=== PATIENT | female | born 1995 | race American Indian/Alaskan Native ===

== ENCOUNTER 2022-08-10 13:10 | Outpatient (OUT) | payer BC, SELFPAY ==
--- NOTE | 2022-08-10 13:12 | US_ITS ---
The [address] [address] Patient Name: LOUISE BROTHERS MRN: [id number] date: 1995 Sex: F Assigned Patient Location: US Current Patient Location: US Accession/Order Number: [id number] Exam Date: 08/10/2022 13:30 Report Date: 08/10/2022 15:38 At the request of: TIM JOYNER Procedure: US OB transvaginal EXAMINATION: US OB transvaginal HISTORY: Positive preg test COMPARISON: No relevant comparison available. FINDINGS: GESTATIONAL SAC: Present and normal appearing. YOLK SAC: Present and normal appearing. POLE: Present and normal appearing. CARDIAC: Present. UTERUS: Normal size and appearance. OVARIES: Right: Normal. Left: Not seen. CERVIX: 5.6 cm in length and closed. CUL-DE-SAC: Normal. OTHER: 2.8 x 2.5 x 1.9 cm cystic structure within right adnexa which appears to be separate from the right ovary and uterus. AGE BY LMP: 9 weeks 6 days JOSE BY LMP: 03/09/2023 AGE BY US CRL: 9 weeks 2 days JOSE BY US CRL: 03/13/2023 IMPRESSION: 1. Single live intrauterine . 2. Nonspecific right adnexal cyst, but favoring benign etiology such as a paraovarian cyst. Electronically authenticated by: FABIAN MOSER Date: 08/10/2022 15:38
== END 2022-08-10 13:11 ==
PROVIDERS: PCP Obstetrics & Gynecology; Visit Provider Obstetrics & Gynecology
DX: Z34.91 Encounter for supervision of normal pregnancy, unspecified, first trimester (principal); Z3A.09 9 weeks gestation of pregnancy
CPT/HCPCS: 76817

== ENCOUNTER 2022-09-02 09:43 | Outpatient (OUT) | payer BC, SELFPAY ==
[2022-09-02 10:20] LABS: Basophils Percent Auto 0.4 % (0.2-2.0); Eosinophils Absolute Auto 0.1 10^3/uL (0.0-0.7); Eosinophils Percent Auto 0.8 % (0.9-7.0); Hematocrit 38.9 % (36.0-48.0); Hemoglobin 13.1 g/dL (12.0-16.0); Immature Granulocytes Abs Auto 0.04 10^3/uL (0.00-0.03); Immature Granulocytes Pct Auto 0.5 % (0.0-0.5); Lymphocytes Absolute Auto 1.7 10^3/uL (1.2-3.8); Lymphocytes Percent Auto 21.8 % (20.5-60.0); Mean Corpuscular HGB Conc 33.7 g/dL (29.9-35.2); Mean Corpuscular Volume 89.2 fL (81.0-99.0); Mean Platelet Volume 10.3 fL (9.5-13.5); Monocytes Absolute Auto 0.4 10^3/uL (0.3-0.8); Monocytes Percent Auto 4.7 % (1.7-12.0); Neutrophils Absolute Auto 5.6 10^3/uL (1.4-6.5); Neutrophils Percent Auto 71.8 % (43.0-75.0); Platelet Count 206 10^3/uL (150-450); Red Blood Count 4.36 10^6/uL (4.20-5.40); Red Cell Distribution Width 12.5 % (11.0-15.0); White Blood Count 7.8 10^3/uL (4.0-11.0)
[2022-09-02 10:45] LABS: Estimated Average Glucose 88 mg/dL; Glycohemoglobin A1C 4.7 % (4.5-6.2)
[2022-09-02 11:04] LABS: Thyroid Stimulating Hormone 2.345 uIU/mL (0.358-3.740)
[2022-09-03 08:16] LABS: HBsAg Screen Negative (Negative); Rubella Antibodies, IgG 2.21 index (Immune >0.99)
[2022-09-03 09:07] LABS: HIV Ab/p24 Ag Screen Non Reactive (Non Reactive); Rapid Plasma Reagin, Quant Non Reactive (NonRea<1:1)
[2022-09-03 10:08] LABS: HCV Ab Non Reactive (Non Reactive)
== END 2022-09-02 09:44 | disposition home or self-care (01) ==
PROVIDERS: PCP Family Medicine; Visit Provider Obstetrics & Gynecology
DX: N92.6 Irregular menstruation, unspecified (principal)
CPT/HCPCS: 36415; 83036; 84443; 85025; 86592; 86762; 86803; 86850; 86900; 86901; 87340; 87389

== ENCOUNTER 2022-10-05 10:11 | Outpatient (OUT) | payer BC, SELFPAY ==
[2022-10-10 16:09] LABS: AFP Value 42.5 ng/mL (.); Gest. Age on Collection Date 17.9 weeks (.); Gestat. Age Based On Ultrasound (.); Insulin Dep Diabetes No (.); Maternal Age At EDD 27.8 yr (.); OSBR Risk 1 IN 6499 (.); Results Report (.)
[2022-10-11 10:09] LABS: Age Gdln ACOG Testing Note (.); IGP, rfx Aptima HPV ASCU Note (.)
== END 2022-10-05 10:12 | disposition home or self-care (01) ==
LOC: LAB 10:12
PROVIDERS: PCP Family Medicine; Visit Provider Obstetrics & Gynecology
DX: Z34.92 Encounter for supervision of normal pregnancy, unspecified, second trimester (principal)
CPT/HCPCS: 36415; 82105; G0145

== ENCOUNTER 2022-10-23 08:00 | Outpatient (OUT) | payer BC, SELFPAY ==
--- NOTE | 2022-10-23 | US_ITS ---
[address] [address] Patient Name: LOUISE BROTHERS MRN: [id number] date: 1995 Sex: F Assigned Patient Location: US Current Patient Location: US Accession/Order Number: [id number] Exam Date: 10/23/2022 08:03 Report Date: 10/23/2022 15:40 At the request of: TIM JOYNER Procedure: US OB transvaginal EXAMINATION: US OB anatomy, US OB transvaginal HISTORY: ANATOMY COMPARISON: No relevant comparison available. TECHNIQUE: Transabdominal sonographic examination was performed for obstetrical and evaluation. FINDINGS: Number: 1 Heart Rate: 142.0 bpm H.B. /min Amniotic Fluid Volume: Subjectively normal Placental Location: ANTERIOR with lower margin 6.3 cm from os. Cervix Length: 5.1 cm; closed. ANATOMY: Normal Structures -cerebellum, choroid plexus, cisterna magna, lateral cerebral ventricles, orbits, midline falx, hard palate, four-chamber heart, RVOT, LVOT, stomach, kidneys, bladder, umbilical cord insertion into abdomen, three-vessel cord, cervical spine, thoracic spine, lumbar spine, sacral spine, right upper extremity, left upper extremity, right lower extremity, left lower extremity. SUBOPTIMALLY SEEN: None ABNORMALITIES: None BIOMETRY: BPD: 4.6 cm 19 weeks 5 days HC: 17.3 cm 19 weeks 6 days AC: 15.2 cm 20 weeks 3 days FL: 3.5 cm 21 weeks 1 days EFW:368.6 grams; 58% FL/AC: 23.2 FL/BPD: 77.6 HC/AC: 1.1 GESTATIONAL AGE: Age by EDC: 20 weeks 3 days JOSE by EDC: 03/09/2023 Age by current US: 20 weeks 2 days JOSE by current US: 03/10/2023 US/US OB transvaginal IMPRESSION: 1. Single live intrauterine with growth detailed above. Electronically authenticated by: FABIAN MOSER Date: 10/23/2022 15:40
--- NOTE | 2022-10-23 | US_ITS ---
[address] [address] Patient Name: LOUISE BROTHERS MRN: [id number] date: 1995 Sex: F Assigned Patient Location: US Current Patient Location: US Accession/Order Number: [id number] Exam Date: 10/23/2022 08:03 Report Date: 10/23/2022 15:40 At the request of: TIM JONYER Procedure: US OB anatomy EXAMINATION: US OB anatomy, US OB transvaginal HISTORY: ANATOMY COMPARISON: No relevant comparison available. TECHNIQUE: Transabdominal sonographic examination was performed for obstetrical and evaluation. FINDINGS: Number: 1 Heart Rate: 142.0 bpm H.B. /min Amniotic Fluid Volume: Subjectively normal Placental Location: ANTERIOR with lower margin 6.3 cm from os. Cervix Length: 5.1 cm; closed. ANATOMY: Normal Structures -cerebellum, choroid plexus, cisterna magna, lateral cerebral ventricles, orbits, midline falx, hard palate, four-chamber heart, RVOT, LVOT, stomach, kidneys, bladder, umbilical cord insertion into abdomen, three-vessel cord, cervical spine, thoracic spine, lumbar spine, sacral spine, right upper extremity, left upper extremity, right lower extremity, left lower extremity. SUBOPTIMALLY SEEN: None ABNORMALITIES: None BIOMETRY: BPD: 4.6 cm 19 weeks 5 days HC: 17.3 cm 19 weeks 6 days AC: 15.2 cm 20 weeks 3 days FL: 3.5 cm 21 weeks 1 days EFW:368.6 grams; 58% FL/AC: 23.2 FL/BPD: 77.6 HC/AC: 1.1 GESTATIONAL AGE: Age by EDC: 20 weeks 3 days JOSE by EDC: 03/09/2023 Age by current US: 20 weeks 2 days JOSE by current US: 03/10/2023 US/US OB anatomy IMPRESSION: 1. Single live intrauterine with growth detailed above. Electronically authenticated by: FABIAN MOSER Date: 10/23/2022 15:40
== END 2022-10-23 08:01 | disposition home or self-care (01) ==
LOC: US 08:01
PROVIDERS: PCP Family Medicine; Visit Provider Obstetrics & Gynecology
DX: Z34.92 Encounter for supervision of normal pregnancy, unspecified, second trimester (principal)
CPT/HCPCS: 76805; 76817

== ENCOUNTER 2022-12-11 10:22 | Outpatient (OUT) | payer BC, SELFPAY ==
[2022-12-11 12:04] LABS: Basophils Percent Auto 0.5 % (0.2-2.0); Eosinophils Absolute Auto 0.1 10^3/uL (0.0-0.7); Eosinophils Percent Auto 1.4 % (0.9-7.0); Hematocrit 33.9 % (36.0-48.0); Hemoglobin 11.1 g/dL (12.0-16.0); Immature Granulocytes Abs Auto 0.04 10^3/uL (0.00-0.03); Immature Granulocytes Pct Auto 0.5 % (0.0-0.5); Lymphocytes Absolute Auto 1.7 10^3/uL (1.2-3.8); Lymphocytes Percent Auto 21.8 % (20.5-60.0); Mean Corpuscular HGB Conc 32.7 g/dL (29.9-35.2); Mean Corpuscular Hemoglobin 30.3 pg (26.7-34.0); Mean Corpuscular Volume 92.6 fL (81.0-99.0); Mean Platelet Volume 10.6 fL (9.5-13.5); Monocytes Absolute Auto 0.4 10^3/uL (0.3-0.8); Monocytes Percent Auto 4.5 % (1.7-12.0); Neutrophils Absolute Auto 5.6 10^3/uL (1.4-6.5); Neutrophils Percent Auto 71.3 % (43.0-75.0); Platelet Count 197 10^3/uL (150-450); Red Blood Count 3.66 10^6/uL (4.20-5.40); Red Cell Distribution Width 13.2 % (11.0-15.0); White Blood Count 7.9 10^3/uL (4.0-11.0)
[2022-12-11 12:23] LABS: Glucose 1 Hour 151 mg/dL
== END 2022-12-11 10:23 | disposition home or self-care (01) ==
LOC: LAB 10:22
PROVIDERS: PCP Family Medicine; Visit Provider Obstetrics & Gynecology
DX: Z34.92 Encounter for supervision of normal pregnancy, unspecified, second trimester (principal)
CPT/HCPCS: 36415; 82950; 85025

== ENCOUNTER 2022-12-16 08:20 | Outpatient (OUT) | payer BC, SELFPAY ==
[2022-12-16 08:46] LABS: Glucose Fasting 86 mg/dL (74-106)
[2022-12-16 10:03] LABS: Glucose 1 Hour 175 mg/dL
[2022-12-16 11:02] LABS: Glucose 2 Hour 177 mg/dL
[2022-12-16 12:03] LABS: Glucose 3 Hour 95 mg/dL
== END 2022-12-16 08:21 | disposition home or self-care (01) ==
LOC: LAB 08:20
PROVIDERS: PCP Family Medicine; Visit Provider Obstetrics & Gynecology
DX: R73.09 Other abnormal glucose (principal)
CPT/HCPCS: 36415; 82951; 82952

== ENCOUNTER 2023-01-23 09:58 | Outpatient (OUT) | payer BC, SELFPAY ==
--- NOTE | 2023-01-23 10:00 | US_ITS ---
[address] [address] Patient Name: LOUISE BROTHERS MRN: [id number] date: 1995 Sex: F Assigned Patient Location: US Current Patient Location: US Accession/Order Number: [id number] Exam Date: 01/23/2023 10:01 Report Date: 01/23/2023 15:40 At the request of: TIM JOYNER Procedure: US OB growth EXAMINATION: US OB growth HISTORY: SIZE INCONSISTENT WITH DATES COMPARISON: Ultrasound OB anatomy 10/23/2022 FINDINGS: Heart Rate: 158.0 bpm Number: 1.0 Position: cephalic Amniotic Fluid Volume: 11.7 cm Maximum Vertical Pocket: 3.8 cm BIOMETRY: BPD: 8.0 cm cm; 32 weeks 2 days; 12% HC: 31.3 cmcm; 35 weeks 0 days ; 52% AC: 29.0 cm cm; 33 weeks 0 days; 35% FL: 6.7 cm cm; 34 weeks 3 days; 63% EFW: 2219.8 grams; 41% FL/AC: 23.1 FL/BPD: 83.3 HC/AC: 1.1 GESTATIONAL AGE: Age by EDC: 33 weeks 4 days JOSE by EDC: 03/09/2023 Age by US: 33 weeks 5 days JOSE by US: 03/08/2023 US/US OB growth IMPRESSION: 1. Single live intrauterine with growth detailed above. Electronically authenticated by: FABIAN MOSER Date: 01/23/2023 15:40
== END 2023-01-23 09:59 | disposition home or self-care (01) ==
LOC: US 09:58
PROVIDERS: PCP Family Medicine; Visit Provider Obstetrics & Gynecology
DX: O26.843 Uterine size-date discrepancy, third trimester (principal); Z3A.33 33 weeks gestation of pregnancy
CPT/HCPCS: 76816

== ENCOUNTER 2023-02-06 17:28 | Outpatient (OUT) | payer BC, SELFPAY ==
--- NOTE | 2023-02-06 17:38 | US_ITS ---
[address] [address] Patient Name: LOUISE BROTHERS MRN: [id number] date: 1995 Sex: F [place] [facility] [place] Location: Accession/Order Number: [id number] Exam Date: 02/06/2023 17:42 Report Date: 02/07/2023 15:33 At the request of: TIM JOYNER Procedure: US OB BPP w non-stress EXAMINATION: US OB BPP w non-stress HISTORY: DECREASED MOVEMENTS IN THIRD TRIMESTER O38.8130 COMPARISON: Ultrasound OB growth 01/23/2023 TECHNIQUE: Ultrasound biophysical profile was performed in the radiology department. BREATHING MOVEMENTS: 2.0 GROSS BODY MOVEMENTS: 2.0 TONE: 2.0 QUALITATIVE AMNIOTIC FLUID VOLUME: 2.0 PRESENTATION: CEPHALIC HEART RATE: 156.1 bpm bpm. AMNIOTIC FLUID VOLUME: 16.9 cm GESTATIONAL AGE: 35 weeks 4 days CONCLUSION: Total biophysical profile score 8.0. Electronically authenticated by: FABIAN MOSER Date: 02/07/2023 15:33
[2023-02-06 18:30] VITALS: BP 124/82; RESP 16
== END 2023-02-06 18:35 | disposition home or self-care (01) ==
LOC: FBCO 17:30
PROVIDERS: PCP Family Medicine; Visit Provider Obstetrics & Gynecology
DX: O36.8130 Decreased fetal movements, third trimester, not applicable or unspecified (principal); Z3A.35 35 weeks gestation of pregnancy
CPT/HCPCS: 76818

== ENCOUNTER 2023-02-08 19:24 | Outpatient (REF) | payer BC, SELFPAY | END 2023-02-08 19:25 | disposition home or self-care (01) | LOC: LAB 19:24 | PROVIDERS: PCP Family Medicine; Visit Provider Obstetrics & Gynecology | DX: Z34.93 Encounter for supervision of normal pregnancy, unspecified, third trimester (principal) | CPT/HCPCS: 87081 ==

== ENCOUNTER 2023-03-01 22:57 | Inpatient (IN) | payer BC, SELFPAY ==
--- OUTSIDE RECORDS SUMMARY | 2023-03-01 23:01 | XMS_ITS | CCD ---
Author Name Unknown Address [address] [place] [address] Organization [facility] Care Team Providers Care Job Placement Counselor Name Role Phone CLARISSE KAUR Unavailable Unavailabl e VALONE, KIEL L Unavailable Unavailable CLARISSE KAUR Unavailable Unavailabl e VALONE, KIEL L Unavailable Unavailable KAUR CLARISSE HUFF Unavailable Unavailabl e VALONE, KIEL L Unavailable Unavailable CLARISSE KAUR Unavailable Unavailabl e VALONE, KIEL L Unavailable Unavailable JUAN MIGUEL JOSHUA Unavailable Unavail able VALONE, KIEL L Unavailable Unavailable PHYSICIAN, DEFAULT Unavailable Unavailable PHYSICIAN, DEFAULT Unavailable Unavailable YUNG, SHAN Unavailable Unavailable YUNG, SHAN Unavailable Unavailable UNKNOWN, PHYSICIAN Unavailable Unavailable UNKNOWN, PHYSICIAN Unavailable Unavailable YUNG, SHAN Unavailable Unavailable UNKNOWN, PHYSICIAN Unavailable Unavailable YUNG, SHAN Unavailable Unavailable YUNG, SHAN Unavailable Unavailable SELF, REFERRED Unavailable Unavailable YUNG, SHAN Unavailable Unavailable YUNG, SHAN Unavailable Unavailable YUNG, SHAN Unavailable Unavailable AR Unavailable Unavailable VALONE, KIEL Unavailable Unavailable AR Unavailable Unavailable RODOLFO BARILLAS Unavailable Unavailable UNKNOWN, PHYSICIAN Unavailable Unavailable YUNG, SHAN Unavailable Unavailable YUNG, SHAN Unavailable Unavailable UNKNOWN, PHYSICIAN Unavailable Unavailable UNKNOWN, PHYSICIAN Unavailable Unavailable YUNG, SHAN Unavailable Unavailable YUNG, SHAN Unavailable Unavailable YUNG, SHAN Unavailable Unavailable ANYA ., DR DUMONT Attending Unavailable ANYA ., DR DUMONT Admitting Unavailable MISC, DR MILAN Primary Care Unavailable ANYA Arturo, DR DUMONT Consulting Unavailable GEORGIA, DR BOONE Garcia Consulting UnavailMITZI Laureano Admitting Unavailable MITZI RUSSELL Attending Unavailable SILAS ., DR MCCARTHY Primary Care Unavailable DELFINA JUAREZ Consulting Unavailable ANYA ., DR DUMONT Attending Unavailable VALONE, DR HOLLOWAY Primary Care Unavailable ANYA ., DR DUMONT Admitting Unavailable ANYA ., DR DUMONT Consulting Unavailable ZIEBER, DR FABIAN Bravo Consulting Unavailable ANYA ., DR DUMONT Admitting Unavailable REQUEST, DR MARY LISTED Primary Care Unavaila vasu JOYNER ., DR DUMONT Consulting Unavailable ANYA ., DR DUMONT Attending Unavailable TIM JOYNER Attending Unavailable FOREST GEE Attending Unavailable FOREST GEE Attending Unavailable TIM JOYNER Attending Unavailable Allergies Allergy Classification Reported Allergen(s) Allergy Type Date of Onset Reaction(s) Facility (1 source) NKA; Translations: [NKA] Propensity to adverse reactions (disorder) [facility] Repository (1 source) No Known Allergies; Translations: [No Known Allergies] Propensity to adverse reactions (disorder) [facility] Problems Active Problems Problem Classification Problem Date Documented Date Episodic/Chronic Menstrual disorders (5 sources) Irregular menstruation, unspecified; Translations: [Irregular menstruation, unspecified] Onset: 01-06-2017 Chronic Other aftercare (1 source) Encounter for follow-up examination after completed treatment for conditions other than malignant neoplasm; Translations: [ENCNTR FOR F/U EXAM AFT TRTMT FOR COND OTH THAN MALIG NEOPLM] Onset: 07-31-2017 Episodic Other female genital disorders (3 sources) Abnormal uterine and vaginal bleeding, unspecified; Translations: [ABNORMAL UTERINE VAGINAL BLEED UNS] Onset: 01-01-2022 Chronic Other nervous system disorders (1 source) Other abnormalities of gait and mobility; Translations: [OTHER ABNORMALITIES OF GAIT AND MOBILITY] Onset: 07-17-2017 Episodic Other non-traumatic joint disorders (5 sources) Pain in left knee; Translations: [Stiffness of left knee, not elsewhere classified] Onset: 06-18-2017 Episodic Sprains and strains (4 sources) Sprain of anterior cruciate ligament of left knee, initial encounter; Translations: [SPRAIN OF ANTERIOR CRUCIATE LIGAMENT OF LEFT KNEE, INIT] Onset: 07-27-2017 Episodic Unclassified (2 sources) Unknown / UNK(Unknown) Onset: 06-18-2017 Unclassified (1 source) Other specified postprocedural states; Translations: [OTHER SPECIFIED POSTPROCEDURAL STATES] Onset: 07-17-2017 Past or Other Problems Problem Classification Problem Date Documented Date Episodic/Chronic Immunizations and screening for infectious disease (1 source) Contact with and (suspected) exposure to infections with a predominantly sexual mode of transmission; Translations: [CONTCT W EXPOS INFECT SEXUAL TRNSMS] Onset: 12-05-2021 Episodic Other complications of (1 source) Maternal care for other abnormalities of pelvic organs, first trimester; Translations: [MAT CARE OTH ABN PELV ORGAN 1ST TRI] Onset: 12-05-2021 Episodic Ovarian cyst (1 source) Unspecified ovarian cyst, right side; Translations: [UNSPECIFIED OVARIAN CYST RIGHT SIDE] Onset: 12-05-2021 Episodic Residual codes; unclassified (1 source) 9 weeks gestation of ; Translations: [9 WEEKS GESTATION OF ] Onset: 12-05-2021 Episodic Spontaneous (5 sources) Complete or unspecified spontaneous without complication; Translations: [Incomplete spontaneous without complication] Onset: 01-03-2022 Episodic Results Test Name Value Interpretation Reference Range Facility PREG QUANT HCGon 07-06-2022 HCG QUANT 481 mIU/mL Normal [facility] Comment on above: Performed By: #### P REGQNT #### [facility] [address] [place] [address] Dr. Samson Schumacher HCG RANGE SEE BELOW Normal [facility] Comment on above: Result Comment: 5-50 0.2-1 WEEK 50-500 1-2 WEEKS 100-5,000 2-3 WEEKS 500-10,000 3-4 WEEKS 1,000-50,000 4-5 WEEKS 10,000-100,000 5-6 WEEKS 15,000-200,000 6-8 WEEKS 10,000-100,000 2-3 MONTHS Performed By: #### P REGQNT #### [facility] [address] [place] [address] Dr. Samson Schumacher PREG QUANT HCGon 07-04-2022 HCG QUANT 185 mIU/mL Normal [facility] Comment on above: Performed By: #### P REGQNT #### [facility] [address] [place] [address] Dr. Samson Schumacher HCG RANGE SEE BELOW Normal [facility] Comment on above: Result Comment: 5-50 0.2-1 WEEK 50-500 1-2 WEEKS 100-5,000 2-3 WEEKS 500-10,000 3-4 WEEKS 1,000-50,000 4-5 WEEKS 10,000-100,000 5-6 WEEKS 15,000-200,000 6-8 WEEKS 10,000-100,000 2-3 MONTHS Performed By: #### P REGQNT #### [facility] [address] [place] [address] Dr. Samson Schumacher PREG QUANT HCGon 01-16-2022 HCG QUANT 4 mIU/mL Normal [facility] Comment on above: Performed By: #### P REGQNT #### [facility] [address] [place] [address] Dr. Samson Schumacher HCG RANGE SEE BELOW Normal [facility] Comment on above: Result Comment: 5-50 0.2-1 WEEK 50-500 1-2 WEEKS 100-5,000 2-3 WEEKS 500-10,000 3-4 WEEKS 1,000-50,000 4-5 WEEKS 10,000-100,000 5-6 WEEKS 15,000-200,000 6-8 WEEKS 10,000-100,000 2-3 MONTHS Performed By: #### P REGQNT #### [facility] [address] [place] [address] Dr. Samson Schumacher PREG QUANT HCGon 01-10-2022 HCG QUANT 15 mIU/mL Normal [facility] Comment on above: Performed By: #### P REGQNT #### [facility] [address] [place] [address] Dr. Samson Schumacher HCG RANGE SEE BELOW Normal [facility] Comment on above: Result Comment: 5-50 0.2-1 WEEK 50-500 1-2 WEEKS 100-5,000 2-3 WEEKS 500-10,000 3-4 WEEKS 1,000-50,000 4-5 WEEKS 10,000-100,000 5-6 WEEKS 15,000-200,000 6-8 WEEKS 10,000-100,000 2-3 MONTHS Performed By: #### P REGQNT #### [facility] [address] [place] [address] Dr. Samson Schumacher CBC AUTO DIFFon 01-01-2022 BASO # 0.0 103/ul Normal 0.0-0.1 [facility] Comment on above: Performed By: #### R UBIGG #### [facility] [address] [place] [address] Dr. Samson Schumacher Basophils/100 WBC (Bld) 0.3 % Normal 0.2-2.0 [facility] Comment on above: Performed By: #### R UBIGG #### [facility] [address] [place] [address] Dr. Samson Schumacher EO # 0.1 103/ul Normal 0.0-0.7 [facility] Comment on above: Performed By: #### R UBIGG #### [facility] [address] [place] [address] Dr. Samson Schumacher Eosinophils/100 WBC (Bld) 0.6 % Critically low 0.9-7.0 [facility] Comment on above: Performed By: #### R UBIGG #### [facility] [address] [place] [address] Dr. Samson Schumacher Erythrocyte distribution width (RBC) [Ratio] 12.0 % Normal 11.0-15.0 [facility] Comment on above: Performed By: #### R UBIGG #### [facility] [address] [place] [address] Dr. Samson Schumacher Hematocrit (Bld) [Volume fraction] 37.2 % Normal 36.0-48.0 [facility] Comment on above: Performed By: #### R UBIGG #### [facility] [address] [place] [address] Dr. Samson Schumacher Hemoglobin (Bld) [Mass/Vol] 12.4 g/dL Normal 12.0-16.0 [facility] Comment on above: Performed By: #### R UBIGG #### [facility] [address] [place] [address] Dr. Samson Schumacher IG # 0.04 10e3/ul Critically high 0.00-0.03 [facility] Comment on above: Performed By: #### R UBIGG #### [facility] [address] [place] [address] Dr. Samson Schumacher IG % 0.3 % Normal 0.0-0.5 [facility] Comment on above: Performed By: #### R UBIGG #### [facility] [address] [address] [address] Samson Schumacher LYMPH # 1.9 103/ul Normal 1.2-3.8 [facility] Comment on above: Performed By: #### R UBIGG #### [facility] [address] [address] [address] Samson Schumacher Lymphocytes/100 WBC (Bld) 14.1 % Critically low 20.5-60.0 [facility] Comment on above: Performed By: #### R UBIGG #### [facility] [address] [address] [address] Samson Schumacher MANUAL DIFF REQ NO Normal [facility] Comment on above: Performed By: #### R UBIGG #### [facility] [address] [place] [address] Dr. Samson Schumacher MCH (RBC) [Entitic mass] 30.5 pg Normal 26.7-34.0 [facility] Comment on above: Performed By: #### R UBIGG #### [facility] [address] [place] [address] Dr. Samson Schumacher MCHC (RBC) [Mass/Vol] 33.3 g/dL Normal 29.9-35.2 [facility] Comment on above: Performed By: #### R UBIGG #### [facility] [address] [place] [address] Dr. Samson Schumacher MCV (RBC) [Entitic vol] 91.4 fL Normal 81.0-99.0 [facility] Comment on above: Performed By: #### R UBIGG #### [facility] [address] [address] [address] Samson Schumacher MONO # 0.5 103/ul Normal 0.3-0.8 [facility] Comment on above: Performed By: #### R UBIGG #### [facility] [address] [place] [address] Dr. Samson Schumacher Monocytes/100 WBC (Bld) 4.0 % Normal 1.7-12.0 [facility] Comment on above: Performed By: #### R UBIGG #### [facility] [address] [address] [address] Samson Schumacher NEUT # 10.7 103/ul Critically high 1.4-6.5 [facility] Comment on above: Performed By: #### R UBIGG #### [facility] [address] [address] [address] Samson Schumacher Neutrophils/100 WBC (Bld) 80.7 % Critically high 43.0-75.0 [facility] Comment on above: Performed By: #### R UBIGG #### [facility] [address] [address] [address] Samson Schumacher Platelet mean volume (Bld) [Entitic vol] 10.2 fL Normal 9.5-13.5 [facility] Comment on above: Performed By: #### R UBIGG #### [facility] [address] [address] [address] Samson Schumacher PLT 225 103/ul Normal 150-450 [facility] Comment on above: Performed By: #### R UBIGG #### [facility] [address] [address] [address] Samson Schumacher RBC 4.07 106/ul Critically low 4.20-5.40 [facility] Comment on above: Performed By: #### R UBIGG #### [facility] [address] [address] [address] Samson Schumacher WBC 13.3 103/ul Critically high 4.0-11.0 [facility] Comment on above: Performed By: #### R UBIGG #### [facility] [address] [address] [address] Samson Schumacher PROF CHEM 8 (BAS METB)on Anion gap [Moles/Vol] 13.1 mmol/L Normal [facility] Comment on above: Performed By: #### B MP #### [facility] [address] [address] [address] Samson Schumacher Calcium [Mass/Vol] 8.5 mg/dL Normal 8.5-10.1 [facility] Comment on above: Performed By: #### B MP #### [facility] [address] [address] [address] Samson Schumacher Chloride [Moles/Vol] 104 mmol/L Normal 98-107 [facility] Comment on above: Performed By: #### B MP #### [facility] [address] [address] [address] Samson Schumacher CO2 [Moles/Vol] 24.4 mmol/L Normal 21.0-32.0 [facility] Comment on above: Performed By: #### B MP #### [facility] [address] [address] [address] Samson Schumacher Creatinine [Mass/Vol] 0.83 mg/dL Normal 0.55-1.02 [facility] Comment on above: Performed By: #### B MP #### [facility] [address] [address] [address] Samson Schumacher EGFR-AF ESTONIAN >60 Normal >=60 [facility] Comment on above: Performed By: #### B MP #### [facility] [address] [address] [address] Samson Schumacher EGFR-NON AF ESTONIAN >60 Normal >=60 [facility] Comment on above: Performed By: #### B MP #### [facility] [address] [address] [address] Samson Schumacher Glucose [Mass/Vol] 113 mg/dL Critically high 74-106 [facility] Comment on above: Performed By: #### B MP #### [facility] [address] [address] [address] Samson Schumacher Potassium [Moles/Vol] 3.5 mmol/L Normal 3.5-5.1 [facility] Comment on above: Performed By: #### B MP #### [facility] [address] [address] [address] Samson Schumacher Sodium [Moles/Vol] 138 mmol/L Normal 136-145 [facility] Comment on above: Performed By: #### B MP #### [facility] [address] [address] [address] Samson Schumacher Urea nitrogen [Mass/Vol] 7.0 mg/dL Normal 7.0-18.0 [facility] Comment on above: Performed By: #### B MP #### [facility] [address] [address] [address] Samson Schumacher Urea nitrogen/Creatinine [Mass ratio] 8.4 mg/mg Normal [facility] Comment on above: Performed By: #### B MP #### [facility] [address] [address] [address] Samson Schumacher US PREG TVon 01-01-2022 US PREG TV EXAMINATION: US PREG TV HISTORY: Vaginal bleeding problem COMPARISON: 12/01/2021 FINDINGS: Previously identified intrauterine gestation is no longer visualized. The uterus is anteverted. The uterus is normal in size. The endometrium is heterogeneous and thickened measuring 2.4 cm without definite color flow The right ovary measures 3.1 x 2.7 x 1.6 cm. Area of anechoic echogenicity measuring 2.6 cm, simple cyst. The left ovary measures 2.6 x 2.5 x 1.7 cm Cervix: Closed, 3.9 cm IMPRESSION: Previously identified intrauterine gestation is no longer seen Thickened heterogeneous endometrium with no color flow to suggest retained products of conception Electronically authenticated by: DELFINA JUAREZ Date: 2022-01-01 08:49 Normal [facility] HEP B SURFACE ANTIGEN SCREEN on 12-02-2021 HBsAg Screen Negative Normal Negative [facility] Comment on above: Performed By: #### H BSANS #### [facility] [address] [place] [address] Dr. Samson Schumacher HEPATITIS C VIRUS AB W/ REFL EX QUANTon 12-02-2021 HCV AB <0.1 Normal 0.0-0.9 [facility] Comment on above: Performed By: #### H CVPCRR #### [facility] [address] [place] [address] Dr. Samson Schumacher Interpretation: Comment Normal [facility] Comment on above: Result Comment: Nega tive Not infected with HCV, unless recent infection is suspected or other evidence exists to indicate HCV infection. Performed By: #### H CVPCRR #### [facility] [address] [address] [address] Samson Schumacher HIV 1 AND 2 WITH REFLEXon HIV Screen 4th Generation wRfx Non-Reactive Normal Non Reactive [facility] Comment on above: Result Comment: HIV Negative HIV-1/HIV-2 antibodies and HIV-1 p24 antigen were NOT detected. There is no laboratory evidence of HIV infection. Performed By: #### H IV12 #### [facility] [address] [address] [address] Samson Schumacher RPR QUANTon 12-02-2021 Rapid Plasma Reagin, Quant Non-Reactive Normal NonRea<1:1 [facility] Comment on above: Result Comment: Plea se Note: This test does not meet current guidelines for screening and diagnosis of syphilis. This test is intended for following treatment response in patients being treated for syphilis infection. To screen for syphilis infection, a reflex cascade that includes both RPR and a treponema-specific assay should be utilized, such as Treponema pallidum (Syphilis) Screening [place] (763737) or Rapid Plasma Reagin (RPR) Test With Reflex to Quantitative RPR and Confirmatory Treponema pallidum Antibodies (187586). Performed By: #### R UBIGG #### [facility] [address] [place] [address] Dr. Samson Schumacher RUBELLA AB IGGon 12-02-2021 Rubella Antibodies, IgG 3.00 index Normal Immune >0.99 [facility] Comment on above: Result Comment: Non- immune <0.90 Equivocal 0.90 - 0.99 Immune >0.99 Performed By: #### R UBIGG #### [facility] [address] [address] [address] Samson Schumacher US PREG TVon 12-02-2021 US PREG TV EXAMINATION: US PREG TV HISTORY: Missed period COMPARISON: No relevant comparison available. FINDINGS: GESTATIONAL SAC: Present and normal appearing. POLE: Present and normal appearing. YOLK SAC: Present. CARDIAC: Present. UTERUS: Normal size and appearance. OVARIES: Right: Complex 2.3 cm cyst versus corpus lutein cyst and a 3.1 cm anechoic simple cyst. Left: Normal. CERVIX: 4.2 cm in length and closed. CUL-DE-SAC: Normal. OTHER: None. AGE BY LMP: 9 weeks 3 days JOSE BY LMP: 07/03/2022 AGE BY US CRL: 6 weeks 4 days JOSE BY US CRL: 07/23/2022 IMPRESSION: 1. Single live intrauterine . 2. Follow-up of right ovarian cysts is recommended. Electronically authenticated by: FABIAN MOSER Date: 2021-12-01 22:18 Normal [facility] CBC AUTO DIFFon 12-01-2021 BASO # 0.1 103/ul Normal 0.0-0.1 [facility] Comment on above: Performed By: #### R UBIGG #### [facility] [address] [place] [address] Dr. Samson Schumacher Basophils/100 WBC (Bld) 0.5 % Normal 0.2-2.0 [facility] Comment on above: Performed By: #### R UBIGG #### [facility] [address] [place] [address] Dr. Samson Schumacher EO # 0.1 103/ul Normal 0.0-0.7 [facility] Comment on above: Performed By: #### R UBIGG #### [facility] [address] [place] [address] Dr. Samson Schumacher Eosinophils/100 WBC (Bld) 0.6 % Critically low 0.9-7.0 [facility] Comment on above: Performed By: #### R UBIGG #### [facility] [address] [place] [address] Dr. Samson Schumacher Erythrocyte distribution width (RBC) [Ratio] 11.8 % Normal 11.0-15.0 [facility] Comment on above: Performed By: #### R UBIGG #### [facility] [address] [place] [address] Dr. Samson Schumacher Hematocrit (Bld) [Volume fraction] 41.6 % Normal 36.0-48.0 [facility] Comment on above: Performed By: #### R UBIGG #### [facility] [address] [address] [address] Samson Schumacher Hemoglobin (Bld) [Mass/Vol] 13.9 g/dL Normal 12.0-16.0 [facility] Comment on above: Performed By: #### R UBIGG #### [facility] [address] [address] [address] Samson Schumacher IG # 0.03 10e3/ul Normal 0.00-0.03 [facility] Comment on above: Performed By: #### R UBIGG #### [facility] [address] [place] [address] Dr. Samson Schumacher IG % 0.3 % Normal 0.0-0.5 [facility] Comment on above: Performed By: #### R UBIGG #### [facility] [address] [place] [address] Dr. Samson Schumacher LYMPH # 2.1 103/ul Normal 1.2-3.8 [facility] Comment on above: Performed By: #### R UBIGG #### [facility] [address] [place] [address] Dr. Samson Schumacher Lymphocytes/100 WBC (Bld) 21.8 % Normal 20.5-60.0 [facility] Comment on above: Performed By: #### R UBIGG #### [facility] [address] [place] [address] Dr. Samson Schumacher MANUAL DIFF REQ NO Normal [facility] Comment on above: Performed By: #### R UBIGG #### [facility] [address] [place] [address] Dr. Samson Schumacher MCH (RBC) [Entitic mass] 30.0 pg Normal 26.7-34.0 [facility] Comment on above: Performed By: #### R UBIGG #### [facility] [address] [place] [address] Dr. Samson Schumacher MCHC (RBC) [Mass/Vol] 33.4 g/dL Normal 29.9-35.2 [facility] Comment on above: Performed By: #### R UBIGG #### [facility] [address] [address] [address] Samson Schumacher MCV (RBC) [Entitic vol] 89.8 fL Normal 81.0-99.0 [facility] Comment on above: Performed By: #### R UBIGG #### [facility] [address] [place] [address] Dr. Samson Schumacher MONO # 0.6 103/ul Normal 0.3-0.8 [facility] Comment on above: Performed By: #### R UBIGG #### [facility] [address] [place] [address] Dr. Samson Schumacher Monocytes/100 WBC (Bld) 6.5 % Normal 1.7-12.0 [facility] Comment on above: Performed By: #### R UBIGG #### [facility] [address] [place] [address] Dr. Samson Schumacher NEUT # 6.6 103/ul Critically high 1.4-6.5 [facility] Comment on above: Performed By: #### R UBIGG #### [facility] [address] [place] [address] Dr. Samson Schumacher Neutrophils/100 WBC (Bld) 70.3 % Normal 43.0-75.0 [facility] Comment on above: Performed By: #### R UBIGG #### [facility] [address] [place] [address] Dr. Samson Schumacher Platelet mean volume (Bld) [Entitic vol] 9.8 fL Normal 9.5-13.5 [facility] Comment on above: Performed By: #### R UBIGG #### [facility] [address] [place] [address] Dr. Samson Schumacher PLT 229 103/ul Normal 150-450 [facility] Comment on above: Performed By: #### R UBIGG #### [facility] [address] [place] [address] Dr. Samson Schumacher RBC 4.63 106/ul Normal 4.20-5.40 [facility] Comment on above: Performed By: #### R UBIGG #### [facility] [address] [address] [address] Samson Schumacher WBC 9.4 103/ul Normal 4.0-11.0 [facility] Comment on above: Performed By: #### R UBIGG #### [facility] [address] [address] [address] Samson Schumacher CULTURE URINEon 12-01-2021 CULTURE URINE Culture Observations : MODERATE GROWTH OF MIXED GENITAL HUBER. NO POTENTIAL PATHOGENS SEEN. Normal [facility] Comment on above: Performed By: #### R UBIGG #### [facility] [address] [address] [address] Samson Schumacher GLYCOHEMOGLOBIN A1Con 2021 ADA RECOMMENDATION SEE BELOW Normal [facility] Comment on above: Result Comment: ADA RECOMMENDED LIMIT 4.0 - 6.0 ADA THERAPEUTIC TARGET < 7.0 ACTION SUGGESTED > 7.0 Performed By: #### A 1C #### [facility] [address] [place] [address] Dr. Samson Schumacher Glucose [Mass/Vol] 105 mg/dL Normal [facility] Comment on above: Performed By: #### A 1C #### [facility] [address] [address] [address] Samson Schumacher HbA1c (Bld) [Mass fraction] 5.3 % Normal 4.5-6.2 [facility] Comment on above: Performed By: #### A 1C #### [facility] [address] [place] [address] Dr. Samson Schumacher TYPE AND SCREENon 12-01-2021 TYPE AND SCREEN Negative Normal [facility] Comment on above: Performed By: #### R UBIGG #### [facility] [address] [place] [address] Dr. Samson Schumacher KNEE LEFT 1 OR 2 VWSon 07-31 KNEE LEFT 1 OR 2 VWS [facility] [address] [place] [address] P atient Name: NIDIA SMITH : 1995Sex: FAge: Race: WhiteMRN: [id number]. Location: 84Patient Status: Date: 07/31/2017 10:20:00 AMCompleted Date: 07/31/2017 10:34 AMRequesting Provider: SHAN YUNG Attending Provider: Report Copy To: Signs & Symptoms: M25.562 Pain in left knee X48Tdnyiwy: AthenaComments: , , , Ordering Provider - SHAN YUNG MD , Exam: KNEE LEFT 1 OR 2 VWSAccession #: [id number] ======KNEE LEFT 1 OR 2 VWS 07/31/2017 10:34 AM EDT SIGNS AND SYMPTOMS: M25.562 Pain in left knee I10 TECHNOLOGIST COMMENTS: surgery to left knee x 4 days ago ortho check lateral view out of brace per Dr. Yung QUESTION FOR THE RADIOLOGIST: , , , Ordering Provider - SHAN YUNG MD , PROTOCOL: AP(PA) and Lateral views were obtained. COMPARISON: June 18 FINDINGS: 3 views were obtained in a brace. There is mild lateral joint space widening. Anchoring staple is seen overlying the tibial tuberosity. Overall bony alignment is satisfactory. There is effusion and air present in the suprapatellar bursa consistent with recent surgery. IMPRESSION:No complication noted from ACL repair. Electronically signed by:Reta Salas. Transcribed by: [email or web address], User Resident: Electronically Signed by: RETA SALAS @ 07/31/2017 11:14 AM Normal [facility] Comment on above: Order Comment: , , = ========= , Ordering Provider - SHAN YUNG MD , Operative Reporton 8 Operative Report MR#: [id number] [facility] Pt. Name: Nidia Smith Room #: 0C Discharge 07/27/2017 Date: Birthdate: 1995 OPERATIVE REPORTDATE OF SURGERY: 07/27/2017SURGEON: Shan Yung M.D.MANAGEMENT PLANNER: Shan Rodarte M.D.PREOPERATIVE DIAGNOSIS: Left knee ACL tear.POSTOPERATIVE DIAGNOSIS: Left knee ACL tear.PROCEDURES: Left knee arthroscopy, ACL reconstruction with hamstringautograft.ANESTH ESIA: General with regional nerve block.FLUIDS: Per anesthesia record.ESTIMATED BLOOD LOSS: Minimal.IMPLANTS: Arthrex tightrope and 8 x 28 mm BioComposite interference screwin the tibia and an 8 x 20 mm bone staple.COMPLICATIONS: None.INDICATIONS: The patient is a 22-year-old female who complains of leftknee instability for 4 months after playing basketball when she twisted herknee. She felt a pop and pain at that time with swelling. She was onlyable to bear weight for the 1st 2 days. She eventually got back to work,but had multiple instability episodes since while playing sports and tryingto cut and trim. She presented to me without any significant treatment.Physical examination showed that she had full motion. She was stable tovarus and valgus stress. She had a positive Rodriguez and negative posteriordrawer. She was stable to posterior medial, posterolateral stressing. MRIwas obtained, which showed an evidence of complete rupture of the ACL.Given the patient's age and activity level, we offered surgicalintervention for left knee arthroscopy with ACL reconstruction, hamstringautograft, possible allograft augmentation and all other indicatedprocedures. The graft options were discussed with the patient and sheelected with hamstring autograft. The risks, benefits, and alternatives tosurgery including the risks of bleeding, infection, damage to nerve, bloodvessels, anesthesia, blood clots, failure of repair, reconstruction,re-tear, stiffness, arthritis, pain, dysfunction, and need for furthersurgery were discussed. Postoperative course was discussed. All questionswere answered. The patient elected to proceed. Informed consent wasobtained in clinic.PROCEDURE IN DETAIL: The patient was identified in the preoperative area.The operative site was marked by myself. She was taken by Anesthesia forregional nerve block, then to the operative theater, placed in supineposition. General anesthesia was induced without complication.Preoperative antibiotics were administered. EPC cuff was placed on thecontralateral leg along with DEONDRE hose. The left lower extremitypreoperative examination showed full range of motion, stable varus valgusstress, positive Rodriguez, negative posterior drawer, and positive pivotshift. She has stable at posterior medial and posterolateral stressing.The left lower extremity was prepped and draped in usual sterile fashion.Proper time-out was done.Began exsanguination of the left lower extremity with an Esmarch andtourniquet was inflated to 300 mmHg. We began with a longitudinal incisionoverlying the pes tendons. Bovie cautery was used for hemostasis. Wedissected down through the subcutaneous fat and then bluntly with fingeroverlying the sartorial fascia. Hemostat was utilized to elevate thesartorial fascia off the MCL. We then sharply incised the sartorial fascialeaving a cuff for later repair. The gracilis and semitendinosus tendonswere identified and utilizing a hemostat, they were bluntly elevated fromthe overlying sartorial fascia and individually grasped. A fiber loopsuture was utilized to whipstitch the ends of these tendons. We thenincised the adhesions to the gastroc and both tendons were harvested with atendon stripper, taken to back table and prepared on the back table. Theywere sized to 8.5 mm in diameter and the Arthrex tightrope was placed andthe graft was held in tension until implanted.We then made an anterior lateral portal incision and camera was introducedin the patellofemoral compartment. No significant chondromalacia of thepatellar or trochlear was seen. No loose bodies were seen either. Weentered the lateral medial gutters and no loose bodies were seen here. Themedial compartment was then entered under spinal needle guidance. Anteriormedial portal incision was made and a probe was introduced. The meniscuswas probed and deemed stable. No tears were seen. There was no evidenceof medial compartment chondral injury. The notch was then entered. TheACL was ruptured, scarred to the PCL. The PCL was intact. Lateralcompartment was entered and there was no evidence of any lateral meniscustear or damage to the cartilage in the lateral compartment. At this point,we turned our attention to the notch and a combination of shaver andradiofrequency ablator was utilized to debride the needed ACL leaving asmall amount of footprint on the femur and tibia for localization of ourtunnels. A small notchplasty was undertaken in order to accommodate thegraft, given the patient's small notch size. At this point, a tibial guidewas placed through the medial portal and cannula was advanced onto theanterior tibial cortex utilizing a previous incision and a guide pin wasdrilled in retrograde fashion into the footprint of the ACL on the tibiaand then a size 4 mm reamer followed by a 8.5 mm reamer was utilized tocreate a full-thickness tunnel and excess soft tissue was excised. We thenturned our attention to the femur and utilizing a femoral guide placed atthe footprint. An incision was made in the lateral distal thigh throughthe IT band and a cannula was advanced through this onto the cortex of thelateral distal femur and a guide pin was drilled followed by a size 8.5 mmflip cutter and a 25 mm socket was then reamed in retrograde fashion. Theexcess bone debris was then removed with a shaver. Passing suture wasadvanced through the femoral socket and out the tibial tunnel. We thenadvanced our graft in a retrograde fashion using the passing suture and thebone was visualized flipped on the lateral distal femur with arthroscope.We then tensioned the graft into the femoral socket and once this wascomplete, held tension on the tibial aspect of the graft and cycled theknee 20 times to remove any creep. Then with the knee in full extensionand a posterior drawer force, an Arthrex 8 x 28 mm BioCompositeinterference screw was placed with excellent fixation. We backed this upwith an 8 x 20 mm bone staple a centimeter distal to the aperture. Theexcess graft was cut. The knee was stable with Rodriguez exam followingthis. There was no evidence of any impingement in full extension. Weirrigated the knee with gentamicin and infused irrigation of arthroscopicfluid. The sartorial fascia was reapproximated with 0 Vicryl. The skinwas closed with 2-0 Vicryl followed by Biosyn subcuticular suture. Theportal incisions were closed with Biosyn suture. The lateral thighincision was closed with 2-0 Vicryl and the skin was closed with 2-0 Vicryland Biosyn suture. A sterile dressing was placed followed by Polar Careand a hinged knee brace locked in extension. The tourniquet was let downin less than 2 hours. The patient was extubated without complication andtaken to PACU in stable condition. All needle and sponge counts correctx2. I was present, scrubbed, and participated in all portions of procedureand available to assist afterwards.POSTOPERATIVE COURSE: The patient will be discharged home withweightbearing of left lower extremity. She will be given [place] for paincontrol, Colace, and aspirin for DVT prophylaxis. I will see her back inclinic in 4-5 days for initiation of physical therapy with accelerated ACLprotocol.Electronicall y Signed by:Shan Yung M.D. 07/30/2017 11:36 A Shan Yung M.D.Date Dict: 07/27/2017/09:27 A/Shan Yung M.D.Date Trans: 07/27/2017 07:56 P/mmoDN_JN:[id number] cc: Kiel Kelly D.O. [address] [place] [id number] Normal [facility] POC GLUCOSE LABon 07-27-2017 Glucose mass conc 81 mg/dL Normal 70-100 [facility] Comment on above: Performed By: #### 8 5499 ####[facility] [place] [address], [facility] POC URINE PREGNANCYon 2017 HCG.beta subunit ( test) Ql (U) Negative Normal NEGATIVE [facility] Comment on above: Result Comment: Perf ormed in PACU Performed By: #### 8 8780 ####[facility] HCG, Quanton 07-17-2017 HCG, Quant <1 Normal <5 [facility] Comment on above: Result Comment: Non- preg premeno <=5Postmeno <=8Male <=3If HCG results do not concur with clinical observations, additional testing to confirm result is recommended. This test is not labeled for use as a tumor marker.Performed at [address] [place], [place] [id number] ([phone] Performed By: #### G LUF ####[address] [place] [address] #### FSH, LH, PROL, TEST ####[facility] [address] [place] [address] #### INSU ####[address] [place] [phone] [place] [address] KNEE LEFT 4VWSon 06-18-2017 KNEE LEFT 4VWS [facility] [address] [place] [address] P atient Name: NIDIA SMITH : 1995Sex: FAge: Race: WhiteMRN: [id number]. Location: 84Patient Status: OVisit #: [id number] Date: 06/18/2017 1:05:00 PMCompleted Date: 06/18/2017 01:09 PMRequesting Provider: SHAN YUNG Attending Provider: SHAN YUNG Report Copy To: UNKNOWN, PHYSICIAN Signs & Symptoms: M25.562 Pain in left knee [id number]: AthenaComments: , , , Ordering Provider - SHAN YUNG MD , Exam: KNEE LEFT 4VWSAccession #: [id number] ======KNEE LEFT 4VWS 06/18/2017 1:09 PM EDT SIGNS AND SYMPTOMS: M25.562 Pain in left knee I10 TECHNOLOGIST COMMENTS: pt states started having lt knee pain while playing basketball, QUESTION FOR THE RADIOLOGIST: , , , Ordering Provider - SHAN YUNG MD , PROTOCOL: AP,Lateral,Tunnel and Tangential views were obtained. COMPARISON: None FINDINGS: Soft tissues:Fullness in the suprapatellar bursa suggesting moderate effusion. No significant soft tissue swelling. Bones:Normal bone density. No evidence of acute bony abnormality. Joints:Normal joint spaces. No evidence of erosive or productive changes. IMPRESSION: 1. No evidence of acute bony abnormality with moderate suprapatellar effusion seen. Electronically signed by:Mona Mckeon. Transcribed by: [email or web address], User Resident: Electronically Signed by: MONA MCKEON @ 06/18/2017 02:23 PM Normal [facility] Comment on above: Order Comment: , , = ========= , Ordering Provider - SHAN YUNG MD , Progesteroneon 05-16-2017 Progesterone 10.40 ng/mL Normal [facility] Comment on above: Result Comment: FEMA LE (healthy): Follicular phase 0.06-0.89 Ovulation phase 0.12-12.00 Luteal phase 1.83-23.90Postmenopausal <0.13Performed at [id number] [phone] Performed By: #### G LU ####[address] , [place] [id number] #### FSH, LH, PROL, TEST ####[address] [address] #### INSU ####[address] [place] [address] Progress Noteon 05-16-2017 HIM IP Note OR [employer] Normal [facility] Progress Noteon 04-13-2017 HIM IP Note OR [employer] Normal [facility] HCG Screen, Bloodon 04-12-19 18 HCG Qn Negative Normal NEG [facility] Comment on above: Result Comment: Perf ormed at [address] [place], [place] [id number] [phone] Performed By: #### H CG ####[address] , [place] [address]83 Progesteroneon 02-14-2017 Progesterone <0.05 Normal [facility] Comment on above: Result Comment: FEMA LE (healthy): Follicular phase 0.06-0.89 Ovulation phase 0.12-12.00 Luteal phase 1.83-23.90Postmenopausal <0.13Performed at [address] [address] Performed By: #### P JAMES ####[address] [address] Follicle Stim. Hormon 2016 Follicle Stim. Horm 5.8 U/L Normal 1.7-21.5 [facility] Comment on above: Result Comment: Refe rence Range:Male: 1.5-12.4Ovulating Female: Follicular Phase 3.5-12.5 Ovulation Phase 4.7-21.5 Luteal Phase 1.7-7.7Postmenopausal Female: 25.8-134.8Performed at [address] [address] Performed By: #### G LUF ####[address] [place] [address] #### FSH, LH, PROL, TEST ####[address] [address] #### INSU ####[address] [phone] [place] [address] Glucose, Fastingon 7 Glucose mass conc 91 mg/dL Normal 70-99 [facility] Comment on above: Result Comment: Perf ormed at [address] [place] [address] Performed By: #### G LUF ####[address] [place] [address] #### FSH, LH, PROL, TEST ####[address] [address] #### INSU ####[address] [phone] [place] [address] Insulinon 01-06-2017 Insulin 22.8 mU/L Normal [facility] Comment on above: Performed By: #### G LUF ####[address] [place] [address] #### FSH, LH, PROL, TEST ####[address] [address] #### INSU ####[address] [phone] [place] [address] Reference Range Normal [facility] Comment on above: Result Comment: Fast in.6-24.930 min: 20-23405 min: 29-8890 min: 26-28472 min: 22-79Performed at [address] [address] Performed By: #### G LUF ####[address] [place] [address] #### FSH, LH, PROL, TEST ####[address] [address] #### INSU ####[address] [phone] [place] [address] Collection Info. A.M. Normal [facility] Comment on above: Result Comment: Perf ormed at [address] [place] [address] Performed By: #### G LUF ####[address] [place] [address] #### FSH, LH, PROL, TEST ####[address] [address] #### INSU ####[address] [phone] [place] [address] Luteinizing Hormoneon 2016 Luteinizing Hormone 8.0 U/L Normal 1.0-95.6 [facility] Comment on above: Result Comment: Refe rence Range:Male: 1.7-8.6Ovulating Female: Follicular Phase 2.4-12.6 Ovulation Phase 14.0-95.6 Luteal Phase 1.0-11.4Postmenopausal Female: 7.7-58.5Performed at [address] [address] Performed By: #### G LUF ####[address] [place] [address] #### FSH, LH, PROL, TEST ####[address] [address] #### INSU ####[address] [phone] [place] [address] Prolactinon 01-06-2017 Prolactin 11.98 ug/L Normal 4.79-23.30 [facility] Comment on above: Result Comment: The presence of macroprolactin may cause interference in female patients with various endocrinological diseases or during .Performed at [address] [address] Performed By: #### G LUF ####[address] [place] [address] #### FSH, LH, PROL, TEST ####[address] [address] #### INSU ####[address] [phone] [place] [address] Testosterone, Totalon 2016 Testosterone 26 ng/dL Normal 20-70 [facility] Comment on above: Result Comment: Perf ormed at [address] [address] Performed By: #### G LUF ####[address] [place] [address] #### FSH, LH, PROL, TEST ####[address] [address] #### INSU ####[address] [phone] , [place] 48[address] Thyroid Stim. Horm.on 2016 Thyroid stimulating hormone (TSH) 1.68 m[IU]/L Normal 0.30-5.00 [facility] Comment on above: Result Comment: Perf ormed at [address] [place] [phone] Performed By: #### T SH ####[address] [place] [address] Encounters Encounter Date Encounter Type Care Provider Facility Start: 02-20-2023 End: 02-20-2023 ambulatory FOREST GEE Not Available Start: 02-13-2023 End: 02-13-2023 ambulatory FOREST GEE Not Available Start: 02-08-2023 End: 02-08-2023 ambulatory TIM JOYNER Not Available Start: 01-23-2023 End: 01-23-2023 ambulatory TIM JOYNER Not Available Start: 07-04-2022 End: 07-10-[address] TIM JOYNER . Facility: Start: 01-10-2022 End: 02-08-[address] TIM JOYNER . Facility: Start: 01-01-2022 End: 01-01-[address] BOONE HO Facility: Start: 12-01-2021 End: 12-02-[address] TIM JOYNER . Facility: Start: 08-10-2017 End: 09-09-2017 Ambulatory PHYSICIAN UNKNOWN Facility:[facility] Start: 07-31-2017 End: 08-01-2017 Ambulatory PHYSICIAN UNKNOWN Facility:[facility] Start: 07-27-2017 End: 07-28-2017 Ambulatory REFERRED SELF Facility:[facility] Start: 07-17-2017 End: 07-18-2017 [facility]ulatory [facility] Start: 07-17-2017 End: 08-10-2017 Ambulatory SHAN YUNG Facility:[facility] Start: 06-18-2017 End: 06-19-2017 Ambulatory SHAN YUNG Facility:[facility] Start: 06-12-2017 End: 06-13-2017 Ambulatory DEFAULT PHYSICIAN Facility:[facility] Start: 05-15-2017 End: 05-16-2017 Ambulatory [facility] Start: 04-12-2017 End: 04-13-2017 Ambulatory [facility] Start: 02-14-2017 End: 02-15-2017 Ambulatory [facility] Start: 01-06-2017 End: 01-07-2017 Ambulatory [facility] Procedures Date Procedure Procedure Detail Performing Clinician Start: 07-27-2017 ANESTH KNEE JOINT SURGERY RODOLFO BARILLAS Start: 07-27-2017 KNEE ARTHROSCOPY/SURGERY SHAN YUNG Start: 07-17-2017 Gonadotropin chorion ic quantitative CLARISSE KAUR Start: 05-15-2017 PROGESTERONE CLARISSE ELYSSA H Start: 04-12-2017 HCG, SERUM, QUALITATIVE CLARISSE KAUR Start: 02-14-2017 PROGESTERONE CLARISSE ELYSSA H Start: 01-06-2017 TSH WITHOUT REFLEX PEDRO KAUR Start: 01-06-2017 FOLLICLE STIMULATING HORMONE CLARISSE KAUR Start: 01-06-2017 GLUCOSE, FASTING CLARISSE KAUR Start: 01-06-2017 INSULIN, TOTAL CLARISSE IFTIKHAR [facility] Start: 01-06-2017 LUTEINIZING HORMONE TYSON KAUR Start: 01-06-2017 PROLACTIN CLARISSE ELYSSA H Start: 01-06-2017 TESTOSTERONE CLARISSE ELYSSA H Payers Date Payer Category Payer Unknown [id number] 1995 Unknown [id number] 2.16.84 [id number] 1995 Unknown [id number] 2.16.84 [id number] 1995 Unknown [id number] 2.16.84 [id number] 1995 Unknown [id number] 2.16.84 [id number] 1995 Unknown [id number] [id number] .[id number] 1995 Unknown [id number] 2.16.840 .[id number] 1995 Unknown [id number] 2.16.840 .[id number] 1995 Unknown [id number] 2.16.840. [id number] 1959 Unknown [id number] Unknown Summary Purpose Family History No Family History Records FoundNo Family History Records FoundNo Family History Records FoundNo Family History Records Found Advance Directives No Advanced Directives Records FoundNo Advanced Directives Records FoundNo Advanced Directives Records FoundNo Advanced Directives Records Found Additional Source Comments INFORMATION SOURCE (unrecogn ized section and content) DATE CREATED AUTHOR 08/30/2017 [facility] DATE CREATED AUTHOR AUTHOR'S ORGANIZ ATION 09/14/2017 [facility] DATE CREATED AUTHOR AUTHOR'S ORGANIZ ATION 07/12/2022 [facility] DATE CREATED AUTHOR AUTHOR'S ORGANIZ ATION 02/22/2023 [facility] FOR RECORDS PERTAINING TO PATIENTS WHO ARE OR HAVE BEEN ENROLLED IN A CHEMICAL DEPENDENCY/SUBSTANCEABUSE PROGRAM, SOME INFORMATION MAY BE OMITTED. This clinical summary was aggregated from multiple sources. Caution should be exercised in using it in the provision of clinical care. This summary normalizes information from multiple sources, and as a consequence, information in this document may materially change the coding, format and clinical context of patient data. In addition, data may be omitted in some cases. CLINICAL DECISIONS SHOULD BE BASED ON THE PRIMARY CLINICAL RECORDS. [facility] [employer] [facility]. provides no warranty or guarantee of the accuracy or completeness of information in this document.
[2023-03-01 23:12] VITALS: TEMP 36.3
[2023-03-01] MEDS: 0.9 % SODIUM CHLORIDE 1,000 ML 125 ML IV (23:45)
[2023-03-01 23:51] LABS: Hematocrit 34.7 % (36.0-48.0); Hemoglobin 10.9 g/dL (12.0-16.0); Mean Corpuscular HGB Conc 31.4 g/dL (29.9-35.2); Mean Corpuscular Hemoglobin 27.9 pg (26.7-34.0); Mean Corpuscular Volume 88.7 fL (81.0-99.0); Mean Platelet Volume 10.9 fL (9.5-13.5); Platelet Count 218 10^3/uL (150-450); Red Blood Count 3.91 10^6/uL (4.20-5.40); Red Cell Distribution Width 13.7 % (11.0-15.0); White Blood Count 9.7 10^3/uL (4.0-11.0)
[2023-03-01 23:56] VITALS: TEMP 36.3
[2023-03-01 23:57] VITALS: BP 113/82; PULSE 73
[2023-03-02] VITALS (63 sets, daily range): BP systolic 106–150; BP diastolic 51–96; PULSE 58–110; RESP 14–20; TEMP 35.9–36.9
--- NOTE | 2023-03-02 01:10 | US_ITS ---
[address] [address] Patient Name: LOUISE BROTHERS MRN: [id number] date: 1995 Sex: F Assigned Patient Location: [facility] Current Patient Location: [facility] Accession/Order Number: [id number] Exam Date: 03/02/2023 01:30 Report Date: 03/02/2023 01:54 At the request of: TIM JOYNER Procedure: US OB limited EXAM: US OB limited HISTORY: verify presentation COMPARISON: None. TECHNIQUE: Transabdominal ultrasound of the gravid uterus was performed using Doppler. FINDINGS: Ultrasound images demonstrate a fetus in cephalic position. There is a heart rate of 160 bpm. US/US OB limited IMPRESSION: 1. Cephalic position. Electronically authenticated by: Jojo MIGUEL Date: 03/02/2023 01:54
[2023-03-02 01:34] LABS: Amphetamine Screen Urine NEGATIVE (NEGATIVE); Barbiturates Screen Urine NEGATIVE (NEGATIVE); Benzodiazepines Screen Urine NEGATIVE (NEGATIVE); Buprenorphine Screen Urine NEGATIVE (NEGATIVE); Cannabinoid Screen Urine NEGATIVE (NEGATIVE); Cocaine Screen Urine NEGATIVE (NEGATIVE); Methadone Screen Urine NEGATIVE (NEGATIVE); Methamphetamines Screen Urine NEGATIVE (NEGATIVE); Opiate Screen Urine NEGATIVE (NEGATIVE); Oxycodone Screen Urine NEGATIVE (NEGATIVE); Phencyclidine Screen Urine NEGATIVE (NEGATIVE); Tricyclic Antidepressant Urine NEGATIVE (NEGATIVE)
[2023-03-02] MEDS: OXYTOCIN/0.9 % SODIUM CHLORIDE 10 UNITS/500 ML PLAST..BAG 6 UNIT IV (02:30)
--- NOTE | 2023-03-02 07:39 | W.PC.ACHO ---
Registration Status: ADM IN Primary Language: Preferred Language: Welsh Active Medications Generic Name Dose Route Start Last Admin Trade Name Freq PRN Reason Stop Dose Admin Calcium Carbonate 500 mg 03/02/23 00:46 Calcium Carbonate 500 Mg (200mg Elemental) Tab Chew PO TID PRN acid reflux Carboprost Tromethamine 250 mcg 03/01/23 23:12 Carboprost Tromethamine 250 Mcg/Ml 1 Ml Vial IM 03/03/23 23:13 Q15M PRN Bleeding Diphenhydramine HCl 25 mg 03/02/23 03:03 Diphenhydramine Hcl 50 Mg/Ml (1ml) Vial IV 03/03/23 03:04 Q6H PRN Itching Ephedrine Sulfate 5 mg 03/02/23 03:03 Ephedrine Sulfate 50 Mg/Ml Vial IV 03/03/23 03:04 Q5M PRN Blood Pressure - Low Fentanyl Citrate 100 mcg 03/02/23 03:03 Fentanyl Citrate/Pf 100 Mcg/2 Ml Vial EPIDURAL ONCE PRN epidural Sodium Chloride 1,000 mls @ 125 mls/hr 03/01/23 23:15 03/01/23 23:45 Sodium Chloride 0.9% 1,000 Ml IV 125 mls/hr .Q8H LACIE Administration Oxytocin/Sodium Chloride 10 units in 500 mls @ 6 mls/hr 03/01/23 23:15 03/02/23 06:00 Pitocin 10 Unit/500 Ml-Ns IV 14 milliunit/min CONT LACIE 42 mls/hr Infusion Protocol 2 MILLIUNIT/MIN Ropivacaine/Sodium Chloride 400 mg in 200 mls @ 6 mls/hr 03/02/23 03:15 Naropin 0.2% 400 Mg/200 Ml Bag EPIDURAL Q24H LACIE Lidocaine 5 ml 03/01/23 23:12 Lidocaine Viscous 2% 15 Ml Solution TOPICAL ONCE PRN Pain Lidocaine 1 ml 03/01/23 23:12 Lidocaine Hcl 1% 200 Mg/20 Ml Mdv INJ ONCE PRN Pain Lidocaine 5 ml 03/02/23 03:03 Lidocaine Hcl 2% Pf 100 Mg/5 Ml Vial INJ 03/03/23 03:04 Q1H PRN epidural Methylergonovine Maleate 0.2 mg 03/01/23 23:12 Methylergonovine Maleate 0.2 Mg/Ml Ampule IM 03/03/23 23:13 ONCE PRN Uterine Contractility/Contract Methylergonovine Maleate 0.2 mg 03/01/23 23:12 Methylergonovine Maleate 0.2 Mg Tablet PO 03/03/23 23:13 Q4H PRN Uterine Contractility/Contract Misoprostol 600 mcg 03/01/23 23:12 Misoprostol 100 Mcg Tablet PO 03/03/23 23:13 ONCE PRN Uterine Bleeding Misoprostol 800 mcg 03/01/23 23:12 Misoprostol 100 Mcg Tablet SL 03/03/23 23:13 ONCE PRN Uterine Bleeding Misoprostol 1,000 mcg 03/01/23 23:12 Misoprostol 100 Mcg Tablet NM 03/03/23 23:13 ONCE PRN Uterine Bleeding Naloxone HCl 0.4 mg 03/02/23 03:03 Naloxone Hcl 0.4 Mg/Ml Vial IV 03/03/23 03:04 ONCE PRN respiratory distress Ondansetron HCl 4 mg 03/01/23 23:12 Ondansetron Pf 4 Mg/2 Ml Vial IV Q6H PRN Nausea And Vomiting Ondansetron HCl 4 mg 03/01/23 23:12 Ondansetron 4 Mg Rapdis Tablet SL Q6H PRN Nausea And Vomiting Oxytocin 10 unit 03/01/23 23:12 Oxytocin 10 Unit/Ml Vial IM 03/03/23 23:13 ONCE PRN bleeding Diet Category Date Time Status Regular Consistency Diet Diet 03/01/23 23:14 Active IV Insertion/Site Date of IV Line Insertion [ 03/01/23 Short PIV (<1.75 in) 20g right Hand] IV Insertion Time [Short PIV ( 23:20 <1.75 in) 20g right Hand] Neurology Patient orientation (short person,place,time,situation list)
[2023-03-02] MEDS: 0.9 % SODIUM CHLORIDE 1,000 ML 125 ML IV ×2 (07:43→09:34)
[2023-03-02] MEDS: FENTANYL CITRATE/PF 100 MCG/2 ML VIAL EPIDURAL (11:19)
[2023-03-02] MEDS: LIDOCAINE HCL 2% PF 100 MG/5 ML VIAL INJ (11:19)
[2023-03-02] MEDS: ROPIVACAINE HCL/PF 400 MG/200 ML PREMIX 6 MG EPIDURAL (11:20)
--- NOTE | 2023-03-02 11:22 | PC.NURSE ---
03/02/2023 112 RN made aware of high blood pressures throughout morning. Dr. Che gives no new orders at this time.
--- NOTE | 2023-03-02 12:09 | PC.NURSE ---
tello catheter placed and patent draining clear yellow urine. catheter taped against patient's leg for securement and catheter bag below the level of the bladder. patient comfortable and tolerated well. peanut ball placed between patient's legs at this time.
[2023-03-02] MEDS: OXYTOCIN/0.9 % SODIUM CHLORIDE 10 UNITS/500 ML PLAST..BAG 42 UNIT IV (13:46)
--- NOTE | 2023-03-02 17:24 | PM.OBPRCVD ---
Procedure Intrapartal events: None Induction method: per pitocin protocol Delivery augmentation: rupture of membranes and pitocin Delivery monitor: external FHT and external uterine Route of delivery: Episiotomy Description: none Laceration description: none Estimated blood loss (mL): 200 Anesthesia type: Epidural Disposition: floor Delivery date: 03/02/23 Gender: female presentation: vertex Placental delivery description: Spontaneous cord description: 3 Vessels
[2023-03-02] MEDS: IBUPROFEN 600 MG TABLET PO (19:33)
[2023-03-03 06:33] LABS: Basophils Percent Auto 0.4 % (0.2-2.0); Eosinophils Absolute Auto 0.1 10^3/uL (0.0-0.7); Hematocrit 29.4 % (36.0-48.0); Hemoglobin 9.2 g/dL (12.0-16.0); Immature Granulocytes Abs Auto 0.03 10^3/uL (0.00-0.03); Immature Granulocytes Pct Auto 0.3 % (0.0-0.5); Lymphocytes Absolute Auto 1.9 10^3/uL (1.2-3.8); Lymphocytes Percent Auto 21.1 % (20.5-60.0); Mean Corpuscular HGB Conc 31.3 g/dL (29.9-35.2); Mean Corpuscular Hemoglobin 28.1 pg (26.7-34.0); Mean Corpuscular Volume 89.9 fL (81.0-99.0); Mean Platelet Volume 10.6 fL (9.5-13.5); Monocytes Absolute Auto 0.7 10^3/uL (0.3-0.8); Neutrophils Absolute Auto 6.1 10^3/uL (1.4-6.5); Neutrophils Percent Auto 69.2 % (43.0-75.0); Platelet Count 139 10^3/uL (150-450); Red Blood Count 3.27 10^6/uL (4.20-5.40); Red Cell Distribution Width 13.8 % (11.0-15.0); White Blood Count 8.9 10^3/uL (4.0-11.0)
--- NOTE | 2023-03-03 07:13 | PC.NURSE ---
Report given to Negrita Boyd RN
[2023-03-03 08:50] VITALS: BP 132/71; PULSE 83; RESP 16; TEMP 36.7
[2023-03-03 08:56] VITALS: BP 132/71; PULSE 83
[2023-03-03] MEDS: DOCUSATE SODIUM 100 MG CAPSULE PO (08:58)
[2023-03-03] MEDS: IBUPROFEN 600 MG TABLET PO (11:05)
--- NOTE | 2023-03-03 11:44 | P.OBPN_ITS ---
OB - PN: Subj Subjective Patient comments: no complaints and pain well controlled [place] status: doing well Exam Constitutional Vital Signs, click to edit/add: Last Vital Signs Temp 98.1 F 03/03/23 08:50 Pulse 83 03/03/23 08:56 Resp 16 03/03/23 08:50 BP 132/71 03/03/23 08:56 O2 Del Method Room Air 03/03/23 08:50 Documenting provider has reviewed patient's vital signs: yes Common normals: no apparent distress Respiratory Common normals: normal respiratory effort and clear to auscultation bilaterally Cardio Common normals: regular rate and regular rhythm GI Common normals: Normal to inspection, nondistended, normoactive bowel sounds present Extremity Common normals: no calf tenderness Results Labs Labs: Short CBC 03/03/23 Range/Units 06:09 WBC 8.9 (4.0-11.0) 10^3/uL Hgb 9.2 L (12.0-16.0) g/dL Hct 29.4 L (36.0-48.0) % Plt Count 139 L (150-450) 10^3/uL OB - PN: A/P Plan - Vaginal Delivery day: 1 Plan: routine care, discharge home and follow up 6 weeks Time Spent with Patient Time: Total time spent is greater than 50% in coordination of care (as documented) at patient's floor/unit and/or counseling patient: Total time spent with greater than 50% in coordination of care (as documented) at patient's floor/unit and/or counseling patient: less than 15 minutes
[2023-03-03 15:45] VITALS: BP 99/51; PULSE 71; RESP 16; TEMP 36.8
[2023-03-03 15:50] VITALS: BP 99/51; PULSE 71
== END 2023-03-03 19:10 | disposition home or self-care (01) | DRG 807 ==
PROVIDERS: Admitting Provider Obstetrics & Gynecology; PCP Family Medicine; Visit Provider Obstetrics & Gynecology
DX: O80 Encounter for full-term uncomplicated delivery (principal); Z37.0 Single live birth; Z3A.39 39 weeks gestation of pregnancy
CPT/HCPCS: 36415; 59050; 59410; 76815; 80307; 85025; 85027; 86850; 86900; 86901; 96365; 96366; 96376

== ENCOUNTER 2023-10-07 01:46 | Emergency (ER) | payer BC, SELFPAY ==
[2023-10-07] VITALS (7 sets, daily range): BP systolic 86–116; BP diastolic 46–70; PULSE 94; TEMP 36.9; O2SAT 96; BMI 36.0
--- OUTSIDE RECORDS SUMMARY | 2023-10-07 01:55 | XMS_ITS | CCD ---
Author Organization [facility] Care Team Providers Care Interactive Account Manager Name Role Phone CLARISSE KAUR Unavailable Unavailabl e VALONE, KIEL L Unavailable Unavailable CLARISSE KAUR Unavailable Unavailabl e VALONE, KIEL L Unavailable Unavailable CLARISSE KAUR Unavailable Unavailabl e VALONE, KIEL L Unavailable Unavailable CLARISSE KAUR Unavailable Unavailabl e VALONE, KIEL L Unavailable Unavailable DORIS ALAS, JUAN MIGUEL F Unavailable Unavail able VALONE, KIEL L Unavailable [...] SHAN Unavailable Unavailable YUNG, SHAN Unavailable Unavailable [place] Unavailable Unavailable VALONE, KIEL Unavailable Unavailable [place] Unavailable Unavailable RODOLFO BARILLAS Unavailable Unavailable UNKNOWN, PHYSICIAN Unavailable Unavailable YUNG, SHAN Unavailable Unavailable YUNG, SHAN Unavailable Unavailable UNKNOWN, PHYSICIAN Unavailable Unavailable UNKNOWN, PHYSICIAN Unavailable Unavailable YUNG, SHAN Unavailable Unavailable YUNG, SHAN Unavailable Unavailable YUNG, SHAN Unavailable Unavailable ANYA ., DR DUMONT Attending Unavailable ANYA ., DR DUMONT Admitting Unavailable MISC, DR MILAN Primary Care Unavailable ANYA ., DR DUMONT Consulting Unavailable GEORGIA, DR BOONE Garcia Consulting Unavailranjeet RUSSELL, MITZI Admitting Unavailable MITZI RUSSELL Attending Unavailable SILAS ., DR MCCARTHY Primary Care Unavailable DELFINA JUAREZ Consulting Unavailable ANYA ., DR DUMONT Attending Unavailable VALONE, DR HOLLOWAY Primary Care Unavailable ANYA ., DR DUMONT Admitting Unavailable ANYA ., DR DUMONT Consulting Unavailable ZIEBER, DR FABIAN Bravo Consulting Unavailable ANYA ., DR DUMONT Admitting Unavailable REQUEST, DR MARY LISTED Primary Care Unavaila ble ANYA ., DR DUMONT Consulting Unavailable ANYA .DR DUMONT Attending Unavailable MARLEN, FOREST Attending Unavailable MARLEN, FOREST Attending Unavailable ANYA, TIM Attending Unavailable MARLEN, FOREST Attending Unavailable MARLEN, FOREST Attending Unavailable ANYA, TIM Attending Unavailable ANYATIM FARRIS Attending Unavailable Allergies Allergy Classification Reported Allergen(s) Allergy Type Date of Onset Reaction(s) Facility (1 source) NKA; Translations: [NKA] Propensity to adverse reactions (disorder) [facility] Repository (1 source) No Known Allergies; Translations: [No Known Allergies] Propensity to adverse reactions (disorder) [facility] Repository Problems Active Problems Problem Classification Problem [...] HCGon 07-06-2022 HCG QUANT 481 mIU/mL Normal [facility] Comment on above: Performed By: #### P REGQNT #### [facility] [address] [place] [address] Dr. Samson Schumacher HCG RANGE SEE BELOW Normal [facility] Comment on above: Result Comment: 5-50 0.2-1 WEEK 50-500 1-2 WEEKS 100-5,000 2-3 WEEKS 500-10,000 3-4 WEEKS 1,000-50,000 4-5 WEEKS 10,000-100,000 5-6 WEEKS 15,000-200,000 6-8 WEEKS 10,000-100,000 2-3 MONTHS Performed By: #### P REGQNT #### [facility] [address] [place] [address] Dr. Samson Schumacher PREG QUANT HCGon 07-04-2022 HCG QUANT 185 mIU/mL Normal [facility] Comment on above: Performed By: #### P REGQNT #### [facility] [address] [place] [address] Dr. Samson Schumacher HCG RANGE SEE BELOW Normal [facility] Comment on above: Result Comment: 5-50 0.2-1 WEEK 50-500 1-2 WEEKS 100-5,000 2-3 WEEKS 500-10,000 3-4 WEEKS 1,000-50,000 4-5 WEEKS 10,000-100,000 5-6 WEEKS 15,000-200,000 6-8 WEEKS 10,000-100,000 2-3 MONTHS Performed By: #### P REGQNT #### [facility] [address] [place] [address] Dr. Samson Schumacher PREG QUANT HCGon 01-16-2022 HCG QUANT 4 mIU/mL Normal [facility] Comment on above: Performed By: #### P REGQNT #### [facility] [address] [place] [address] Dr. Samson Schumacher HCG RANGE SEE BELOW Normal [facility] Comment on above: Result Comment: 5-50 0.2-1 WEEK 50-500 1-2 WEEKS 100-5,000 2-3 WEEKS 500-10,000 3-4 WEEKS 1,000-50,000 4-5 WEEKS 10,000-100,000 5-6 WEEKS 15,000-200,000 6-8 WEEKS 10,000-100,000 2-3 MONTHS Performed By: #### P REGQNT #### [facility] [address] [place] [address] Dr. Samson Schumacher PREG QUANT HCGon 01-10-2022 HCG QUANT 15 mIU/mL Normal [facility] Comment on above: Performed By: #### P REGQNT #### [facility] [address] [place] [address] Dr. Samson Schumacher HCG RANGE SEE BELOW Normal [facility] Comment on above: Result Comment: 5-50 0.2-1 WEEK 50-500 1-2 WEEKS 100-5,000 2-3 WEEKS 500-10,000 3-4 WEEKS 1,000-50,000 4-5 WEEKS 10,000-100,000 5-6 WEEKS 15,000-200,000 6-8 WEEKS 10,000-100,000 2-3 MONTHS Performed By: #### P REGQNT #### [facility] [address] [place] [address] Dr. Samson Schumacher CBC AUTO DIFFon 01-01-2022 BASO # 0.0 103/ul Normal 0.0-0.1 [facility] Comment on above: Performed By: #### R UBIGG #### [facility] [address] [place] [address] Dr. Samson Schumacher Basophils/100 WBC (Bld) 0.3 % Normal 0.2-2.0 [facility] Comment on above: Performed By: #### R UBIGG #### [facility] [address] [place] [address] Dr. Samson Schumacher EO # 0.1 103/ul Normal 0.0-0.7 [facility] Comment on above: Performed By: #### R UBIGG #### [facility] [address] [place] [address] Dr. Samson Schumacher Eosinophils/100 WBC (Bld) 0.6 % Critically low 0.9-7.0 [facility] Comment on above: Performed By: #### R UBIGG #### [facility] [address] [place] [address] Dr. Samson Schumacher Erythrocyte distribution width (RBC) [Ratio] 12.0 % Normal 11.0-15.0 [facility] Comment on above: Performed By: #### R UBIGG #### [facility] [address] [place] [address] Dr. Samson Schumacher Hematocrit (Bld) [Volume fraction] 37.2 % Normal 36.0-48.0 [facility] Comment on above: Performed By: #### R UBIGG #### [facility] [address] [place] [address] Dr. Samson Schumacher Hemoglobin (Bld) [Mass/Vol] 12.4 g/dL Normal 12.0-16.0 [facility] Comment on above: Performed By: #### R UBIGG #### [facility] [address] [place] [address] Dr. Samson Schumacher IG # 0.04 10e3/ul Critically high 0.00-0.03 [facility] Comment on above: Performed By: #### R UBIGG #### [facility] [address] [place] [address] Dr. Samson Schumacher IG % 0.3 % Normal 0.0-0.5 [facility] Comment on above: Performed By: #### R UBIGG #### [facility] [address] [address] [address] Samson Schumacher LYMPH # 1.9 103/ul Normal 1.2-3.8 [facility] Comment on above: Performed By: #### R UBIGG #### [facility] [address] [address] [address] Samson Schumacher Lymphocytes/100 WBC (Bld) 14.1 % Critically low 20.5-60.0 [facility] Comment on above: Performed By: #### R UBIGG #### [facility] [address] [address] [address] Samson Schumacher MANUAL DIFF REQ NO Normal [facility] Comment on above: Performed By: #### R UBIGG #### [facility] [address] [address] [address] Samson Schumacher MCH (RBC) [Entitic mass] 30.5 pg Normal 26.7-34.0 [facility] Comment on above: Performed By: #### R UBIGG #### [facility] [address] [address] [address] Samson Schumacher MCHC (RBC) [Mass/Vol] 33.3 g/dL Normal 29.9-35.2 [facility] Comment on above: Performed By: #### R UBIGG #### [facility] [address] [address] [address] Samson Schumacher MCV (RBC) [Entitic vol] 91.4 fL Normal 81.0-99.0 [facility] Comment on above: Performed By: #### R UBIGG #### [facility] [address] [address] [address] Samson Schumacher MONO # 0.5 103/ul Normal 0.3-0.8 [facility] Comment on above: Performed By: #### R UBIGG #### [facility] [address] [address] [address] Samson Schumacher Monocytes/100 WBC (Bld) 4.0 % Normal 1.7-12.0 [facility] Comment on above: Performed By: #### R UBIGG #### [facility] [address] [address] [address] Samson Schumacher NEUT # 10.7 103/ul Critically high 1.4-6.5 [facility] Comment on above: Performed By: #### R UBIGG #### [facility] [address] [address] [address] Samson Schumacher Neutrophils/100 WBC (Bld) 80.7 % Critically high 43.0-75.0 [facility] Comment on above: Performed By: #### R UBIGG #### [facility] [address] [address] [address] Samson Schumacher Platelet mean volume (Bld) [Entitic vol] 10.2 fL Normal 9.5-13.5 [facility] Comment on above: Performed By: #### R UBIGG #### [facility] [address] [address] [address] Samson Schumacher PLT 225 103/ul Normal 150-450 [facility] Comment on above: Performed By: #### R UBIGG #### [facility] [address] [address] [address] Samson Schumacher RBC 4.07 106/ul Critically low 4.20-5.40 [facility] Comment on above: Performed By: #### R UBIGG #### [facility] [address] [address] [address] Samson Schumacher WBC 13.3 103/ul Critically high 4.0-11.0 [facility] Comment on above: Performed By: #### R UBIGG #### [facility] [address] [address] [address] Samson Schumacher PROF CHEM 8 (BAS METB)on Anion gap [Moles/Vol] 13.1 mmol/L Normal [facility] Comment on above: Performed By: #### B MP #### [facility] [address] [place] [address] Dr. Samson Schumacher Calcium [Mass/Vol] 8.5 mg/dL Normal 8.5-10.1 [facility] Comment on above: Performed By: #### B MP #### [facility] [address] [place] [address] Dr. Samson Schumacher Chloride [Moles/Vol] 104 mmol/L Normal 98-107 [facility] Comment on above: Performed By: #### B MP #### [facility] [address] [address] [address] Samson Schumacher CO2 [Moles/Vol] 24.4 mmol/L Normal 21.0-32.0 [facility] Comment on above: Performed By: #### B MP #### [facility] [address] [place] [address] Dr. Samson Schumacher Creatinine [Mass/Vol] 0.83 mg/dL Normal 0.55-1.02 [facility] Comment on above: Performed By: #### B MP #### [facility] [address] [place] [address] Dr. Samson Schumacher EGFR-AF MONGOLIAN >60 Normal >=60 [facility] Comment on above: Performed By: #### B MP #### [facility] [address] [place] [address] Dr. Samson Schumacher EGFR-NON AF MONGOLIAN >60 Normal >=60 [facility] Comment on above: Performed By: #### B MP #### [facility] [address] [place] [address] Dr. Samson Schumacher Glucose [Mass/Vol] 113 mg/dL Critically high 74-106 [facility] Comment on above: Performed By: #### B MP #### [facility] [address] [place] [address] Dr. Samson Schumacher Potassium [Moles/Vol] 3.5 mmol/L Normal 3.5-5.1 [facility] Comment on above: Performed By: #### B MP #### [facility] [address] [place] [address] Dr. Samson Schumacher Sodium [Moles/Vol] 138 mmol/L Normal 136-145 [facility] Comment on above: Performed By: #### B MP #### [facility] [address] [address] [address] Samson Schumacher Urea nitrogen [Mass/Vol] 7.0 mg/dL Normal 7.0-18.0 [facility] Comment on above: Performed By: #### B MP #### [facility] [address] [address] [address] Samson Schumacher Urea nitrogen/Creatinine [Mass ratio] 8.4 mg/mg Normal [facility] Comment on above: Performed By: #### B MP #### [facility] [id number] Samson Schumacher US PREG TVon 01-01-2022 [...] DELFINA JUAREZ Date: 2022-01-01 08:49 Normal [facility] HEP B SURFACE ANTIGEN SCREEN on 12-02-2021 HBsAg Screen Negative Normal Negative [facility] Comment on above: Performed By: #### H BSANS #### [facility] [address] [place] [address] Dr. Samson Schumacher HEPATITIS C VIRUS AB W/ REFL EX QUANTon 12-02-2021 HCV AB <0.1 Normal 0.0-0.9 [facility] Comment on above: Performed By: #### H CVPCRR #### [facility] [address] [place], [place] [id number] Dr. Samson Schumacher Interpretation: Comment Normal [facility] Comment on above: Result Comment: Nega tive Not infected with HCV, unless recent infection is suspected or other evidence exists to indicate HCV infection. Performed By: #### H CVPCRR #### [facility] [address] [place], [place] [address] Dr. Samson Schumacher HIV 1 AND 2 WITH REFLEXon HIV Screen 4th Generation wRfx Non-Reactive Normal Non Reactive [facility] Comment on above: Result Comment: HIV Negative HIV-1/HIV-2 antibodies and HIV-1 p24 antigen were NOT detected. There is no laboratory evidence of HIV infection. Performed By: #### H IV12 #### [facility] [address] [place], [place] [address] Dr. Samson Schumacher RPR QUANTon 12-02-2021 Rapid Plasma Reagin, Quant Non-Reactive Normal NonRea<1:1 [facility] Comment on above: Result Comment: Plea se Note: This test does not meet current guidelines for screening and diagnosis of syphilis. This test is intended for following treatment response in patients being treated for syphilis infection. To screen for syphilis infection, a reflex cascade that includes both RPR and a treponema-specific assay should be utilized, such as Treponema pallidum (Syphilis) Screening [place] (972806) or Rapid Plasma Reagin (RPR) Test With Reflex to Quantitative RPR and Confirmatory Treponema pallidum Antibodies (473343). Performed By: #### R UBIGG #### [facility] [address] [place], [place] [address] Dr. Samson Schumacher RUBELLA AB IGGon 12-02-2021 Rubella Antibodies, IgG 3.00 index Normal Immune >0.99 [facility] Comment on above: Result Comment: Non- immune <0.90 Equivocal 0.90 - 0.99 Immune >0.99 Performed By: #### R UBIGG #### [facility] [address] [place], [place] [address] Dr. Samson Schumacher US PREG TVon 12-02-2021 [...] FABIAN MOSER Date: 2021-12-01 22:18 Normal [facility] CBC AUTO DIFFon 12-01-2021 BASO # 0.1 103/ul Normal 0.0-0.1 [facility] Comment on above: Performed By: #### R UBIGG #### [facility] [address] [place] [address] Dr. Samson Schumacher Basophils/100 WBC (Bld) 0.5 % Normal 0.2-2.0 [facility] Comment on above: Performed By: #### R UBIGG #### [facility] [address] [address] [address] Samson Schumacher EO # 0.1 103/ul Normal 0.0-0.7 [facility] Comment on above: Performed By: #### R UBIGG #### [facility] [address] [address] [address] Samson Schumacher Eosinophils/100 WBC (Bld) 0.6 % Critically low 0.9-7.0 [facility] Comment on above: Performed By: #### R UBIGG #### [facility] [address] [place] [address] Dr. Samson Schumacher Erythrocyte distribution width (RBC) [Ratio] 11.8 % Normal 11.0-15.0 [facility] Comment on above: Performed By: #### R UBIGG #### [facility] [address] [place] [address] Dr. Samson Schumacher Hematocrit (Bld) [Volume fraction] 41.6 % Normal 36.0-48.0 [facility] Comment on above: Performed By: #### R UBIGG #### [facility] [address] [address] [address] Samson Schumacher Hemoglobin (Bld) [Mass/Vol] 13.9 g/dL Normal 12.0-16.0 [facility] Comment on above: Performed By: #### R UBIGG #### [facility] [address] [address] [address] Samson Schumacher IG # 0.03 10e3/ul Normal 0.00-0.03 [facility] Comment on above: Performed By: #### R UBIGG #### [facility] [address] [place] [address] Dr. Samson Schumacher IG % 0.3 % Normal 0.0-0.5 [facility] Comment on above: Performed By: #### R UBIGG #### [facility] [address] [place] [address] Dr. Samson Schumacher LYMPH # 2.1 103/ul Normal 1.2-3.8 [facility] Comment on above: Performed By: #### R UBIGG #### [facility] [address] [place] [address] Dr. Samson Schumacher Lymphocytes/100 WBC (Bld) 21.8 % Normal 20.5-60.0 [facility] Comment on above: Performed By: #### R UBIGG #### [facility] [address] [place] [address] Dr. Samson Schumacher MANUAL DIFF REQ NO Normal [facility] Comment on above: Performed By: #### R UBIGG #### [facility] [address] [place] [address] Dr. Samson Schumacher MCH (RBC) [Entitic mass] 30.0 pg Normal 26.7-34.0 [facility] Comment on above: Performed By: #### R UBIGG #### [facility] [address] [place] [address] Dr. Samson Schumacher MCHC (RBC) [Mass/Vol] 33.4 g/dL Normal 29.9-35.2 [facility] Comment on above: Performed By: #### R UBIGG #### [facility] [address] [address] [address] Samson Schumacher MCV (RBC) [Entitic vol] 89.8 fL Normal 81.0-99.0 [facility] Comment on above: Performed By: #### R UBIGG #### [facility] [address] [address] [address] Samson Schumacher MONO # 0.6 103/ul Normal 0.3-0.8 [facility] Comment on above: Performed By: #### R UBIGG #### [facility] [address] [place] [address] Dr. Samson Schumacher Monocytes/100 WBC (Bld) 6.5 % Normal 1.7-12.0 [facility] Comment on above: Performed By: #### R UBIGG #### [facility] [address] [place] [address] Dr. Samson Schumacher NEUT # 6.6 103/ul Critically high 1.4-6.5 [facility] Comment on above: Performed By: #### R UBIGG #### [facility] [address] [place] [address] Dr. Samson Schumacher Neutrophils/100 WBC (Bld) 70.3 % Normal 43.0-75.0 [facility] Comment on above: Performed By: #### R UBIGG #### [facility] [address] [place] [address] Dr. Samson Schumacher Platelet mean volume (Bld) [Entitic vol] 9.8 fL Normal 9.5-13.5 [facility] Comment on above: Performed By: #### R UBIGG #### [facility] [address] [place] [address] Dr. Samson Schumacher PLT 229 103/ul Normal 150-450 [facility] Comment on above: Performed By: #### R UBIGG #### [facility] [address] [place] [address] Dr. Samson Schumacher RBC 4.63 106/ul Normal 4.20-5.40 [facility] Comment on above: Performed By: #### R UBIGG #### [facility] [address] [address] [address] Samson Schumacher WBC 9.4 103/ul Normal 4.0-11.0 [facility] Comment on above: Performed By: #### R UBIGG #### [facility] [address] [address] [address] Samson Schumacher CULTURE URINEon 12-01-2021 CULTURE URINE Culture Observations : MODERATE GROWTH OF MIXED GENITAL HUBER. NO POTENTIAL PATHOGENS SEEN. Normal [facility] Comment on above: Performed By: #### R UBIGG #### [facility] [address] [place] [address] Dr. Samson Schumacher GLYCOHEMOGLOBIN A1Con 2021 ADA RECOMMENDATION SEE BELOW Normal [facility] Comment on above: Result Comment: ADA RECOMMENDED LIMIT 4.0 - 6.0 ADA THERAPEUTIC TARGET < 7.0 ACTION SUGGESTED > 7.0 Performed By: #### A 1C #### [facility] [address] [place] [address] Dr. Samson Schumacher Glucose [Mass/Vol] 105 mg/dL Normal [facility] Comment on above: Performed By: #### A 1C #### [facility] [address] [place] [address] Dr. Samson Schumacher HbA1c (Bld) [Mass fraction] 5.3 % Normal 4.5-6.2 [facility] Comment on above: Performed By: #### A 1C #### [facility] [address] [place] [address] Dr. Samson Schumacher TYPE AND SCREENon 12-01-2021 TYPE AND SCREEN Negative Normal [facility] Comment on above: Performed By: #### R UBIGG #### [facility] [address] [place] [address] Dr. Samson Schumacher KNEE LEFT 1 OR 2 VWSon 07-31 KNEE LEFT 1 OR 2 VWS [facility] [address] [place] [address] P atient Name: NIDIA SMITH : 1995Sex: FAge: Race: WhiteMRN: [id number]. Location: 84Patient Status: Date: 07/31/2017 10:20:00 AMCompleted Date: 07/31/2017 10:34 AMRequesting Provider: SHAN YUNG Attending Provider: Report Copy To: Signs & Symptoms: M25.562 Pain in left knee [id number]: AthenaComments: , , , Ordering Provider - SHAN YUNG MD , Exam: KNEE LEFT 1 OR 2 VWSAccession #: [id number] ======KNEE LEFT 1 OR 2 VWS 07/31/2017 [...] repair. Electronically signed by:Reta Salas. Transcribed by: [email or web address], User Resident: Electronically Signed by: RETA SALAS @ 07/31/2017 11:14 AM Normal [facility] Comment on above: Order Comment: , , = ========= , Ordering Provider - SHAN YUNG MD , Operative Reporton 8 Operative Report MR#: [id number] [facility] Pt. Name: Nidia Smith Room #: 0C Discharge 07/27/2017 Date: Birthdate: 1995 OPERATIVE REPORTDATE OF SURGERY: 07/27/2017SURGEON: Shan Yung M.D.PSYCHIATRY RESIDENT: Shan Rodarte M.D.PREOPERATIVE DIAGNOSIS: Left knee ACL [...] left lower extremity. She will be given [place] for paincontrol, Colace, and aspirin for DVT prophylaxis. I will see her back inclinic in 4-5 days for initiation of physical therapy with accelerated ACLprotocol.Electronicall y Signed by:Shan Yung M.D. 07/30/2017 11:36 A Shan Yung M.D.Date Dict: 07/27/2017/09:27 A/Shan Yung M.D.Date Trans: 07/27/2017 07:56 P/mmoDN_[id number] cc: Kiel Kelly D.O. [facility] [address] Normal [facility] POC GLUCOSE LABon 07-27-2017 Glucose mass conc 81 mg/dL Normal 70-100 [facility] Comment on above: Performed By: #### 8 [id number] ####[facility] [place] [address], [facility] POC URINE PREGNANCYon 2017 HCG.beta subunit ( test) Ql (U) Negative Normal NEGATIVE [facility] Comment on above: Result Comment: Perf ormed in PACU Performed By: #### 8 [id number] ####[facility] HCG, Quanton 07-17-2017 HCG, Quant <1 Normal <5 [facility] Comment on above: Result Comment: Non- preg premeno <=5Postmeno <=8Male <=3If HCG results do not concur with clinical observations, additional testing to confirm result is recommended. This test is not labeled for use as a tumor marker.Performed at [address] [place], [place] [address] [phone] Performed By: #### G LUF ####[address] [place] [address] #### FSH, LH, PROL, TEST ####[facility] [address] [place] [address] #### INSU ####[address] [phone] [place] [address] KNEE LEFT 4VWSon 06-18-2017 KNEE LEFT 4VWS [facility] [id number] [place] [address] P atient Name: NIDIA SMITH : 1995Sex: FAge: Race: WhiteMRN: [id number]. Location: 84Patient Status: OVisit #: [id number] Date: 06/18/2017 1:05:00 PMCompleted Date: 06/18/2017 01:09 PMRequesting Provider: SHAN YUNG Attending Provider: SHAN YUNG Report Copy To: UNKNOWN, PHYSICIAN Signs & Symptoms: M25.562 Pain in left knee D77Uxxitkg: AthenaComments: , , , Ordering Provider - SHAN YUNG MD , Exam: KNEE LEFT 4VWSAccession #: [id number] ======KNEE LEFT 4VWS 06/18/2017 1:09 PM EDT [...] seen. Electronically signed by:Mona Mckeon. Transcribed by: [email or web address], User Resident: Electronically Signed by: MONA MCKEON @ 06/18/2017 02:23 PM Normal [facility] Comment on above: Order Comment: , , = ========= , Ordering Provider - SHAN YUNG MD , Progesteroneon 05-16-2017 Progesterone 10.40 ng/mL Normal [facility] Comment on above: Result Comment: FEMA LE (healthy): Follicular phase 0.06-0.89 Ovulation phase 0.12-12.00 Luteal phase 1.83-23.90Postmenopausal <0.13Performed at [place] [id number] [phone] Performed By: #### G [facility] ####[address] , [place] [id number] #### FSH, LH, PROL, TEST ####[address] [address] #### INSU ####[address] [phone] [place] [address] Progress Noteon 05-16-2017 HIM IP Note OR Procurement Officer Normal [facility] Progress Noteon 04-13-2017 HIM IP Note OR Procurement Officer Normal [facility] HCG Screen, Bloodon 04-12-19 18 HCG Qn Negative Normal NEG [facility] Comment on above: Result Comment: Perf ormed at [address] [place] [id number] ([phone] Performed By: #### H CG ####[address] [id number] Progesteroneon 02-14-2017 Progesterone <0.05 Normal [facility] Comment on above: Result Comment: FEMA LE (healthy): Follicular phase 0.06-0.89 Ovulation phase 0.12-12.00 Luteal phase 1.83-23.90Postmenopausal <0.13Performed at [address] [address] Performed By: #### P JAMES ####[address] [address] Follicle Stim. Hormon 2016 Follicle Stim. Horm 5.8 U/L Normal 1.7-21.5 [facility] Comment on above: Result Comment: Refe rence Range:Male: 1.5-12.4Ovulating Female: Follicular Phase 3.5-12.5 Ovulation Phase 4.7-21.5 Luteal Phase 1.7-7.7Postmenopausal Female: 25.8-134.8Performed at [address] [address] Performed By: #### G LUF ####[address] [place] [address] #### FSH, LH, PROL, TEST ####[address] [address] #### INSU ####[address] [phone] [place] [address] Glucose, Fastingon 01-06- 7 Glucose mass conc 91 mg/dL Normal 70-99 [facility] Comment on above: Result Comment: Perf ormed at [address] [place] [address] Performed By: #### G LUF ####[address] [place] [address] #### FSH, LH, PROL, TEST ####[address] [address] #### INSU ####[address] [phone] [place] [address] Insulinon 01-06-2017 Insulin 22.8 mU/L Normal [facility] Comment on above: Performed By: #### G LUF ####[address] [place] [address] #### FSH, LH, PROL, TEST ####[address] [address] #### INSU ####[address] [phone] [place] [address] Reference Range Normal [facility] Comment on above: Result Comment: Fast in.6-24.930 min: 20-29902 min: 29-8890 min: 26-59118 min: 22-79Performed at [address] [address] Performed By: #### G LUF ####[address] [place] [address] #### FSH, LH, PROL, TEST ####[address] [address] #### INSU ####[address] [phone] [place] [address] Collection Info. A.M. Normal [facility] Comment on above: Result Comment: Perf ormed at [address] [place] [address] Performed By: #### G LUF ####[address] [place] [address] #### FSH, LH, PROL, TEST ####[address] [address] #### INSU ####[address] [phone] [place] [address] Luteinizing Hormoneon 2016 Luteinizing Hormone 8.0 U/L Normal 1.0-95.6 [facility] Comment on above: Result Comment: Refe rence Range:Male: 1.7-8.6Ovulating Female: Follicular Phase 2.4-12.6 Ovulation Phase 14.0-95.6 Luteal Phase 1.0-11.4Postmenopausal Female: 7.7-58.5Performed at [address] [address] Performed By: #### G LUF ####[address] [place] [address] #### FSH, LH, PROL, TEST ####[address] [address] #### INSU ####[address] [phone] [place] [address] Prolactinon 01-06-2017 Prolactin 11.98 ug/L Normal 4.79-23.30 [facility] Comment on above: Result Comment: The presence of macroprolactin may cause interference in female patients with various endocrinological diseases or during .Performed at [address] [address] Performed By: #### G LUF ####[address] [place] [address] #### FSH, LH, PROL, TEST ####[address] [address] #### INSU ####[address] [phone] [place] [address] Testosterone, Totalon 2016 Testosterone 26 ng/dL Normal 20-70 [facility] Comment on above: Result Comment: Perf ormed at [address] [address] Performed By: #### G LUF ####[address] [place] [address] #### FSH, LH, PROL, TEST ####[address] [address] #### INSU ####[address] [phone] [place] [address] Thyroid Stim. Horm.on 2016 Thyroid stimulating hormone (TSH) 1.68 m[IU]/L Normal 0.30-5.00 [facility] Comment on above: Result Comment: Perf ormed at [address] [place], [place] [address] [phone] Performed By: #### T SH ####[address] [place] [address] Encounters Encounter Date Encounter Type Care Provider Facility Start: 05-30-2023 End: 05-30-2023 ambulatory FOREST GEE Not Available Start: 04-19-2023 End: 04-19-2023 ambulatory FOREST GEE Not Available Start: 02-27-2023 End: 02-27-2023 ambulatory TIM JOYNER Not Available Start: 02-20-2023 End: 02-20-2023 ambulatory FORSET GEE Not Available Start: 02-13-2023 End: 02-13-2023 [...] Start: 08-10-2017 End: 09-09-2017 Ambulatory PHYSICIAN UNKNOWN Facility:[facility] Start: 07-31-2017 End: 08-01-2017 Ambulatory PHYSICIAN UNKNOWN Facility:[facility] Start: 07-27-2017 End: 07-28-2017 Ambulatory REFERRED SELF Facility:[facility] Start: 07-17-2017 End: 07-18-2017 [facility] Start: 07-17-2017 End: 08-10-2017 Ambulatory SHAN YUNG Facility:[facility] Start: 06-18-2017 End: 06-19-2017 Ambulatory SHAN YUNG Facility:[facility] Start: 06-12-2017 End: 06-13-2017 Ambulatory DEFAULT PHYSICIAN Facility:[facility] Start: 05-15-2017 End: 05-16-2017 Ambulatory [facility] Start: 04-12-2017 End: 04-13-2017 Ambulatory [facility] Start: 02-14-2017 End: 02-15-2017 Ambulatory [facility] Start: 01-06-2017 End: 01-07-2017 Ambulatory [facility] Procedures Date Procedure Procedure Detail Performing Clinician Start: 07-27-2017 ANESTH KNEE JOINT SURGERY RODOLFO BARILLAS Start: 07-27-2017 KNEE ARTHROSCOPY/SURGERY SHAN YUNG Start: 07-17-2017 Gonadotropin chorion ic quantitative CLARISSE KAUR Start: 05-15-2017 PROGESTERONE CLARISSE ELYSSA H Start: 04-12-2017 HCG, SERUM, QUALITATIVE CLARISSE NATASHA Start: 02-14-2017 PROGESTERONE CLARISSE ELYSSA H Start: 01-06-2017 TSH WITHOUT REFLEX PEDRO KAUR Start: 01-06-2017 FOLLICLE STIMULATING HORMONE CLARISSE KAUR Start: 01-06-2017 GLUCOSE, FASTING CLARISSE NATASHA Start: 01-06-2017 INSULIN, TOTAL [facility]ISSE [facility] Start: 01-06-2017 LUTEINIZING HORMONE TYSON KAUR Start: 01-06-2017 PROLACTIN CLARISSE ELYSSA H Start: 01-06-2017 TESTOSTERONE CLARISSE ELYSSA H Payers Date Payer Category Payer Unknown [id number] 1995 Unknown [id number] 2.16.84 [id number] 1995 Unknown [id number] 2.16.84 [id number] 1995 Unknown [id number] 2.16.84 [id number] 1995 Unknown [id number] 2.16.84 [id number] 1995 Unknown [id number] 2.16.84 0.1.200284.3.579.2.9 1995 Unknown [id number] 2.16.84 [id number] 1995 Unknown [id number] 2.16.840 .1.362781.3.579.2.9 1995 Unknown [id number] 2.16.840 .1.110322.3.579.2.9 1995 Unknown [id number] 2.16.840 .1.279887.3.579.2.9 1995 Unknown [id number] 2.16.840 .1.556659.3.579.2.9 1995 Unknown [id number] 2.16.840. [id number] 1959 Unknown [id number] Unknown Summary Purpose Family History No Family [...] DATE CREATED AUTHOR AUTHOR'S ORGANIZ ATION 09/14/2017 [facility] DATE CREATED AUTHOR AUTHOR'S ORGANIZ ATION 07/12/2022 [facility] DATE CREATED AUTHOR AUTHOR'S ORGANIZ ATION 05/31/2023 [facility] FOR RECORDS PERTAINING TO PATIENTS WHO ARE [...] BE BASED ON THE PRIMARY CLINICAL RECORDS. [facility] [email or web address] [facility]. provides no warranty or guarantee of the accuracy or completeness of information in this document.
--- NOTE | 2023-10-07 02:32 | ED_ITS ---
HPI - Nausea/Vomiting/Diarrhea General Chief complaint: Nausea/Vomiting/Diarrhea Stated complaint: vomiting Time Seen by Provider: 10/07/23 02:30 Source: patient Mode of arrival: walk-in Limitations: no limitations History of Present Illness HPI Narrative: patient presents complaining of recurrent vomiting and diarrhea that started around 11PM. abdomen sore from vomiting. No fever . No urinary symptoms Related Data Home Medications ?Medication ?Instructions ?Recorded ?Confirmed No Known Home Medications 03/02/23 03/02/23 Allergies Allergy/AdvReac Type Severity Reaction Status Date / Time No Known Drug Allergies Allergy Verified 10/07/23 01:53 Review of Systems 2 ROS Status of ROS 10 or more systems reviewed and unremark able except as noted in history and below PFSH PFSH Family History (Updated 03/02/23 @ 00:12 by Can Pantoja) Grandmother Family history of diabetes mellitus Family history of cancer Grandfather Family history of myocardial infarction Social History (Updated 03/01/23 @ 23:34 by Can Pantoja) Highest level of school completed/degree received: Associate degree: academic program Are you now , , , , never or living with a partner: In a typical week, how many times do you talk on the telephone with family, friends, or neighbors: 3 or more times per week How often do you get together with friends or relatives: 3 or more times per week How often do you attend caodaism or mormon services: 4 or more times per year Little interest or pleasure in doing things: not at all Feeling down, depressed, or hopeless: not at all Feel stressed/tense/nervous/anxious/difficulty sleeping: not at all Do you think of yourself as: straight/heterosexual Gender Identity: female Exam Constitutional Vital Signs, click to edit/add: Last Vital Signs Temp 98.5 F 10/07/23 01:53 Pulse 94 H 10/07/23 01:53 Resp 18 10/07/23 01:53 BP 113/63 10/07/23 03:30 Pulse Ox 96 10/07/23 01:53 O2 Del Method Room Air 10/07/23 01:53 Common normals: no apparent distress, average body habitus, oriented x3, no limitations, healthy appearing, alert and well nourished [facility] Common normals: normocephalic and head/scalp atraumatic Eye Common normals: PERRL, EOMs intact bilaterally and conjunctivae normal Respiratory Common normals: normal respiratory effort, no retractions, no use of accessory muscles and clear to auscultation bilaterally Cardio Common normals: regular rate, regular rhythm, S1 normal heart sound and S2 normal heart sound GI Common normals: Normal to inspection, nondistended, normoactive bowel sounds present, soft to palpation and non-tender Extremity Common normals: normal to inspection and full ROM Neuro Common normals: oriented x3, CN's II-XII intact bilaterally and moves all extremities Psych Appearance: grossly normal Course Vital Signs Vital signs: Vital Signs Temperature 98.5 F 10/07/23 01:53 Pulse Rate 94 H 10/07/23 01:53 Respiratory Rate 18 10/07/23 01:53 Blood Pressure 86/66 L 10/07/23 01:53 Pulse Oximetry 96 10/07/23 01:53 Oxygen Delivery Method Room Air 10/07/23 01:53 Temperature 98.5 F 10/07/23 01:53 Pulse Rate 94 H 10/07/23 01:53 Respiratory Rate 18 10/07/23 01:53 Blood Pressure 113/63 10/07/23 03:30 Pulse Oximetry 96 10/07/23 01:53 Oxygen Delivery Method Room Air 10/07/23 01:53 MDM - Nausea/Vomiting/Diarrhea MDM Narrative Medical decision making narrative: patient presents with recurrent vomiting and diarrhea. believes she may have gotten food poisoning. Abdominal exam neg. Patient feeling better after hydration and anti emetics. Discharged home in improved condition Lab Data Labs: Lab Results 10/07/23 10/07/23 Range/Units 02:05 02:52 WBC 13.6 H (4.0-11.0) 10^3/uL RBC 4.57 (4.20-5.40) 10^6/uL Hgb 13.9 (12.0-16.0) g/dL Hct 41.7 (36.0-48.0) % MCV 91.2 (81.0-99.0) fL MCH 30.4 (26.7-34.0) pg MCHC 33.3 (29.9-35.2) g/dL RDW 11.8 (11.0-15.0) % Plt Count 221 (150-450) 10^3/uL MPV 10.7 (9.5-13.5) fL Neut % (Auto) 78.1 H (43.0-75.0) % Lymph % (Auto) 11.9 L (20.5-60.0) % [place] % (Auto) 7.7 (1.7-12.0) % Eos % (Auto) 0.7 L (0.9-7.0) % Baso % (Auto) 0.3 (0.2-2.0) % Neut # (Auto) 10.7 H (1.4-6.5) 10^3/uL Lymph # (Auto) 1.6 (1.2-3.8) 10^3/uL [place] # (Auto) 1.1 H (0.3-0.8) 10^3/uL Eos # (Auto) 0.1 (0.0-0.7) 10^3/uL Baso # (Auto) 0.0 (0.0-0.1) 10^3/uL Abs Immat Gran (auto) 0.18 H (0.00-0.03) 10^3/uL Imm/Tot Granulo (auto) 1.3 H (0.0-0.5) % Sodium 138 (136-145) mmol/L Potassium 3.5 (3.5-5.1) mmol/L Chloride 102 (98-107) mmol/L Carbon Dioxide 27.7 (21.0-32.0) mmol/L Anion Gap 11.8 BUN 27.0 H (7.0-18.0) mg/dL Creatinine 0.99 (0.55-1.02) mg/dL Est GFR ( Amer) >60 (>=60) Est GFR (Non-Af Amer) >60 (>=60) BUN/Creatinine Ratio 27.3 Glucose 122 H (74-106) mg/dL Lactate 1.9 (0.4-2.0) mmol/L Calcium 9.2 (8.5-10.1) mg/dL Total Bilirubin 0.4 (0.2-1.0) mg/dL AST 11 L (15-37) U/L ALT 20 (14-59) U/L Alkaline Phosphatase 85 (46-116) U/L Total Protein 7.9 (6.4-8.2) g/dL Albumin 4.2 (3.4-5.0) g/dL Globulin 3.7 g/dL Albumin/Globulin Ratio 1.1 Urine Color Yellow (YELLOW) Urine Clarity Clear (CLEAR) Urine pH 6.0 (5.0-9.0) Ur Specific [place] >=1.030 A (1.005-1.025) Urine Protein Negative (NEG/TRACE) mg/dL Urine Glucose (UA) Negative (NEGATIVE) mg/dL Urine Ketones Negative (NEGATIVE) mg/dL Urine Occult Blood Negative (NEGATIVE) Urine Nitrite Negative (NEGATIVE) Urine Bilirubin Negative (NEGATIVE) Urine Urobilinogen 0.2 (0.2-1.0) EU/dL Ur Leukocyte Esterase Negative (NEGATIVE) Discharge Plan Discharge Stand Alone Forms: Portal Instructions Chief Complaint: Nausea/Vomiting/Diarrhea Clinical Impression: Gastroenteritis, Dehydration Patient Disposition: Home, Self-Care Mode of Transportation: Private Vehicle Prescriptions / Home Meds: No Action No Known Home Medications Print Language: Mohawk Instructions: Gastroenteritis (ED), Acute Diarrhea (ED) Referrals: Jamin Massey MD [Primary Care Provider] - 1 week
[2023-10-07] MEDS: PROMETHAZINE HCL 25 MG in 0.9 % SODIUM CHLORIDE 50 ML 204 MG IV (02:43)
[2023-10-07] MEDS: 0.9 % SODIUM CHLORIDE 1,000 ML 999 ML IV (02:43)
[2023-10-07 03:00] LABS: Bilirubin Urine NEGATIVE (NEGATIVE); Blood Urine NEGATIVE (NEGATIVE); Clarity Urine CLEAR (CLEAR); Color Urine YELLOW (YELLOW); Glucose Urine UA NEGATIVE (NEGATIVE); Ketones Urine NEGATIVE (NEGATIVE); Leukocyte Esterase Urine NEGATIVE (NEGATIVE); Nitrite Urine NEGATIVE (NEGATIVE); Protein Urine NEGATIVE (NEG/TRACE); Specific Gravity Urine >=1.030 (1.005-1.025); Urobilinogen Urine 0.2 EU/dL (0.2-1.0)
[2023-10-07 03:02] LABS: Urine Microscopic Indicated NO
[2023-10-07 03:13] LABS: Hematocrit 41.7 % (36.0-48.0); Hemoglobin 13.9 g/dL (12.0-16.0); Mean Corpuscular HGB Conc 33.3 g/dL (29.9-35.2); Mean Corpuscular Hemoglobin 30.4 pg (26.7-34.0); Mean Corpuscular Volume 91.2 fL (81.0-99.0); Platelet Count 221 10^3/uL (150-450); Red Blood Count 4.57 10^6/uL (4.20-5.40); Red Cell Distribution Width 11.8 % (11.0-15.0); White Blood Count 13.6 10^3/uL (4.0-11.0)
[2023-10-07 03:14] LABS: Alanine Aminotransferase 20 U/L (14-59); Albumin Globulin Ratio 1.1; Albumin Level 4.2 g/dL (3.4-5.0); Alkaline Phosphatase 85 U/L (46-116); Anion Gap 11.8; Aspartate Amino Transferase 11 U/L (15-37); BUN Creatinine Ratio 27.3; Basophils Percent Auto 0.3 % (0.2-2.0); Bilirubin Total 0.4 mg/dL (0.2-1.0); Calcium 9.2 mg/dL (8.5-10.1); Carbon Dioxide 27.7 mmol/L (21.0-32.0); Chloride 102 mmol/L (98-107); Eosinophils Absolute Auto 0.1 10^3/uL (0.0-0.7); Eosinophils Percent Auto 0.7 % (0.9-7.0); Estimated GFR (African America >60 (>=60); Estimated GFR (Non-African Ame >60 (>=60); Globulin 3.7 g/dL; Glucose 122 mg/dL (74-106); Immature Granulocytes Abs Auto 0.18 10^3/uL (0.00-0.03); Immature Granulocytes Pct Auto 1.3 % (0.0-0.5); Lymphocytes Absolute Auto 1.6 10^3/uL (1.2-3.8); Lymphocytes Percent Auto 11.9 % (20.5-60.0); Mean Platelet Volume 10.7 fL (9.5-13.5); Monocytes Absolute Auto 1.1 10^3/uL (0.3-0.8); Monocytes Percent Auto 7.7 % (1.7-12.0); Neutrophils Absolute Auto 10.7 10^3/uL (1.4-6.5); Neutrophils Percent Auto 78.1 % (43.0-75.0); Potassium 3.5 mmol/L (3.5-5.1); Sodium 138 mmol/L (136-145); Total Protein 7.9 g/dL (6.4-8.2)
[2023-10-07 03:16] LABS: Lactate/Lactic Acid 1.9 mmol/L (0.4-2.0)
== END 2023-10-07 04:29 | disposition home or self-care (01) ==
PROVIDERS: Emergency Provider Internal Medicine; PCP Family Medicine
DX: E86.0 Dehydration (principal); K52.9 Noninfective gastroenteritis and colitis, unspecified
CPT/HCPCS: 36415; 80053; 81003; 83605; 85025; 96365; 99284; J2250

== ENCOUNTER 2023-11-01 18:30 | Outpatient (REF) | payer BC, SELFPAY ==
--- OUTSIDE RECORDS SUMMARY | 2023-11-01 18:38 | XMS_ITS | CCD ---
Author Organization [facility] Care Team Providers Care [employer] Supervisor Name Role Phone CLARISSE KAUR Unavailable Unavailabl e VALONE, KIEL L Unavailable Unavailable CLARISSE KAUR Unavailable Unavailabl e VALONE, KIEL L Unavailable Unavailable CLARISSE KAUR Unavailable Unavailabl e VALONE, KIEL L Unavailable Unavailable CLARISSE KAUR Unavailable Unavailabl e VALONE, KIEL L Unavailable Unavailable JUAN MIGUEL JOSHUA F Unavailable Unavail able VALONE, KIEL L [...] SHAN Unavailable Unavailable YUNG, SHAN Unavailable Unavailable DC Unavailable Unavailable VALONE, KIEL Unavailable Unavailable DC Unavailable Unavailable RODOLFO BARILLAS Unavailable Unavailable UNKNOWN, [...] [NKA] Propensity to adverse reactions (disorder) [facility] Repository (1 source) No Known Allergies; Translations: [No Known Allergies] Propensity to adverse reactions (disorder) [facility] Repository Problems Active Problems Problem Classification Problem [...] HCGon 07-06-2022 HCG QUANT 481 mIU/mL Normal [facility] Comment on above: Performed By: #### P REGQNT #### [facility] [address] [place] [address] Dr. Samson Schumacher HCG RANGE SEE BELOW Normal [facility] Comment on above: Result Comment: 5-50 0.2-1 WEEK 50-500 1-2 WEEKS 100-5,000 2-3 WEEKS 500-10,000 3-4 WEEKS 1,000-50,000 4-5 WEEKS 10,000-100,000 5-6 WEEKS 15,000-200,000 6-8 WEEKS 10,000-100,000 2-3 MONTHS Performed By: #### P REGQNT #### [facility] [address] [place] [address] Dr. Samson Schumacher PREG QUANT HCGon 07-04-2022 HCG QUANT 185 mIU/mL Normal [facility] Comment on above: Performed By: #### P REGQNT #### [facility] [address] [place] [address] Dr. Samson Schumacher HCG RANGE SEE BELOW Normal [facility] Comment on above: Result Comment: 5-50 0.2-1 WEEK 50-500 1-2 WEEKS 100-5,000 2-3 WEEKS 500-10,000 3-4 WEEKS 1,000-50,000 4-5 WEEKS 10,000-100,000 5-6 WEEKS 15,000-200,000 6-8 WEEKS 10,000-100,000 2-3 MONTHS Performed By: #### P REGQNT #### [facility] [address] [place] [address] Dr. Samson Schumacher PREG QUANT HCGon 01-16-2022 HCG QUANT 4 mIU/mL Normal [facility] Comment on above: Performed By: #### P REGQNT #### [facility] [address] [place] [address] Dr. Samson Schumacher HCG RANGE SEE BELOW Normal [facility] Comment on above: Result Comment: 5-50 0.2-1 WEEK 50-500 1-2 WEEKS 100-5,000 2-3 WEEKS 500-10,000 3-4 WEEKS 1,000-50,000 4-5 WEEKS 10,000-100,000 5-6 WEEKS 15,000-200,000 6-8 WEEKS 10,000-100,000 2-3 MONTHS Performed By: #### P REGQNT #### [facility] [address] [place] [address] Dr. Samson Schumacher PREG QUANT HCGon 01-10-2022 HCG QUANT 15 mIU/mL Normal [facility] Comment on above: Performed By: #### P REGQNT #### [facility] [address] [place] [address] Dr. Samson Schumacher HCG RANGE SEE BELOW Normal [facility] Comment on above: Result Comment: 5-50 0.2-1 WEEK 50-500 1-2 WEEKS 100-5,000 2-3 WEEKS 500-10,000 3-4 WEEKS 1,000-50,000 4-5 WEEKS 10,000-100,000 5-6 WEEKS 15,000-200,000 6-8 WEEKS 10,000-100,000 2-3 MONTHS Performed By: #### P REGQNT #### [facility] [address] [place] [address] Dr. Samson Schumacher CBC AUTO DIFFon 01-01-2022 BASO # 0.0 103/ul Normal 0.0-0.1 [facility] Comment on above: Performed By: #### R UBIGG #### [facility] [address] [place] [address] Dr. Samson Schumacher Basophils/100 WBC (Bld) 0.3 % Normal 0.2-2.0 [facility] Comment on above: Performed By: #### R UBIGG #### [facility] [address] [place] [address] Dr. Samson Schumacher EO # 0.1 103/ul Normal 0.0-0.7 [facility] Comment on above: Performed By: #### R UBIGG #### [facility] [address] [place] [address] Dr. Samson Schumacher Eosinophils/100 WBC (Bld) 0.6 % Critically low 0.9-7.0 [facility] Comment on above: Performed By: #### R UBIGG #### [facility] [address] [place] [address] Dr. Samson Schumacher Erythrocyte distribution width (RBC) [Ratio] 12.0 % Normal 11.0-15.0 [facility] Comment on above: Performed By: #### R UBIGG #### [facility] [address] [place] [address] Dr. Samson Schumacher Hematocrit (Bld) [Volume fraction] 37.2 % Normal 36.0-48.0 [facility] Comment on above: Performed By: #### R UBIGG #### [facility] [address] [place] [address] Dr. Samosn Schumacher Hemoglobin (Bld) [Mass/Vol] 12.4 g/dL Normal 12.0-16.0 [facility] Comment on above: Performed By: #### R UBIGG #### [facility] [address] [place] [address] Dr. Samson Schumacher IG # 0.04 10e3/ul Critically high 0.00-0.03 [facility] Comment on above: Performed By: #### R UBIGG #### [facility] [address] [place] [address] Dr. Samson Schumacher IG % 0.3 % Normal 0.0-0.5 [facility] Comment on above: Performed By: #### R UBIGG #### [facility] [address] [address] [address] Samson Schumacher LYMPH # 1.9 103/ul Normal 1.2-3.8 [facility] Comment on above: Performed By: #### R UBIGG #### [facility] [address] [address] [address] Samson Schumacher Lymphocytes/100 WBC (Bld) 14.1 % Critically low 20.5-60.0 [facility] Comment on above: Performed By: #### R UBIGG #### [facility] [address] [address] [address] Samson Schumacher MANUAL DIFF REQ NO Normal [facility] Comment on above: Performed By: #### R UBIGG #### [facility] [address] [address] [address] Samson Schumacher MCH (RBC) [Entitic mass] 30.5 pg Normal 26.7-34.0 [facility] Comment on above: Performed By: #### R UBIGG #### [facility] [address] [address] [address] Samson Schumacher MCHC (RBC) [Mass/Vol] 33.3 g/dL Normal 29.9-35.2 [facility] Comment on above: Performed By: #### R UBIGG #### [facility] [address] [address] [address] Samson Schumacher MCV (RBC) [Entitic vol] 91.4 fL Normal 81.0-99.0 [facility] Comment on above: Performed By: #### R UBIGG #### [facility] [address] [address] [address] Samson Schumacher MONO # 0.5 103/ul Normal 0.3-0.8 [facility] Comment on above: Performed By: #### R UBIGG #### [facility] [address] [address] [address] Samson Schumacher Monocytes/100 WBC (Bld) 4.0 % Normal 1.7-12.0 [facility] Comment on above: Performed By: #### R UBIGG #### [facility] [address] [address] [address] Samson Schumacher NEUT # 10.7 103/ul Critically high 1.4-6.5 [facility] Comment on above: Performed By: #### R UBIGG #### [facility] [address] [address] [address] Samson Schumacher Neutrophils/100 WBC (Bld) 80.7 % Critically high 43.0-75.0 [facility] Comment on above: Performed By: #### R UBIGG #### [facility] [address] [address] [address] Samson Schumacher Platelet mean volume (Bld) [Entitic vol] 10.2 fL Normal 9.5-13.5 [facility] Comment on above: Performed By: #### R UBIGG #### [facility] [address] [address] [address] Samson Schumacher PLT 225 103/ul Normal 150-450 [facility] Comment on above: Performed By: #### R UBIGG #### [facility] [address] [address] [address] Samson Schumacher RBC 4.07 106/ul Critically low 4.20-5.40 [facility] Comment on above: Performed By: #### R UBIGG #### [facility] [address] [address] [address] Samson Schumacher WBC 13.3 103/ul Critically high 4.0-11.0 [facility] Comment on above: Performed By: #### R UBIGG #### [facility] [address] [address] [address] Samson Schumacher PROF CHEM 8 (BAS METB)on Anion gap [Moles/Vol] 13.1 mmol/L Normal [facility] Comment on above: Performed By: #### B MP #### [facility] [address] [place] [address] Dr. Samson Schumacher Calcium [Mass/Vol] 8.5 mg/dL Normal 8.5-10.1 [facility] Comment on above: Performed By: #### B MP #### [facility] [address] [place] [address] Dr. Samson Schumacher Chloride [Moles/Vol] 104 mmol/L Normal 98-107 [facility] Comment on above: Performed By: #### B MP #### [facility] [address] [address] [address] Samson Schumacher CO2 [Moles/Vol] 24.4 mmol/L Normal 21.0-32.0 [facility] Comment on above: Performed By: #### B MP #### [facility] [address] [place] [address] Dr. Samson Schumacher Creatinine [Mass/Vol] 0.83 mg/dL Normal 0.55-1.02 [facility] Comment on above: Performed By: #### B MP #### [facility] [address] [place] [address] Dr. Samson Schumacher EGFR-AF VINCENTIAN >60 Normal >=60 [facility] Comment on above: Performed By: #### B MP #### [facility] [address] [place] [address] Dr. Samson Schumacher EGFR-NON AF VINCENTIAN >60 Normal >=60 [facility] Comment on above: Performed By: #### B MP #### [facility] [address] [place] [address] Dr. Samson Schumacher Glucose [Mass/Vol] 113 mg/dL Critically high 74-106 [facility] Comment on above: Performed By: #### B MP #### [facility] [address] [place] [address] Dr. Samson Schumacher Potassium [Moles/Vol] 3.5 mmol/L Normal 3.5-5.1 [facility] Comment on above: Performed By: #### B MP #### [facility] [address] [place] [address] Dr. Samson Schumacher Sodium [Moles/Vol] 138 mmol/L Normal 136-145 [facility] Comment on above: Performed By: #### B MP #### [facility] [address] [address] [address] Samson Schumacher Urea nitrogen [Mass/Vol] 7.0 mg/dL Normal 7.0-18.0 [facility] Comment on above: Performed By: #### B MP #### [facility] [address] [address] [address] Samson Schumacher Urea nitrogen/Creatinine [Mass ratio] 8.4 mg/mg Normal [facility] Comment on above: Performed By: #### B MP #### [facility] [address] [id number] Samson Schumacher US PREG TVon 01-01-2022 [...] DELFINA JUAREZ Date: 2022-01-01 08:49 Normal [facility] HEP B SURFACE ANTIGEN SCREEN on 12-02-2021 HBsAg Screen Negative Normal Negative [facility] Comment on above: Performed By: #### H BSANS #### [facility] [address] [place] [address] Dr. Samson Schumacher HEPATITIS C VIRUS AB W/ REFL EX QUANTon 12-02-2021 HCV AB <0.1 Normal 0.0-0.9 [facility] Comment on above: Performed By: #### H CVPCRR #### [facility] [address] [place], [place] [id number] Dr. Samson Schumacher Interpretation: Comment Normal [facility] Comment on above: Result Comment: Nega tive Not infected with HCV, unless recent infection is suspected or other evidence exists to indicate HCV infection. Performed By: #### H CVPCRR #### [facility] [address], [place] [address] Dr. Samson Schumacher HIV 1 AND 2 WITH REFLEXon HIV Screen 4th Generation wRfx Non-Reactive Normal Non Reactive [facility] Comment on above: Result Comment: HIV Negative HIV-1/HIV-2 antibodies and HIV-1 p24 antigen were NOT detected. There is no laboratory evidence of HIV infection. Performed By: #### H IV12 #### [facility] [address], [place] [address] Dr. Samson Schumacher RPR QUANTon 12-02-2021 Rapid Plasma Reagin, Quant Non-Reactive Normal NonRea<1:1 [facility] Comment on above: Result Comment: Plea se Note: This test does not meet current guidelines for screening and diagnosis of syphilis. This test is intended for following treatment response in patients being treated for syphilis infection. To screen for syphilis infection, a reflex cascade that includes both RPR and a treponema-specific assay should be utilized, such as Treponema pallidum (Syphilis) Screening [place] (692165) or Rapid Plasma Reagin (RPR) Test With Reflex to Quantitative RPR and Confirmatory Treponema pallidum Antibodies (680478). Performed By: #### R UBIGG #### [facility] [address], [place] [address] Dr. Samson Schumacher RUBELLA AB IGGon 12-02-2021 Rubella Antibodies, IgG 3.00 index Normal Immune >0.99 [facility] Comment on above: Result Comment: Non- immune <0.90 Equivocal 0.90 - 0.99 Immune >0.99 Performed By: #### R UBIGG #### [facility] [address] [place], [place] [address] Dr. Samson Schumacher US PREG TVon 12-02-2021 [...] FABIAN MOSER Date: 2021-12-01 22:18 Normal [facility] CBC AUTO DIFFon 12-01-2021 BASO # 0.1 103/ul Normal 0.0-0.1 [facility] Comment on above: Performed By: #### R UBIGG #### [facility] [address] [place] [address] Dr. Samson Schumacher Basophils/100 WBC (Bld) 0.5 % Normal 0.2-2.0 [facility] Comment on above: Performed By: #### R UBIGG #### [facility] [address] [address] [address] Samson Schumacher EO # 0.1 103/ul Normal 0.0-0.7 [facility] Comment on above: Performed By: #### R UBIGG #### [facility] [address] [address] [address] Samson Schumacher Eosinophils/100 WBC (Bld) 0.6 % Critically low 0.9-7.0 [facility] Comment on above: Performed By: #### R UBIGG #### [facility] [address] [place] [address] Dr. Samson Schumacher Erythrocyte distribution width (RBC) [Ratio] 11.8 % Normal 11.0-15.0 [facility] Comment on above: Performed By: #### R UBIGG #### [facility] [address] [place] [address] Dr. Samson Schumacher Hematocrit (Bld) [Volume fraction] 41.6 % Normal 36.0-48.0 [facility] Comment on above: Performed By: #### R UBIGG #### [facility] [address] [address] [address] Samson Schumacher Hemoglobin (Bld) [Mass/Vol] 13.9 g/dL Normal 12.0-16.0 [facility] Comment on above: Performed By: #### R UBIGG #### [facility] [address] [address] [address] Samson Schumacher IG # 0.03 10e3/ul Normal 0.00-0.03 [facility] Comment on above: Performed By: #### R UBIGG #### [facility] [address] [place] [address] Dr. Samson Schumacher IG % 0.3 % Normal 0.0-0.5 [facility] Comment on above: Performed By: #### R UBIGG #### [facility] [address] [place] [address] Dr. Samson Schumacher LYMPH # 2.1 103/ul Normal 1.2-3.8 [facility] Comment on above: Performed By: #### R UBIGG #### [facility] [address] [place] [address] Dr. Samson Schumacher Lymphocytes/100 WBC (Bld) 21.8 % Normal 20.5-60.0 [facility] Comment on above: Performed By: #### R UBIGG #### [facility] [address] [place] [address] Dr. Samson Schumacher MANUAL DIFF REQ NO Normal [facility] Comment on above: Performed By: #### R UBIGG #### [facility] [address] [place] [address] Dr. Samson Schumacher MCH (RBC) [Entitic mass] 30.0 pg Normal 26.7-34.0 [facility] Comment on above: Performed By: #### R UBIGG #### [facility] [address] [place] [address] Dr. Samson Schumacher MCHC (RBC) [Mass/Vol] 33.4 g/dL Normal 29.9-35.2 [facility] Comment on above: Performed By: #### R UBIGG #### [facility] [address] [address] [address] Samson Schumacher MCV (RBC) [Entitic vol] 89.8 fL Normal 81.0-99.0 [facility] Comment on above: Performed By: #### R UBIGG #### [facility] [address] [address] [address] Samson Schumacher MONO # 0.6 103/ul Normal 0.3-0.8 [facility] Comment on above: Performed By: #### R UBIGG #### [facility] [address] [place] [address] Dr. Samson Schumacher Monocytes/100 WBC (Bld) 6.5 % Normal 1.7-12.0 [facility] Comment on above: Performed By: #### R UBIGG #### [facility] [address] [place] [address] Dr. Samson Schumacher NEUT # 6.6 103/ul Critically high 1.4-6.5 [facility] Comment on above: Performed By: #### R UBIGG #### [facility] [address] [place] [address] Dr. Samson Schumacher Neutrophils/100 WBC (Bld) 70.3 % Normal 43.0-75.0 [facility] Comment on above: Performed By: #### R UBIGG #### [facility] [address] [place] [address] Dr. Samson Schumacher Platelet mean volume (Bld) [Entitic vol] 9.8 fL Normal 9.5-13.5 [facility] Comment on above: Performed By: #### R UBIGG #### [facility] [address] [place] [address] Dr. Samson Schumacher PLT 229 103/ul Normal 150-450 [facility] Comment on above: Performed By: #### R UBIGG #### [facility] [address] [place] [address] Dr. Samson Schumacher RBC 4.63 106/ul Normal 4.20-5.40 [facility] Comment on above: Performed By: #### R UBIGG #### [facility] [address] [address] [address] Samson Schumacher WBC 9.4 103/ul Normal 4.0-11.0 [facility] Comment on above: Performed By: #### R UBIGG #### [facility] [address] [address] [address] Samson Schumacher CULTURE URINEon 12-01-2021 CULTURE URINE Culture Observations : MODERATE GROWTH OF MIXED GENITAL HUBER. NO POTENTIAL PATHOGENS SEEN. Normal [facility] Comment on above: Performed By: #### R UBIGG #### [facility] [address] [place] [address] Dr. Samson Schumacher GLYCOHEMOGLOBIN A1Con 2021 ADA RECOMMENDATION SEE BELOW Normal [facility] Comment on above: Result Comment: ADA RECOMMENDED LIMIT 4.0 - 6.0 ADA THERAPEUTIC TARGET < 7.0 ACTION SUGGESTED > 7.0 Performed By: #### A 1C #### [facility] [address] [place] [address] Dr. aSmson Schumacher Glucose [Mass/Vol] 105 mg/dL Normal [facility] Comment on above: Performed By: #### A 1C #### [facility] [address] [place] [address] Dr. Samson Schumacher HbA1c (Bld) [Mass fraction] 5.3 % Normal 4.5-6.2 [facility] Comment on above: Performed By: #### A 1C #### [facility] [address] [place] [address] Dr. Samson Schumacher TYPE AND SCREENon 12-01-2021 TYPE AND SCREEN Negative Normal [facility] Comment on above: Performed By: #### R UBIGG #### [facility] [address] [place] [address] Dr. Samson Schumacher KNEE LEFT 1 OR 2 VWSon 07-31 KNEE LEFT 1 OR 2 VWS [facility] [address] [place] [address] P atient Name: NIDIA SMITH : 1995Sex: FAge: Race: WhiteMRN: [id number]. Location: 84Patient Status: Date: 07/31/2017 10:20:00 AMCompleted Date: 07/31/2017 10:34 AMRequesting Provider: SHAN YUNG Attending Provider: Report Copy To: Signs & Symptoms: M25.562 Pain in left knee S34Tvrbrpe: AthenaComments: , , , Ordering Provider - SHAN YUNG MD , Exam: KNEE LEFT 1 OR 2 VWSAccession #: [id number] ======KNEE LEFT 1 OR 2 VWS 07/31/2017 [...] repair. Electronically signed by:Reta Salas. Transcribed by: [email or web address], User Resident: Electronically Signed by: RETA SALAS @ 07/31/2017 11:14 AM Normal [facility] Comment on above: Order Comment: , , = ========= , Ordering Provider - SHAN YUNG MD , Operative Reporton 8 Operative Report MR#: [id number] [facility] Pt. Name: Nidia Smith Room #: 0C Discharge 07/27/2017 Date: Birthdate: 1995 OPERATIVE REPORTDATE OF SURGERY: 07/27/2017SURGEON: Shan Yung M.D.PHOTONICS TECHNICIAN: Shan Rodarte M.D.PREOPERATIVE DIAGNOSIS: Left knee ACL [...] left lower extremity. She will be given [place] for paincontrol, Colace, and aspirin for DVT prophylaxis. I will see her back inclinic in 4-5 days for initiation of physical therapy with accelerated ACLprotocol.Electronicall y Signed by:Shan Yung M.D. 07/30/2017 11:36 A Shan Yung M.D.Date Dict: 07/27/2017/09:27 A/Shan Yung M.D.Date Trans: 07/27/2017 07:56 P/[id number] cc: Kiel Kelly D.O. [facility] [address] Normal [facility] POC GLUCOSE LABon 07-27-2017 Glucose mass conc 81 mg/dL Normal 70-100 [facility] Comment on above: Performed By: #### 8 5499 ####[facility] [place] [address], [facility] POC URINE PREGNANCYon 2017 HCG.beta subunit ( test) Ql (U) Negative Normal NEGATIVE [facility] Comment on above: Result Comment: Perf ormed in PACU Performed By: #### 8 8230 ####[facility] HCG, Quanton 07-17-2017 HCG, Quant <1 Normal <5 [facility] Comment on above: Result Comment: Non- preg premeno <=5Postmeno <=8Male <=3If HCG results do not concur with clinical observations, additional testing to confirm result is recommended. This test is not labeled for use as a tumor marker.Performed at [address] [place], [place] [id number] [phone] Performed By: #### G LUF ####[address] [place] [address] #### FSH, LH, PROL, TEST ####[facility] [address] [place] [address] #### INSU ####[address] [phone] [place] [address] KNEE LEFT 4VWSon 06-18-2017 KNEE LEFT 4VWS [facility] [address] [place] [address] P atient Name: NIDIA SMITH : 1995Sex: FAge: Race: WhiteMRN: [id number]. Location: 84Patient Status: OVisit #: [id number] Date: 06/18/2017 1:05:00 PMCompleted Date: 06/18/2017 01:09 PMRequesting Provider: SHAN YNUG Attending Provider: SHAN YUNG Report Copy To: UNKNOWN, PHYSICIAN Signs & Symptoms: M25.562 Pain in left knee S11Apoyhbx: AthenaComments: , , , Ordering Provider - SHAN YUNG MD , Exam: KNEE LEFT 4VWSAccession #: [id number] ======KNEE LEFT 4VWS 06/18/2017 1:09 PM EDT [...] seen. Electronically signed by:Mona Mckeon. Transcribed by: [email or web address], User Resident: Electronically Signed by: MONA MCKEON @ 06/18/2017 02:23 PM Normal [facility] Comment on above: Order Comment: , , = ========= , Ordering Provider - SHAN YUNG MD , Progesteroneon 05-16-2017 Progesterone 10.40 ng/mL Normal [facility] Comment on above: Result Comment: FEMA LE (healthy): Follicular phase 0.06-0.89 Ovulation phase 0.12-12.00 Luteal phase 1.83-23.90Postmenopausal <0.13Performed at [place] [id number] [phone] Performed By: #### [facility] ####[address] , [place] [address] #### FSH, LH, PROL, TEST ####[address] [address] #### INSU ####[address] [phone] [place] [address] Progress Noteon 05-16-2017 HIM IP Note OR Wet Suit Gluer Normal [facility] Progress Noteon 04-13-2017 HIM IP Note OR Wet Suit Gluer Normal [facility] HCG Screen, Bloodon 04-12-19 18 HCG Qn Negative Normal NEG [facility] Comment on above: Result Comment: Perf ormed at [address] [place] [address] [phone] Performed By: #### H CG ####[address] [address] Progesteroneon 02-14-2017 Progesterone <0.05 Normal [facility] Comment on above: Result Comment: FEMA LE (healthy): Follicular phase 0.06-0.89 Ovulation phase 0.12-12.00 Luteal phase 1.83-23.90Postmenopausal <0.13Performed at [address] [address] Performed By: #### P JAMES ####[address] [address] Follicle Stim. Hormon 2016 Follicle Stim. Horm 5.8 U/L Normal 1.7-21.5 [facility] Comment on above: Result Comment: Refe rence Range:Male: 1.5-12.4Ovulating Female: Follicular Phase 3.5-12.5 Ovulation Phase 4.7-21.5 Luteal Phase 1.7-7.7Postmenopausal Female: 25.8-134.8Performed at 06 [address] [address] Performed By: #### G LUF ####[address] [place] [address] #### FSH, LH, PROL, TEST ####[address] [address] #### INSU ####[address] [phone] [place] [address] Glucose, Fastingon 01-06- 7 Glucose mass conc 91 mg/dL Normal 70-99 [facility] Comment on above: Result Comment: Perf ormed at [address] [place] [address] Performed By: #### G LUF ####[address] [place] [address] #### FSH, LH, PROL, TEST ####[address] [address] #### INSU ####[address] [phone] [place] [address] Insulinon 01-06-2017 Insulin 22.8 mU/L Normal [facility] Comment on above: Performed By: #### G LUF ####[address] [place] [address] #### FSH, LH, PROL, TEST ####[address] [address] #### INSU ####[address] [phone] [place] [address] Reference Range Normal [facility] Comment on above: Result Comment: Fast in.6-24.930 min: 20-92820 min: 29-8890 min: 26-52157 min: 22-79Performed at [address] [address] Performed By: #### G LUF ####[address] [place] [address] #### FSH, LH, PROL, TEST ####[address] [address] #### INSU ####[address] [phone] [place] [address] Collection Info. A.M. Normal [facility] Comment on above: Result Comment: Perf ormed at [address] [place] [address] Performed By: #### G LUF ####[address] [place] [address] #### FSH, LH, PROL, TEST ####[address] [address] #### INSU ####[address] [phone] [place] [address] Luteinizing Hormoneon 2016 Luteinizing Hormone 8.0 U/L Normal 1.0-95.6 [facility] Comment on above: Result Comment: Refe rence Range:Male: 1.7-8.6Ovulating Female: Follicular Phase 2.4-12.6 Ovulation Phase 14.0-95.6 Luteal Phase 1.0-11.4Postmenopausal Female: 7.7-58.5Performed at [address] [address] Performed By: #### G LUF ####[address] [place] [address] #### FSH, LH, PROL, TEST ####[address] [address] #### INSU ####[address] [phone] [place] [address] Prolactinon 01-06-2017 Prolactin 11.98 ug/L Normal 4.79-23.30 [facility] Comment on above: Result Comment: The presence of macroprolactin may cause interference in female patients with various endocrinological diseases or during .Performed at [address] [address] Performed By: #### G LUF ####[address] [place] [address] #### FSH, LH, PROL, TEST ####[address] [address] #### INSU ####[address] [phone] [place] [address] Testosterone, Totalon 2016 Testosterone 26 ng/dL Normal 20-70 [facility] Comment on above: Result Comment: Perf ormed at [address] [address] Performed By: #### G LUF ####[address] [place] [address] #### FSH, LH, PROL, TEST ####[address] [address] #### INSU ####[address] [phone] [place] [address] Thyroid Stim. Horm.on 2016 Thyroid stimulating hormone (TSH) 1.68 m[IU]/L Normal 0.30-5.00 [facility] Comment on above: Result Comment: Perf ormed at [address] [place], [place] [address]83 [phone] Performed By: #### T SH ####[address] [place] [address] Encounters Encounter Date Encounter Type Care Provider Facility Start: 05-30-2023 End: 05-30-2023 ambulatory FOREST GEE Not Available Start: 04-19-2023 End: 04-19-2023 ambulatory FOREST GEE Not Available Start: 02-27-2023 End: 02-27-2023 ambulatory TIM JOYNER Not Available Start: 02-20-2023 End: 02-20-2023 ambulatory FOREST GEE [...] Start: 08-10-2017 End: 09-09-2017 Ambulatory PHYSICIAN UNKNOWN Facility:[facility] Start: 07-31-2017 End: 08-01-2017 Ambulatory PHYSICIAN UNKNOWN Facility:[facility] Start: 07-27-2017 End: 07-28-2017 Ambulatory REFERRED SELF Facility:[facility] Start: 07-17-2017 End: 07-18-2017 Ambulatory [facility] Start: 07-17-2017 End: 08-10-2017 Ambulatory SHAN YUNG Facility:[facility] Start: 06-18-2017 End: 06-19-2017 Ambulatory SHAN YUNG Facility:[facility] Start: 06-12-2017 End: 06-13-2017 Ambulatory DEFAULT PHYSICIAN Facility:[facility] Start: 05-15-2017 End: 05-16-2017 Ambulatory [facility]SE [facility] Start: 04-12-2017 End: 04-13-2017 Ambulatory [facility] Start: 02-14-2017 End: 02-15-2017 Ambulatory [facility]SE [facility] Start: 01-06-2017 End: 01-07-2017 Ambulatory [...] NATASHA Start: 01-06-2017 INSULIN, TOTAL [facility] Start: 01-06-2017 LUTEINIZING HORMONE TYSON KAUR Start: 01-06-2017 PROLACTIN CLARISSE ELYSSA H Start: 01-06-2017 TESTOSTERONE CLARISSE ELYSSA H Payers Date Payer Category Payer Unknown [id number] 1995 Unknown [id number] 2.16.84 [id number] 1995 Unknown [id number] 2.16.84 [id number] 1995 Unknown [id number] 2.16.84 0.1.962441.3.579.2.593 1995 Unknown [id number] 2.16.84 0.1.283028.3.579.2.593 1995 Unknown [id number] 2.16.84 0.1.572530.3.579.2.9 1995 Unknown [id number] 2.16.84 0.1.488729.3.579.2.1259 1995 Unknown [id number] 2.16.840 .1.771960.3.579.2.9 1995 Unknown [id number] 2.16.840 .1.948688.3.579.2.9 1995 Unknown [id number] 2.16.840 .1.022616.3.579.2.9 1995 Unknown [id number] 2.16.840 .1.032796.3.579.2.9 1995 Unknown [id number] 2.16.840. 1.364420.3.579.2.9 1959 Unknown [id number] Unknown Summary Purpose Family History No Family [...] DATE CREATED AUTHOR AUTHOR'S ORGANIZ ATION 09/14/2017 [facility] DATE CREATED AUTHOR AUTHOR'S ORGANIZ ATION 07/12/2022 [facility] DATE CREATED AUTHOR AUTHOR'S ORGANIZ ATION 05/31/2023 [facility] FOR RECORDS PERTAINING TO PATIENTS WHO [...] BE BASED ON THE PRIMARY CLINICAL RECORDS. [facility] [employer] [facility]. provides no warranty or guarantee of the accuracy or completeness of information in this document.
[2023-11-06 17:09] LABS: Age Gdln ACOG Testing Note (.); IGP, rfx Aptima HPV ASCU Note (.)
== END 2023-11-01 18:31 | disposition home or self-care (01) ==
LOC: LAB 18:30
PROVIDERS: PCP Family Medicine; Visit Provider Obstetrics & Gynecology
DX: Z01.419 Encounter for gynecological examination (general) (routine) without abnormal findings (principal)
CPT/HCPCS: 88175

== ENCOUNTER 2024-05-13 11:23 | Outpatient (OUT) | payer BC, SELFPAY ==
--- OUTSIDE RECORDS SUMMARY | 2024-05-13 11:31 | XMS_ITS | CCD ---
Author Organization [facility] Care Team Providers Care Superintendent Mechanical Name Role Phone DANYA KAUR Unavailable Unavailabl e VALONE, KIEL L Unavailable Unavailable TYSON KAURENE HUFF Unavailable Unavailabl e VALONE, KIEL L Unavailable Unavailable KAURDANYA DARIA Unavailable Unavailabl e VALONE, KIEL L Unavailable Unavailable KAUR, DANYA HUFF Unavailable Unavailabl e VALONE, KIEL L [...] SHAN Unavailable Unavailable YUNG, SHAN Unavailable Unavailable [place] Unavailable Unavailable VALONE, KIEL Unavailable Unavailable [place] Unavailable Unavailable RODOLFO BARILLAS Unavailable Unavailable UNKNOWN, PHYSICIAN Unavailable Unavailable YUNG, SHAN Unavailable Unavailable YUNG, SHAN Unavailable Unavailable UNKNOWN, PHYSICIAN Unavailable Unavailable UNKNOWN, PHYSICIAN Unavailable Unavailable YUNG, SHAN Unavailable Unavailable YUNG, SHAN Unavailable Unavailable YUNG, SHAN Unavailable Unavailable CHINEDU ., DR DUMONT Attending Unavailable CHINEDU ., DR DUMONT Admitting Unavailable MISC, DR MILAN Primary Care Unavailable CHINEDU ., DR DUMONT Consulting Unavailable GEORGIA, DR BOONE Garcia Consulting Unavailabl e DREW, MITZI Admitting Unavailable MITZI RUSSELL Attending Unavailable SILAS ., DR MCCARTHY Primary Care Unavailable DELFINA JUAREZ Consulting Unavailable CHINEDU ., DR DUMONT Attending Unavailable VALONE, DR HOLLOWAY Primary Care Unavailable CHINEDU ., DR DUMONT Admitting Unavailable CHINEDU ., DR DUMONT Consulting Unavailable ZIEBER, DR FABIAN Bravo Consulting Unavailable CHINEDU ., DR DUMONT Admitting Unavailable REQUEST, DR HERNANDEZ LISTED Primary Care Unavaila ble CHINEDU ., DR DUMONT Consulting Unavailable CHINEDU ., DR DUMONT Attending Unavailable Jamin Massey MD Primary Care Provider [phone] TIM CHE Attending Unavailable FOREST GEE Attending Unavailable TIM CHE Attending Unavailable Allergies Allergy Classification Reported Allergen(s) Allergy Type Date of Onset Reaction(s) Facility (1 source) NKA; Translations: [NKA] Propensity to adverse reactions (disorder) [facility] (1 source) No Known Allergies; Translations: [No Known Allergies] Propensity to adverse reactions (disorder) [facility] Medications Current Medications Medication Drug Class(es) Dates Sig (Normalized) Sig (Original) levothyroxine sodium 0.075 mg oral tablet (2 sources) l-Thyroxine Start: 04-15-2024 take 1 tablet by mouth once daily in the morning levothyroxine (Synthroid, Levoxyl) 75 MCG tablet TAKE 1 TABLET BY MOUTH EVERY DAY IN THE MORNING ON EMPTY STOMACH FOR 30 DAYS 04/15/2024 Active Completed/Discontinued Medications Medication Drug Class(es) Dates Sig (Normalized) Sig (Original) hydrocortisone acetate 25 mg/ml / pramoxine hydrochloride 10 mg/ml topical cream (6 sources) Corticosteroid Start: 05-30-2023 End: 05-29-2024 pramoxine-hydrocort isone cream Indications: Hemorrhoids, unspecified hemorrhoid type Apply topically 2 (two) times a day 24.8 g 05/30/2023 11/01/2023 Discontinued Start: 05-30-2023 End: 11-01-2023 apply 1 dose rectal route twice daily pramoxine-hydrocortisone (Analpram-HC) 1 -1 % rectal cream Indications: Hemorrhoids, unspecified hemorrhoid type Insert into the rectum 2 (two) times a day 30 g 1 05/30/2023 11/01/2023 Discontinued Problems Active Problems Problem Classification Problem Date Documented Date Episodic/Chronic Contraceptive and procreative management (2 sources) Patient encounter status; Translations: [Encounter for other procreative management] 04-30-2024 Episodic Menstrual disorders (14 sources) Irregular menstruation, unspecified; Translations: [Missed period] Onset: 01-06-2017 Chronic Other aftercare (1 source) [...] GESTATION OF ] Onset: 12-05-2021 Episodic Spontaneous (12 sources) Complete or unspecified spontaneous without complication; Translations: [Incomplete spontaneous without complication] Onset: 01-03-2022 Episodic Results Test Name Value Interpretation Reference Range Facility IGP,APTIMA HPV,AGE GDLNon AGE GDLN ACOG TESTING Note . [facility] Comment on above: TESTS RESULT FLAG UN ITS REF RANGE LAB Clinician Provided Cytology Information Source.............Cervix;Endocervix No. of containers..01 ThinPrep Vial Age Paresh MAHER Emma... FLAG LEGEND: L-Low Normal,H-High Normal,LL-Alert Low,HH-Alert High <-Panic Low,>-Panic High,A-Abnormal,AA-Critical Abnormal Performed at: 01 [facility] [address] [place] [address] Karyn Carl MD, IGP, RFX APTIMA HPV ASCU Note . [facility] Comment on above: TESTS RESULT FLAG [facility] REF RANGE LAB DIAGNOSIS: 02 NEGATIVE FOR INTRAEPITHELIAL LESION OR MALIGNANCY. Specimen adequacy: 02 Satisfactory for evaluation. Endocervical and/or squamous metaplastic cells (endocervical component) are present. Performed by: Susana Garcia, Curb Worker ([facility]) . 02 Note: Note 02 The Pap smear is a screening test designed to aid in the detection of premalignant and malignant conditions of the uterine cervix. It is not a diagnostic procedure and should not be used as the sole means of detecting cervical cancer. Both false-positive and false-negative reports do occur. Test Methodology: Note 02 This liquid based ThinPrep(R) pap test was screened with the use of an image guided system. . 02 The HPV DNA reflex criteria were not met with this specimen result therefore, no HPV testing was performed. FLAG LEGEND: L-Low Normal,H-High Normal,LL-Alert Low,HH-Alert High <-Panic Low,>-Panic High,A-Abnormal,AA-Critical Abnormal Performed at: [address] [facility] [address] [id number] Karyn Carl MD, Performed at: =G - [facility] [address] [id number] Supervisor Film Processing: Kayrn Carl MD, Phone: [phone] Performed at: - [facility] [id number] Supervisor Film Processing: Karyn Carl MD, Phone: [phone] [facility] 07-06-2022 HCG QUANT 481 mIU/mL Normal [facility] Comment on above: Performed By: #### P REGQNT #### [facility] [address] [place] [address] Dr. Samson Schumacher HCG RANGE SEE BELOW Normal [facility] Comment on above: Result Comment: 5-50 0.2-1 WEEK 50-500 1-2 WEEKS 100-5,000 2-3 WEEKS 500-10,000 3-4 WEEKS 1,000-50,000 4-5 WEEKS 10,000-100,000 5-6 WEEKS 15,000-200,000 6-8 WEEKS 10,000-100,000 2-3 MONTHS Performed By: #### P REGQNT #### [facility] [address] [place] [address] Dr. Samson Schumacher PREG QUANT HCGon 07-04-2022 HCG QUANT 185 mIU/mL Normal [facility] Comment on above: Performed By: #### P REGQNT #### [facility] [address] [place] [address] Dr. Samson Schumacher HCG RANGE SEE BELOW Normal [facility] Comment on above: Result Comment: 5-50 0.2-1 WEEK 50-500 1-2 WEEKS 100-5,000 2-3 WEEKS 500-10,000 3-4 WEEKS 1,000-50,000 4-5 WEEKS 10,000-100,000 5-6 WEEKS 15,000-200,000 6-8 WEEKS 10,000-100,000 2-3 MONTHS Performed By: #### P REGQNT #### [facility] [address] [place] [address] Dr. Samson Schumacher PREG QUANT HCGon 01-16-2022 HCG QUANT 4 mIU/mL Normal [facility] Comment on above: Performed By: #### P REGQNT #### [facility] [address] [place] [address] Dr. Samson Schumacher HCG RANGE SEE BELOW Normal [facility] Comment on above: Result Comment: 5-50 0.2-1 WEEK 50-500 1-2 WEEKS 100-5,000 2-3 WEEKS 500-10,000 3-4 WEEKS 1,000-50,000 4-5 WEEKS 10,000-100,000 5-6 WEEKS 15,000-200,000 6-8 WEEKS 10,000-100,000 2-3 MONTHS Performed By: #### P REGQNT #### [facility] [address] [place] [address] Dr. Samson Schumacher PREG QUANT HCGon 01-10-2022 HCG QUANT 15 mIU/mL Normal [facility] Comment on above: Performed By: #### P REGQNT #### [facility] [address] [place] [address] Dr. Samson Schumacher HCG RANGE SEE BELOW Normal [facility] Comment on above: Result Comment: 5-50 0.2-1 WEEK 50-500 1-2 WEEKS 100-5,000 2-3 WEEKS 500-10,000 3-4 WEEKS 1,000-50,000 4-5 WEEKS 10,000-100,000 5-6 WEEKS 15,000-200,000 6-8 WEEKS 10,000-100,000 2-3 MONTHS Performed By: #### P REGQNT #### [facility] [address] [place] [address] Dr. Samson Schumacher CBC AUTO DIFFon 01-01-2022 BASO # 0.0 103/ul Normal 0.0-0.[address] [facility] Comment on above: Performed By: #### R UBIGG #### [facility] [address] [place] [address] Dr. Samson Schumacher Basophils/100 WBC (Bld) 0.3 % Normal 0.2-2.[address] [facility] Comment on above: Performed By: #### R UBIGG #### [facility] [address] [place] [address] Dr. Samson Schumacher EO # 0.1 103/ul Normal 0.0-0.[address] [facility] Comment on above: Performed By: #### R UBIGG #### [facility] [address] [place] [address] Dr. Samson Schumacher Eosinophils/100 WBC (Bld) 0.6 % Critically low 0.9-7.[address] [facility] Comment on above: Performed By: #### R UBIGG #### [facility] [address] [place] [address] Dr. Samson Schumacher Erythrocyte distribution width (RBC) [Ratio] 12.0 % Normal 11.0-15.[address] [facility] Comment on above: Performed By: #### R UBIGG #### [facility] [address] [place] [address] Dr. Samson Schumacher Hematocrit (Bld) [Volume fraction] 37.2 % Normal 36.0-48.[address] [facility] Comment on above: Performed By: #### R UBIGG #### [facility] [address] [address] [address] Samson Schumacher Hemoglobin (Bld) [Mass/Vol] 12.4 g/dL Normal 12.0-16.[address] [facility] Comment on above: Performed By: #### R UBIGG #### [facility] [address] [address] [address] Samson Schumacher IG # 0.04 10e3/ul Critically high 0.00-0.03 [facility] Comment on above: Performed By: #### R UBIGG #### [facility] [address] [address] [address] Samson Schumacher IG % 0.3 % Normal 0.0-0.[address] [facility] Comment on above: Performed By: #### R UBIGG #### [facility] [address] [address] [address] Samson Schumacher LYMPH # 1.9 103/ul Normal 1.2-3.[address] [facility] Comment on above: Performed By: #### R UBIGG #### [facility] [address] [address] [address] Samson Schumacher Lymphocytes/100 WBC (Bld) 14.1 % Critically low 20.5-60.[address] [facility] Comment on above: Performed By: #### R UBIGG #### [facility] [address] [address] [address] Samson Schumacher MANUAL DIFF REQ NO Normal [facility] Comment on above: Performed By: #### R UBIGG #### [facility] [address] [address] [address] Samson Schumacher MCH (RBC) [Entitic mass] 30.5 pg Normal 26.7-34.[address] [facility] Comment on above: Performed By: #### R UBIGG #### [facility] [address] [address] [address] Samson Schumacher MCHC (RBC) [Mass/Vol] 33.3 g/dL Normal 29.9-35.[address] [facility] Comment on above: Performed By: #### R UBIGG #### [facility] [address] [address] [address] Samson Schumacher MCV (RBC) [Entitic vol] 91.4 fL Normal 81.0-99.[address] [facility] Comment on above: Performed By: #### R UBIGG #### [facility] [address] [address] [address] Samson Schumacher MONO # 0.5 103/ul Normal 0.3-0.[address] [facility] Comment on above: Performed By: #### R UBIGG #### [facility] [address] [address] [address] Samson Schumacher Monocytes/100 WBC (Bld) 4.0 % Normal 1.7-12.[address] [facility] Comment on above: Performed By: #### R UBIGG #### [facility] [address] [address] [address] Samson Schumacher NEUT # 10.7 103/ul Critically high 1.4-6.5 [facility] Comment on above: Performed By: #### R UBIGG #### [facility] [address] [address] [address] Samson Schumacher Neutrophils/100 WBC (Bld) 80.7 % Critically high 43.0-75.[address] [facility] Comment on above: Performed By: #### R UBIGG #### [facility] [address] [address] [address] Samson Schumacher Platelet mean volume (Bld) [Entitic vol] 10.2 fL Normal 9.5-13.5 [facility] Comment on above: Performed By: #### R UBIGG #### [facility] [address] [address] [address] Samson Schumacher PLT 225 103/ul Normal 150-450 [facility] Comment on above: Performed By: #### R UBIGG #### [facility] [address] [address] [address] Samson Schumacher RBC 4.07 106/ul Critically low 4.20-5.40 [facility] Comment on above: Performed By: #### R UBIGG #### [facility] [address] [address] [address] Samson Schumacher WBC 13.3 103/ul Critically high 4.0-11.0 [facility] Comment on above: Performed By: #### R UBIGG #### [facility] [address] [place] [address] Dr. Samson Schumacher PROF CHEM 8 (BAS METB)on Anion gap [Moles/Vol] 13.1 mmol/L Normal [facility] Comment on above: Performed By: #### B MP #### [facility] [address] [place] [address] Dr. Samson Schumacher Calcium [Mass/Vol] 8.5 mg/dL Normal 8.5-10.1 [facility] Comment on above: Performed By: #### B MP #### [facility] [address] [place] [address] Dr. Samson Schumacher Chloride [Moles/Vol] 104 mmol/L Normal 98-[address] [facility] Comment on above: Performed By: #### B MP #### [facility] [address] [place] [address] Dr. Samson Schumacher CO2 [Moles/Vol] 24.4 mmol/L Normal 21.0-32.[address] [facility] Comment on above: Performed By: #### B MP #### [facility] [address] [place] [address] Dr. Samson Schumacher Creatinine [Mass/Vol] 0.83 mg/dL Normal 0.55-1.[address] [facility] Comment on above: Performed By: #### B MP #### [facility] [address] [place] [address] Dr. Samson Schumacher EGFR-AF PANAMANIAN >60 Normal >=[address] [facility] Comment on above: Performed By: #### B MP #### [facility] [address] [place] [address] Dr. Samson Schumacher EGFR-NON AF PANAMANIAN >60 Normal >=[address] [facility] Comment on above: Performed By: #### B MP #### [facility] [address] [address] [address] Samson Schumacher Glucose [Mass/Vol] 113 mg/dL Critically high 74-106 [facility] Comment on above: Performed By: #### B MP #### [facility] [address] [address] [address] Samson Schumacher Potassium [Moles/Vol] 3.5 mmol/L Normal 3.5-5.[address] [facility] Comment on above: Performed By: #### B MP #### [facility] [address] [address] [address] Samson Schumacher Sodium [Moles/Vol] 138 mmol/L Normal 136-145 [facility] Comment on above: Performed By: #### B MP #### [facility] [address] [address] [address] Samson Schumacher Urea nitrogen [Mass/Vol] 7.0 mg/dL Normal 7.0-18.[address] [facility] Comment on above: Performed By: #### B MP #### [facility] [address] [address] [address] Samson Schumacher Urea nitrogen/Creatinine [Mass ratio] 8.4 mg/mg Normal [facility] Comment on above: Performed By: #### B MP #### [facility] [address] [place] [address] Dr. Samson Schumacher US PREG TVon 01-01-2022 [...] DELFINA JUAREZ Date: 2022-01-01 08:49 Normal [facility] HEP B SURFACE ANTIGEN SCREEN on 12-02-2021 HBsAg Screen Negative Normal Negative [facility] Comment on above: Performed By: #### H BSANS #### [facility] [address] [place] [address] Dr. Samson Schumacher HEPATITIS C VIRUS AB W/ REFL EX QUANTon 12-02-2021 HCV AB <0.1 Normal 0.0-0.9 [facility] Comment on above: Performed By: #### H CVPCRR #### [facility] [address] [place] [address] Dr. Samson Schumacher Interpretation: Comment Normal [facility] Comment on above: Result Comment: Nega tive Not infected with HCV, unless recent infection is suspected or other evidence exists to indicate HCV infection. Performed By: #### H CVPCRR #### [facility] [address] [place] [address] Dr. Samson Schumacher HIV 1 AND 2 WITH REFLEXon HIV Screen 4th Generation wRfx Non-Reactive Normal Non Reactive [facility] Comment on above: Result Comment: HIV Negative HIV-1/HIV-2 antibodies and HIV-1 p24 antigen were NOT detected. There is no laboratory evidence of HIV infection. Performed By: #### H IV12 #### [facility] [address] [place] [address] Dr. Samson Schumacher RPR QUANTon 12-02-2021 Rapid Plasma Reagin, Quant Non-Reactive Normal NonRea<1:1 [facility] Comment on above: Result Comment: Plea se Note: This test does not meet current guidelines for screening and diagnosis of syphilis. This test is intended for following treatment response in patients being treated for syphilis infection. To screen for syphilis infection, a reflex cascade that includes both RPR and a treponema-specific assay should be utilized, such as Treponema pallidum (Syphilis) Screening Ziebach (730982) or Rapid Plasma Reagin (RPR) Test With Reflex to Quantitative RPR and Confirmatory Treponema pallidum Antibodies (838457). Performed By: #### R UBIGG #### [facility] [address] [address] [address] Samson Schumacher RUBELLA AB IGGon 12-02-2021 Rubella Antibodies, IgG 3.00 index Normal Immune >0.[address] [facility] Comment on above: Result Comment: Non- immune <0.90 Equivocal 0.90 - 0.99 Immune >0.99 Performed By: #### R UBIGG #### [facility] [address] [place] [address] Dr. Samson Schumacher US PREG TVon 12-02-2021 [...] FABIAN MOSER Date: 2021-12-01 22:18 Normal [facility] CBC AUTO DIFFon 12-01-2021 BASO # 0.1 103/ul Normal 0.0-0.1 [facility] Comment on above: Performed By: #### R UBIGG #### [facility] [address] [place] [address] Dr. Samson Schumacher Basophils/100 WBC (Bld) 0.5 % Normal 0.2-2.0 [facility] Comment on above: Performed By: #### R UBIGG #### [facility] [address] [place] [address] Dr. Samson Schumacher EO # 0.1 103/ul Normal 0.0-0.7 [facility] Comment on above: Performed By: #### R UBIGG #### [facility] [address] [place] [address] Dr. Samson Schumacher Eosinophils/100 WBC (Bld) 0.6 % Critically low 0.9-7.[address] [facility] Comment on above: Performed By: #### R UBIGG #### [facility] [address] [place] [address] Dr. Samson Schumacher Erythrocyte distribution width (RBC) [Ratio] 11.8 % Normal 11.0-15.0 [facility] Comment on above: Performed By: #### R UBIGG #### [facility] [address] [place] [address] Dr. Samson Schumacher Hematocrit (Bld) [Volume fraction] 41.6 % Normal 36.0-48.0 [facility] Comment on above: Performed By: #### R UBIGG #### [facility] [address] [place] [address] Dr. Samson Schumacher Hemoglobin (Bld) [Mass/Vol] 13.9 g/dL Normal 12.0-16.[address] [facility] Comment on above: Performed By: #### R UBIGG #### [facility] [address] [place] [address] Dr. Samson Schumacher IG # 0.03 10e3/ul Normal 0.00-0.[address] [facility] Comment on above: Performed By: #### R UBIGG #### [facility] [address] [place] [address] Dr. Samson Schumacher IG % 0.3 % Normal 0.0-0.5 [facility] Comment on above: Performed By: #### R UBIGG #### [facility] [address] [place] [address] Dr. Samson Schumacher LYMPH # 2.1 103/ul Normal 1.2-3.8 [facility] Comment on above: Performed By: #### R UBIGG #### [facility] [address] [place] [address] Dr. Samson Schumacher Lymphocytes/100 WBC (Bld) 21.8 % Normal 20.5-60.0 [facility] Comment on above: Performed By: #### R UBIGG #### [facility] [address] [address] [address] Samson Schumacher MANUAL DIFF REQ NO Normal [facility] Comment on above: Performed By: #### R UBIGG #### [facility] [address] [place] [address] Dr. Samson Schumacher MCH (RBC) [Entitic mass] 30.0 pg Normal 26.7-34.0 [facility] Comment on above: Performed By: #### R UBIGG #### [facility] [address] [place] [address] Dr. Samson Schumacher MCHC (RBC) [Mass/Vol] 33.4 g/dL Normal 29.9-35.2 [facility] Comment on above: Performed By: #### R UBIGG #### [facility] [address] [place] [address] Dr. Samson Schumacher MCV (RBC) [Entitic vol] 89.8 fL Normal 81.0-99.[address] [facility] Comment on above: Performed By: #### R UBIGG #### [facility] [address] [place] [address] Dr. Samson Schumacher MONO # 0.6 103/ul Normal 0.3-0.[address] [facility] Comment on above: Performed By: #### R UBIGG #### [facility] [address] [place] [address] Dr. Samson Schumacher Monocytes/100 WBC (Bld) 6.5 % Normal 1.7-12.0 [facility] Comment on above: Performed By: #### R UBIGG #### [facility] [address] [place] [address] Dr. Samson Schumacher NEUT # 6.6 103/ul Critically high 1.4-6.5 [facility] Comment on above: Performed By: #### R UBIGG #### [facility] [address] [place] [address] Dr. Samson Schumacher Neutrophils/100 WBC (Bld) 70.3 % Normal 43.0-75.0 [facility] Comment on above: Performed By: #### R UBIGG #### [facility] [address] [address] [address] Samson Schumacher Platelet mean volume (Bld) [Entitic vol] 9.8 fL Normal 9.5-13.[address] [facility] Comment on above: Performed By: #### R UBIGG #### [facility] [address] [place] [address] Dr. Samson Schumacher PLT 229 103/ul Normal 150-[address] [facility] Comment on above: Performed By: #### R UBIGG #### [facility] [address] [address] [address] Samson Schumacher RBC 4.63 106/ul Normal 4.20-5.[address] [facility] Comment on above: Performed By: #### R UBIGG #### [facility] [address] [place] [address] Dr. Samson Schumacher WBC 9.4 103/ul Normal 4.0-11.[address] [facility] Comment on above: Performed By: #### R UBIGG #### [facility] [address] [place] [address] Dr. Samson Schumacher CULTURE URINEon 12-01-2021 CULTURE URINE Culture Observations : MODERATE GROWTH OF MIXED GENITAL HUBER. NO POTENTIAL PATHOGENS SEEN. Normal [facility] Comment on above: Performed By: #### R UBIGG #### [facility] [address] [place] [address] Dr. Samson Schumacher GLYCOHEMOGLOBIN A1Con 2021 ADA RECOMMENDATION SEE BELOW Normal [facility] Comment on above: Result Comment: ADA RECOMMENDED LIMIT 4.0 - 6.0 ADA THERAPEUTIC TARGET < 7.0 ACTION SUGGESTED > 7.0 Performed By: #### A 1C #### [facility] [address] [place] [address] Dr. Samson Schumacher Glucose [Mass/Vol] 105 mg/dL Normal [facility] Comment on above: Performed By: #### A 1C #### [facility] [address] [place] [address] Dr. Samson Schumacher HbA1c (Bld) [Mass fraction] 5.3 % Normal 4.5-6.2 [facility] Comment on above: Performed By: #### A 1C #### [facility] [address] [address] [address] Samson Schumacher TYPE AND SCREENon 12-01-2021 TYPE AND SCREEN Negative Normal [facility] Comment on above: Performed By: #### R UBIGG #### [facility] [address] [address] [address] Samson Schumacher KNEE LEFT 1 OR 2 VWSon 07-31 KNEE LEFT 1 OR [address] [facility] [address] [place] [address] P atient Name: NIDIA SMITH : 1995Sex: FAge: Race: WhiteMRN: [id number]. Location: 84Patient Status: Date: 07/31/2017 10:20:00 AMCompleted Date: 07/31/2017 10:34 AMRequesting Provider: SHAN YUNG Attending Provider: Report Copy To: Signs & Symptoms: M25.562 Pain in left knee C45Myeqpen: AthenaComments: , , , Ordering Provider - SHAN YUNG MD , Exam: KNEE LEFT 1 OR 2 VWSAccession #: [id number] ======KNEE LEFT 1 OR 2 VWS 07/31/2017 [...] repair. Electronically signed by:Reta Salas. Transcribed by: [email or web address], User Resident: Electronically Signed by: RETA SALAS @ 07/31/2017 11:14 AM [address] [facility] Comment on above: Order Comment: , , = ========= , Ordering Provider - SHAN YUNG MD , Operative Reporton Operative Report MR#: [id number] [facility] Pt. Name: Nidia Smith Room #: 0C Discharge 07/27/2017 Date: Birthdate: 1995 OPERATIVE REPORTDATE OF SURGERY: 07/27/2017SURGEON: Shan Yung M.D.WARP KNITTER: Shan Rodarte M.D.PREOPERATIVE DIAGNOSIS: Left knee ACL [...] left lower extremity. She will be given [place] for paincontrol, Colace, and aspirin for DVT prophylaxis. I will see her back inclinic in 4-5 days for initiation of physical therapy with accelerated ACLprotocol.Electronicall y Signed by:Shan Yung M.D. 07/30/2017 11:36 A Shan Yung M.D.Date Dict: 07/27/2017/09:27 Moshe/Shan Yung M.D.Date Trans: 07/27/2017 07:56 P/mmoDN_[id number] cc: Kiel Kelly D.O. [address] [place] [address] [facility] POC GLUCOSE LABon 07-27-2017 Glucose mass conc 81 mg/dL Normal 70-[address] [facility] Comment on above: Performed By: #### 8 5499 ####[facility] POC URINE PREGNANCYon 2017 HCG.beta subunit ( test) Ql (U) Negative Normal NEGATIVE [facility] Comment on above: Result Comment: Perf ormed in PACU Performed By: #### 8 4140 ####[facility] HCG, Quanton 07-17-2017 HCG, Quant <1 Normal <5 [facility] Comment on above: Result Comment: Non- preg premeno <=5Postmeno <=8Male <=3If HCG results do not concur with clinical observations, additional testing to confirm result is recommended. This test is not labeled for use as a tumor marker.Performed at [address] [place] [address] ([phone] Performed By: #### G LUF ####[address] [place] [address] #### FSH, LH, PROL, TEST ####[facility] [address] [place], [place] [id number] #### INSU ####[address] [phone] [place] [address] KNEE LEFT 4VWSon 06-18-2017 KNEE LEFT [address]WS [facility] [address] [facility] [address] [place] [id number] P atient Name: NIDIA SMITH : 1995Sex: FAge: Race: WhiteMRN: [id number]. Location: 84Patient Status: OVisit #: [id number] Date: 06/18/2017 1:05:00 PMCompleted Date: 06/18/2017 01:09 PMRequesting Provider: SHAN YUNG Attending Provider: SHAN YUNG Report Copy To: UNKNOWN, PHYSICIAN Signs & Symptoms: M25.562 Pain in left knee S35Pvnxmok: AthenaComments: , , , Ordering Provider - SHAN YUNG MD , Exam: KNEE LEFT 4VWSAccession #: [id number] ======KNEE LEFT 4VWS 06/18/2017 1:09 PM EDT [...] seen. Electronically signed by:Mona Mckeon. Transcribed by: [email or web address], User Resident: Electronically Signed by: MONA MCKEON @ 06/18/2017 02:[address] PM [address] [facility] Comment on above: Order Comment: , , = ========= , Ordering Provider - SHAN YUNG MD , Progesteroneon 05-16-2017 Progesterone 10.40 ng/mL Normal [facility] Comment on above: Result Comment: FEMA LE (healthy): Follicular phase 0.06-0.89 Ovulation phase 0.12-12.00 Luteal phase 1.83-23.90Postmenopausal <0.13Performed at [address] [id number] ([phone] Performed By: #### G LUF ####[address] [place] [address] #### FSH, LH, PROL, TEST ####[address] [address] #### INSU ####[address] [phone] [place] [address] Progress Noteon 05-16-2017 HIM IP Note OR Pitch Filler Normal [facility] Progress Noteon 04-13-2017 HIM IP Note OR Pitch Filler Normal [facility] HCG Screen, Bloodon 04-12-19 18 HCG Qn Negative Normal NEG [facility] Comment on above: Result Comment: Perf ormed at [address] [place] [address] ([phone] Performed By: #### H CG ####[address] [place] [address] Progesteroneon 02-14-2017 Progesterone <0.[address] [facility] Comment on above: Result Comment: FEMA LE (healthy): Follicular phase 0.06-0.89 Ovulation phase 0.12-12.00 Luteal phase 1.83-23.90Postmenopausal <0.13Performed at [address] [address] Performed By: #### P JAMES ####[address] [address] Follicle Stim. Hormon 2016 Follicle Stim. Horm 5.8 U/L Normal 1.7-21.5 [facility] Comment on above: Result Comment: Refe rence Range:Male: 1.5-12.4Ovulating Female: Follicular Phase 3.5-12.5 Ovulation Phase 4.7-21.5 Luteal Phase 1.7-7.7Postmenopausal Female: 25.8-134.8Performed at [address] [address] Performed By: #### G LUF ####[address] [id number] #### FSH, LH, PROL, TEST ####[address] [address] #### INSU ####[address] [phone] [place] [address] Glucose, Fastingon 7 Glucose mass conc 91 mg/dL Normal 70-99 [facility] Comment on above: Result Comment: Perf ormed at [address] [place] [id number] [phone] Performed By: #### G LUF ####[address] [place] [address] #### FSH, LH, PROL, TEST ####[address] [address] #### INSU ####[address] [phone] [place] [address] Insulinon 01-06-2017 Insulin 22.8 mU/L Normal [facility] Comment on above: Performed By: #### G LUF ####[address] [place] [address] #### FSH, LH, PROL, TEST ####[address] [address] #### INSU ####[address] [phone] [place] [address] Reference Range [facility] Comment on above: Result Comment: Fast in.6-24.930 min: 20-52936 min: 29-8890 min: 26-01404 min: 22-79Performed at [address] [address] Performed By: #### G LUF ####[address] [place] [address] #### FSH, LH, PROL, TEST ####[address] [address] #### INSU ####[address] [phone] [place] [address] Collection Info. A.M. Normal [facility] Comment on above: Result Comment: Perf ormed at [address] [place] [address] Performed By: #### G LUF ####[address] [place] [address] #### FSH, LH, PROL, TEST ####[address] [address] #### INSU ####[address] [phone] [place] [address] Luteinizing Hormoneon 2016 Luteinizing Hormone 8.0 U/L Normal 1.0-95.6 [facility] Comment on above: Result Comment: Refe rence Range:Male: 1.7-8.6Ovulating Female: Follicular Phase 2.4-12.6 Ovulation Phase 14.0-95.6 Luteal Phase 1.0-11.4Postmenopausal Female: 7.7-58.5Performed at [address] [address] Performed By: #### G LUF ####[address] [place] [id number] #### FSH, LH, PROL, TEST ####[address] [address] #### INSU ####[address] [phone] [place] [address] Prolactinon 01-06-2017 Prolactin 11.98 ug/L Normal 4.79-23.30 [facility] Comment on above: Result Comment: The presence of macroprolactin may cause interference in female patients with various endocrinological diseases or during .Performed at [address] [address] Performed By: #### G LUF ####[address] [place] [address] #### FSH, LH, PROL, TEST ####[address] [address] #### INSU ####[address] [phone] [place] [address] Testosterone, Totalon 2016 Testosterone 26 ng/dL Normal 20-70 [facility] Comment on above: Result Comment: Perf ormed at [address] [address] Performed By: #### G LUF ####[address] [address] #### FSH, LH, PROL, TEST ####[address] [address] #### INSU ####[address] [phone] [place] [address] Thyroid Stim. Horm.on 2016 Thyroid stimulating hormone (TSH) 1.68 m[IU]/L Normal 0.30-5.00 [facility] Comment on above: Result Comment: Perf ormed at [address] [place] [address] Performed By: #### T SH ####[address] , [place] [address] Vital Signs Date Time Vital Sign Value Performing Clinician Ashley zapata 04-30-2024 15:13-0500 Body mass index (BMI) [Ratio] 36.01 kg/m2 [employer] Work Phone: [facility] 04-30-2024 15:13-0500 Body weight 95.17 kg [employer] Work Phone: [facility] 04-30-2024 15:13-0500 Diastolic blood pressure 84 mm[Hg] [employer] Work Phone: [facility] 04-30-2024 15:13-0500 Systolic blood pressure 112 mm[Hg] [employer] Work Phone: [facility] 11-01-2023 09:30-0400 Body mass index (BMI) [Ratio] 35.94 kg/m2 Tim Chinedu DO Work Phone: [facility] 11-01-2023 09:30-0400 Body weight 94.98 kg Tim Chinedu DO Work Phone: [facility] 11-01-2023 09:30-0400 Diastolic blood pressure 70 mm[Hg] Tim Chinedu DO Work Phone: [facility] 11-01-2023 09:30-0400 Systolic blood pressure 120 mm[Hg] Tim Chinedu DO Work Phone: [facility] Encounters Encounter Date Encounter Type Care Provider Facility Start: 04-30-2024 End: 04-30-2024 ambulatory TIM CHINEDU Not Available Start: 04-30-2024 End: 04-30-2024 Office outpatient visit 15 minutes Tim Chinedu DO Work Phone: [facility] Comment on above: Encounter for fertil ity planning; Amenorrhea Start: 04-30-2024 End: 04-30-2024 Bamboo flowsheet Tim Chinedu DO Work Phone: [facility] Start: 04-30-2024 End: 04-30-2024 Bamboo flowsheet Tim Chinedu DO Work Phone: [facility] Start: 11-01-2023 End: 11-01-2023 Bamboo flowsheet Tim Chinedu DO Work Phone: [facility] Start: 11-01-2023 End: 11-06-2023 Bamboo flowsheet Tim Chinedu DO Work Phone: [facility] Start: 11-01-2023 End: 11-06-2023 Clinisync Result Encounter Tim Chinedu DO Work Phone: [facility] External Department Unsolicited Start: 11-01-2023 End: 11-01-2023 Patient encounter procedure Tim Chinedu DO Work Phone: [facility] Work Phone: Start: 11-01-2023 End: 11-01-2023 Periodic preventive med est patient 18-39 yrs Tim Che DO Work Phone: [facility] Comment on above: Well woman exam with routine gynecological exam Start: 11-01-2023 End: 11-01-2023 ambulatory TIM CHE Not Available Start: 05-30-2023 End: 05-30-2023 ambulatory FOREST MARLEN Not Available Start: 07-04-2022 End: 07-10-[address] TIM CHE . Facility: Start: 01-10-2022 End: 02-08-[address] TIM CHE . Facility: Start: 01-01-2022 End: 01-01-[address] BOONE HO Facility: Start: 12-01-2021 End: 12-02-[address] TIM CHE . Facility: Start: 08-10-2017 End: 09-09-2017 Ambulatory PHYSICIAN UNKNOWN Facility:[facility] Start: 07-31-2017 End: 08-01-2017 Ambulatory PHYSICIAN UNKNOWN Facility:[facility] Start: 07-27-2017 End: 07-28-2017 Ambulatory REFERRED SELF Facility:[facility] Start: 07-17-2017 End: 07-18-2017 Ambulatory JUAN MIGUEL GEORGE [facility] Start: 07-17-2017 End: 08-10-2017 Ambulatory SHAN YUNG Facility:[facility] Start: 06-18-2017 End: 06-19-2017 Ambulatory SHAN YUNG Facility:[facility] Start: 06-12-2017 End: 06-13-2017 Ambulatory DEFAULT PHYSICIAN Facility:[facility] Start: 05-15-2017 End: 05-16-2017 [facility] Start: 04-12-2017 End: 04-13-2017 [facility] Start: 02-14-2017 End: 02-15-2017 [facility] Start: 01-06-2017 End: 01-07-2017 Ambulatory DANYA KAUR [facility] Procedures Date Procedure Procedure Detail Performing Clinician Start: 11-01-2023 IGP,APTIMA HPV,AGE GDLN Tim Che DO Work Phone: Start: 07-27-2017 ANESTH KNEE JOINT SURGERY RODOLFO BARILLAS Start: 07-27-2017 KNEE ARTHROSCOPY/SURGERY SHAN YUNG Start: 07-17-2017 Gonadotropin chorion ic quantitative DANYA KAUR Start: 05-15-2017 PROGESTERONE DANYA Santoro Start: 04-12-2017 HCG, SERUM, QUALITATIVE DANYA KAUR Start: 02-14-2017 PROGESTERONE DANYA BERGERON H Start: 01-06-2017 TSH WITHOUT REFLEX PEDRO KAUR Start: 01-06-2017 FOLLICLE STIMULATING HORMONE DANYA KAUR Start: 01-06-2017 GLUCOSE, FASTING DANYA KAUR Start: 01-06-2017 INSULIN, TOTAL DANYA IFTIKHAR BATISTA Start: 01-06-2017 LUTEINIZING HORMONE TYSON KAUR Start: 01-06-2017 PROLACTIN DANYA BERGERON H Start: 01-06-2017 TESTOSTERONE DANYA BERGERON H Plan of Treatment Date Care Activity Detail Author Start: 11-04-2024 End: 11-04-2024 Patient encounter procedure 11/04/2024 8:30 AM EDT Office Visit [facility] [address] [place] [phone] Tim Che DO [address] [place], [place] [id number] [facility] Start: 11-01-2023 End: 11-01-2023 Patient encounter procedure 11/01/2023 9:20 AM EDT Office Visit [facility] [address] [place] [phone] Tim Che DO [address] [place], [place] [address] [facility] Comment on above: Arrived Cytology Cervical or vaginal smear or scraping study Pap Smear Pathology and Cytology Routine Well woman exam with routine gynecological exam Ordered: 11/01/2023 [facility] Work Phone: Comment on above: Ordered: 11/01/2023 Prolactin Prolactin Lab Ro utine Amenorrhea Ordered: 04/30/2024 [facility] Work Phone: Comment on above: Ordered: 04/30/2024 Payers Date Payer Category Payer [facility] [id number] 2021 Unknown 2016 Unknown [id number] 1995 Unknown [id number] [id number] 1995 Unknown [id number] [id number] 1995 Unknown [id number]. 2.593 1995 Unknown [id number]. [id number] 1995 Unknown [id number]. 2.1259 1995 Unknown [id number]. 2.1259 1995 Unknown [id number] 2.1259 1959 Unknown [id number] Social History Date Type Detail Facility Start: 08-10-2022 Tobacco smoking stat [facility] Never smoked tobacco [facility] Start: 08-10-2022 Tobacco use and exposure Smokeless t obacco non-user [facility] Start: 04-19-2023 End: 11-01-2023 Alcoholic beverage intake Ex-drinker (finding) [facility] Start: 08-10-2022 End: 11-08-2022 History of Social function [facility] Start: 08-10-2022 End: 11-08-2022 Tobacco use panel [facility] Start: 08-09-2022 Alcohol Comment caffeine intak e: 1 cup per day of coffee [facility] Start: 1995 Sex assigned at Female [facility] Start: 08-03-2022 Gender identity Identifies as female gender (finding) [facility] History of Present illness Narrative 04-30-2024 Kayleighelvira Donnelly LPN - 04/30/2024 2:50 PM EST Note Date & Type Note Facility 04-30-2024 History of Presen t illness Narrative Reason for Appointment: Patient ID: Yvonne Smith is a 28 y.o. female who presents for Infertility Patient presents today for Acute Visit. and Consult appointment. MEDICATIONS Current Outpatient Medications Medication Instructions levothyroxine (Synthroid, Levoxyl) 75 MCG tablet TAKE 1 TABLET BY MOUTH EVERY DAY IN THE MORNING ON EMPTY STOMACH FOR 30 DAYS ALLERGIES No Known Allergies PROBLEMS Active Ambulatory Problems Diagnosis Date Noted Complete or unspecified spontaneous without complication 08/09/2022 Missed period 08/09/2022 Resolved Ambulatory Problems Diagnosis Date Noted No Resolved Ambulatory Problems Past Medical History: Diagnosis Date Miscarriage HISTORY PAST MEDICAL HISTORY SOCIAL HISTORY Past Medical History: Diagnosis Date Miscarriage Social History Tobacco Use Smoking status: Never Smokeless tobacco: Never Substance Use Topics Alcohol use: Not Currently Comment: caffeine intake: 1 cup per day of coffee Drug use: Never FAMILY HISTORY Family History Problem Relation Name Age of Onset No Known Problems Mother No Known Problems Father No Known Problems Son SURGICAL HISTORY Past Surgical History: Procedure Laterality Date ANTERIOR CRUCIATE LIGAMENT REPAIR ACL surgery WISDOM TOOTH EXTRACTION REVIEW OF SYSTEMS Review of Systems: Review of Systems Constitutional: Negative. HENT: Negative. Eyes: Negative. Respiratory: Negative. Cardiovascular: Negative. Gastrointestinal: Negative. Genitourinary: Negative. Musculoskeletal: Negative. Skin: Negative. Neurological: Negative. All other systems reviewed and are negative. Hematological: Negative. Endocrine: Negative. Allergic/Immunologic: Negative. OBJECTIVE Objective: Physical Exam Constitutional: Appearance: Normal appearance. She is well-developed. Cardiovascular: Rate and Rhythm: Normal rate and regular rhythm. Pulmonary: Effort: Pulmonary effort is normal. Breath sounds: Normal breath sounds. Abdominal: General: Bowel sounds are normal. There is no distension. Palpations: Abdomen is soft. Tenderness: There is no abdominal tenderness. There is no guarding or rebound. Musculoskeletal: General: No swelling. Normal range of motion. Right lower leg: No edema. Left lower leg: No edema. Neurological: Mental Status: She is alert and oriented to person, place, and time. Skin: General: Skin is warm and dry. Psychiatric: Mood and Affect: Mood normal. Behavior: Behavior normal. Vitals and nursing note reviewed. Exam conducted with a testing and regulating technician present. Vitals: Estimated body mass index is 36.01 kg/m as calculated from the following: Height as of 08/10/22: 5' 4 . Weight as of this encounter: 209 lb 12.8 oz. BP: 112/84 No LMP recorded. ASSESSMENT & PLAN ICD-10-CM 1. Encounter for fertility planning Z31.89 2. Amenorrhea N91.2 Pt presents with abnormal thyroid- just started on synthroid with Dr Massey. Pt desires fertility in the future. Pt cholesterol high- will try and change diet. Pt is not having periods with a TSH at 37. Target range is below 3. Discussed inducing a period after tsh within normal range. Documented by Kayleigh Donnelly LPN on behalf of: Tim Che DO documented in this encounter [facility] History of Present illness Narrative 11-01-2023 Danya Dooley LPN - 11/01/2023 9:20 AM EDT Note Date & Type Note Facility 11-01-2023 History of Presen t illness Narrative Reason for Appointment: Patient ID: Yvonne Smith is a 28 y.o. female who presents for Well Women Visit Patient presents today for Annual Exam. MEDICATIONS No current outpatient medications ALLERGIES No Known Allergies PROBLEMS Active Ambulatory Problems Diagnosis Date Noted Complete or unspecified spontaneous without complication 08/09/2022 Missed period 08/09/2022 Resolved Ambulatory Problems Diagnosis Date Noted No Resolved Ambulatory Problems Past Medical History: Diagnosis Date Miscarriage HISTORY PAST MEDICAL HISTORY SOCIAL HISTORY Past Medical History: Diagnosis Date Miscarriage Social History Tobacco Use Smoking status: Never Smokeless tobacco: Never Substance Use Topics Alcohol use: Not Currently Comment: caffeine intake: 1 cup per day of coffee Drug use: Never FAMILY HISTORY Family History Problem Relation Name Age of Onset No Known Problems Mother No Known Problems Father No Known Problems Son SURGICAL HISTORY Past Surgical History: Procedure Laterality Date ANTERIOR CRUCIATE LIGAMENT REPAIR ACL surgery WISDOM TOOTH EXTRACTION REVIEW OF SYSTEMS Review of Systems: Review of Systems All other systems reviewed and are negative. OBJECTIVE Objective: Physical Exam Constitutional: Appearance: Normal appearance. She is well-developed. Genitourinary: Vulva normal. Breasts: Breasts are soft. Right: Normal. Left: Normal. Cardiovascular: Rate and Rhythm: Normal rate and regular rhythm. Pulmonary: Effort: Pulmonary effort is normal. Breath sounds: Normal breath sounds. Abdominal: General: Bowel sounds are normal. There is no distension. Palpations: Abdomen is soft. Tenderness: There is no abdominal tenderness. There is no guarding or rebound. Musculoskeletal: General: No swelling. Normal range of motion. Right lower leg: No edema. Left lower leg: No edema. Neurological: Mental Status: She is alert and oriented to person, place, and time. Skin: General: Skin is warm and dry. Psychiatric: Mood and Affect: Mood normal. Behavior: Behavior normal. Vitals and nursing note reviewed. Exam conducted with a testing and regulating technician present. Vitals: Estimated body mass index is 35.94 kg/m as calculated from the following: Height as of 08/10/22: 5' 4 . Weight as of this encounter: 209 lb 6.4 oz. BP: 120/70 No LMP recorded. ASSESSMENT & PLAN ICD-10-CM 1. Well woman exam with routine gynecological exam Z01.419 Pap Smear Annual Exam: Patient presents today for an annual exam. Patient states she is doing well and has no complaints. Pap was obtained without difficulty. Patient has not had a cycle since delivery and patient is currently breast feeding. Follow Up: Patient is to return in one year for annual unless needed otherwise. Documented by Danya Dooley LPN on behalf of: Tim Che DO documented in this encounter [facility] Evaluation note Note Date & Type Note Facility Evaluation note Diagnosis Well woman exam with routine gynecological exam Routine gynecological examination documented in this encounter [facility] Evaluation note Note Date & Type Note Facility Evaluation note Diagnosis Encounter for fertility planning Amenorrhea Absence of menstruation documented in this encounter [facility] Summary Purpose Family History No Family History [...] DATE CREATED AUTHOR AUTHOR'S ORGANIZ ATION 09/14/2017 [facility] DATE CREATED AUTHOR AUTHOR'S ORGANIZ ATION 07/12/2022 [facility] DATE CREATED AUTHOR AUTHOR'S ORGANIZ ATION 05/02/2024 [facility] dical Specialists EPIC Care Teams (unrecognized sec tion and content) Superintendent Mechanical Relationship Specialty Start Date End Date Jamin Massey MD [address] [place] [address] PCP - General Family Medicine 08/10/22 Superintendent Mechanical Relationship Specialty Start Date End Date Jamin Massey MD [address] [place] [address] PCP - General Family Medicine 08/10/22 Superintendent Mechanical Relationship Specialty Start Date End Date Jamin Massey MD [address] [place] [address] PCP - General Family Medicine 08/10/22 Superintendent Mechanical Relationship Specialty Start Date End Date Jamin Massey MD [address] [place] [address] PCP - General Family Medicine 6/1/23 Reason for Visit (unrecogniz ed section and content) Reason Comments Well Women Visit Reason Comments Infertility FOR RECORDS PERTAINING TO PATIENTS WHO ARE [...] BE BASED ON THE PRIMARY CLINICAL RECORDS. [employer] [facility]. provides no warranty or guarantee of the accuracy or completeness of information in this document.
[2024-05-14 04:08] LABS: Prolactin 12.7 ng/mL (4.8-33.4)
== END 2024-05-13 11:24 | disposition home or self-care (01) ==
LOC: LAB 11:24
PROVIDERS: PCP Family Medicine; Visit Provider Obstetrics & Gynecology
DX: N91.2 Amenorrhea, unspecified (principal)
CPT/HCPCS: 36415; 84146

== ENCOUNTER 2024-05-13 11:27 | Outpatient (OUT) | payer BC, SELFPAY ==
--- OUTSIDE RECORDS SUMMARY | 2024-05-13 11:34 | XMS_ITS | CCD ---
Author Organization [facility] Care Team Providers Care Tax Accountant Name Role Phone DANYA KAUR Unavailable Unavailabl [...] SHAN Unavailable Unavailable YUNG, SHAN Unavailable Unavailable ME Unavailable Unavailable VALONE, KIEL Unavailable Unavailable ME Unavailable Unavailable RODOLFO BARILLAS Unavailable Unavailable UNKNOWN, [...] Unavailable Jamin Massey MD Primary Care Provider [phone] TIM CHE Attending Unavailable FOREST GEE Attending Unavailable TIM CHE Attending Unavailable Allergies Allergy Classification Reported Allergen(s) Allergy Type Date of Onset Reaction(s) Facility (1 source) NKA; Translations: [NKA] Propensity to adverse reactions (disorder) [facility] Repository (1 source) No Known Allergies; Translations: [No Known Allergies] Propensity to adverse reactions (disorder) [facility] Medications Current Medications Medication Drug [...] GDLNon AGE GDLN ACOG TESTING Note . [facility] Comment on above: TESTS RESULT FLAG UN ITS REF RANGE LAB Clinician Provided Cytology Information Source.............Cervix;Endocervix No. of containers..01 ThinPrep Vial Age Paresh MAHER Emma... FLAG LEGEND: L-Low Normal,H-High Normal,LL-Alert Low,HH-Alert High <-Panic Low,>-Panic High,A-Abnormal,AA-Critical Abnormal Performed at: 01 =G [facility] [address] [place] [address] Karyn Carl MD, IGP, RFX APTIMA HPV ASCU Note . [facility] Comment on above: TESTS RESULT FLAG [facility] REF RANGE LAB DIAGNOSIS: 02 NEGATIVE FOR INTRAEPITHELIAL LESION OR MALIGNANCY. Specimen adequacy: 02 Satisfactory for evaluation. Endocervical and/or squamous metaplastic cells (endocervical component) are present. Performed by: Susana Garcia, Ground Crew Supervisor ([facility]) . 02 Note: Note 02 The [...] Low,>-Panic High,A-Abnormal,AA-Critical Abnormal Performed at: [address] [facility] [address] [id number] Karyn Carl MD, Performed at: =G - [facility] [address] [id number] Dehydrogenation Supervisor: Karyn Carl MD, Phone: [phone] Performed at: - [facility] [id number] Dehydrogenation Supervisor: Karyn Carl MD, Phone: [phone] [facility] 07-06-2022 HCG QUANT 481 mIU/mL Normal [facility] Comment on above: Performed By: #### P REGQNT #### [facility] [address] [place] [address] Dr. Samson Schumacher HCG RANGE SEE BELOW Normal [facility] Comment on above: Result Comment: 5-50 0.2-1 WEEK 50-500 1-2 WEEKS 100-5,000 2-3 WEEKS 500-10,000 3-4 WEEKS 1,000-50,000 4-5 WEEKS 10,000-100,000 5-6 WEEKS 15,000-200,000 6-8 WEEKS 10,000-100,000 2-3 MONTHS Performed By: #### P REGQNT #### [facility] [address] [place] [address] Dr. Samson Schumacher PREG QUANT HCGon 07-04-2022 HCG QUANT 185 mIU/mL Normal [facility] Comment on above: Performed By: #### P REGQNT #### [facility] [address] [place] [address] Dr. Samson Schumacher HCG RANGE SEE BELOW Normal [facility] Comment on above: Result Comment: 5-50 0.2-1 WEEK 50-500 1-2 WEEKS 100-5,000 2-3 WEEKS 500-10,000 3-4 WEEKS 1,000-50,000 4-5 WEEKS 10,000-100,000 5-6 WEEKS 15,000-200,000 6-8 WEEKS 10,000-100,000 2-3 MONTHS Performed By: #### P REGQNT #### [facility] [address] [place] [address] Dr. Samson Schumacher PREG QUANT HCGon 01-16-2022 HCG QUANT 4 mIU/mL Normal [facility] Comment on above: Performed By: #### P REGQNT #### [facility] [address] [place] [address] Dr. Samson Schumacher HCG RANGE SEE BELOW Normal [facility] Comment on above: Result Comment: 5-50 0.2-1 WEEK 50-500 1-2 WEEKS 100-5,000 2-3 WEEKS 500-10,000 3-4 WEEKS 1,000-50,000 4-5 WEEKS 10,000-100,000 5-6 WEEKS 15,000-200,000 6-8 WEEKS 10,000-100,000 2-3 MONTHS Performed By: #### P REGQNT #### [facility] [address] [place] [address] Dr. Samson Schumacher PREG QUANT HCGon 01-10-2022 HCG QUANT 15 mIU/mL Normal [facility] Comment on above: Performed By: #### P REGQNT #### [facility] [address] [place] [address] Dr. Samson Schumacher HCG RANGE SEE BELOW Normal [facility] Comment on above: Result Comment: 5-50 0.2-1 WEEK 50-500 1-2 WEEKS 100-5,000 2-3 WEEKS 500-10,000 3-4 WEEKS 1,000-50,000 4-5 WEEKS 10,000-100,000 5-6 WEEKS 15,000-200,000 6-8 WEEKS 10,000-100,000 2-3 MONTHS Performed By: #### P REGQNT #### [facility] [address] [place] [address] Dr. Samson Schumacher CBC AUTO DIFFon 01-01-2022 BASO # 0.0 103/ul Normal 0.0-0.1 [facility] Comment on above: Performed By: #### R UBIGG #### [facility] [address] [place] [address] Dr. Samson Schumacher Basophils/100 WBC (Bld) 0.3 % Normal 0.2-2.0 [facility] Comment on above: Performed By: #### R UBIGG #### [facility] [address] [place] [address] Dr. Samson Schumacher EO # 0.1 103/ul Normal 0.0-0.7 [facility] Comment on above: Performed By: #### R UBIGG #### [facility] [address] [place] [address] Dr. Samson Schumacher Eosinophils/100 WBC (Bld) 0.6 % Critically low 0.9-7.0 [facility] Comment on above: Performed By: #### R UBIGG #### [facility] [address] [place] [address] Dr. Samson Schumacher Erythrocyte distribution width (RBC) [Ratio] 12.0 % Normal 11.0-15.0 [facility] Comment on above: Performed By: #### R UBIGG #### [facility] [address] [place] [address] Dr. Samson Schumacher Hematocrit (Bld) [Volume fraction] 37.2 % Normal 36.0-48.0 [facility] Comment on above: Performed By: #### R UBIGG #### [facility] [address] [address] [address] Samson Schumacher Hemoglobin (Bld) [Mass/Vol] 12.4 g/dL Normal 12.0-16.0 [facility] Comment on above: Performed By: #### R UBIGG #### [facility] [address] [address] [address] Samson Schumacher IG # 0.04 10e3/ul Critically high 0.00-0.03 [facility] Comment on above: Performed By: #### R UBIGG #### [facility] [address] [address] [address] Samson Schumacher IG % 0.3 % Normal 0.0-0.5 [facility] Comment on above: Performed By: #### R UBIGG #### [facility] [address] [address] [address] Samson Schumacher LYMPH # 1.9 103/ul Normal 1.2-3.8 [facility] Comment on above: Performed By: #### R UBIGG #### [facility] [address] [address] [address] Samson Schumacher Lymphocytes/100 WBC (Bld) 14.1 % Critically low 20.5-60.0 [facility] Comment on above: Performed By: #### R UBIGG #### [facility] [address] [address] [address] Samson Schumacher MANUAL DIFF REQ NO Normal [facility] Comment on above: Performed By: #### R UBIGG #### [facility] [address] [address] [address] Samson Schumacher MCH (RBC) [Entitic mass] 30.5 pg Normal 26.7-34.0 [facility] Comment on above: Performed By: #### R UBIGG #### [facility] [address] [address] [address] Samson Schumacher MCHC (RBC) [Mass/Vol] 33.3 g/dL Normal 29.9-35.2 [facility] Comment on above: Performed By: #### R UBIGG #### [facility] [address] [address] [address] Samson Schumacher MCV (RBC) [Entitic vol] 91.4 fL Normal 81.0-99.0 [facility] Comment on above: Performed By: #### R UBIGG #### [facility] [address] [address] [address] Samson Schumacher MONO # 0.5 103/ul Normal 0.3-0.8 [facility] Comment on above: Performed By: #### R UBIGG #### [facility] [address] [address] [address] Samson Schumacher Monocytes/100 WBC (Bld) 4.0 % Normal 1.7-12.0 [facility] Comment on above: Performed By: #### R UBIGG #### [facility] [address] [address] [address] Samson Schumacher NEUT # 10.7 103/ul Critically high 1.4-6.5 [facility] Comment on above: Performed By: #### R UBIGG #### [facility] [address] [address] [address] Samson Schumacher Neutrophils/100 WBC (Bld) 80.7 % Critically high 43.0-75.0 [facility] Comment on above: Performed By: #### R UBIGG #### [facility] [address] [address] [address] Samson Schumacher Platelet mean volume (Bld) [Entitic vol] 10.2 fL Normal 9.5-13.5 [facility] Comment on above: Performed By: #### R UBIGG #### [facility] [address] [address] [address] Samson Schumacher PLT 225 103/ul Normal 150-450 [facility] Comment on above: Performed By: #### R UBIGG #### [facility] [address] [address] [address] Samson Schumacher RBC 4.07 106/ul Critically low 4.20-5.40 [facility] Comment on above: Performed By: #### R UBIGG #### [facility] [address] [address] [address] Samson Schumacher WBC 13.3 103/ul Critically high 4.0-11.0 [facility] Comment on above: Performed By: #### R UBIGG #### [facility] [address] [place] [address] Dr. Samson Schumacher PROF CHEM 8 (BAS METB)on Anion gap [Moles/Vol] 13.1 mmol/L Normal [facility] Comment on above: Performed By: #### B MP #### [facility] [address] [place] [address] Dr. Samson Schumacher Calcium [Mass/Vol] 8.5 mg/dL Normal 8.5-10.1 [facility] Comment on above: Performed By: #### B MP #### [facility] [address] [place] [address] Dr. Samson Schumacher Chloride [Moles/Vol] 104 mmol/L Normal 98-107 [facility] Comment on above: Performed By: #### B MP #### [facility] [address] [place] [address] Dr. Samson Schumacher CO2 [Moles/Vol] 24.4 mmol/L Normal 21.0-32.0 [facility] Comment on above: Performed By: #### B MP #### [facility] [address] [place] [address] Dr. Samson Schumacher Creatinine [Mass/Vol] 0.83 mg/dL Normal 0.55-1.02 [facility] Comment on above: Performed By: #### B MP #### [facility] [address] [place] [address] Dr. Samson Schumacher EGFR-AF [place]ER >60 Normal >=60 [facility] Comment on above: Performed By: #### B MP #### [facility] [address] [place] [address] Dr. Samson Schumacher EGFR-NON AF [place] >60 Normal >=60 [facility] Comment on above: Performed By: #### B MP #### [facility] [address] [address] [address] Samson Schumacher Glucose [Mass/Vol] 113 mg/dL Critically high 74-106 [facility] Comment on above: Performed By: #### B MP #### [facility] [address] [address] [address] Samson Schumacher Potassium [Moles/Vol] 3.5 mmol/L Normal 3.5-5.1 [facility] Comment on above: Performed By: #### B MP #### [facility] [address] [address] [address] Samson Schumacher Sodium [Moles/Vol] 138 mmol/L Normal 136-145 [facility] Comment on above: Performed By: #### B MP #### [facility] [address] [address] [address] Samson Schumacher Urea nitrogen [Mass/Vol] 7.0 mg/dL Normal 7.0-18.0 [facility] Comment on above: Performed By: #### B MP #### [facility] [address] [address] [address] Samson Schumacher Urea nitrogen/Creatinine [Mass ratio] 8.4 mg/mg Normal [facility] Comment on above: Performed By: #### B MP #### [facility] [address] [place] [address] Dr. Samson Schumacher US PREG TVon 01-01-2022 [...] DELFINA JUAREZ Date: 2022-01-01 08:49 Normal [facility] HEP B SURFACE ANTIGEN SCREEN on 12-02-2021 HBsAg Screen Negative Normal Negative [facility] Comment on above: Performed By: #### H BSANS #### [facility] [address] [place] [address] Dr. Samson Schumacher HEPATITIS C VIRUS AB W/ REFL EX QUANTon 12-02-2021 HCV AB <0.1 Normal 0.0-0.9 [facility] Comment on above: Performed By: #### H CVPCRR #### [facility] [address] [place] [address] Dr. Samson Schumacher Interpretation: Comment Normal [facility] Comment on above: Result Comment: Nega tive Not infected with HCV, unless recent infection is suspected or other evidence exists to indicate HCV infection. Performed By: #### H CVPCRR #### [facility] [address] [place] [address] Dr. Samson Schumacher HIV 1 AND 2 WITH REFLEXon HIV Screen 4th Generation wRfx Non-Reactive Normal Non Reactive [facility] Comment on above: Result Comment: HIV Negative HIV-1/HIV-2 antibodies and HIV-1 p24 antigen were NOT detected. There is no laboratory evidence of HIV infection. Performed By: #### H IV12 #### [facility] [address] [place] [address] Dr. Samson Schumacher RPR QUANTon 12-02-2021 Rapid Plasma Reagin, Quant Non-Reactive Normal NonRea<1:1 [facility] Comment on above: Result Comment: Plea se Note: This test does not meet current guidelines for screening and diagnosis of syphilis. This test is intended for following treatment response in patients being treated for syphilis infection. To screen for syphilis infection, a reflex cascade that includes both RPR and a treponema-specific assay should be utilized, such as Treponema pallidum (Syphilis) Screening [employer] (839909) or Rapid Plasma Reagin (RPR) Test With Reflex to Quantitative RPR and Confirmatory Treponema pallidum Antibodies (050030). Performed By: #### R UBIGG #### [facility] [address] [address] [address] Samson Schumacher RUBELLA AB IGGon 12-02-2021 Rubella Antibodies, IgG 3.00 index Normal Immune >0.99 [facility] Comment on above: Result Comment: Non- immune <0.90 Equivocal 0.90 - 0.99 Immune >0.99 Performed By: #### R UBIGG #### [facility] [address] [place] [address] Dr. Samson Schumacher US PREG TVon 12-02-2021 [...] FABIAN MOSER Date: 2021-12-01 22:18 Normal [facility] CBC AUTO DIFFon 12-01-2021 BASO # 0.1 103/ul Normal 0.0-0.1 [facility] Comment on above: Performed By: #### R UBIGG #### [facility] [address] [place] [address] Dr. Samson Schumacher Basophils/100 WBC (Bld) 0.5 % Normal 0.2-2.0 [facility] Comment on above: Performed By: #### R UBIGG #### [facility] [address] [place] [address] Dr. Samson Schumacher EO # 0.1 103/ul Normal 0.0-0.7 [facility] Comment on above: Performed By: #### R UBIGG #### [facility] [address] [place] [address] Dr. Samson Schumacher Eosinophils/100 WBC (Bld) 0.6 % Critically low 0.9-7.0 [facility] Comment on above: Performed By: #### R UBIGG #### [facility] [address] [place] [address] Dr. Samson Schumacher Erythrocyte distribution width (RBC) [Ratio] 11.8 % Normal 11.0-15.0 [facility] Comment on above: Performed By: #### R UBIGG #### [facility] [address] [place] [address] Dr. Samson Schumacher Hematocrit (Bld) [Volume fraction] 41.6 % Normal 36.0-48.0 [facility] Comment on above: Performed By: #### R UBIGG #### [facility] [address] [place] [address] Dr. Samson Schumacher Hemoglobin (Bld) [Mass/Vol] 13.9 g/dL Normal 12.0-16.0 [facility] Comment on above: Performed By: #### R UBIGG #### [facility] [address] [place] [address] Dr. Samson Schumacher IG # 0.03 10e3/ul Normal 0.00-0.03 [facility] Comment on above: Performed By: #### R UBIGG #### [facility] [address] [place] [address] Dr. Samson Schumacher IG % 0.3 % Normal 0.0-0.5 [facility] Comment on above: Performed By: #### R UBIGG #### [facility] [address] [place] [address] Dr. Samson Schumacher LYMPH # 2.1 103/ul Normal 1.2-3.8 [facility] Comment on above: Performed By: #### R UBIGG #### [facility] [address] [place] [address] Dr. Samson Schumacher Lymphocytes/100 WBC (Bld) 21.8 % Normal 20.5-60.0 [facility] Comment on above: Performed By: #### R UBIGG #### [facility] [address] [address] [address] Samson Schumacher MANUAL DIFF REQ NO Normal [facility] Comment on above: Performed By: #### R UBIGG #### [facility] [address] [place] [address] Dr. Samson Schumacher MCH (RBC) [Entitic mass] 30.0 pg Normal 26.7-34.0 [facility] Comment on above: Performed By: #### R UBIGG #### [facility] [address] [place] [address] Dr. Samson Schumacher MCHC (RBC) [Mass/Vol] 33.4 g/dL Normal 29.9-35.2 [facility] Comment on above: Performed By: #### R UBIGG #### [facility] [address] [place] [address] Dr. Samson Schumacher MCV (RBC) [Entitic vol] 89.8 fL Normal 81.0-99.0 [facility] Comment on above: Performed By: #### R UBIGG #### [facility] [address] [place] [address] Dr. Samson Schumacher MONO # 0.6 103/ul Normal 0.3-0.8 [facility] Comment on above: Performed By: #### R UBIGG #### [facility] [address] [place] [address] Dr. Samson Schumacher Monocytes/100 WBC (Bld) 6.5 % Normal 1.7-12.0 [facility] Comment on above: Performed By: #### R UBIGG #### [facility] [address] [place] [address] Dr. Samson Schumacher NEUT # 6.6 103/ul Critically high 1.4-6.5 [facility] Comment on above: Performed By: #### R UBIGG #### [facility] [address] [place] [address] Dr. Samson Schumacher Neutrophils/100 WBC (Bld) 70.3 % Normal 43.0-75.0 [facility] Comment on above: Performed By: #### R UBIGG #### [facility] [address] [address] [address] Samson Schumacher Platelet mean volume (Bld) [Entitic vol] 9.8 fL Normal 9.5-13.5 [facility] Comment on above: Performed By: #### R UBIGG #### [facility] [address] [place] [address] Dr. Samson Schumacher PLT 229 103/ul Normal 150-450 [facility] Comment on above: Performed By: #### R UBIGG #### [facility] [address] [address] [address] Samson Schumacher RBC 4.63 106/ul Normal 4.20-5.40 [facility] Comment on above: Performed By: #### R UBIGG #### [facility] [address] [place] [address] Dr. Samson Schumacher WBC 9.4 103/ul Normal 4.0-11.0 [facility] Comment on above: Performed By: #### R UBIGG #### [facility] [address] [place] [address] Dr. Samson Schumacher CULTURE URINEon 12-01-2021 CULTURE URINE Culture Observations : MODERATE GROWTH OF MIXED GENITAL HUBER. NO POTENTIAL PATHOGENS SEEN. Normal [facility] Comment on above: Performed By: #### R UBIGG #### [facility] [address] [place] [address] Dr. Samson Schumacher GLYCOHEMOGLOBIN A1Con 2021 ADA RECOMMENDATION SEE BELOW Normal [facility] Comment on above: Result Comment: ADA RECOMMENDED LIMIT 4.0 - 6.0 ADA THERAPEUTIC TARGET < 7.0 ACTION SUGGESTED > 7.0 Performed By: #### A 1C #### [facility] [address] [place] [address] Dr. Samson Schumacher Glucose [Mass/Vol] 105 mg/dL Normal [facility] Comment on above: Performed By: #### A 1C #### [facility] [address] [place] [address] Dr. Samson Schumacher HbA1c (Bld) [Mass fraction] 5.3 % Normal 4.5-6.2 [facility] Comment on above: Performed By: #### A 1C #### [facility] [address] [address] [address] Samson Schumacher TYPE AND SCREENon 12-01-2021 TYPE AND SCREEN Negative Normal [facility] Comment on above: Performed By: #### R UBIGG #### [facility] [address] [address] [address] Samson Schumacher KNEE LEFT 1 OR 2 VWSon 07-31 KNEE LEFT 1 [facility] 2 [facility] [place] [address] P atient Name: NIDIA SMITH : 1995Sex: FAge: Race: WhiteMRN: [id number]. Location: 84Patient Status: Date: 07/31/2017 10:20:00 AMCompleted Date: 07/31/2017 10:34 AMRequesting Provider: SHAN YUNG Attending Provider: Report Copy To: Signs & Symptoms: M25.562 Pain in left knee X74Ximosen: AthenaComments: , , , Ordering Provider - SHAN YUNG MD , Exam: KNEE LEFT 1 OR 2 VWSAccession #: [id number] ======KNEE LEFT 1 OR 2 VWS 07/31/2017 [...] repair. Electronically signed by:Reta Salas. Transcribed by: [email or web address], User Resident: Electronically Signed by: RETA SALAS @ 07/31/2017 11:14 AM Normal [facility] Comment on above: Order Comment: , , = ========= , Ordering Provider - SHAN YUNG MD , Operative Reporton Operative Report MR#: [id number] [facility] Pt. Name: Nidia Smith Room #: 0C Discharge 07/27/2017 Date: Birthdate: 1995 OPERATIVE REPORTDATE OF SURGERY: 07/27/2017SURGEON: Shan Yung M.D.PARTS IDENTIFIER: Shan Rodarte M.D.PREOPERATIVE DIAGNOSIS: Left knee ACL [...] left lower extremity. She will be given [place] for paincontrol, Colace, and aspirin for DVT prophylaxis. I will see her back inclinic in 4-5 days for initiation of physical therapy with accelerated ACLprotocol.Electronicall y Signed by:Shan Yung M.D. 07/30/2017 11:36 A Shan Yung M.D.Date Dict: 07/27/2017/09:27 Moshe/Shan Yung M.D.Date Trans: 07/27/2017 07:56 P/[id number] cc: Kiel Kelly D.O. [address] [place] [address] Normal [facility] POC GLUCOSE LABon 07-27-2017 Glucose mass conc 81 mg/dL Normal 70-100 [facility] Comment on above: Performed By: #### [id number] ####[facility] POC URINE PREGNANCYon 2017 HCG.beta subunit ( test) Ql (U) Negative Normal NEGATIVE [facility] Comment on above: Result Comment: Perf ormed in PACU Performed By: #### [id number] ####[facility] HCG, Quanton 07-17-2017 HCG, Quant <1 Normal <5 [facility] Comment on above: Result Comment: Non- preg premeno <=5Postmeno <=8Male <=3If HCG results do not concur with clinical observations, additional testing to confirm result is recommended. This test is not labeled for use as a tumor marker.Performed at [address] [place] [address] ([phone] Performed By: #### G LUF ####[address] [place] [address] #### FSH, LH, PROL, TEST ####[facility] [address] [place], [place] [id number] #### INSU ####[address] [phone] [place] [address] KNEE LEFT 4VWSon 06-18-2017 KNEE LEFT 4VWS [facility] [place] [phone] P atient Name: NIDIA SMITH : 1995Sex: FAge: Race: WhiteMRN: [id number]. Location: 84Patient Status: OVisit #: [id number] Date: 06/18/2017 1:05:00 PMCompleted Date: 06/18/2017 01:09 PMRequesting Provider: SHAN YUNG Attending Provider: SHAN YUNG Report Copy To: UNKNOWN, PHYSICIAN Signs & Symptoms: M25.562 Pain in left knee N13Xerbvrn: AthenaComments: , , , Ordering Provider - SHAN YUNG MD , Exam: KNEE LEFT 4VWSAccession #: [id number] ======KNEE LEFT 4VWS 06/18/2017 1:09 PM EDT [...] seen. Electronically signed by:Mona Mckeon. Transcribed by: [email or web address], User Resident: Electronically Signed by: MONA MCKEON @ 06/18/2017 02:23 PM Normal [facility] Comment on above: Order Comment: , , = ========= , Ordering Provider - SHAN YUNG MD , Progesteroneon 05-16-2017 Progesterone 10.40 ng/mL Normal [facility] Comment on above: Result Comment: FEMA LE (healthy): Follicular phase 0.06-0.89 Ovulation phase 0.12-12.00 Luteal phase 1.83-23.90Postmenopausal <0.13Performed at [address] [id number] [phone] Performed By: #### G LUF ####[address] [place] [address] #### FSH, LH, PROL, TEST ####[address] [address] #### INSU ####[address] [phone] [place] [address] Progress Noteon 05-16-2017 HIM IP Note OR Clock Maker Normal [facility] Progress Noteon 04-13-2017 HIM IP Note OR Clock Maker Normal [facility] HCG Screen, Bloodon 04-12-19 18 HCG Qn Negative Normal NEG [facility] Comment on above: Result Comment: Perf ormed at [address] [place] [address] ([phone] Performed By: #### H CG ####[address] [place] [address] Progesteroneon 02-14-2017 Progesterone <0.05 Normal [facility] Comment on above: Result Comment: FEMA LE (healthy): Follicular phase 0.06-0.89 Ovulation phase 0.12-12.00 Luteal phase 1.83-23.90Postmenopausal <0.13Performed at [address] [address] Performed By: #### P JAMES ####[address] [address] Follicle Stim. Hormon 2016 Follicle Stim. Horm 5.8 U/L Normal 1.7-21.5 [facility] Comment on above: Result Comment: Refe rence Range:Male: 1.5-12.4Ovulating Female: Follicular Phase 3.5-12.5 Ovulation Phase 4.7-21.5 Luteal Phase 1.7-7.7Postmenopausal Female: 25.8-134.8Performed at [address] [address] Performed By: #### G LUF ####[address] [id number] #### FSH, LH, PROL, TEST ####[address] [address] #### INSU ####[address] [phone] [place] [address] Glucose, Fastingon 7 Glucose mass conc 91 mg/dL Normal 70-99 [facility] Comment on above: Result Comment: Perf ormed at [address] [place] [id number] ([phone] Performed By: #### G LUF ####[address] [place] [address] #### FSH, LH, PROL, TEST ####[address] [address] #### INSU ####[address] [phone] [place] [address] Insulinon 01-06-2017 Insulin 22.8 mU/L Normal [facility] Comment on above: Performed By: #### G LUF ####[address] [place] [address] #### FSH, LH, PROL, TEST ####[address] [address] #### INSU ####[address] [phone] [place] [address] Reference Range [facility] Comment on above: Result Comment: Fast in.6-24.930 min: 20-38405 min: 29-8890 min: 26-05394 min: 22-79Performed at [address] [address] Performed By: #### G LUF ####[address] [place] [address] #### FSH, LH, PROL, TEST ####[address] [address] #### INSU ####[address] [phone] [place] [address] Collection Info. A.M. Normal [facility] Comment on above: Result Comment: Perf ormed at [address] [place] [address] Performed By: #### G LUF ####[address] [place] [address] #### FSH, LH, PROL, TEST ####[address] [address] #### INSU ####[address] [phone] [place] [address] Luteinizing Hormoneon 2016 Luteinizing Hormone 8.0 U/L Normal 1.0-95.6 [facility] Comment on above: Result Comment: Refe rence Range:Male: 1.7-8.6Ovulating Female: Follicular Phase 2.4-12.6 Ovulation Phase 14.0-95.6 Luteal Phase 1.0-11.4Postmenopausal Female: 7.7-58.5Performed at [address] [address] Performed By: #### G LUF ####[address] [place] [id number] #### FSH, LH, PROL, TEST ####[address] [address] #### INSU ####[address] [phone] [place] [address] Prolactinon 01-06-2017 Prolactin 11.98 ug/L Normal 4.79-23.30 [facility] Comment on above: Result Comment: The presence of macroprolactin may cause interference in female patients with various endocrinological diseases or during .Performed at [address] [address] Performed By: #### G LUF ####[address] [place] [address] #### FSH, LH, PROL, TEST ####[address] [address] #### INSU ####[address] [phone] [place] [address] Testosterone, Totalon 2016 Testosterone 26 ng/dL Normal 20-70 [facility] Comment on above: Result Comment: Perf ormed at [address] [address] Performed By: #### G LUF ####[address] [id number] #### FSH, LH, PROL, TEST ####[address] [address] #### INSU ####[address] [phone] [place] [address] Thyroid Stim. Horm.on 2016 Thyroid stimulating hormone (TSH) 1.68 m[IU]/L Normal 0.30-5.00 [facility] Comment on above: Result Comment: Perf ormed at [address] [place] [address] Performed By: #### T SH ####[address] , [place] [id number] Vital Signs Date Time Vital Sign Value Performing Clinician Ashley zapata 04-30-2024 15:13-0500 Body mass index (BMI) [Ratio] 36.01 kg/m2 [employer] Work Phone: [facility] 04-30-2024 15:13-0500 Body weight 95.17 kg [employer] Work Phone: [facility] 04-30-2024 15:13-0500 Diastolic blood pressure 84 mm[Hg] [employer] Work Phone: [facility] 04-30-2024 15:13-0500 Systolic blood pressure 112 mm[Hg] [employer] Work Phone: [facility] 11-01-2023 09:30-0400 Body mass index (BMI) [Ratio] 35.94 kg/m2 Tim Chinedu DO Work Phone: [facility] 11-01-2023 09:30-0400 Body weight 94.98 kg Tim Chinedu DO Work Phone: [facility] 11-01-2023 09:30-0400 Diastolic blood pressure 70 mm[Hg] Tim Chinedu DO Work Phone: [facility] 11-01-2023 09:30-0400 Systolic blood pressure 120 mm[Hg] Tim Chinedu DO Work Phone: [facility] Encounters Encounter Date Encounter Type Care Provider Facility Start: 04-30-2024 End: 04-30-2024 ambulatory TIM CHINEDU Not Available Start: 04-30-2024 End: 04-30-2024 Office outpatient visit 15 minutes Tim Chinedu DO Work Phone: [facility] Comment on above: Encounter for fertil ity planning; Amenorrhea Start: 04-30-2024 End: 04-30-2024 Bamboo flowsheet Tim Chinedu DO Work Phone: [facility] Start: 04-30-2024 End: 04-30-2024 Bamboo flowsheet Tim Chinedu DO Work Phone: [facility] Start: 11-01-2023 End: 11-01-2023 Bamboo flowsheet Tim Chinedu DO Work Phone: [facility] Start: 11-01-2023 End: 11-06-2023 Bamboo flowsheet Tim Chinedu DO Work Phone: [facility] Start: 11-01-2023 End: 11-06-2023 Clinisync Result Encounter Tim Chinedu DO Work Phone: [facility] External Department Unsolicited Start: 11-01-2023 End: [...] Start: 08-10-2017 End: 09-09-2017 Ambulatory PHYSICIAN UNKNOWN Facility:[facility] Start: 07-31-2017 End: 08-01-2017 Ambulatory PHYSICIAN UNKNOWN Facility:[facility] Start: 07-27-2017 End: 07-28-2017 Ambulatory REFERRED SELF Facility:[facility] Start: 07-17-2017 End: 07-18-2017 Ambulatory JUAN MIGUEL GEOR[facility] Start: 07-17-2017 End: 08-10-2017 Ambulatory SHAN YUNG Facility:[facility] Start: 06-18-2017 End: 06-19-2017 Ambulatory SHAN YUNG Facility:[facility] Start: 06-12-2017 End: 06-13-2017 Ambulatory DEFAULT PHYSICIAN Facility:[facility] Start: 05-15-2017 End: 05-16-2017 [facility] Start: 04-12-2017 End: 04-13-2017 [facility] Start: 02-14-2017 End: 02-15-2017 [facility] Start: 01-06-2017 End: 01-07-2017 Ambulatory DANYA KAUR [facility] Procedures Date Procedure Procedure Detail [...] procedure 11/04/2024 8:30 AM EDT Office Visit [facility] [address] [facility] [place] [phone] Tim Che DO [address] [place], [place] [phone] [facility] Start: 11-01-2023 End: 11-01-2023 Patient encounter procedure 11/01/2023 9:20 AM EDT Office Visit [facility] [address] [place] [phone] Tim Che DO [address] [place], [place] [id number] [facility] Comment on above: Arrived Cytology Cervical or vaginal smear or scraping study Pap Smear Pathology and Cytology Routine Well woman exam with routine gynecological exam Ordered: 11/01/2023 [facility] Work Phone: Comment on above: Ordered: 11/01/2023 Prolactin Prolactin Lab Ro utine Amenorrhea Ordered: 04/30/2024 [facility] Work Phone: Comment on above: Ordered: 04/30/2024 Payers Date Payer Category Payer [facility] [id number] 2021 Unknown 2016 Unknown [id number] 1995 Unknown [id number] [id number] 1995 Unknown [id number] [id number]. 2.593 1995 Unknown [id number] [id number]. 2.593 1995 Unknown [id number] [id number]. 2.593 1995 Unknown [id number] [id number]. 2.1259 1995 Unknown [id number]. 2.1259 1995 Unknown [id number] [id number]. 2.1259 1959 Unknown [id number] Social History Date Type Detail Facility Start: 08-10-[address] [facility] Never smoked tobacco [facility] Start: 08-10-2022 Tobacco use and exposure Smokeless t obacco non-user [facility] Start: 04-19-2023 End: 11-01-2023 Alcoholic beverage intake Ex-drinker (finding) [facility] Start: 08-10-2022 End: 11-08-2022 History of Social function [facility] Start: 08-10-2022 End: 11-08-2022 Tobacco use panel [facility] Start: 08-09-2022 Alcohol Comment caffeine intak e: 1 cup per day of coffee [facility] Start: 1995 Sex assigned at Female N [facility] Start: 08-03-2022 Gender identity Identifies as female gender (finding) [facility] History of Present illness Narrative 04-30-2024 Kayleighelvira [...] nursing note reviewed. Exam conducted with a pitch gatherer present. Vitals: Estimated body mass index is [...] nursing note reviewed. Exam conducted with a pitch gatherer present. Vitals: Estimated body mass index is [...] DATE CREATED AUTHOR AUTHOR'S ORGANIZ ATION 09/14/2017 [facility] DATE CREATED AUTHOR AUTHOR'S ORGANIZ ATION 07/12/2022 [facility] DATE CREATED AUTHOR AUTHOR'S ORGANIZ ATION 05/02/2024 [facility] [employer] Care Teams (unrecognized sec tion and content) Tax Accountant Relationship Specialty Start Date End Date Jamin Massey MD [address] [place] [address] PCP - General Family Medicine 08/10/22 Tax Accountant Relationship Specialty Start Date End Date Jamin Massey MD [address] [place] [address] PCP - General Family Medicine 08/10/22 Tax Accountant Relationship Specialty Start Date End Date Jamin Massey MD [address] [place] [address] PCP - General Family Medicine 08/10/22 Tax Accountant Relationship Specialty Start Date End Date Jamin Massey MD [address] [place] [address] PCP - General Family Medicine 6/1/23 Reason [...] BE BASED ON THE PRIMARY CLINICAL RECORDS. [facility]. provides no warranty or guarantee of the accuracy or completeness of information in this document.
[2024-05-13 12:52] LABS: Free T3 2.44 pg/mL (2.18-3.98); Thyroid Stimulating Hormone 7.405 uIU/mL (0.358-3.740)
[2024-05-14 18:08] LABS: Thyroglobulin Antibody 74.8 IU/mL (0.0-0.9); Thyroid Peroxidase (TPO) Ab >600 IU/mL (0-34)
== END 2024-05-13 11:28 | disposition home or self-care (01) ==
LOC: LAB 11:28
PROVIDERS: PCP Family Medicine; Visit Provider Family Medicine
DX: E03.9 Hypothyroidism, unspecified (principal); N91.2 Amenorrhea, unspecified
CPT/HCPCS: 36415; 84146; 84436; 84443; 84481; 86376; 86800

== ENCOUNTER 2024-06-13 12:14 | Outpatient (OUT) | payer BC, SELFPAY ==
--- OUTSIDE RECORDS SUMMARY | 2024-06-13 12:27 | XMS_ITS | CCD ---
Author Organization [facility] Care Team Providers Care Terrazzo Tile Maker Name Role Phone DANYA KAUR Unavailable Unavailabl [...] SHAN Unavailable Unavailable YUNG, SHAN Unavailable Unavailable [place] Unavailable Unavailable VALONE, KIEL Unavailable Unavailable [place] Unavailable Unavailable RODOLFO BARILLAS Unavailable Unavailable UNKNOWN, [...] Unavailable Jamin Massey MD Primary Care Provider [phone] TIM CHE Attending Unavailable FOREST GEE Attending Unavailable TIM CHE Attending Unavailable Allergies Allergy Classification Reported Allergen(s) Allergy Type Date of Onset Reaction(s) Facility (1 source) NKA; Translations: [NKA] Propensity to adverse reactions (disorder) [facility] Repository (1 source) No Known Allergies; Translations: [No Known Allergies] Propensity to adverse reactions (disorder) [facility] Repository Medications Current Medications Medication Drug Class(es) Dates Sig (Normalized) Sig (Original) levothyroxine sodium 0.075 mg oral tablet (3 sources) l-Thyroxine Start: 04-15-2024 take 1 tablet [...] other procreative management] 04-30-2024 Episodic Menstrual disorders (15 sources) Irregular menstruation, unspecified; Translations: [Missed period] [...] GESTATION OF ] Onset: 12-05-2021 Episodic Spontaneous (13 sources) Complete or unspecified spontaneous without complication; Translations: [Incomplete spontaneous without complication] Onset: 01-03-2022 Episodic Results Test Name Value Interpretation Reference Range Facility [facility] PROLACTINon 05-14-2024 PROLACTIN 12.7 ng/mL 4.8 - 33.4 ng/mL [facility] Comment on above: Performed at: [address] [id number] Airplane Patroller: Aníbal Reyna PhD, Phone: [phone] [facility] IGP,APTIMA HPV,AGE GDLNon AGE GDLN ACOG TESTING Note . [facility] Comment on above: TESTS RESULT FLAG UN [facility] REF RANGE LAB Clinician Provided Cytology Information Source.............Cervix;Endocervix No. of containers..01 ThinPrep Vial Age Algo ACOG Emma... FLAG LEGEND: L-Low Normal,H-High Normal,LL-Alert Low,HH-Alert High <-Panic Low,>-Panic High,A-Abnormal,AA-Critical Abnormal Performed at: 01 =G [address] [id number] Karyn Carl MD, IGP, RFX APTIMA HPV ASCU Note . [facility] Comment on above: TESTS RESULT FLAG UN [facility] REF RANGE LAB DIAGNOSIS: 02 NEGATIVE FOR INTRAEPITHELIAL LESION OR MALIGNANCY. Specimen adequacy: 02 Satisfactory for evaluation. Endocervical and/or squamous metaplastic cells (endocervical component) are present. Performed by: 02 Kiana Garcia, Manager Civil ([facility]) . 02 Note: Note 02 [...] <-Panic Low,>-Panic High,A-Abnormal,AA-Critical Abnormal Performed at: 02 WB [facility] [address] [id number] Karyn Carl MD, Performed at: =G - [facility] [address] [id number] Airplane Patroller: Karyn Carl MD, Phone: [phone] Performed at: WB - [facility] [address] [id number] Airplane Patroller: Karyn Carl MD, Phone: [phone] [facility] 07-06-2022 HCG QUANT 481 mIU/mL Normal [facility] Comment on above: Performed By: #### P REGQNT #### [facility] [address] [place] [address] Dr. Samson Schumacher HCG RANGE SEE BELOW Normal [facility] Comment on above: Result Comment: 5-50 0.2-1 WEEK 50-500 1-2 WEEKS 100-5,000 2-3 WEEKS 500-10,000 3-4 WEEKS 1,000-50,000 4-5 WEEKS 10,000-100,000 5-6 WEEKS 15,000-200,000 6-8 WEEKS 10,000-100,000 2-3 MONTHS Performed By: #### P REGQNT #### [facility] [address] [place] [address] Dr. Samson Schumacher PREG QUANT HCGon 07-04-2022 HCG QUANT 185 mIU/mL Normal [facility] Comment on above: Performed By: #### P REGQNT #### [facility] [address] [place] [address] Dr. Samson Schumacher HCG RANGE SEE BELOW Normal [facility] Comment on above: Result Comment: 5-50 0.2-1 WEEK 50-500 1-2 WEEKS 100-5,000 2-3 WEEKS 500-10,000 3-4 WEEKS 1,000-50,000 4-5 WEEKS 10,000-100,000 5-6 WEEKS 15,000-200,000 6-8 WEEKS 10,000-100,000 2-3 MONTHS Performed By: #### P REGQNT #### [facility] [address] [place] [address] Dr. Samson Schumacher PREG QUANT HCGon 01-16-2022 HCG QUANT 4 mIU/mL Normal [facility] Comment on above: Performed By: #### P REGQNT #### [facility] [address] [place] [address] Dr. Samson Schumacher HCG RANGE SEE BELOW Normal [facility] Comment on above: Result Comment: 5-50 0.2-1 WEEK 50-500 1-2 WEEKS 100-5,000 2-3 WEEKS 500-10,000 3-4 WEEKS 1,000-50,000 4-5 WEEKS 10,000-100,000 5-6 WEEKS 15,000-200,000 6-8 WEEKS 10,000-100,000 2-3 MONTHS Performed By: #### P REGQNT #### [facility] [address] [place] [address] Dr. Samson Schumacher PREG QUANT HCGon 01-10-2022 HCG QUANT 15 mIU/mL Normal [facility] Comment on above: Performed By: #### P REGQNT #### [facility] [address] [place] [address] Dr. Samson Schumacher HCG RANGE SEE BELOW Normal [facility] Comment on above: Result Comment: 5-50 0.2-1 WEEK 50-500 1-2 WEEKS 100-5,000 2-3 WEEKS 500-10,000 3-4 WEEKS 1,000-50,000 4-5 WEEKS 10,000-100,000 5-6 WEEKS 15,000-200,000 6-8 WEEKS 10,000-100,000 2-3 MONTHS Performed By: #### P REGQNT #### [facility] [address] [place] [address] Dr. Samson Schumacher CBC AUTO DIFFon 01-01-2022 BASO # 0.0 103/ul Normal 0.0-0.1 [facility] Comment on above: Performed By: #### R UBIGG #### [facility] [address] [place] [address] Dr. Samson Schumacher Basophils/100 WBC (Bld) 0.3 % Normal 0.2-2.0 [facility] Comment on above: Performed By: #### R UBIGG #### [facility] [address] [place] [address] Dr. Samson Schumacher EO # 0.1 103/ul Normal 0.0-0.7 [facility] Comment on above: Performed By: #### R UBIGG #### [facility] [address] [place] [address] Dr. Samson Schumacher Eosinophils/100 WBC (Bld) 0.6 % Critically low 0.9-7.0 [facility] Comment on above: Performed By: #### R UBIGG #### [facility] [address] [place] [address] Dr. Samson Schumacher Erythrocyte distribution width (RBC) [Ratio] 12.0 % Normal 11.0-15.0 [facility] Comment on above: Performed By: #### R UBIGG #### [facility] [address] [place] [address] Dr. Samson Schumacher Hematocrit (Bld) [Volume fraction] 37.2 % Normal 36.0-48.0 [facility] Comment on above: Performed By: #### R UBIGG #### [facility] [address] [place] [address] Dr. Samson Schumacher Hemoglobin (Bld) [Mass/Vol] 12.4 g/dL Normal 12.0-16.0 [facility] Comment on above: Performed By: #### R UBIGG #### [facility] [address] [place] [address] Dr. Samson Schumacher IG # 0.04 10e3/ul Critically high 0.00-0.03 [facility] Comment on above: Performed By: #### R UBIGG #### [facility] [address] [place] [address] Dr. Samson Schumacher IG % 0.3 % Normal 0.0-0.5 [facility] Comment on above: Performed By: #### R UBIGG #### [facility] [address] [place] [address] Dr. Samson Schumacher LYMPH # 1.9 103/ul Normal 1.2-3.8 [facility] Comment on above: Performed By: #### R UBIGG #### [facility] [address] [place] [address] Dr. Samson Schumacher Lymphocytes/100 WBC (Bld) 14.1 % Critically low 20.5-60.0 [facility] Comment on above: Performed By: #### R UBIGG #### [facility] [address] [place] [address] Dr. Samson Schumacher MANUAL DIFF REQ NO Normal [facility] Comment on above: Performed By: #### R UBIGG #### [facility] [address] [place] [address] Dr. Samson Schumacher MCH (RBC) [Entitic mass] 30.5 pg Normal 26.7-34.0 [facility] Comment on above: Performed By: #### R UBIGG #### [facility] [address] [place] [address] Dr. Samson Schumacher MCHC (RBC) [Mass/Vol] 33.3 g/dL Normal 29.9-35.2 [facility] Comment on above: Performed By: #### R UBIGG #### [facility] [address] [place] [address] Dr. Samson Schumacher MCV (RBC) [Entitic vol] 91.4 fL Normal 81.0-99.0 [facility] Comment on above: Performed By: #### R UBIGG #### [facility] [address] [place] [address] Dr. Samson Schumacher MONO # 0.5 103/ul Normal 0.3-0.8 [facility] Comment on above: Performed By: #### R UBIGG #### [facility] [address] [place] [address] Dr. Samson Schumacher Monocytes/100 WBC (Bld) 4.0 % Normal 1.7-12.0 [facility] Comment on above: Performed By: #### R UBIGG #### [facility] [address] [place] [address] Dr. Samson Schumacher NEUT # 10.7 103/ul Critically high 1.4-6.[address] [facility] Comment on above: Performed By: #### R UBIGG #### [facility] [address] [place] [address] Dr. Samson Schumacher Neutrophils/100 WBC (Bld) 80.7 % Critically high 43.0-75.0 [facility] Comment on above: Performed By: #### R UBIGG #### [facility] [address] [place] [address] Dr. Sasmon Schumacher Platelet mean volume (Bld) [Entitic vol] 10.2 fL Normal 9.5-13.5 [facility] Comment on above: Performed By: #### R UBIGG #### [facility] [address] [place] [address] Dr. Samson Schumacher PLT 225 103/ul Normal 150-450 [facility] Comment on above: Performed By: #### R UBIGG #### [facility] [address] [place] [address] Dr. Samson Schumacher RBC 4.07 106/ul Critically low 4.20-5.40 [facility] Comment on above: Performed By: #### R UBIGG #### [facility] [address] [place] [address] Dr. Samson Schumacher WBC 13.3 103/ul Critically high 4.0-11.[address] [facility] Comment on above: Performed By: #### R UBIGG #### [facility] [address] [place] [address] Dr. Samson Schumacher PROF CHEM 8 (BAS METB)on Anion gap [Moles/Vol] 13.1 mmol/L Normal [facility] Comment on above: Performed By: #### B MP #### [facility] [address] [place] [address] Dr. Samson Schumacher Calcium [Mass/Vol] 8.5 mg/dL Normal 8.5-10.1 [facility] Comment on above: Performed By: #### B MP #### [facility] [address] [place] [address] Dr. Samson Schumacher Chloride [Moles/Vol] 104 mmol/L Normal 98-107 [facility] Comment on above: Performed By: #### B MP #### [facility] [address] [place] [address] Dr. Samson Schumacher CO2 [Moles/Vol] 24.4 mmol/L Normal 21.0-32.[address] [facility] Comment on above: Performed By: #### B MP #### [facility] [address] [place] [address] Dr. Samson Schumacher Creatinine [Mass/Vol] 0.83 mg/dL Normal 0.55-1.02 [facility] Comment on above: Performed By: #### B MP #### [facility] [address] [place] [address] Dr. Samson Schumacher EGFR-AF [place]ORE[place] >60 Normal >=60 [facility] Comment on above: Performed By: #### B MP #### [facility] [address] [place] [address] Dr. Samson Schumacher EGFR-NON AF [place] >60 Normal >=60 [facility] Comment on above: Performed By: #### B MP #### [facility] [address] [address] [address] Samson Schumacher Glucose [Mass/Vol] 113 mg/dL Critically high 74-106 [facility] Comment on above: Performed By: #### B MP #### [facility] [address] [place] [address] Dr. Samson Schumacher Potassium [Moles/Vol] 3.5 mmol/L Normal 3.5-5.1 [facility] Comment on above: Performed By: #### B MP #### [facility] [address] [place] [address] Dr. Samson Schumacher Sodium [Moles/Vol] 138 mmol/L Normal 136-145 [facility] Comment on above: Performed By: #### B MP #### [facility] [address] [place] [address] Dr. Samson Schumacher Urea nitrogen [Mass/Vol] 7.0 mg/dL Normal 7.0-18.0 [facility] Comment on above: Performed By: #### B MP #### [facility] [address] [place] [address] Dr. Samson Schumacher Urea nitrogen/Creatinine [Mass ratio] 8.4 mg/mg Normal [facility] Comment on above: Performed By: #### B MP #### [facility] [address] [place], [place] [id number] Dr. Samson Schumacher US PREG TVon 01-01-2022 [...] DELFINA JUAREZ Date: 2022-01-01 08:49 Normal [facility] HEP B SURFACE ANTIGEN SCREEN on 12-02-2021 HBsAg Screen Negative Normal Negative [facility] Comment on above: Performed By: #### H BSANS #### [facility] [address] [address] [address] Samson Schumacher HEPATITIS C VIRUS AB W/ REFL EX QUANTon 12-02-2021 HCV AB <0.1 Normal 0.0-0.9 [facility] Comment on above: Performed By: #### H CVPCRR #### [facility] [address] [address] [address] Samson Schumacher Interpretation: Comment Normal [facility] Comment on above: Result Comment: Nega tive Not infected with HCV, unless recent infection is suspected or other evidence exists to indicate HCV infection. Performed By: #### H CVPCRR #### [facility] [address] [address] [address] Samson Schumacher HIV 1 AND 2 WITH REFLEXon HIV Screen 4th Generation wRfx Non-Reactive Normal Non Reactive [facility] Comment on above: Result Comment: HIV Negative HIV-1/HIV-2 antibodies and HIV-1 p24 antigen were NOT detected. There is no laboratory evidence of HIV infection. Performed By: #### H IV12 #### [facility] [address] [place] [address] Dr. Samson Schumacher RPR QUANTon 12-02-2021 Rapid Plasma Reagin, Quant Non-Reactive Normal NonRea<1:1 [facility] Comment on above: Result Comment: Plea se Note: This test does not meet current guidelines for screening and diagnosis of syphilis. This test is intended for following treatment response in patients being treated for syphilis infection. To screen for syphilis infection, a reflex cascade that includes both RPR and a treponema-specific assay should be utilized, such as Treponema pallidum (Syphilis) Screening Thayer (735371) or Rapid Plasma Reagin (RPR) Test With Reflex to Quantitative RPR and Confirmatory Treponema pallidum Antibodies ([id number]). Performed By: #### R UBIGG #### [facility] [address] [address] [address] Samson Schumacher RUBELLA AB IGGon 12-02-2021 Rubella Antibodies, IgG 3.00 index Normal Immune >0.99 [facility] Comment on above: Result Comment: Non- immune <0.90 Equivocal 0.90 - 0.99 Immune >0.99 Performed By: #### R UBIGG #### [facility] [address] [place] [address] Dr. Samson Schumacher US PREG TVon 12-02-2021 [...] FABIAN MOSER Date: 2021-12-01 22:18 Normal [facility] CBC AUTO DIFFon 12-01-2021 BASO # 0.1 103/ul Normal 0.0-0.1 [facility] Comment on above: Performed By: #### R UBIGG #### [facility] [address] [place] [address] Dr. Samson Schumacher Basophils/100 WBC (Bld) 0.5 % Normal 0.2-2.0 [facility] Comment on above: Performed By: #### R UBIGG #### [facility] [address] [place] [address] Dr. Samson Schumacher EO # 0.1 103/ul Normal 0.0-0.7 [facility] Comment on above: Performed By: #### R UBIGG #### [facility] [address] [place] [address] Dr. Samson Schumacher Eosinophils/100 WBC (Bld) 0.6 % Critically low 0.9-7.0 [facility] Comment on above: Performed By: #### R UBIGG #### [facility] [address] [place] [address] Dr. Samson Schumacher Erythrocyte distribution width (RBC) [Ratio] 11.8 % Normal 11.0-15.0 [facility] Comment on above: Performed By: #### R UBIGG #### [facility] [address] [place] [address] Dr. Samson Shcumacher Hematocrit (Bld) [Volume fraction] 41.6 % Normal 36.0-48.0 [facility] Comment on above: Performed By: #### R UBIGG #### [facility] [address] [place] [address] Dr. Samson Schumacher Hemoglobin (Bld) [Mass/Vol] 13.9 g/dL Normal 12.0-16.0 [facility] Comment on above: Performed By: #### R UBIGG #### [facility] [address] [place] [address] Dr. Samson Schumacher IG # 0.03 10e3/ul Normal 0.00-0.03 [facility] Comment on above: Performed By: #### R UBIGG #### [facility] [address] [place] [address] Dr. Samson Schumacher IG % 0.3 % Normal 0.0-0.5 [facility] Comment on above: Performed By: #### R UBIGG #### [facility] [address] [place] [address] Dr. Samson Schumacher LYMPH # 2.1 103/ul Normal 1.2-3.8 [facility] Comment on above: Performed By: #### R UBIGG #### [facility] [address] [address] [address] Samson Schumacher Lymphocytes/100 WBC (Bld) 21.8 % Normal 20.5-60.0 [facility] Comment on above: Performed By: #### R UBIGG #### [facility] [address] [address] [address] Samson Schumacher MANUAL DIFF REQ NO Normal [facility] Comment on above: Performed By: #### R UBIGG #### [facility] [address] [address] [address] Samson Schumacher MCH (RBC) [Entitic mass] 30.0 pg Normal 26.7-34.0 [facility] Comment on above: Performed By: #### R UBIGG #### [facility] [address] [place] [address] Dr. Samson Schumacher MCHC (RBC) [Mass/Vol] 33.4 g/dL Normal 29.9-35.2 [facility] Comment on above: Performed By: #### R UBIGG #### [facility] [address] [address] [address] Samson Schumacher MCV (RBC) [Entitic vol] 89.8 fL Normal 81.0-99.0 [facility] Comment on above: Performed By: #### R UBIGG #### [facility] [address] [address] [address] Samson Schumacher MONO # 0.6 103/ul Normal 0.3-0.8 [facility] Comment on above: Performed By: #### R UBIGG #### [facility] [address] [address] [address] Samson Schumacher Monocytes/100 WBC (Bld) 6.5 % Normal 1.7-12.0 [facility] Comment on above: Performed By: #### R UBIGG #### [facility] [address] [address] [address] Samson Schumacher NEUT # 6.6 103/ul Critically high 1.4-6.5 [facility] Comment on above: Performed By: #### R UBIGG #### [facility] [address] [address] [address] Samson Schumacher Neutrophils/100 WBC (Bld) 70.3 % Normal 43.0-75.0 [facility] Comment on above: Performed By: #### R UBIGG #### [facility] [address] [address] [address] Samson Schumacher Platelet mean volume (Bld) [Entitic vol] 9.8 fL Normal 9.5-13.5 [facility] Comment on above: Performed By: #### R UBIGG #### [facility] [address] [place] [address] Dr. Samson Schumacher PLT 229 103/ul Normal 150-450 [facility] Comment on above: Performed By: #### R UBIGG #### [facility] [address] [place] [address] Dr. Smason Schumacher RBC 4.63 106/ul Normal 4.20-5.40 [facility] Comment on above: Performed By: #### R UBIGG #### [facility] [address] [address] [address] Samson Schumacher WBC 9.4 103/ul Normal 4.0-11.0 [facility] Comment on above: Performed By: #### R UBIGG #### [facility] [address] [place] [address] Dr. Samson Schumacher CULTURE URINEon 12-01-2021 CULTURE URINE Culture Observations : MODERATE GROWTH OF MIXED GENITAL HUBER. NO POTENTIAL PATHOGENS SEEN. Normal [facility] Comment on above: Performed By: #### R UBIGG #### [facility] [address] [place] [address] Dr. Samson Schumacher GLYCOHEMOGLOBIN A1Con 2021 ADA RECOMMENDATION SEE BELOW Normal [facility] Comment on above: Result Comment: ADA RECOMMENDED LIMIT 4.0 - 6.0 ADA THERAPEUTIC TARGET < 7.0 ACTION SUGGESTED > 7.0 Performed By: #### A 1C #### [facility] [address] [address] [address] Samson Schumacher Glucose [Mass/Vol] 105 mg/dL Normal [facility] Comment on above: Performed By: #### A 1C #### [facility] [address] [address] [address] Samson Schumacher HbA1c (Bld) [Mass fraction] 5.3 % Normal 4.5-6.2 [facility] Comment on above: Performed By: #### A 1C #### [facility] [address] [address] [address] Samson Schumacher TYPE AND SCREENon 12-01-2021 TYPE AND SCREEN Negative Normal [facility] Comment on above: Performed By: #### R UBIGG #### [facility] [address] [address] [address] Samson Schumacher KNEE LEFT 1 OR 2 VWSon 07-31 KNEE LEFT 1 OR 2 VWS [facility] [place] [id number] P atient Name: NIDIA SMITH : 1995Sex: FAge: Race: WhiteMRN: [id number]. Location: 84Patient Status: Date: 07/31/2017 10:20:00 AMCompleted Date: 07/31/2017 10:34 AMRequesting Provider: SHAN YUNG Attending Provider: Report Copy To: Signs & Symptoms: M25.562 Pain in left knee [id number]: AthenaComments: , , , Ordering Provider - SHAN YUNG MD , Exam: KNEE LEFT 1 OR 2 VWSAccession #: [id number] ======KNEE LEFT 1 OR 2 VWS 07/31/2017 [...] repair. Electronically signed by:Reta Salas. Transcribed by: [email or web address], User Resident: Electronically Signed by: RETA SALAS @ 07/31/2017 11:14 AM Normal [facility] Comment on above: Order Comment: , , = ========= , Ordering Provider - SHAN YUNG MD , Operative Reporton 07-27-201 8 Operative Report MR#: [id number] [facility] Pt. Name: Nidia Smith Room #: 0C Discharge 07/27/2017 Date: Birthdate: 1995 OPERATIVE REPORTDATE OF SURGERY: 07/27/2017SURGEON: Shan Yung M.D.TILE LAYER DRAINAGE: Shan Rodarte M.D.PREOPERATIVE DIAGNOSIS: Left knee ACL [...] left lower extremity. She will be given Dolph for paincontrol, Colace, and aspirin for DVT prophylaxis. I will see her back inclinic in 4-5 days for initiation of physical therapy with accelerated ACLprotocol.Electronicall y Signed by:Shan Yung M.D. 07/30/2017 11:36 A Shan Yung M.D.Date Dict: 07/27/2017/09:27 A/Shan Yung M.D.Date Trans: 07/27/2017 07:56 P/mmoDN_JN:[id number] cc: Kiel Kelly D.O. [address] [place] [address] Normal [facility] POC GLUCOSE LABon 07-27-2017 Glucose mass conc 81 mg/dL Normal 70-100 [facility] Comment on above: Performed By: #### 8 5499 ####[facility] [place], [place] [id number] [place] [address] POC URINE PREGNANCYon 2017 HCG.beta subunit ( test) Ql (U) Negative Normal NEGATIVE [facility] Comment on above: Result Comment: Perf ormed in PACU Performed By: #### 8 4140 ####[facility] [place] [address], [facility] HCG, Quanton 07-17-2017 HCG, Quant <1 Normal <5 [facility] Comment on above: Result Comment: Non- preg premeno <=5Postmeno <=8Male <=3If HCG results do not concur with clinical observations, additional testing to confirm result is recommended. This test is not labeled for use as a tumor marker.Performed at [address] [place] [address] ([phone] Performed By: #### G LUF ####[address] [place] [address] #### FSH, LH, PROL, TEST ####[address] [place] [address] #### INSU ####[address] [place] [phone] [place] [address] KNEE LEFT 4VWSon 06-18-2017 KNEE LEFT 4VWS [facility] [place] [address] P atient Name: NIDIA SMITH : 1995Sex: FAge: Race: WhiteMRN: [id number]. Location: 84Patient Status: OVisit #: [id number] Date: 06/18/2017 1:05:00 PMCompleted Date: 06/18/2017 01:09 PMRequesting Provider: SHAN YUNG Attending Provider: SHAN YUNG Report Copy To: UNKNOWN, PHYSICIAN Signs & Symptoms: M25.562 Pain in left knee J10Rimudyk: AthenaComments: , , , Ordering Provider - SHAN YUNG MD , Exam: KNEE LEFT 4VWSAccession #: [id number] ======KNEE LEFT 4VWS 06/18/2017 1:09 PM EDT [...] seen. Electronically signed by:Mona Mckeon. Transcribed by: [email or web address], User Resident: Electronically Signed by: MONA MCKEON @ 06/18/2017 02:23 PM Normal [facility] Comment on above: Order Comment: , , = ========= , Ordering Provider - SHAN YUNG MD , Progesteroneon 05-16-2017 Progesterone 10.40 ng/mL Normal [facility] Comment on above: Result Comment: FEMA LE (healthy): Follicular phase 0.06-0.89 Ovulation phase 0.12-12.00 Luteal phase 1.83-23.90Postmenopausal <0.13Performed at [address] [address] Performed By: #### G LUF ####[address] [place] [address] #### FSH, LH, PROL, TEST ####[address] [address] #### INSU ####[address] [phone] [address] [place] [id number] Progress Noteon 05-16-2017 HIM IP Note OR Program Therapist Normal [facility] Progress Noteon 04-13-2017 HIM IP Note OR Program Therapist Normal [facility] HCG Screen, Bloodon 04-12-19 18 HCG Qn Negative Normal NEG [facility] Comment on above: Result Comment: Perf ormed at [address] [place] [address] Performed By: #### H CG ####[address] [id number] Progesteroneon 02-14-2017 Progesterone <0.05 Normal [facility] Comment on above: Result Comment: LINDA LE (healthy): Follicular phase 0.06-0.89 Ovulation phase 0.12-12.00 Luteal phase 1.83-23.90Postmenopausal <0.13Performed at [address] [address] Performed By: #### P JAMES ####[address] [address] Follicle Stim. Hormon 2016 Follicle Stim. Horm 5.8 U/L Normal 1.7-21.5 [facility] Comment on above: Result Comment: Refe rence Range:Male: 1.5-12.4Ovulating Female: Follicular Phase 3.5-12.5 Ovulation Phase 4.7-21.5 Luteal Phase 1.7-7.7Postmenopausal Female: 25.8-134.8Performed at [address] [address] Performed By: #### G LUF ####[address] [address] #### FSH, LH, PROL, TEST ####[address] [address] #### INSU ####[address] [phone] [address] [id number] Glucose, Fastingon 7 Glucose mass conc 91 mg/dL Normal 70-99 [facility] Comment on above: Result Comment: Perf ormed at [address] [place] [address] ([phone] Performed By: #### G LUF ####[address] [address]83 #### FSH, LH, PROL, TEST ####[address] [address] #### INSU ####[address] [phone] [place] [address] Insulinon 01-06-2017 Insulin 22.8 mU/L [facility] Comment on above: Performed By: #### G LUF ####[address] [place] [address] #### FSH, LH, PROL, TEST ####[address] [address] #### INSU ####[address] [phone] [place] [address] Reference Range [facility] Comment on above: Result Comment: Fast in.6-24.930 min: 20-73895 min: 29-8890 min: 26-31897 min: 22-79Performed at [address] [address] Performed By: #### G LUF ####[address] [place] [address] #### FSH, LH, PROL, TEST ####[address] [address] #### INSU ####[address] [phone] [place] [address] Collection Info. [facility] Comment on above: Result Comment: Perf ormed at [address] [place] [address] Performed By: #### G LUF ####[address] [place], [place] [address] #### FSH, LH, PROL, TEST ####[address] [address] #### INSU ####[address] [phone] [place] [address] Luteinizing Hormoneon 2016 Luteinizing Hormone 8.0 U/L Normal 1.0-95.6 [facility] Comment on above: Result Comment: Refe rence Range:Male: 1.7-8.6Ovulating Female: Follicular Phase 2.4-12.6 Ovulation Phase 14.0-95.6 Luteal Phase 1.0-11.4Postmenopausal Female: 7.7-58.5Performed at [address] [address] Performed By: #### G LUF ####[address] [place] [address] #### FSH, LH, PROL, TEST ####[address] [address] #### INSU ####[address] [phone] [place] [address] Prolactinon 01-06-2017 Prolactin 11.98 ug/L Normal 4.79-23.30 [facility] Comment on above: Result Comment: The presence of macroprolactin may cause interference in female patients with various endocrinological diseases or during .Performed at [address] [address] Performed By: #### G LUF ####[address] [address] #### FSH, LH, PROL, TEST ####[address] [address] #### INSU ####[address] [phone] [address] 23[address]83 Testosterone, Totalon 2016 Testosterone 26 ng/dL Normal 20-70 [facility] Comment on above: Result Comment: Perf ormed at [address] [address] Performed By: #### G LUF ####[address] 9[address]783 #### FSH, LH, PROL, TEST ####[address] [address] #### INSU ####[address] [phone] [place] [address] Thyroid Stim. Horm.on 2016 Thyroid stimulating hormone (TSH) 1.68 m[IU]/L Normal 0.30-5.00 [facility] Comment on above: Result Comment: Perf ormed at [address] [place] 0[address]83 ([phone] Performed By: #### T SH ####[address] [place] [address] Vital Signs Date Time Vital Sign Value Performing Clinician Ashley zapata 04-30-2024 15:13-0500 Body mass index (BMI) [Ratio] 36.01 kg/m2 Tim Valkee Work Phone: [facility] 04-30-2024 15:13-0500 Body weight 95.17 kg [facility] Work Phone: [facility] 04-30-2024 15:13-0500 Diastolic blood pressure 84 mm[Hg] Tim Chinedu DO Work Phone: [facility] 04-30-2024 15:13-0500 Systolic blood pressure 112 mm[Hg] Tim Chinedu DO Work Phone: [facility] 11-01-2023 09:30-0400 Body mass index (BMI) [Ratio] 35.94 kg/m2 Tim Chinedu DO Work Phone: [facility] 11-01-2023 09:30-0400 Body weight 94.98 kg Tim Chinedu DO Work Phone: [facility] 11-01-2023 09:30-0400 Diastolic blood pressure 70 mm[Hg] Tim Chinedu DO Work Phone: [facility] 11-01-2023 09:30-0400 Systolic blood pressure 120 mm[Hg] Tim Chinedu DO Work Phone: [facility] Encounters Encounter Date Encounter Type Care Provider Facility Start: 05-13-2024 End: 05-14-2024 Clinisync Result Encounter Tim Chinedu DO Work Phone: [facility] External Department Unsolicited Start: 05-13-2024 End: 05-14-2024 Clinisync Result Encounter Tim Chinedu DO Work Phone: [facility] External Department Unsolicited Start: 04-30-2024 End: 04-30-2024 ambulatory TIM CHINEDU Not Available Start: 04-30-2024 End: 04-30-2024 Office outpatient visit 15 minutes Tim Chinedu DO Work Phone: [facility] Comment on above: Encounter for fertil ity planning; Amenorrhea Start: 04-30-2024 End: 04-30-2024 Bamboo flowsheet Tim Chinedu DO Work Phone: [facility] Start: 04-30-2024 End: 04-30-2024 Bamboo flowsheet Tim Chinedu DO Work Phone: [facility] Start: 11-01-2023 End: 11-01-2023 Bamboo flowsheet Tim Chinedu DO Work Phone: [facility] Start: 11-01-2023 End: 11-06-2023 Bamboo flowsheet Tim Chinedu DO Work Phone: [facility] Start: 11-01-2023 End: 11-06-2023 Clinisync Result Encounter Tim Chinedu DO Work Phone: [facility] Unsolicited Start: 11-01-2023 End: 11-01-2023 Patient encounter procedure Tim Chinedu DO Work Phone: [facility] Work Phone: Start: 11-01-2023 End: 11-01-2023 Periodic preventive med est patient 18-39 yrs Tim Chinedu DO Work Phone: [facility] Comment on above: Well woman exam with routine gynecological exam Start: 11-01-2023 End: 11-01-2023 ambulatory TIM CHE Not Available Start: 05-30-2023 End: 05-30-2023 ambulatory FOREST GEE Not Available Start: 07-04-2022 End: 07-10-[address] TIM CHE . Facility: Start: 01-10-2022 End: 02-08-[address] TIM CHE . Facility: Start: 01-01-2022 End: 01-01-[address] BOONE HO Facility: Start: 12-01-2021 End: 12-02-[address] TIM CHE . Facility: Start: 08-10-2017 End: 09-09-2017 Ambulatory PHYSICIAN UNKNOWN Facility:[facility] Start: 07-31-2017 End: 08-01-2017 Ambulatory PHYSICIAN UNKNOWN Facility:[facility] Start: 07-27-2017 End: 07-28-2017 Ambulatory REFERRED SELF Facility:[facility] Start: 07-17-2017 End: 07-18-2017 Ambulatory JUAN MIGUEL GEORGE ALAS [facility] Start: 07-17-2017 End: 08-10-2017 Ambulatory SHAN YUNG Facility:[facility] Start: 06-18-2017 End: 06-19-2017 Ambulatory SHAN YUNG Facility:[facility] Start: 06-12-2017 End: 06-13-2017 Ambulatory DEFAULT PHYSICIAN Facility:[facility] Start: 05-15-2017 End: 05-16-2017 Ambulatory DANYA KAUR Mercanne-marie [facility] Start: 04-12-2017 End: 04-13-2017 Ambulatory DANYA Michael [facility] Start: 02-14-2017 End: 02-15-2017 Ambulatory DANYA Michael [facility] Start: 01-06-2017 End: 01-07-2017 Ambulatory DANYA Michael [facility] Procedures Date Procedure Procedure Detail Performing Clinician Start: 05-13-2024 [facility]H PROLACTIN Tim Mcgheez io DO Work Phone: Start: 11-01-2023 IGP,APTIMA HPV,AGE GDLN Tim Chinedu DO Work Phone: Start: 07-27-2017 ANESTH KNEE JOINT SURGERY RODOLFO BARILLAS Start: 07-27-2017 KNEE ARTHROSCOPY/SURGERY SHAN YUNG Start: 07-17-2017 Gonadotropin chorion ic quantitative DANYA KAUR Start: 05-15-2017 PROGESTERONE DANYA ELYSSA H Start: 04-12-2017 HCG, SERUM, QUALITATIVE DANYA KAUR Start: 02-14-2017 PROGESTERONE DANYA ELYSSA H Start: 01-06-2017 TSH WITHOUT REFLEX PEDRO KAUR Start: 01-06-2017 FOLLICLE STIMULATING HORMONE DANYA KAUR Start: 01-06-2017 GLUCOSE, FASTING DANYA KAUR Start: 01-06-2017 INSULIN, TOTAL DANYA IFTIKHAR [facility] Start: 01-06-2017 LUTEINIZING HORMONE TYSON KAUR Start: 01-06-2017 PROLACTIN DANYA ELYSSA H Start: 01-06-2017 TESTOSTERONE DANYA ELYSSA H Plan of Treatment Date Care Activity Detail Author Start: 11-04-2024 End: 11-04-2024 Patient encounter procedure 11/04/2024 8:30 AM EDT Office Visit [facility] [address] [place] [phone] ChineduTim munoz, DO [address] [place] [address] [facility] Start: 11-01-2023 End: 11-01-2023 Patient encounter procedure 11/01/2023 9:20 AM EDT Office Visit [facility] [address] [place] [phone] Tim Che, [address] [facility] [address] [facility] [facility] [place] [address] Arrived [facility] Comment on above: Arrived Cytology Cervical or vaginal smear or scraping study Pap Smear Pathology and Cytology Routine Well woman exam with routine gynecological exam Ordered: 11/01/2023 [facility] Work Phone: Comment on above: Ordered: 11/01/2023 Prolactin Prolactin Lab Ro utine Amenorrhea Ordered: 04/30/2024 [facility] Work Phone: Comment on above: Ordered: 04/30/2024 Payers Date Payer Category Payer [facility] [id number] 2021 Unknown 2016 Unknown [id number] 1995 Unknown [id number] [id number] 1995 Unknown [id number] [id number] 1995 Unknown [id number] [id number] 1995 Unknown [id number] [id number] 1995 Unknown [id number]. 2.9 1995 Unknown [id number]. 2.9 1995 Unknown [id number] [id number] 1959 Unknown [id number] Social History Date Type Detail Facility Start: 08-10-2022 Tobacco smoking stat [facility] Never smoked tobacco [facility] Start: 08-10-2022 Tobacco use and exposure Smokeless t obacco non-user [facility] Start: 04-19-2023 End: 11-01-2023 Alcoholic beverage intake Ex-drinker (finding) [facility] Start: 08-10-2022 End: 11-08-2022 History of Social function [facility] Start: 08-10-2022 End: 11-08-2022 Tobacco use panel [facility] Start: 08-09-2022 Alcohol Comment caffeine intak e: 1 cup per day of coffee [facility] Start: 1995 Sex assigned at Female [facility] Start: 08-03-2022 Gender identity Identifies as female gender (finding) [facility] History of Present illness Narrative 04-30-2024 Kayleigh Dnonelly LPN - 04/30/2024 2:50 PM EST Note [...] nursing note reviewed. Exam conducted with a dimension specification inspector present. Vitals: Estimated body mass index is [...] nursing note reviewed. Exam conducted with a dimension specification inspector present. Vitals: Estimated body mass index is [...] DATE CREATED AUTHOR AUTHOR'S ORGANIZ ATION 09/14/2017 [facility] DATE CREATED AUTHOR AUTHOR'S ORGANIZ ATION 07/12/2022 [facility] DATE CREATED AUTHOR AUTHOR'S ORGANIZ ATION 05/02/2024 [facility] EPIC Care Teams (unrecognized sec tion and content) [employer] Relationship Specialty Start Date End Date Jamin Massey MD [address] [place] [address] PCP - General Family Medicine 08/10/22 [employer] Relationship Specialty Start Date End Date Jamin Massey MD [address] [place] [address] PCP - General Family Medicine 08/10/22 [employer] Maker Relationship Specialty Start Date End Date Jamin Massey MD [address] [place] [address] PCP - General Family Medicine 08/10/22 [employer] Maker Relationship Specialty Start Date End Date Jamin Massey MD [address] [place] [address] PCP - General Family Medicine 08/10/22 Reason for Visit (unrecogniz ed section and [...] BE BASED ON THE PRIMARY CLINICAL RECORDS. [facility] [email or web address] [facility]. provides no warranty or guarantee of the accuracy or completeness of information in this document.
[2024-06-13 13:43] LABS: Free T3 2.63 pg/mL (2.18-3.98); Thyroid Stimulating Hormone 1.699 uIU/mL (0.358-3.740)
== END 2024-06-13 12:15 | disposition home or self-care (01) ==
LOC: LAB 12:16
PROVIDERS: PCP Family Medicine; Visit Provider Family Medicine
DX: E03.9 Hypothyroidism, unspecified (principal)
CPT/HCPCS: 36415; 84436; 84443; 84481

== ENCOUNTER 2024-07-15 09:58 | Outpatient (OUT) | payer BC, SELFPAY ==
[2024-07-15 10:23] LABS: Basophils Absolute Auto 0.1 10^3/uL (0.0-0.1); Eosinophils Absolute Auto 0.1 10^3/uL (0.0-0.7); Eosinophils Percent Auto 1.9 % (0.9-7.0); Immature Granulocytes Abs Auto 0.01 10^3/uL (0.00-0.03); Immature Granulocytes Pct Auto 0.2 % (0.0-0.5); Lymphocytes Absolute Auto 2.1 10^3/uL (1.2-3.8); Lymphocytes Percent Auto 40.5 % (20.5-60.0); Mean Corpuscular HGB Conc 34.1 g/dL (29.9-35.2); Mean Corpuscular Hemoglobin 30.5 pg (26.7-34.0); Mean Corpuscular Volume 89.3 fL (81.0-99.0); Mean Platelet Volume 10.1 fL (9.5-13.5); Monocytes Absolute Auto 0.4 10^3/uL (0.3-0.8); Monocytes Percent Auto 7.2 % (1.7-12.0); Neutrophils Absolute Auto 2.5 10^3/uL (1.4-6.5); Neutrophils Percent Auto 49.2 % (43.0-75.0); Platelet Count 220 10^3/uL (150-450); Red Blood Count 4.59 10^6/uL (4.20-5.40); Red Cell Distribution Width 11.6 % (11.0-15.0); White Blood Count 5.1 10^3/uL (4.0-11.0)
[2024-07-15 10:25] LABS: Estimated Average Glucose 108 mg/dL; Glycohemoglobin A1C 5.4 % (4.5-6.2)
[2024-07-15 11:02] LABS: Alanine Aminotransferase 25 U/L (14-59); Albumin Globulin Ratio 1.1; Alkaline Phosphatase 83 U/L (46-116); Anion Gap 13.7; Aspartate Amino Transferase 16 U/L (15-37); BUN Creatinine Ratio 22.9; Bilirubin Total 0.6 mg/dL (0.2-1.0); Calcium 9.3 mg/dL (8.5-10.1); Carbon Dioxide 28.3 mmol/L (21.0-32.0); Chloride 103 mmol/L (98-107); Chol HDL Ratio 4.8; Cholesterol 211 mg/dL (<=200); Estimated GFR (African America >60 (>=60 mL/min/1.73m^2); Estimated GFR (Non-African Ame >60 (>=60 mL/min/1.73m^2); Free T3 3.05 pg/mL (2.18-3.98); Globulin 3.7 g/dL; Glucose 91 mg/dL (74-106); HDL Cholesterol 44 mg/dL (40-60); Sodium 141 mmol/L (136-145); Thyroid Stimulating Hormone 1.995 uIU/mL (0.358-3.740); Total Protein 7.7 g/dL (6.4-8.2); Triglycerides 126 mg/dL (<=150); VLDL CHOLESTEROL 25.2 mg/dL
== END 2024-07-15 09:59 | disposition home or self-care (01) ==
LOC: LAB 10:01
PROVIDERS: PCP Family Medicine; Visit Provider Family Medicine
DX: R53.83 Other fatigue (principal); E03.9 Hypothyroidism, unspecified; R55 Syncope and collapse; E78.5 Hyperlipidemia, unspecified; R73.09 Other abnormal glucose; D64.9 Anemia, unspecified; E55.9 Vitamin D deficiency, unspecified; I10 Essential (primary) hypertension
CPT/HCPCS: 36415; 80053; 80061; 82306; 83036; 83525; 83540; 84436; 84443; 84481; 85025

== ENCOUNTER 2024-11-04 14:59 | Outpatient (REF) | payer BC, SELFPAY ==
--- OUTSIDE RECORDS SUMMARY | 2024-11-04 08:30 | XMS_ITS | Encounter Summary ---
Author Organization [facility] Address [address] [place] [address] Care Team Providers Care Databases Computer Consultant Name Role Phone aJmin Massey MD Primary Care Provider [phone] Reason for Visit * Reason Comments Well Women Visit Encounter Details Date Type Department Care Team (Late st Contact Info) Description 11/04/2024 8:30 AM EDT Office Visit [facility] [address] [place] [phone] Porfirio Che DO [address] [facility] [place], [facility]11 Well woman exam with routine gynecological exam Social History Tobacco Use Types Packs/Day Years Used Date Smoking Tobacco: Never Smokeless Tobacco: Never Alcohol Use Standard Drinks/Week Comments Not Currently 0 (1 standard drink = 0.6 oz pure alcohol) caffeine intake: 1 cup per day of coffee Comments No Sex and Gender Information Value Date Recorded Sex Assigned at Female 08/03/2022 11:59 AM EDT Legal Sex Female 11:47 PM EDT Gender Identity Female 08/03/2022 11:59 AM EDT Sexual Orientation Not on file documented as of this encounter Last Filed Vital Signs Vital Sign Reading Time Taken Comments Blood Pressure 124/80 11/04/2024 8:44 AM EDT Pulse - - Temperature - - Respiratory Rate - - Oxygen Saturation - - Inhaled Oxygen Concentration - - Weight 97.8 kg (215 lb 8 oz) 11/04/2024 8:44 AM EDT Height - - Body Mass Index 36.99 08/10/2022 2:41 PM EDT documented in this encounter Progress Notes * Kayleigh Donnelly, SENIOR JAVA ARCHITECT - 11/04/2024 8:30 AM EDT Reason for Appointment: Patient ID: Yvonne Smith is a 29 y.o. female who presents for Well Women Visit Patient presents today for Annual Exam. 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 She is well-developed. Genitourinary: Vulva normal. Cardiovascular: Rate and Rhythm: Normal rate and [...] nursing note reviewed. Exam conducted with a audiovisual technician present. Vitals: Estimated body mass index is 36.99 kg/m?? as calculated from the following: Height as of 08/10/22: 5' 4 . Weight as of this encounter: 215 lb 8 oz. BP: 124/80 Patient's last menstrual period was 10/24/2024 (approximate). ASSESSMENT & PLAN ICD-10-CM 1. Well woman exam with routine gynecological exam Z01.419 Pap Smear No orders of the defined types were placed in this encounter. Annual Wellness Exam: Patient presents today for routine annual exam. Patient states she has no current complaints. Patients vitals were reviewed and within normal limits. Growth and development is noted to be appropriate for age. Menstrual history is noted to be regular with no concerns reported. No mental health concerns was expressed. Pap Smear: Speculum was inserted into the vagina and pap was obtained without difficulty. No HPV testing was performed per age guideline. Patient was advised that pap results could take anywhere from 7 to 10 days to receive and our office will reach out to the patient with those once we have them. Patient canalso view results via [employer]. I reinforced importance of condom use for STI prevention. Patient declined cultures to be performed with today's visit. Breast Exam: Upon examination, clinical breast exam was noted to be normal. Patient was counseled on breast self-awareness, including the importance of knowing what is normal for her own breasts and promptly reporting any changes such as new lumps, skin dimpling, nipple discharge, or pain. Screening mammogram recommended annually beginning at age 40 or earlier if risk factors are present. Discussed signs and symptoms of breast cancer and when to seek medical attention. Answered all patient questions. Follow Up: Patient is to return to our office in one year for annual exam unless needed otherwise. Documented by Kayleigh Donnelly LPN on behalf of: Porfirio Che DO documented in this encounter Plan of Treatment Upcoming Encounters Date Type Department Care Team (Late st Contact Info) Description 11/09/2025 8:30 AM EDT Procedure Visit [facility] [place] [facility] [address] [place] [phone] Porfirio Che DO [address] [facility] [facility] [place] [address] Scheduled Orders Name Type Priority Associated Diagnoses Orde r Schedule Pap Smear Pathology and Cytology Routine Well woman exam with routine gynecological exam Ordered: 11/04/2024 documented as of this encounter Visit Diagnoses Diagnosis Well woman exam with routine gynecological exam Routine gynecological examination documented in this encounter Care Teams Databases Computer Consultant Relationship Specialty Start Date End Date Jamin Massey MD [address] [facility] [place] [address] PCP - General Family Medicine 08/10/22 documented as of this encounter
--- OUTSIDE RECORDS SUMMARY | 2024-11-04 15:03 | XMS_ITS | Encounter Summary ---
Author Organization [facility] Address [address] [facility] [place] [address] Care Team Providers Care Finance Lead Name Role Phone Jamin Massey MD Primary Care Provider [phone] Encounter Details Date Type Department Care Team (Late st Contact Info) Description 02/07/2023 Clinisync Result Encounter [facility] External Department Unsolicited Porfirio Che, DO [address] [place] [phone] Social History Tobacco Use Types Packs/Day Years Used Date Smoking Tobacco: Never Smokeless Tobacco: Never Alcohol Use Standard Drinks/Week Comments Not Currently 0 (1 standard drink = 0.6 oz pure alcohol) caffeine intake: 1 cup per day of coffee Comments Yes Sex and Gender Information Value Date Recorded Sex Assigned at Female 08/03/2022 11:59 AM EDT Legal Sex Female 11:47 PM EDT Gender Identity Female 08/03/2022 11:59 AM EDT Sexual Orientation Not on file documented as of this encounter Plan of Treatment Upcoming Encounters Date Type Department Care Team (Late st Contact Info) Description 11/09/2025 8:30 AM EDT Procedure Visit [facility] [address] [place] [phone] Porfirio Che DO [address], [facility]11 documented as of this encounter Procedures Procedure Name Priority Date/Time Associated Diagnosis Comments US OB BPP W NON-STRESS 02/07/2023 3:33 PM EST documented in this encounter Results * US OB BPP W NON-STRESS (02/07/2023 3:33 PM EST) Anatomical Region Laterality Modality Other 02/07/2023 3:33 PM EST Narrative 02/07/2023 3:33 [place] [address] Ultrasound Report Signed Patient: LOUISE SMITH MR#: [id number] : 1995 Acct:[id number] Age/Sex: 27 / F ADM Date: 02/06/23 Loc: [facility] Attending Dr: Porfirio Che D.O. Ordering Physician: Porfirio Che D.O. Date of Service: 02/06/23 Procedure(s): US OB BPP w non-stress Accession Number(s): [id number] cc: Porfirio Che D.O.; Jamin Massey M.D. [place] [address] Patient Name: LOUISE SMITH MRN: [id number] date: 1995 Sex: F Assigned Patient Location: [facility] Current Patient Location: Accession/Order Number: [id number] Exam Date: 02/06/2023 17:42 Report Date: 02/07/2023 15:33 At the request of: PORFIRIO CHE Procedure: US OB BPP w non-stress EXAMINATION: US OB BPP w non-stress HISTORY: DECREASED MOVEMENTS IN THIRD TRIMESTER O38.8130 COMPARISON: Ultrasound OB growth 01/23/2023 TECHNIQUE: Ultrasound biophysical profile was performed in the radiology department. BREATHING MOVEMENTS: 2.0 GROSS BODY MOVEMENTS: 2.0 TONE: 2.0 QUALITATIVE AMNIOTIC FLUID VOLUME: 2.0 PRESENTATION: CEPHALIC HEART RATE: 156.1 bpm bpm. AMNIOTIC FLUID VOLUME: 16.9 cm GESTATIONAL AGE: 35 weeks 4 days CONCLUSION: Total biophysical profile score 8.0. Electronically authenticated by: BUNNY VICKERS Date: 02/07/2023 15:33 Dictated By: Bunny Vickers M.D. Signed By: 02/07/231535 DD/ 32 TD/TT: Solution Make Up Operator: Procedure Note Radiology, Radiologist, - 02/07/2023 [place] [address] Ultrasound Report Signed Patient: LOUISE SMITH KMR#: [id number] : 1995Acct:[id number] Age/Sex: 27 / FADM Date: 02/06/23 Loc: [facility] Attending Dr: Porfirio Che D.O. Ordering Physician: Porfirio Che D.O. Date of Service: 02/06/23 Procedure(s): US OB BPP w non-stress Accession Number(s): [id number] cc: Porfirio Che D.O.; Jamin Massey M.D. The [place] [address] Patient Name: LOUISE SMITH MRN: [id number] date: 1995 Sex: F Assigned Patient Location: [facility] Current Patient Location: Accession/Order Number: [id number] Exam Date: 02/06/2023 17:42 Report Date: 02/07/2023 15:33 At the request of: PORFIRIO CHE Procedure: US OB BPP w non-stress EXAMINATION: US OB BPP w non-stress HISTORY: DECREASED MOVEMENTS IN THIRD TRIMESTER O38.8130 COMPARISON: Ultrasound OB growth 01/23/2023 TECHNIQUE: Ultrasound biophysical profile was performed in the radiology department. BREATHING MOVEMENTS: 2.0 GROSS BODY MOVEMENTS: 2.0 TONE: 2.0 QUALITATIVE AMNIOTIC FLUID VOLUME: 2.0 PRESENTATION: CEPHALIC HEART RATE: 156.1 bpm bpm. AMNIOTIC FLUID VOLUME: 16.9 cm GESTATIONAL AGE: 35 weeks 4 days CONCLUSION: Total biophysical profile score 8.0. Electronically authenticated by: BUNNY VICKERS Date: 02/07/2023 15:33 Dictated By: Bunny Vickers M.D. Signed By:02/07/231535 DD/ 32 TD/TT: Solution Make Up Operator: us Porfirio Chinedu DO [facility] Final Result documented in this encounter Visit Diagnoses Not on filedocumented in this encounter Care Teams Finance Lead Relationship Specialty Start Date End Date Jamin Massey MD [address] [place] [phone] PCP - General Family Medicine 08/10/22 documented as of this encounter
--- OUTSIDE RECORDS SUMMARY | 2024-11-04 15:03 | XMS_ITS | Clinical Summary ---
Author Organization [employer] Address [id number] [address] [place] [address] Care Team Providers Care Process Inspector Name Role Phone Rubyannabelle DO Charles L Primary Care Provider Allergies No known active allergies Medications metFORMIN (GLUCOPHAGE) 500 mg tablet Take 1 tablet by mouth 2 (two) times a day with meals. Active Social History Tobacco Use Types Packs/Day Years Used Date Smoking Tobacco: Never Smokeless Tobacco: Never Alcohol Use Standard Drinks/Week Comments No 0 (1 standard drink = 0.6 oz pur e alcohol) Childcare Answer Date Recorded Childcare Unknown 08/22/2018 Employment Answer Date Recorded Employment Unknown 08/22/2018 Purpose - Life Answer Date Recorded Purpose and direction in life Unknown Comments No Sex and Gender Information Value Date Recorded Sex Assigned at Not on file Legal Sex Female 1:50 PM EST Gender Identity Not on file Sexual Orientation Not on file Last Filed Vital Signs Vital Sign Reading Time Taken Comments Blood Pressure 102/70 03/31/2017 2:00 PM EST Pulse 78 03/31/2017 2:00 PM EST Temperature 37.1 C (98.7 F) 03/31/2017 2:00 PM EST Respiratory Rate 20 03/31/2017 2:00 PM EST Oxygen Saturation 100% 03/31/2017 2:00 PM EST Inhaled Oxygen Concentration - - Weight 88.5 kg (195 lb) 06/26/2017 4:29 PM EDT Height 160 cm (5' 3 ) 03/31/2017 2:00 PM EST Body Mass Index 34.54 03/31/2017 2:00 PM EST Plan of Treatment Not on file Medical Devices Not on file Insurance [employer] Care Teams Process Inspector Relationship Specialty Start Date End Date Kiel Kelly Jr., DO [address] [place] [address] PCP - General Internal Medicine 06/26/17
--- OUTSIDE RECORDS SUMMARY | 2024-11-04 15:03 | XMS_ITS | Clinical Summary ---
Author Organization [facility] Address [address], [address] [place] [address] Care Team Providers Care Consular Officer Name Role Phone Kiel Kelly Primary Care Provider Allergies No known active allergies Medications metFORMIN (GLUCOPHAGE XR) 500 MG extended release tabletIndications :Anovular menstruation Take 3 tablets by mouth daily 90 tablet 3 8 Active clomiPHENE (CLOMID) 50 MG tablet Take 1 tablet by mouth daily Day #3-#7 5 tablet 3 8 Active Active Problems No known active problems Immunizations Immunization Administration Dates Next Due Meningococcal ACWY Vaccine 06/08/2011,04/13/2011 TDaP, ADACEL (age 10y-64y), BOOSTRIX (age 10y+), IM, 0.5mL 2014 Family History Medical History Relation Name Comments Breast Cancer Maternal Grandmother Other Other No family h/o o varian cancer. No family h/o DVT. Relation Name Status Comments Brother 1 Alive Brother 2 Alive Father Alive Maternal Grandfather Maternal Grandmother Mother Alive Other Other Paternal Grandfather Paternal Grandmother Alive Sister Alive Social History Tobacco Use Types Packs/Day Years Used Date Smoking Tobacco: Never Smokeless Tobacco: Never Alcohol Use Standard Drinks/Week Comments No 0 (1 standard drink = 0.6 oz pur e alcohol) Comments No Sex and Gender Information Value Date Recorded Sex Assigned at Not on file Legal Sex Female 5:10 PM EST Gender Identity Not on file Sexual Orientation Not on file Last Filed Vital Signs Vital Sign Reading Time Taken Comments Blood Pressure 122/78 07/17/2017 3:33 PM EDT Pulse 96 04/05/2015 7:10 PM EST Temperature 37.7 C (99.9 F) 04/05/2015 7:10 PM EST Respiratory Rate 22 04/05/2015 7:10 PM EST Oxygen Saturation 98% 04/05/2015 7:10 PM EST Inhaled Oxygen Concentration - - Weight 86.5 kg (190 lb 9.6 oz) 07/17/2017 3:33 P M EDT Height 162.6 cm (5' 4 ) 07/17/2017 3:33 PM EDT Body Mass Index 32.72 07/17/2017 3:33 PM EDT Plan of Treatment Not on file Insurance [employer] Care Teams Consular Officer Relationship Specialty Start Date End Date Kiel Kelly DO [address] [place] [phone] PCP - General 04/05/15
--- OUTSIDE RECORDS SUMMARY | 2024-11-04 15:03 | XMS_ITS | Encounter Summary ---
Author Organization [facility] Address [address] [facility] [place] [address] Care Team Providers Care Middle School English Teacher Name Role Phone Jamin Massey MD Primary Care Provider [phone] Encounter Details Date Type Department Care Team (Late Contact Info) Description 11/04/2024 Bamboo flowsheet [facility] [address] [place] [address] Porfirio Che DO [address], [place] [address] Social History Tobacco Use Types Packs/Day Years [...] 8:30 AM EDT Procedure Visit [facility] [address] [place] [address] Porfirio Che DO [address], [place] [address] documented as of this encounter Visit Diagnoses Not on filedocumented in this encounter Care Teams Middle School English Teacher Relationship Specialty Start Date End Date Jamin Massey MD [address] [place] [address] PCP - General Family Medicine 08/10/22 documented as of this encounter
--- OUTSIDE RECORDS SUMMARY | 2024-11-04 15:03 | XMS_ITS | Encounter Summary ---
Author Organization [facility] Address [address] [facility] [place] [address] Care Team Providers Care Car Stower Name Role Phone Jamin Massey MD Primary Care Provider [phone] Encounter Details Date Type Department Care Team (Late Contact Info) Description 12/22/2022 Abstract [facility] [address] [facility] [place] [place] [address] Leida Casas PA [address] [facility] [address] [place], [place] [address] Social History Tobacco Use Types Packs/Day Years [...] EDT Procedure Visit [facility] [address] [facility] [place] [place] [address] Porfirio Che DO [address] [facility] [address], [place] [address] documented as of this encounter Visit Diagnoses Not on filedocumented in this encounter Care Teams Car Stower Relationship Specialty Start Date End Date Jamin Massey MD [address] [place] [phone] PCP - General Family Medicine 08/10/22 documented as of this encounter
--- OUTSIDE RECORDS SUMMARY | 2024-11-04 15:03 | XMS_ITS | Encounter Summary ---
Author Organization [facility] Address [address] [facility] [place] [address] Care Team Providers Care Delicatessen Store Manager Name Role Phone Jamin Massey MD Primary Care Provider [phone] Encounter Details Date Type Department Care Team (Late Contact Info) Description 04/09/2024 Abstract [facility] [address] [place] [address] Porfirio Che DO [address], [place] [address] Social History Tobacco Use Types Packs/Day Years Used Date Smoking Tobacco: Never Smokeless Tobacco: Never Alcohol Use Standard Drinks/Week Comments Not Currently 0 (1 standard drink = 0.6 oz pure alcohol) caffeine intake: 1 cup per day of coffee Comments Unknown Sex and Gender Information Value Date Recorded Sex Assigned at Female 08/03/2022 11:59 AM EDT Legal Sex Female 11:47 PM EDT Gender Identity Female 08/03/2022 11:59 AM EDT Sexual Orientation Not on file documented as of this encounter Plan of Treatment Upcoming Encounters Date Type Department Care Team (Late st Contact Info) Description 11/09/2025 8:30 AM EDT Procedure Visit [facility] [address] [place] [phone] Porfirio Che DO [address], [place] [address] documented as of this encounter Visit Diagnoses Not on filedocumented in this encounter Care Teams Delicatessen Store Manager Relationship Specialty Start Date End Date Jamin Massey MD [address] [place] [phone] PCP - General Family Medicine 08/10/22 documented as of this encounter
--- OUTSIDE RECORDS SUMMARY | 2024-11-04 15:03 | XMS_ITS | Encounter Summary ---
Author Organization [facility] Address [address] [place] [address] Care Team Providers Care Bobbin Hauler Name Role Phone Jamin Massey MD Primary Care Provider [phone] Encounter Details Date Type Department Care Team (Late st Contact Info) Description 01/23/2023 Clinisync Result Encounter [facility] External Department Unsolicited Porfirio Che, DO [address], [facility] Social History Tobacco Use Types Packs/Day Years [...] Visit [facility] [address] [place] [phone] Porfirio Che DO [address] [place] [address] documented as of this encounter Procedures Procedure Name Priority Date/Time Associated Diagnosis Comments US OB GROWTH 01/23/2023 3:40 PM EST documented in this encounter Results * US OB GROWTH (01/23/2023 3:40 PM EST) Anatomical Region Laterality Modality Other 01/23/2023 3:40 PM EST Narrative 01/23/2023 3:40 [place] [address] Ultrasound Report Signed Patient: LOUISE SMITH MR#: [id number] : 1995 Acct:[id number] Age/Sex: 27 / F ADM Date: 01/23/23 Loc: US Attending Dr: Porfirio Che D.O. Ordering Physician: Porfirio Che D.O. Date of Service: 01/23/23 Procedure(s): US OB growth Accession Number(s): [id number] cc: Porfirio Che D.O.; Jamin Massey M.D. The [place] [address] Patient Name: LOUISE SMITH MRN: [id number] date: 1995 Sex: F Assigned Patient Location: US Current Patient Location: US Accession/Order Number: [id number] Exam Date: 01/23/2023 10:01 Report Date: 01/23/2023 15:40 At the request of: PORFIRIO CHE Procedure: US OB growth EXAMINATION: US OB growth HISTORY: SIZE INCONSISTENT WITH DATES COMPARISON: Ultrasound OB anatomy 10/23/2022 FINDINGS: Heart Rate: 158.0 bpm Number: 1.0 Position: cephalic Amniotic Fluid Volume: 11.7 cm Maximum Vertical Pocket: 3.8 cm BIOMETRY: BPD: 8.0 cm cm; 32 weeks 2 days; 12% HC: 31.3 cmcm; 35 weeks 0 days ; 52% AC: 29.0 cm cm; 33 weeks 0 days; 35% FL: 6.7 cm cm; 34 weeks 3 days; 63% EFW: 2219.8 grams; 41% FL/AC: 23.1 FL/BPD: 83.3 HC/AC: 1.1 GESTATIONAL AGE: Age by EDC: 33 weeks 4 days JOSE by EDC: 03/09/2023 Age by US: 33 weeks 5 days JOSE by US: 03/08/2023 US/US OB growth IMPRESSION: 1. Single live intrauterine with growth detailed above. Electronically authenticated by: BUNNY VICKERS Date: 01/23/2023 15:40 Dictated By: Bunny Vickers M.D. Signed By: 01/23/231542 DD/ 39 TD/TT: Physician Scribe: Procedure Note Radiology, Radiologist, MD - 01/23/2023 [place] [address] Ultrasound Report Signed Patient: LOUISE SMITH KMR#: [id number] : 1995Acct:[id number] Age/Sex: 27 / FADM Date: 01/23/23 Loc: US Attending Dr: Porfirio Che D.O. Ordering Physician: Porfirio Che D.O. Date of Service: 01/23/23 Procedure(s): US OB growth Accession Number(s): [id number] cc: Porfirio Che D.O.; Jamin Massey M.D. The [place] [id number] Patient Name: LOUISE SMITH MRN: [id number] date: 1995 Sex: F Assigned Patient Location: US Current Patient Location: US Accession/Order Number: [id number] Exam Date: 01/23/2023 10:01 Report Date: 01/23/2023 15:40 At the request of: PORFIRIO CHE Procedure: US OB growth EXAMINATION: US OB growth HISTORY: SIZE INCONSISTENT WITH DATES COMPARISON: Ultrasound OB anatomy 10/23/2022 FINDINGS: Heart Rate: 158.0 bpm Number: 1.0 Position: cephalic Amniotic Fluid Volume: 11.7 cm Maximum Vertical Pocket: 3.8 cm BIOMETRY: BPD: 8.0 cm cm; 32 weeks 2 days; 12% HC: 31.3 cmcm; 35 weeks 0 days ; 52% AC: 29.0 cm cm; 33 weeks 0 days; 35% FL: 6.7 cm cm; 34 weeks 3 days; 63% EFW: 2219.8 grams; 41% FL/AC: 23.1 FL/BPD: 83.3 HC/AC: 1.1 GESTATIONAL AGE: Age by EDC: 33 weeks 4 days JOSE by EDC: 03/09/2023 Age by US: 33 weeks 5 days JOSE by US: 03/08/2023 US/US OB growth IMPRESSION: 1. Single live intrauterine with growth detailed above. Electronically authenticated by: BUNNY VICKERS Date: 01/23/2023 15:40 Dictated By: Bunny Vickers M.D. Signed By:01/23/231542 DD/ 39 TD/TT: Physician Scribe: us Porfirio Chinedu DO [facility] Final Result documented in this encounter Visit Diagnoses Not on filedocumented in this encounter Care Teams Bobbin Hauler Relationship Specialty Start Date End Date Jamin Massey MD [address] [place] [address] PCP - General Family Medicine 08/10/22 documented as of this encounter
--- OUTSIDE RECORDS SUMMARY | 2024-11-04 15:03 | XMS_ITS | Encounter Summary ---
Author Organization [facility] Address [address] [place] [address] Care Team Providers Care Analysis Analyst Name Role Phone Jamin Massey MD Primary Care Provider [phone] Encounter Details Date Type Department Care Team (Late st Contact Info) Description 03/02/2023 Clinisync Result Encounter [facility] External Department Unsolicited Porfirio Che, DO [address] [place] [phone] Social History Tobacco Use Types Packs/Day Years [...] Visit [facility] [address] [place] [phone] Porfirio Che DO [address] [place] [address] documented as of this encounter Procedures Procedure Name Priority Date/Time Associated Diagnosis Comments US OB LIMITED 1+ FETUSES 03/02/2023 1:54 AM EST documented in this encounter Results * US OB limited 1+ fetuses (03/02/2023 1:54 AM EST) Anatomical Region Laterality Modality Body Ultrasound 03/02/2023 1:54 AM EST Narrative 03/02/2023 1:57 [place] [address] Ultrasound Report Signed Patient: LOUISE SMITH MR#: [id number] : 1995 Acct:[id number] Age/Sex: 27 / F ADM Date: Loc: [facility] [address]: Porfirio Che D.O. Ordering Physician: Porfirio Che D.O. Date of Service: 03/02/23 Procedure(s): US OB limited Accession Number(s): [id number] cc: Porfirio Che D.O.; Jamin Massey M.D. The [place] [address] Patient Name: LOUISE SMITH MRN: [id number] date: 1995 Sex: F Assigned Patient Location: [facility] Current Patient Location: [facility] Accession/Order Number: [id number] Exam Date: 03/02/2023 01:30 Report Date: 03/02/2023 01:54 At the request of: PORFIRIO CHE Procedure: US OB limited EXAM: US OB limited HISTORY: verify presentation COMPARISON: None. TECHNIQUE: Transabdominal ultrasound of the gravid uterus was performed using Doppler. FINDINGS: Ultrasound images demonstrate a fetus in cephalic position. There is a heart rate of 160 bpm. US/US OB limited IMPRESSION: 1. Cephalic position. Electronically authenticated by: Jojo LANDRUM Date: 03/02/2023 01:54 Dictated By: Nabeel Landrum M.D. Signed By: 03/02/23 0157 DD/ TD/TT: Teacher Music: Procedure Note Radiology, Radiologist, MD - 03/02/[address] [address] Ultrasound Report Signed Patient: LOUISE SMITH KMR#: [id number] : 1995Acct:[id number] Age/Sex: 27 / FADM Date: Loc: [facility] 256-[address]: Porfirio Che D.O. Ordering Physician: Porfirio Che D.O. Date of Service: 03/02/23 Procedure(s): US OB limited Accession Number(s): [id number] cc: Porfirio Che D.O.; Jamin Massey M.D. The [address] [address] Patient Name: LOUISE SMITH MRN: [id number] date: 1995 Sex: F Assigned Patient Location: [facility] Current Patient Location: [facility] Accession/Order Number: [id number] Exam Date: 03/02/2023 01:30 Report Date: 03/02/2023 01:54 At the request of: PORFIRIO CHE Procedure: US OB limited EXAM: US OB limited HISTORY: verify presentation COMPARISON: None. TECHNIQUE: Transabdominal ultrasound of the gravid uterus was performedusing Doppler. FINDINGS: Ultrasound images demonstrate a fetus in cephalic position. There is afetal heart rate of 160 bpm. US/US OB limited IMPRESSION: 1. Cephalic position. Electronically authenticated by: Jojo LANDRUM Date: 03/02/2023 01:54 Dictated By: Nabeel Landrum M.D. Signed By:03/02/23 0157 DD/ 0154 TD/TT: Teacher Music: us Porfirio Che DO IMG OB US PROCEDURES Final Resul t documented in this encounter Visit Diagnoses Not on filedocumented in this encounter Care Teams Analysis Analyst Relationship Specialty Start Date End Date Jamni Massey MD [address] [place] [address] PCP - General Family Medicine 08/10/22 documented as of this encounter
--- OUTSIDE RECORDS SUMMARY | 2024-11-04 15:03 | XMS_ITS | Encounter Summary ---
Author Organization [facility] Address [address] [facility] [place] [address] Care Team Providers Care Rope Twisting Machine Operator Name Role Phone Jamin Massey MD Primary Care Provider [phone] Encounter Details Date Type Department Care Team (Late Contact Info) Description 08/10/2022 Abstract [facility] [place] [address] Porfirio Che DO [address] [place] [address] [address], [place] [address] Social History Tobacco Use Types Packs/Day Years Used Date Smoking Tobacco: Never Smokeless Tobacco: Never Tobacco Cessation:Counseling Given: Not Answered Alcohol Use Standard Drinks/Week Comments Not Currently 0 (1 standard drink = 0.6 oz pure alcohol) caffeine intake: 1 cup per day of coffee Comments Yes Sex and Gender Information Value Date Recorded Sex Assigned at Female 08/03/2022 11:59 AM EDT Legal Sex Female 11:47 PM EDT Gender Identity Female 08/03/2022 11:59 AM EDT Sexual Orientation Not on file COVID-19 Exposure Response Date Recorded In the last 10 days, have yo u been in contact with someone who was confirmed or suspected to have Coronavirus/COVID-19? No / Unsure 08/03/2022 12:02 PM EDT documented as of this encounter Plan of Treatment Upcoming Encounters Date Type Department Care Team (Late Contact Info) Description 11/09/2025 8:30 AM EDT Procedure Visit [facility] [address] [place] [address] [place] [phone] Porfirio Che, [address] [place] [address] documented as of this encounter Visit Diagnoses Not on filedocumented in this encounter Care Teams Rope Twisting Machine Operator Relationship Specialty Start Date End Date Jamin Massey MD [address] [facility] [place] [address] PCP - General Family Medicine 08/10/22 documented as of this encounter
--- OUTSIDE RECORDS SUMMARY | 2024-11-04 15:03 | XMS_ITS | Encounter Summary ---
Author Organization [facility] Address [address] [place] [address] Care Team Providers Care Yarding Supervisor Name Role Phone Jamin Massey MD Primary Care Provider [phone] Encounter Details Date Type Department Care Team (Late Contact Info) Description 10/25/2022 Orders Only [facility] [place] [address] Porfirio Che DO [facility] [address], [place] [address] Social History Tobacco Use Types Packs/Day Years [...] AM EDT Procedure Visit [facility] [place] [address] Porfirio Che DO [facility] [address], [place] [address] documented as of this encounter Procedures Procedure Name Priority Date/Time Associated Diagnosis Comments US OB DETAIL ANATOMY Routine 10/23/2022 8:28 AM EDT documented in this encounter Results * US OB detail anatomy (10/23/2022 8:28 AM EDT) Anatomical Region Laterality Modality Body Ultrasound us Porfirio Che DO IMG OB US PROCEDURES Final Resul t documented in this encounter Visit Diagnoses Not on filedocumented in this encounter Care Teams Yarding Supervisor Relationship Specialty Start Date End Date Jamin Massey MD [address] [place] [phone] PCP - General Family Medicine 08/10/22 documented as of this encounter
--- OUTSIDE RECORDS SUMMARY | 2024-11-04 15:03 | XMS_ITS | Clinical Summary ---
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 Take before meals. 30 tablet 11 05/30/2024 05/31/19 26 Active medroxyPROGESTER one (Provera) 10 MG tabletIndication s:Amenorrhea Take 1 tablet (10 mg) by mouth Daily for 10 days 10 tablet 06/30/2024 Active medroxyPROGESTER one (Provera) 10 MG tabletIndication s:Jorge's disease,Amenorrh ea Take 1 tablet (10 mg) by mouth Daily for 14 days 14 tablet 08/28/2024 Active pantoprazole (ProtoNix) 40 MG EC tablet Take 40 mg by mouth in the morning. Take before meals. 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) 08/09/2022 Missed period 08/09/2022 Encounters Date Type Department Care Team Description 11/04/2024 8:30 AM EDT Office Visit [facility] [address] [place] [address] Porfirio Che, Well woman exam with routine gynecological exam 11/04/2024 Bamboo flowsheet [facility] [address] [place] [address] Porfirio Che, 09/30/2024 8:50 AM EDT Office Visit [facility] [address] [place] [id number] Porfirio Che DO Menstrual cycle problem; Nausea and vomiting, unspecified vomiting type 09/30/2024 Bamboo flowsheet [facility] [address] [place] [id number] Porfirio Che, 09/08/2024 Telephone [facility] [address] [place] [address] Porfirio Che, 08/28/2024 Telephone [facility] [address] [place] [address] Danya Dooley LPN 08/14/2024 Telephone [facility] [address] [place] [address] Danya Dooley LPN from Last 3 Months Family History Medical History Relation Name Comments No Known Problems Father No Known Problems Mother No Known Problems Son Relation Name Status Comments Brother 1 Alive Brother 2 Alive Father Alive Mother Alive Sister Alive Son Alive Social History Tobacco Use Types Packs/Day [...] AM EDT Sexual Orientation Not on file Last Filed Vital Signs Vital Sign Reading Time Taken Comments Blood Pressure 124/80 11/04/2024 8:44 AM EDT Pulse - - Temperature - - Respiratory Rate - - Oxygen Saturation - - Inhaled Oxygen Concentration - - Weight 97.8 kg (215 lb 8 oz) 11/04/2024 8:44 AM EDT Height 162.6 cm (5' 4 ) 08/10/2022 2:41 PM EDT Body Mass Index 36.99 08/10/2022 2:41 PM EDT Plan of Treatment Upcoming Encounters Date Type Department Care Team (Late st Contact Info) Description 11/09/2025 8:30 AM EDT Procedure Visit [facility] [address] [place] [phone] Porfirio Che DO [address] [place], [place] [id number] Insurance Care Teams Vacuum Applicator Operator Relationship Specialty Start Date End Date Jamin Massey MD [address] [facility] [place] [address] PCP - General Family Medicine 08/10/22
--- OUTSIDE RECORDS SUMMARY | 2024-11-04 15:55 | XMS_ITS | CCD ---
Author Organization [facility] Care Team Providers Care Arts Manager Name Role Phone NATASHA DANYA HUFF Unavailable Unavailabl e VALONE, KIEL [...] SHAN Unavailable Unavailable YUNG, SHAN Unavailable Unavailable NE Unavailable Unavailable VALONE, KIEL Unavailable Unavailable NE Unavailable Unavailable RODOLFO BARILLAS Unavailable Unavailable UNKNOWN, PHYSICIAN Unavailable Unavailable YUNG, SHAN Unavailable Unavailable YUNG, SHAN Unavailable Unavailable UNKNOWN, PHYSICIAN Unavailable Unavailable UNKNOWN, PHYSICIAN Unavailable Unavailable YUNG, SHAN Unavailable Unavailable YUNG, SHAN Unavailable Unavailable YUNG, SHAN Unavailable Unavailable CHINEDU ., DR DUMONT Attending Unavailable CHINEDU ., DR DUMONT Admitting [facility] Primary Care Unavailable CHINEDU ., DR DUMONT Consulting Unavailable [place], DR BOONE [employer] Unavailabl e DREW, MITZI Admitting Unavailable [...] Unavailable Jamin Massey MD Primary Care Provider [phone] Jamin Massey MD Primary Care Provider [phone] TIM CHE Attending Unavailable TIM CHE Attending Unavailable TIM CHE Attending Unavailable Allergies Allergy Classification Reported Allergen(s) Allergy Type Date of Onset Reaction(s) Facility (1 source) NKA; Translations: [NKA] Propensity to adverse reactions (disorder) [facility] Repository (1 source) No Known Allergies; Translations: [No Known Allergies] Propensity to adverse reactions (disorder) [facility] Medications Current Medications Medication Drug Class(es) Dates Sig (Normalized) Sig (Original) levothyroxine sodium 0.1 mg oral tablet (9 sources) l-Thyroxine Start: 05-30-2024 End: 05-30-2025 take 1 tablet by mouth before mealtime levothyroxine (Synthroid) 100 MCG tablet Indications: Jorge's disease Take 1 tablet (100 mcg) by mouth in the morning. Take before meals. 30 tablet 11 05/30/2024 05/30/2025 Active Start: 04-15-2024 take 1 tablet by yevgeniy th once daily in the morning levothyroxine (Synthroid, Levoxyl) 75 MCG tablet TAKE 1 TABLET BY MOUTH EVERY DAY IN THE MORNING ON EMPTY STOMACH FOR 30 DAYS 04/15/2024 Active medroxyPROGESTERone acetate 10 mg oral tablet (12 sources) Progestin Start: 06-30-2024 take 1 tablet by mouth once daily medroxyPROGESTERone (Provera) 10 MG tablet Indications: Jorge's disease , Amenorrhea Take 1 tablet (10 mg) by mouth Daily for 14 days 14 tablet 08/28/2024 Active ondansetron 4 mg oral tablet (2 sources) Serotonin-3 Receptor Antagonist Start: 09-30-2024 End: 10-30-2024 take 1 tablet by mouth every six hours for nausea ondansetron (Zofran) 4 MG tablet Indications: Nausea and vomiting, unspecified vomiting type Take 1 tablet (4 mg) by mouth every 6 (six) hours if needed for nausea 20 tablet 5 09/30/2024 10/30/2024 Active pantoprazole 40 mg delayed release oral tablet (5 sources) Proton Pump Inhibitor Start: 07-29-2024 take 1 tablet by mouth before mealtime pantoprazole (ProtoNix) 40 MG EC tablet Take 40 mg by mouth in the morning. Take before meals. 07/29/2024 Active Completed/Discontinued Medications Medication Drug Class(es) Dates [...] other procreative management] 04-30-2024 Episodic Menstrual disorders (20 sources) Irregular menstruation, unspecified; Translations: [Missed period] Onset: 01-06-2017 Chronic Nausea and vomiting (2 sources) Nausea and vomiting; Translations: [Nausea with vomiting, unspecified] 09-30-2024 Episodic Other aftercare (1 source) Encounter for follow-up [...] OF LEFT KNEE, INIT] Onset: 07-27-2017 Episodic Thyroid disorders (6 sources) Jorge thyroiditis; Translations: [Autoimmune thyroiditis] Onset: 05-15-2024 05-15-2024 Chronic Unclassified (2 sources) Unknown / UNK(Unknown) Onset: [...] GESTATION OF ] Onset: 12-05-2021 Episodic Spontaneous (19 sources) Complete or unspecified spontaneous without complication; Translations: [Incomplete spontaneous without complication] Onset: 01-03-2022 Episodic Results Test Name Value Interpretation Reference Range Facility [facility] PROLACTINon 05-14-2024 PROLACTIN 12.7 ng/mL 4.8 - 33.4 ng/mL [facility] Comment on above: Performed at: [address] [id number] Assembler Brazer: Aníbal Reyna PhD, Phone: [phone] [facility] IGP,APTIMA HPV,AGE GDLNon AGE GDLN ACOG TESTING Note . [facility] Comment on above: TESTS RESULT FLAG UN ITS REF RANGE LAB Clinician Provided Cytology Information Source.............Cervix;Endocervix No. of containers..01 ThinPrep Vial Age Paresh Carter... FLAG LEGEND: L-Low Normal,H-High Normal,LL-Alert Low,HH-Alert High <-Panic Low,>-Panic High,A-Abnormal,AA-Critical Abnormal Performed at: 01 =[facility] [address] [facility] [address] Karyn Carl MD, IGP, RFX APTIMA HPV ASCU Note . [facility] Comment on above: TESTS RESULT FLAG U NITS REF RANGE LAB DIAGNOSIS: 02 NEGATIVE FOR INTRAEPITHELIAL LESION OR MALIGNANCY. Specimen adequacy: 02 Satisfactory for evaluation. Endocervical and/or squamous metaplastic cells (endocervical component) are present. Performed by: Susana Garcia, Imaging Manager ([facility]) . 02 Note: Note 02 The Pap [...] <-Panic Low,>-Panic High,A-Abnormal,AA-Critical Abnormal Performed at: [address] [id number] Karyn Carl MD, Performed at: = - [facility] [id number] Assembler Brazer: Karyn Carl MD, Phone: [phone] Performed at: [address] [id number] Assembler Brazer: Karyn Carl MD, Phone: [phone] BRUSH-SPATULA CERVIX ENDOCERVIX [facility] Cytology Cervical or vaginal smear or scraping studyOrdered By: Imelda Martinez on 11-01-2023 [facility] PREG QUANT HCGon 07-06-2022 HCG QUANT 481 mIU/mL Normal [facility] Comment on above: Performed By: #### P REGQNT #### [facility] [address] [place] [address] Dr. Samson Schumacher HCG RANGE SEE BELOW Normal [facility] Comment on above: Result Comment: 5-50 0.2-1 WEEK 50-500 1-2 WEEKS 100-5,000 2-3 WEEKS 500-10,000 3-4 WEEKS 1,000-50,000 4-5 WEEKS 10,000-100,000 5-6 WEEKS 15,000-200,000 6-8 WEEKS 10,000-100,000 2-3 MONTHS Performed By: #### P REGQNT #### [facility] [address] [place] [address] Dr. Samson Schumacher PREG QUANT HCGon 07-04-2022 HCG QUANT 185 mIU/mL Normal [facility] Comment on above: Performed By: #### P REGQNT #### [facility] [address] [place] [address] Dr. Samson Schumacher HCG RANGE SEE BELOW Normal [facility] Comment on above: Result Comment: 5-50 0.2-1 WEEK 50-500 1-2 WEEKS 100-5,000 2-3 WEEKS 500-10,000 3-4 WEEKS 1,000-50,000 4-5 WEEKS 10,000-100,000 5-6 WEEKS 15,000-200,000 6-8 WEEKS 10,000-100,000 2-3 MONTHS Performed By: #### P REGQNT #### [facility] [address] [place] [address] Dr. Samson Schumacher PREG QUANT HCGon 01-16-2022 HCG QUANT 4 mIU/mL Normal [facility] Comment on above: Performed By: #### P REGQNT #### [facility] [address] [place] [address] Dr. Samson Schumacher HCG RANGE SEE BELOW Normal [facility] Comment on above: Result Comment: 5-50 0.2-1 WEEK 50-500 1-2 WEEKS 100-5,000 2-3 WEEKS 500-10,000 3-4 WEEKS 1,000-50,000 4-5 WEEKS 10,000-100,000 5-6 WEEKS 15,000-200,000 6-8 WEEKS 10,000-100,000 2-3 MONTHS Performed By: #### P REGQNT #### [facility] [address] [place] [address] Dr. Samson Schumacher PREG QUANT HCGon 01-10-2022 HCG QUANT 15 mIU/mL Normal [facility] Comment on above: Performed By: #### P REGQNT #### [facility] [address] [place] [address] Dr. Samson Schumacher HCG RANGE SEE BELOW Normal [facility] Comment on above: Result Comment: 5-50 0.2-1 WEEK 50-500 1-2 WEEKS 100-5,000 2-3 WEEKS 500-10,000 3-4 WEEKS 1,000-50,000 4-5 WEEKS 10,000-100,000 5-6 WEEKS 15,000-200,000 6-8 WEEKS 10,000-100,000 2-3 MONTHS Performed By: #### P REGQNT #### [facility] [address] [place] [address] Dr. Samson Schumacher CBC AUTO DIFFon 01-01-2022 BASO # 0.0 103/ul Normal 0.0-0.1 [facility] Comment on above: Performed By: #### R UBIGG #### [facility] [address] [place] [address] Dr. Samson Schumacher Basophils/100 WBC (Bld) 0.3 % Normal 0.2-2.0 [facility] Comment on above: Performed By: #### R UBIGG #### [facility] [address] [place] [address] Dr. Samson Schumacher EO # 0.1 103/ul Normal 0.0-0.7 [facility] Comment on above: Performed By: #### R UBIGG #### [facility] [address] [place] [address] Dr. Samson Schumacher Eosinophils/100 WBC (Bld) 0.6 % Critically low 0.9-7.0 [facility] Comment on above: Performed By: #### R UBIGG #### [facility] [address] [place] [address] Dr. Samson Schumacher Erythrocyte distribution width (RBC) [Ratio] 12.0 % Normal 11.0-15.0 [facility] Comment on above: Performed By: #### R UBIGG #### [facility] [address] [place] [address] Dr. Samson Schumacher Hematocrit (Bld) [Volume fraction] 37.2 % Normal 36.0-48.0 [facility] Comment on above: Performed By: #### R UBIGG #### [facility] [address] [address] [address] Samson Schumacher Hemoglobin (Bld) [Mass/Vol] 12.4 g/dL Normal 12.0-16.0 [facility] Comment on above: Performed By: #### R UBIGG #### [facility] [address] [address] [address] Samson Schumacher IG # 0.04 10e3/ul Critically high 0.00-0.03 [facility] Comment on above: Performed By: #### R UBIGG #### [facility] [address] [place] [address] Dr. Samson Schumacher IG % 0.3 % Normal 0.0-0.5 [facility] Comment on above: Performed By: #### R UBIGG #### [facility] [address] [place] [address] Dr. Samson Schumacher LYMPH # 1.9 103/ul Normal 1.2-3.8 [facility] Comment on above: Performed By: #### R UBIGG #### [facility] [address] [address] [address] Samson Schumacher Lymphocytes/100 WBC (Bld) 14.1 % Critically low 20.5-60.0 [facility] Comment on above: Performed By: #### R UBIGG #### [facility] [address] [address] [address] Samson Schumacher MANUAL DIFF REQ NO Normal [facility] Comment on above: Performed By: #### R UBIGG #### [facility] [address] [address] [address] Samson Schumacher MCH (RBC) [Entitic mass] 30.5 pg Normal 26.7-34.0 [facility] Comment on above: Performed By: #### R UBIGG #### [facility] [address] [place] [address] Dr. Samson Schumacher MCHC (RBC) [Mass/Vol] 33.3 g/dL Normal 29.9-35.2 [facility] Comment on above: Performed By: #### R UBIGG #### [facility] [address] [place] [address] Dr. Samson Schumacher MCV (RBC) [Entitic vol] 91.4 fL Normal 81.0-99.0 [facility] Comment on above: Performed By: #### R UBIGG #### [facility] [address] [place] [address] Dr. Samson Schumacher MONO # 0.5 103/ul Normal 0.3-0.8 [facility] Comment on above: Performed By: #### R UBIGG #### [facility] [address] [place] [address] Dr. Samson Schumacher Monocytes/100 WBC (Bld) 4.0 % Normal 1.7-12.0 [facility] Comment on above: Performed By: #### R UBIGG #### [facility] [address] [place] [address] Dr. Samson Schumacher NEUT # 10.7 103/ul Critically high 1.4-6.5 [facility] Comment on above: Performed By: #### R UBIGG #### [facility] [address] [place] [address] Dr. Samson Schumacher Neutrophils/100 WBC (Bld) 80.7 % Critically high 43.0-75.0 [facility] Comment on above: Performed By: #### R UBIGG #### [facility] [address] [place] [address] Dr. Samson Schumacher Platelet mean volume (Bld) [Entitic vol] 10.2 fL Normal 9.5-13.5 [facility] Comment on above: Performed By: #### R UBIGG #### [facility] [address] [place] [address] Dr. Samson Schumacher PLT 225 103/ul Normal 150-450 [facility] Comment on above: Performed By: #### R UBIGG #### [facility] [address] [place] [address] Dr. Samson Schumacher RBC 4.07 106/ul Critically low 4.20-5.40 [facility] Comment on above: Performed By: #### R UBIGG #### [facility] [address] [place] [address] Dr. Samson Schumacher WBC 13.3 103/ul Critically high 4.0-11.0 [facility] Comment on above: Performed By: #### R UBIGG #### [facility] [address] [place] [address] Dr. Samson Schumacher PROF CHEM 8 (BAS METB)on Anion gap [Moles/Vol] 13.1 mmol/L Normal [facility] Comment on above: Performed By: #### B MP #### [facility] [address] [place] [address] Dr. Samson Schumacher Calcium [Mass/Vol] 8.5 mg/dL Normal 8.5-10.1 [facility] Comment on above: Performed By: #### B MP #### [facility] [address] [place] [address] Dr. Samson Schumacher Chloride [Moles/Vol] 104 mmol/L Normal 98-107 [facility] Comment on above: Performed By: #### B MP #### [facility] [address] [place] [address] Dr. Samson Schumacher CO2 [Moles/Vol] 24.4 mmol/L Normal 21.0-32.[address] [facility] Comment on above: Performed By: #### B MP #### [facility] [address] [place] [address] Dr. Samson Schumacher Creatinine [Mass/Vol] 0.83 mg/dL Normal 0.55-1.02 [facility] Comment on above: Performed By: #### B MP #### [facility] [address] [place] [address] Dr. Samson Schumacher EGFR-AF BURUNDIAN >60 Normal >=[address] [facility] Comment on above: Performed By: #### B MP #### [facility] [address] [place] [address] Dr. Samson Schumacher EGFR-NON AF BURUNDIAN >60 Normal >=60 [facility] Comment on above: Performed By: #### B MP #### [facility] [address] [address] [address] Samson Schumacher Glucose [Mass/Vol] 113 mg/dL Critically high 74-106 [facility] Comment on above: Performed By: #### B MP #### [facility] [address] [place], [place] [address] Dr. Samson Schumacher Potassium [Moles/Vol] 3.5 mmol/L Normal 3.5-5.1 [facility] Comment on above: Performed By: #### B MP #### [facility] [address] [address] [address] Samson Schumacher Sodium [Moles/Vol] 138 mmol/L Normal 136-145 [facility] Comment on above: Performed By: #### B MP #### [facility] [address] [address] [address] Samson Schumacher Urea nitrogen [Mass/Vol] 7.0 mg/dL Normal 7.0-18.0 [facility] Comment on above: Performed By: #### B MP #### [facility] [address] [id number] Samson Schumacher Urea nitrogen/Creatinine [Mass ratio] 8.4 mg/mg Normal [facility] Comment on above: Performed By: #### B MP #### [facility] [address] [id number] Samson Schumacher US PREG TVon 01-01-2022 [...] DELFINA JUAREZ Date: 2022-01-01 08:49 Normal [facility] HEP B SURFACE ANTIGEN SCREEN on 12-02-2021 HBsAg Screen Negative Normal Negative [facility] Comment on above: Performed By: #### H BSANS #### [facility] [address] [place] [address] Dr. Samson Schumacher HEPATITIS C VIRUS AB W/ REFL EX QUANTon 12-02-2021 HCV AB <0.1 Normal 0.0-0.9 [facility] Comment on above: Performed By: #### H CVPCRR #### [facility] [address] [address] [address] Samson Schumacher Interpretation: Comment Normal [facility] Comment on above: Result Comment: Nega tive Not infected with HCV, unless recent infection is suspected or other evidence exists to indicate HCV infection. Performed By: #### H CVPCRR #### [facility] [address] [address] [address] Samson Schumacher HIV 1 AND 2 WITH REFLEXon HIV Screen 4th Generation wRfx Non-Reactive Normal Non Reactive [facility] Comment on above: Result Comment: HIV Negative HIV-1/HIV-2 antibodies and HIV-1 p24 antigen were NOT detected. There is no laboratory evidence of HIV infection. Performed By: #### H IV12 #### [facility] [address] [place] [address] Dr. Samson Schumacher RPR QUANTon 12-02-2021 Rapid Plasma Reagin, Quant Non-Reactive Normal NonRea<1:1 [facility] Comment on above: Result Comment: Plea se Note: This test does not meet current guidelines for screening and diagnosis of syphilis. This test is intended for following treatment response in patients being treated for syphilis infection. To screen for syphilis infection, a reflex cascade that includes both RPR and a treponema-specific assay should be utilized, such as Treponema pallidum (Syphilis) Screening [place] (677389) or Rapid Plasma Reagin (RPR) Test With Reflex to Quantitative RPR and Confirmatory Treponema pallidum Antibodies (387538). Performed By: #### R UBIGG #### [facility] [address] [place] [address] Dr. Samson Schumacher RUBELLA AB IGGon 12-02-2021 Rubella Antibodies, IgG 3.00 index Normal Immune >0.99 [facility] Comment on above: Result Comment: Non- immune <0.90 Equivocal 0.90 - 0.99 Immune >0.99 Performed By: #### R UBIGG #### [facility] [address] [place] [address] Dr. Samson Schumacher US PREG TVon 12-02-2021 [...] BY US CRL: 6 weeks 4 days JOES BY US CRL: 07/23/2022 IMPRESSION: 1. Single live intrauterine . 2. Follow-up of right ovarian cysts is recommended. Electronically authenticated by: FABIAN MOSER Date: 2021-12-01 22:18 Normal [facility] CBC AUTO DIFFon 12-01-2021 BASO # 0.1 103/ul Normal 0.0-0.1 [facility] Comment on above: Performed By: #### R UBIGG #### [facility] [address] [place] [address] Dr. Samson Schumacher Basophils/100 WBC (Bld) 0.5 % Normal 0.2-2.0 [facility] Comment on above: Performed By: #### R UBIGG #### [facility] [address] [place] [address] Dr. Samson Schumacher EO # 0.1 103/ul Normal 0.0-0.7 [facility] Comment on above: Performed By: #### R UBIGG #### [facility] [address] [address] [address] Samson Schumacher Eosinophils/100 WBC (Bld) 0.6 % Critically low 0.9-7.0 [facility] Comment on above: Performed By: #### R UBIGG #### [facility] [address] [place] [address] Dr. Samson Schumacher Erythrocyte distribution width (RBC) [Ratio] 11.8 % Normal 11.0-15.0 [facility] Comment on above: Performed By: #### R UBIGG #### [facility] [address] [place] [address] Dr. Samson Schumacher Hematocrit (Bld) [Volume fraction] 41.6 % Normal 36.0-48.0 [facility] Comment on above: Performed By: #### R UBIGG #### [facility] [address] [place] [address] Dr. Samson Schumacher Hemoglobin (Bld) [Mass/Vol] 13.9 g/dL Normal 12.0-16.0 [facility] Comment on above: Performed By: #### R UBIGG #### [facility] [address] [place] [address] Dr. Samson Schumacher IG # 0.03 10e3/ul Normal 0.00-0.03 [facility] Comment on above: Performed By: #### R UBIGG #### [facility] [address] [place] [address] Dr. Samson Schumacher IG % 0.3 % Normal 0.0-0.5 [facility] Comment on above: Performed By: #### R UBIGG #### [facility] [address] [place] [address] Dr. Samson Schumacher LYMPH # 2.1 103/ul Normal 1.2-3.8 [facility] Comment on above: Performed By: #### R UBIGG #### [facility] [address] [place] [address] Dr. Samson Schumacher Lymphocytes/100 WBC (Bld) 21.8 % Normal 20.5-60.0 [facility] Comment on above: Performed By: #### R UBIGG #### [facility] [address] [address] [address] Samson Schumacher MANUAL DIFF REQ NO Normal [facility] Comment on above: Performed By: #### R UBIGG #### [facility] [address] [address] [address] Samson Schumacher MCH (RBC) [Entitic mass] 30.0 pg Normal 26.7-34.0 [facility] Comment on above: Performed By: #### R UBIGG #### [facility] [address] [place] [address] Dr. Samson Schumacher MCHC (RBC) [Mass/Vol] 33.4 g/dL Normal 29.9-35.2 [facility] Comment on above: Performed By: #### R UBIGG #### [facility] [address] [place] [address] Dr. Samson Schumacher MCV (RBC) [Entitic vol] 89.8 fL Normal 81.0-99.0 [facility] Comment on above: Performed By: #### R UBIGG #### [facility] [address] [place] [address] Dr. Samson Schumacher MONO # 0.6 103/ul Normal 0.3-0.8 [facility] Comment on above: Performed By: #### R UBIGG #### [facility] [address] [place] [address] Dr. Samson Schumacher Monocytes/100 WBC (Bld) 6.5 % Normal 1.7-12.0 [facility] Comment on above: Performed By: #### R UBIGG #### [facility] [address] [place] [address] Dr. Samson Schumacher NEUT # 6.6 103/ul Critically high 1.4-6.5 [facility] Comment on above: Performed By: #### R UBIGG #### [facility] [address] [place] [address] Dr. Samson Schumacher Neutrophils/100 WBC (Bld) 70.3 % Normal 43.0-75.0 [facility] Comment on above: Performed By: #### R UBIGG #### [facility] [address] [address] [address] Samson Schumacher Platelet mean volume (Bld) [Entitic vol] 9.8 fL Normal 9.5-13.5 [facility] Comment on above: Performed By: #### R UBIGG #### [facility] [address] [address] [address] Samson Schumacher PLT 229 103/ul Normal 150-450 [facility] Comment on above: Performed By: #### R UBIGG #### [facility] [address] [address] [address] Samson Schumacher RBC 4.63 106/ul Normal 4.20-5.40 [facility] Comment on above: Performed By: #### R UBIGG #### [facility] [address] [address] [address] Samson Schumacher WBC 9.4 103/ul Normal 4.0-11.0 [facility] Comment on above: Performed By: #### R UBIGG #### [facility] [address] [place] [address] Dr. Samson Schumacher CULTURE URINEon 12-01-2021 CULTURE URINE Culture Observations : MODERATE GROWTH OF MIXED GENITAL HUBER. NO POTENTIAL PATHOGENS SEEN. Normal [facility] Comment on above: Performed By: #### R UBIGG #### [facility] [address] [address] [address] Samson Schumacher GLYCOHEMOGLOBIN A1Con 2021 ADA RECOMMENDATION SEE BELOW Normal [facility] Comment on above: Result Comment: ADA RECOMMENDED LIMIT 4.0 - 6.0 ADA THERAPEUTIC TARGET < 7.0 ACTION SUGGESTED > 7.0 Performed By: #### A 1C #### [facility] [address] [place] [address] Dr. Samson Schumacher Glucose [Mass/Vol] 105 mg/dL Normal [facility] Comment on above: Performed By: #### A 1C #### [facility] [address] [place] [address] Dr. Samson Schumacher HbA1c (Bld) [Mass fraction] 5.3 % Normal 4.5-6.2 [facility] Comment on above: Performed By: #### A 1C #### [facility] [address] [place], [place] [address] Dr. Samson Schumacher TYPE AND SCREENon 12-01-2021 TYPE AND SCREEN Negative Normal [facility] Comment on above: Performed By: #### R UBIGG #### [facility] [address] [place] [address] [address] Samson Schumacher KNEE LEFT 1 OR 2 VWSon 07-31 KNEE LEFT 1 OR 2 VWS [facility] [place] [address] P atient Name: NIDIA SMITH : 1995Sex: FAge: Race: WhiteMRN: [id number]. Location: 84Patient Status: Date: 07/31/2017 10:20:00 AMCompleted Date: 07/31/2017 10:34 AMRequesting Provider: SHAN YUNG Attending Provider: Report Copy To: Signs & Symptoms: M25.562 Pain in left knee P11Zmwawfb: AthenaComments: , , , Ordering Provider - SHAN YUNG MD , Exam: KNEE LEFT 1 OR 2 VWSAccession #: [id number] ======KNEE LEFT 1 OR 2 VWS 07/31/2017 10:34 AM EDT SIGNS AND SYMPTOMS: M25.562 Pain in left knee I10 TECHNOLOGIST COMMENTS: surgery to left knee x 4 days ago ortho check lateral view out of brace per Dr. Yung QUESTION FOR THE RADIOLOGIST: , , , Ordering Provider - SHAN YNUG MD , PROTOCOL: AP(PA) and Lateral views [...] repair. Electronically signed by:Reta Salas. Transcribed by: [email or web address], User Resident: Electronically Signed by: RETA SALAS @ 07/31/2017 11:14 AM Normal [facility] Comment on above: Order Comment: , , = ========= , Ordering Provider - SHAN YUNG MD , Operative Reporton 8 Operative Report MR#: [id number] [facility] Pt. Name: Nidia Smith Room #: 0C Discharge 07/27/2017 Date: Birthdate: 1995 OPERATIVE REPORTDATE OF SURGERY: 07/27/2017SURGEON: Shan Yung M.D.DROP TESTER: Shan Rodarte M.D.PREOPERATIVE DIAGNOSIS: Left knee ACL [...] left lower extremity. She will be given Hampton for paincontrol, Colace, and aspirin for DVT prophylaxis. I will see her back inclinic in 4-5 days for initiation of physical therapy with accelerated ACLprotocol.Electronicall y Signed by:Shan Yung M.D. 07/30/2017 11:36 A Shan Yung M.D.Date Dict: 07/27/2017/09:27 Moshe/Shan Yung M.D.Date Trans: 07/27/2017 07:56 P/mmoDN_[id number] cc: Kiel Kelly D.O. [address] [place] [address] Normal [facility] POC GLUCOSE LABon 07-27-2017 Glucose mass conc 81 mg/dL Normal 70-100 [facility] Comment on above: Performed By: #### 8 5499 ####[facility] POC URINE PREGNANCYon 2017 HCG.beta subunit ( test) Ql (U) Negative Normal NEGATIVE [facility] Comment on above: Result Comment: Perf ormed in PACU Performed By: #### 8 4140 ####[facility] HCG, Quanton 07-17-2017 HCG, Quant <1 Normal <5 [facility] Comment on above: Result Comment: Non- preg premeno <=5Postmeno <=8Male <=3If HCG results do not concur with clinical observations, additional testing to confirm result is recommended. This test is not labeled for use as a tumor marker.Performed at [address] [place] [address] ([phone] Performed By: #### G LUF ####[address] [place] [address] #### FSH, LH, PROL, TEST ####[facility] [address] [place], [place] [id number] #### INSU ####[address] [phone] [place] [address] KNEE LEFT 4VWSon 06-18-2017 KNEE LEFT 4VWS [facility] [address] [place] [address] P atient Name: NIDIA SMITH : 1995Sex: FAge: Race: WhiteMRN: [id number]. Location: 84Patient Status: OVisit #: [id number] Date: 06/18/2017 1:05:00 PMCompleted Date: 06/18/2017 01:09 PMRequesting Provider: SHAN YUNG Attending Provider: SHAN YUNG Report Copy To: UNKNOWN, PHYSICIAN Signs & Symptoms: M25.562 Pain in left knee G34Zzyhibe: AthenaComments: , , , Ordering Provider - SHAN YUNG MD , Exam: KNEE LEFT 4VWSAccession #: [id number] ======KNEE LEFT 4VWS 06/18/2017 1:09 PM EDT [...] seen. Electronically signed by:Mona Mckeon. Transcribed by: [email or web address], User Resident: Electronically Signed by: MONA MCKEON @ 06/18/2017 02:23 PM Normal [facility] Comment on above: Order Comment: , , = ========= , Ordering Provider - SHAN YUNG MD , Progesteroneon 05-16-2017 Progesterone 10.40 ng/mL Normal [facility] Comment on above: Result Comment: FEMA LE (healthy): Follicular phase 0.06-0.89 Ovulation phase 0.12-12.00 Luteal phase 1.83-23.90Postmenopausal <0.13Performed at [address] [address] Performed By: #### G LUF ####[address] [place], [place] [address] #### FSH, LH, PROL, TEST ####[address] [address] #### INSU ####[address] [phone] [place] [address] Progress Noteon 05-16-2017 HIM IP Note OR Railroad Passenger Agent Normal [facility] Progress Noteon 04-13-2017 HIM IP Note OR Railroad Passenger Agent Normal [facility] HCG Screen, Bloodon 04-12-19 18 HCG Qn Negative Normal NEG [facility] Comment on above: Result Comment: Perf ormed at [address] [place], [place] 2[address] ([phone] Performed By: #### H CG ####[address] [place], [place] [address] Progesteroneon 02-14-2017 Progesterone <0.05 Normal [facility] Comment on above: Result Comment: FEMA LE (healthy): Follicular phase 0.06-0.89 Ovulation phase 0.12-12.00 Luteal phase 1.83-23.90Postmenopausal <0.13Performed at [address] [address] Performed By: #### P JAMES ####[address] [address] Follicle Stim. Hormon 2016 Follicle Stim. Horm 5.8 U/L Normal 1.7-21.5 [facility] Comment on above: Result Comment: Refe rence Range:Male: 1.5-12.4Ovulating Female: Follicular Phase 3.5-12.5 Ovulation Phase 4.7-21.5 Luteal Phase 1.7-7.7Postmenopausal Female: 25.8-134.8Performed at [address] [address] Performed By: #### G LUF ####[address] [place] [address] #### FSH, LH, PROL, TEST ####[address] [address] #### INSU ####[address] [phone] [place] [address] Glucose, Fastingon 7 Glucose mass conc 91 mg/dL Normal 70-99 [facility] Comment on above: Result Comment: Perf ormed at [address] [place] [address] Performed By: #### G LUF ####[address] [place] [address] #### FSH, LH, PROL, TEST ####[address] [address] #### INSU ####[address] [phone] [place] [address] Insulinon 01-06-2017 Insulin 22.8 mU/L [facility] Comment on above: Performed By: #### G LUF ####[address] [place] [address] #### FSH, LH, PROL, TEST ####[address] [address] #### INSU ####[address] [phone] [place] [address] Reference Range [facility] Comment on above: Result Comment: Fast in.6-24.930 min: 20-89537 min: 29-8890 min: 26-63395 min: 22-79Performed at [address] [address] Performed By: #### G LUF ####[address] [place] [address] #### FSH, LH, PROL, TEST ####[address] [address] #### INSU ####[address] [phone] [place] [address] [address] [facility] Comment on above: Result Comment: Perf ormed at [address] [place], [place] [address]83 [phone] Performed By: #### G LUF ####[address] [place] [address] #### FSH, LH, PROL, TEST ####[address] [place] [address] #### INSU ####[address] [phone] [place] [address] Luteinizing Hormoneon 2016 Luteinizing Hormone 8.0 U/L Normal 1.0-95.6 [facility] Comment on above: Result Comment: Refe rence Range:Male: 1.7-8.6Ovulating Female: Follicular Phase 2.4-12.6 Ovulation Phase 14.0-95.6 Luteal Phase 1.0-11.4Postmenopausal Female: 7.7-58.5Performed at [address] [address] Performed By: #### G LUF ####[address] [place] [id number] #### FSH, LH, PROL, TEST ####[address] [address] #### INSU ####[address] [phone] [place] [address] Prolactinon 01-06-2017 Prolactin 11.98 ug/L Normal 4.79-23.30 [facility] Comment on above: Result Comment: The presence of macroprolactin may cause interference in female patients with various endocrinological diseases or during .Performed at [address] [address] Performed By: #### G LUF ####[address] [place] [address] #### FSH, LH, PROL, TEST ####[address] [address] #### INSU ####[address] [phone] [address] , [place] [phone] Testosterone, Totalon 2016 Testosterone 26 ng/dL Normal 20-70 [facility] Comment on above: Result Comment: Perf ormed at [address] [place] [address] Performed By: #### G LUF ####[address] 293[address]83 #### FSH, LH, PROL, TEST ####[address] [address] #### INSU ####[address] [phone] [address] [phone] Thyroid Stim. Horm.on 2016 Thyroid stimulating hormone (TSH) 1.68 m[IU]/L Normal 0.30-5.00 [facility] Comment on above: Result Comment: Perf ormed at [address] [place] [id number] [phone] Performed By: #### T SH ####[address] [place] [address] Vital Signs Date Time Vital Sign Value Performing Clinician Ashley zapata 11-04-2024 08:44-0400 Body mass index (BMI) [Ratio] 36.99 kg/m2 Gruvie Work Phone: [facility] 11-04-2024 08:44-0400 Body weight 97.75 kg Gruvie Work Phone: [facility] 11-04-2024 08:44-0400 Diastolic blood pressure 80 mm[Hg] Gruvie Work Phone: [facility] 11-04-2024 08:44-0400 Systolic blood pressure 124 mm[Hg] Gruvie Work Phone: [facility] 04-30-2024 15:13-0500 Body mass index (BMI) [Ratio] 36.01 kg/m2 Tim Chinedu DO Work Phone: [facility] 04-30-2024 15:13-0500 Body weight 95.17 kg Tim Chinedu DO Work Phone: [facility] 04-30-2024 15:13-0500 Diastolic blood pressure 84 mm[Hg] Tmi Chinedu DO Work Phone: [facility] 04-30-2024 15:13-0500 Systolic blood pressure 112 mm[Hg] Tim Chinedu DO Work Phone: [facility] 11-01-2023 09:30-0400 Body mass index (BMI) [Ratio] 35.94 kg/m2 Tim Chinedu DO Work Phone: [facility] 11-01-2023 09:30-0400 Body weight 94.98 kg Tim Chinedu DO Work Phone: [facility] 11-01-2023 09:30-0400 Diastolic blood pressure 70 mm[Hg] Tim Chinedu DO Work Phone: [facility] 11-01-2023 09:30-0400 Systolic blood pressure 120 mm[Hg] Tim Chinedu DO Work Phone: [facility] Healthcare Encounters Encounter Date Encounter Type Care Provider Facility Start: 11-04-2024 End: 11-04-2024 Bamboo flowsheet Tim Chinedu DO Work Phone: [facility] Start: 11-04-2024 End: 11-04-2024 Bamboo flowsheet Tim Chinedu DO Work Phone: [facility] Start: 11-04-2024 End: 11-04-2024 Patient encounter procedure Tim Chinedu DO Work Phone: [facility] Start: 11-04-2024 End: 11-04-2024 Periodic preventive med est patient 18-39 yrs Tim Chinedu DO Work Phone: [facility] Comment on above: Well woman exam with routine gynecological exam Start: 09-30-2024 End: 09-30-2024 Bamboo flowsheet Tim Chinedu DO Work Phone: [facility] Start: 09-30-2024 End: 09-30-2024 Bamboo flowsheet Tim Chinedu DO Work Phone: [facility] Start: 09-30-2024 End: 09-30-2024 ambulatory TIM CHINEDU Not Available Start: 09-30-2024 End: 09-30-2024 Office outpatient visit 15 minutes Tim Chinedu DO Work Phone: [facility] Comment on above: Menstrual cycle prob noe; Nausea and vomiting, unspecified vomiting type Start: 05-13-2024 End: 05-14-2024 Clinisync Result Encounter Tim Chinedu DO Work Phone: [facility] Unsolicited Start: 05-13-2024 End: 05-14-2024 Clinisync Result Encounter Tim Chinedu DO Work Phone: [facility] Unsolicited Start: 04-30-2024 End: 04-30-2024 [...] 11-01-2023 ambulatory TIM CHE Not Available Start: 07-04-2022 End: 07-10-[address] TIM CHE . Facility: Start: 01-10-2022 End: 02-08-[address] TIM CHE . Facility: Start: 01-01-2022 End: 01-01-[address] BOONE HO Facility: Start: 12-01-2021 End: 12-02-[address] TIM CHE . Facility: Start: 08-10-2017 End: 09-09-2017 Ambulatory PHYSICIAN UNKNOWN Facility:[facility] Start: 07-31-2017 End: 08-01-2017 Ambulatory PHYSICIAN UNKNOWN Facility:[facility] Start: 07-27-2017 End: 07-28-2017 Ambulatory REFERRED SELF Facility:[facility] Start: 07-17-2017 End: 07-18-2017 Ambulatory JUAN MIGUEL GEORGE [facility] Start: 07-17-2017 End: 08-10-2017 Ambulatory SHAN YUNG Facility:[facility] Start: 06-18-2017 End: 06-19-2017 Ambulatory SHAN YUNG Facility:[facility] Start: 06-12-2017 End: 06-13-2017 Ambulatory DEFAULT PHYSICIAN Facility:[facility] Start: 05-15-2017 End: 05-16-2017 [facility]ulatory [facility] Start: 04-12-2017 End: 04-13-2017 Ambulatory [facility] Start: 02-14-2017 End: 02-15-2017 Ambulatory [facility] Start: 01-06-2017 End: 01-07-2017 Ambulatory [facility] Procedures Date Procedure Procedure Detail Performing Clinician Start: 05-13-2024 [facility] PROLACTIN Tim Angelica io DO Work Phone: Start: 11-01-2023 IGP,APTIMA HPV,AGE GDLN Tim Chinedu DO Work Phone: Start: 11-01-2023 Cytp cerv/vag auto t hin layer prep mnl screen Tim Chinedu DO Work Phone: Start: 07-27-2017 ANESTH KNEE JOINT SURGERY RODOLFO BARILLAS Start: 07-27-2017 KNEE ARTHROSCOPY/SURGERY SHAN YUNG Start: 07-17-2017 Gonadotropin chorion ic quantitative DANYA KAUR Start: 05-15-2017 PROGESTERONE DANYA Santoro Start: 04-12-2017 HCG, SERUM, QUALITATIVE DANYA KAUR Start: 02-14-2017 PROGESTERONE DANYA BERGERON H Start: 01-06-2017 TSH WITHOUT REFLEX PEDRO Lala KAUR Start: 01-06-2017 FOLLICLE STIMULATING HORMONE DANYA KAUR Start: 01-06-2017 GLUCOSE, FASTING DANYA KAUR Start: 01-06-2017 INSULIN, TOTAL DANYA [facility] Start: 01-06-2017 LUTEINIZING HORMONE TYSON ENE KAUR Start: 01-06-2017 PROLACTIN DANYA Santoro Start: 01-06-2017 TESTOSTERONE DANYA BERGERON H Plan of Treatment Date Care Activity Detail Author Start: 11-09-2025 End: 11-09-2025 Patient encounter procedure 11/09/2025 8:30 AM EDT [facility] [address] [place] [phone] Tim Che, DO [address] [place] [address] [facility] Start: 11-04-2024 End: 11-04-2024 Patient encounter procedure [facility] Start: 11-01-2023 End: 11-01-2023 Patient encounter procedure 11/01/2023 9:20 AM EDT Office Visit [facility] [address] [phone] Tim Che DO [address] [place] [address] Arrived [facility] Comment on above: Arrived Cytology Cervical or vaginal smear or scraping study Pap Smear Pathology and Cytology Routine Well woman exam with routine gynecological exam Ordered: 11/01/2023 [facility] Healthcare Work Phone: Comment on above: Ordered: 11/01/2023 Cytology Cervical or vaginal smear or scraping study Pap Smear Pathology and Cytology Routine Well woman exam with routine gynecological exam Ordered: 11/04/2024 [facility] Work Phone: Comment on above: Ordered: 11/04/2024 Prolactin Prolactin Lab Ro utine Amenorrhea Ordered: 04/30/2024 [facility] Work Phone: Comment on above: Ordered: 04/30/2024 Payers Date Payer Category Payer [facility] [employer] [id number] 2021 Unknown 2016 Unknown [id number] 1995 Unknown [id number] [id number] 1995 Unknown [id number] [id number] 1995 Unknown [id number] [id number] 1995 Unknown [id number] [id number] 1995 Unknown [id number] [id number] 1995 Unknown [id number] [id number]. 2.1259 1995 Unknown [id number] [id number] 1959 Unknown [id number] Social History Date Type Detail Facility Start: 08-10-2022 Tobacco smoking stat [facility] Never smoked tobacco [facility] Start: 08-10-2022 Tobacco use and exposure Smokeless t obacco non-user [facility] Start: 04-19-2023 End: 11-04-2024 Alcoholic beverage intake Ex-drinker (finding) [facility] Start: 08-10-2022 End: 09-30-2024 History of Social function [facility] Start: 08-10-2022 End: 09-30-2024 Tobacco use panel [facility] Start: 08-09-2022 Alcohol Comment caffeine intak e: 1 cup per day of coffee [facility] Start: 1995 Sex assigned at Female [facility] Start: 08-03-2022 Gender identity Identifies as female gender (finding) [facility] History of Present illness Narrative 11-04-2024 Kayleigh Donnelly LPN - 11/04/2024 8:30 AM EDT Note Date & Type Note Facility 11-04-2024 History of Presen t illness Narrative Reason [...] Noted Complete or unspecified spontaneous without complication ([facility]) 08/09/2022 Missed period 08/09/2022 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 Exam conducted with a title i assistant present. Vitals: Estimated body mass index is 36.99 kg/m as calculated from the following: Height [...] with those once we have them. Patient can also view results via Goodybag. I reinforced importance of condom use for [...] [facility] History of Present illness Narrative 09-30-2024 Kayleigh Donnelly LPN - 09/30/2024 8:50 AM EDT Note Date & Type Note Facility 09-30-2024 History of Presen t illness Narrative Reason for Appointment: Patient ID: Yvonne Smith is a 29 y.o. female who presents for discuss cycles Patient presents today for Acute Visit. 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 Cardiovascular: Negative. Gastrointestinal: Negative. Genitourinary: Positive for menstrual problem. Musculoskeletal: Negative. Skin: Negative. Neurological: Negative. All [...] nursing note reviewed. Exam conducted with a title i assistant present. Vitals: Estimated body mass index is 36.01 kg/m as calculated from the following: Height as of 08/10/22: 5' 4 . Weight as of 04/30/24: 209 lb 12.8 oz. BP: No LMP recorded. ASSESSMENT & PLAN ICD-10-CM 1. Menstrual cycle problem N92.6 Pt presents to discuss cycles. Pt still and desires . Discussed femara and . Will review with pt. Discussed adding metformin back to bottler helper in ovulation. Pt to start metformin. Pt to return as needed. Documented by Kayleigh Donnelly LPN on behalf of: Tim Che DO documented in this encounter [facility] History of Present illness Narrative 04-30-2024 Kayleigh Donnelly LPN - 04/30/2024 2:50 PM EST [...] nursing note reviewed. Exam conducted with a title i assistant present. Vitals: Estimated body mass index is [...] nursing note reviewed. Exam conducted with a title i assistant present. Vitals: Estimated body mass index is [...] Danya Dooley LPN on behalf of: Tim Chinedu, DO documented in this encounter [facility] Evaluation note Note Date & Type Note Facility Evaluation note Diagnosis Well woman exam with routine gynecological exam Routine gynecological examination documented in this encounter [facility] Evaluation note Note Date & Type Note Facility Evaluation note Diagnosis Encounter for fertility planning Amenorrhea Absence of menstruation documented in this encounter [facility] Evaluation note Note Date & Type Note Facility Evaluation note Diagnosis Menstrual cycle problem Nausea and vomiting, unspecified vomiting type documented in this encounter [facility] Evaluation note Note Date & Type Note Facility Evaluation note Diagnosis Well woman exam with routine gynecological exam Routine gynecological examination documented in this encounter [facility] Summary [...] DATE CREATED AUTHOR AUTHOR'S ORGANIZ ATION 09/14/2017 [facility] DATE CREATED AUTHOR AUTHOR'S ORGANIZ ATION 07/12/2022 [facility] DATE CREATED AUTHOR AUTHOR'S ORGANIZ ATION 10/01/2024 [facility] dical Specialists EPIC Care Teams (unrecognized sec tion and content) Arts Manager Relationship Specialty Start Date End Date Jamin Massey MD [address] [place] [address] PCP - General Family Medicine 08/10/22 Arts Manager Relationship Specialty Start Date End Date Jamin Massey MD [address] [place] [address] PCP - General Family Medicine 08/10/22 Arts Manager Relationship Specialty Start Date End Date Jamin Massey MD [address] [place] [address] PCP - General Family Medicine 08/10/22 Arts Manager Relationship Specialty Start Date End Date Jamin Massey MD [address] [place] [address] PCP - General Family Medicine 08/10/22 Arts Manager Relationship Specialty Start Date End Date Jamin Massey MD [address] [place] [address] PCP - General Family [facility] 08/10/22 Arts Manager Relationship Specialty Start Date End Date Jamin Massey MD [address] [place] [address] PCP - General Family Medicine 08/10/22 Reason for Visit (unrecogniz ed section and content) Reason Comments Well Women Visit Reason Comments Infertility Reason Comments discuss cycles FOR RECORDS PERTAINING TO PATIENTS WHO ARE [...] PRIMARY CLINICAL RECORDS. [facility] [employer] [facility]. provides no warranty or guarantee of the accuracy or completeness of information in this document.
[2024-11-07 17:09] LABS: Age Gdln ACOG Testing Note (.); IGP, rfx Aptima HPV ASCU Note (.)
== END 2024-11-04 15:00 | disposition home or self-care (01) ==
LOC: LAB 14:59
PROVIDERS: PCP Family Medicine; Visit Provider Obstetrics & Gynecology
DX: Z01.419 Encounter for gynecological examination (general) (routine) without abnormal findings (principal)
CPT/HCPCS: 88175

== ENCOUNTER 2025-01-14 10:00 | Outpatient (OUT) | payer BC, SELFPAY ==
--- OUTSIDE RECORDS SUMMARY | 2025-01-14 10:05 | XMS_ITS | Clinical Summary ---
Author Organization [employer] tem Address [id number] [address] [place] [address] Care Team Providers Care Java J2Ee Architect Name Role Phone Robin Cancino Kiel Rayna Primary Care Provider Allergies No known active allergies Medications MedicationSigDispense QuantityRefillsLast FilledStart DateEnd DateStatus metFORMIN (GLUCOPHAGE) 500 mg tablet Take 1 tablet by mouth 2 (two) times a day with meals.Active Social History Tobacco UseTypesPacks/DayYears UsedDateSmoking Tobacco: NeverSmokeless Tobacco: NeverAlcohol UseStandard Drinks/WeekCommentsNo0 (1 standard drink = 0.6 oz pure alcohol)ChildcareAnswerDate UdfctvjmTjldqhjxgVvuzrca08/13/2019EmploymentAnswer Date ElbcqgdhKevzujzkdcPmydrsu89/13/2019Purpose - LifeAnswerDate RecordedPurpose and direction in qujbJiksrax24/11/2021CommentsNoSex and Gender InformationValueDate RecordedSex Assigned at BirthNot on fileLegal SexFemale 03/31/2017 1:50 PM ESTGender IdentityNot on fileSexual OrientationNot on file Last Filed Vital Signs Vital SignReadingTime TakenCommentsBlood Hyfttuor799/70003/31/2017 2:00 PM EST Zynzu839103/31/2017 2:00 PM DTBVprhmfskkgp86.1 ??C (98.7 ??F)03/31/2017 2:00 PM ESTRespiratory Elox231003/31/2017 2:00 PM ESTOxygen Bsgwjpying086%03/31/2017 2:00 PM ESTInhaled Oxygen Concentration--Ezkvqq63.5 kg (195 lb)06/26/2017 4:29 PM EDT Ebujpp069 cm (5' 3 )03/31/2017 2:00 PM ESTBody Mass Index34.54003/31/2017 2:00 PM EST Plan of Treatment Not on file Medical Devices Not on file Insurance Care Teams Team MemberRelationshipSpecialtyStart DateEnd Date Kiel Kelly Jr., [facility] [place] [address] PCP - GeneralInternal Medicine06/26/17
--- OUTSIDE RECORDS SUMMARY | 2025-01-14 10:05 | XMS_ITS | Patient Health Record ---
Author Organization [facility] in [place] Address [address] [place] [address] Care Team Providers Care Building Equipment Operator Name Role Phone Aron Massey Primary Care Provider Allergies No Known Allergies Results Component Value Reference Range Notes COVID-19, Flu A+B IH Reviewed date:05/14/2024 09:27:44 PM Interpretation: Performing Lab: Notes/Report: COVID neg FLU AnegFLU BnegControlpresentPROLACTIN Reviewed date:05/14/2024 09:27:44 PM Interpretation: Performing Lab: Notes/Report: [facility] ,Bbdofbsgs79.74.8-33.4 ng/mL [address] [place], [place] [id number] Performed at: [facility] Assistant Manager: Aníbal Reyna PhD, Phone: [phone] Performing Lab:see note - [facility] LBFREE T3 Reviewed date:06/15/2024 03:43:37 PM Interpretation: Performing Lab: Notes/Report: [facility] ,Free T32.632.18-3.98 pg/mLPerforming Lab:see noteML - [facility] LB T4 Reviewed date:06/15/2024 03:43:37 PM Interpretation: Performing Lab: Notes/Report: [facility] ,T4 Thyroxine7.204.80-13.90 ug/dLPerforming Lab:see noteML - [facility] LBTSH Reviewed date:06/15/2024 03:43:37 PM Interpretation: Performing Lab: Notes/Report: [facility] ,Thyroid Stimulating Hormone1.6990.358-3.740 uIU/mLPerforming Lab:see noteML - [facility] LBVITAMIN D 25 [place] Reviewed date:07/15/2024 12:56:41 PM Interpretation: Performing Lab: Notes/Report: [facility] ,Vitamin D36.3 30-100 ng/mL Vit D sufficient <20 ng/mL Vit D deficient 20-<30 ng/mL Vit D insufficient >100 ng/mL Potential Toxicity Performing Lab:see noteML - [facility] LBIGP,Aptima HPV,Age Gdln Reviewed date:11/10/2024 02:20:50 PM Interpretation: Performing Lab: Notes/Report: BRUSH-SPATULA CERVIX ENDOCERVIX [facility] ,Age Gdln ACOG TestingNote. [address] [facility] [place] [address] L-Low Normal,H-High Normal,LL-Alert Low,HH-Alert High Source.............Cervix;Endocervix Karyn Carl MD, Performed at: Clinician Provided Cytology Information <-Panic Low,>-Panic High,A-Abnormal,AA-Critical Abnormal No. of containers..01 ThinPrep Vial Age Algo ACOG Emma... 21-29 01 TESTS RESULT FLAG UNITS REF RANGE LAB 01 =G [facility] Kevin FLAG LEGEND: IGP, rfx Aptima HPV ASCUNote. detection of premalignant and malignant conditions of the Amy Chung Senior [address] Sql Developer (ASCP) [address] [place] [address] [address] [facility], [place] [id number] Test Methodology: Note 03 03 [facility] FLAG LEGEND: result therefore, no HPV testing was performed. Performed at: [facility] Cyto Histo NEGATIVE FOR INTRAEPITHELIAL LESION OR MALIGNANCY. TESTS RESULT FLAG UNITS REF RANGE LAB Performed at: . [address] [facility] [place], [place] [phone] [facility] [place] [address] The Pap smear is a screening test designed to aid in the cancer. Both false-positive and false-negative reports do L-Low Normal,H-High Normal,LL-Alert Low,HH-Alert High cells (endocervical component) are present. Chito Machado MD, <-Panic Low,>-Panic High,A-Abnormal,AA-Critical Abnormal Performed by: 02 Specimen adequacy: 02 DIAGNOSIS: 02 uterine cervix. It is not a diagnostic procedure and . 02 This liquid based ThinPrep(R) pap test was screened with Karyn Carl MD, should not be used as the sole means of detecting cervical Note: Note 03 Satisfactory for evaluation. Endocervical and/or squamous metaplastic 02 [facility] Cyto Histo the use of an image guided system. Assistant Manager: Karyn Carl MD, Phone: [phone] Assistant Manager: Chito Machado MD, Phone: [phone] The HPV DNA reflex criteria were not met with this specimen occur. Performed at: [facility] Performing Lab:see [facility] LBTSH Reviewed date:07/15/2024 12:56:41 PM Interpretation: Performing Lab: Notes/Report: [facility] ,Thyroid Stimulating Hormone1.9950.358-3.740 uIU/mLPerforming Lab:see [facility] LBT4 Reviewed date:07/15/2024 12:56:41 PM Interpretation: Performing Lab: Notes/Report: [facility] ,T4 Thyroxine7.104.80-13.90 ug/dLPerforming Lab:see [facility] LBINSULIN Reviewed date:07/16/2024 01:33:02 PM Interpretation: Performing Lab: Notes/Report: [facility] ,Dzejdfc52.02.6-24.9 uIU/mL Assistant Manager: Aníbal Reyna PhD, Phone: [phone] Performed at: [address] [id number] Performing Lab:[facility] A1C Reviewed date:07/15/2024 12:56:41 PM Interpretation: Performing Lab: Notes/Report: [facility] ,Glycohemoglobin A1C5.44.5-6.2 % > 7.0 ADA RECOMMENDED LIMIT 4.0 - 6.0 ADA THERAPEUTIC TARGET < 7.0 ACTION SUGGESTED Estimated Average Motfqjl310Alhdqdxgxp Lab:see [facility] LB FREE T3 Reviewed date:07/15/2024 12:56:41 PM Interpretation: Performing Lab: Notes/Report: [facility] ,Free T33.052.18-3.98 pg/mLPerforming Lab:see [facility] LB CBC AUTO DIFF Reviewed date:07/15/2024 12:56:41 PM Interpretation: Performing Lab: Notes/Report: [facility] ,White Blood Count5.14.0-11.0 10 3/uLRed Blood Count4.594.20-5.40 10 6/uL Kkcdpfrdxg72.012.0-16.0 g/gTVlnzenuhjd43.036.0-48.0 %Mean Corpuscular Gbrfii30.3 81.0-99.0 fLMean Corpuscular Ashbhwzmbu65.526.7-34.0 pgMean Corpuscular HGB Conc 34.129.9-35.2 g/dLRed Cell Distribution Width11.611.0-15.0 %Platelet Othnk557 150-450 10 3/uLMean Platelet Cmxpmw97.19.5-13.5 fLNeutrophils Percent Auto49.2 43.0-75.0 %Lymphocytes Percent Auto40.520.5-60.0 %Monocytes Percent Auto7.21.7- 12.0 %Eosinophils Percent Auto1.90.9-7.0 %Basophils Percent Auto1.00.2-2.0 % Immature Granulocytes Pct Auto0.20.0-0.5 %Neutrophils Absolute Auto2.51.4-6.5 10 3/uLLymphocytes Absolute Auto2.11.2-3.8 10 3/uLMonocytes Absolute Auto0.40.3-0.8 10 3/uLEosinophils Absolute Auto0.10.0-0.7 10 3/uLBasophils Absolute Auto0.10.0- 0.1 10 3/uLImmature Granulocytes Abs Auto0.010.00-0.03 10 3/uLPerforming Lab:see noteML - [facility] LBTSH Reviewed date:05/13/2024 07:43:47 PM Interpretation: Performing Lab: Notes/Report: [facility] ,Thyroid Stimulating Hormone7.4050.358-3.740 uIU/mLPerforming Lab:see noteML - [facility] LBTHYROID ANTIBODIES Reviewed date:05/14/2024 09:27:44 PM Interpretation: Performing Lab: Notes/Report: [facility] ,Thyroid Peroxidase (TPO) Ab>6000-34 IU/mLThyroglobulin Tezpufsa62.80.0-0.9 IU/mL to 4 IU/mL. four percent of individuals without evidence of thyroid at very low levels. The assay sheet rock finisher has found that Assistant Manager: Aníbal Reyna PhD, Phone: [phone] It should be noted that the presence of thyroglobulin antibodies may not be pathogenic nor diagnostic, especially Performed at: - [facility], [place], [place] [id number] disease or autoimmunity will have positive TgAb levels up Methodology Thyroglobulin Antibody measured by Nick Lisbon Performing Lab:see noteLC - [facility] LBT4 Reviewed date:05/13/2024 07:43:47 PM Interpretation: Performing Lab: Notes/Report: [facility] ,T4 Thyroxine6.904.80-13.90 ug/dLPerforming Lab:see noteML - [facility] LBFREE T3 Reviewed date:05/13/2024 07:43:47 PM Interpretation: Performing Lab: Notes/Report: [facility] ,Free T32.442.18-3.98 pg/mLPerforming Lab:see note - [facility] LB PROF 14(COMP METB) Reviewed date:07/15/2024 12:56:41 PM Interpretation: Performing Lab: Notes/Report: [facility] ,Xoqpzh136138-024 mmol/LPotassium4.03.5-5.1 mmol/BPoindkgn63972-243 mmol/LCarbon Mqtmats46.321.0-32.0 mmol/LAnion Gap13.4Arzbxzl8720-764 mg/dLBlood Urea Nitrogen 22.07.0-18.0 mg/dLCreatinine0.960.55-1.02 mg/dLEstimated GFR ( Mariela>60 >=60 mL/min/1.73m 2Estimated GFR (Non- Krissy>60>=60 mL/min/1.73m 2BUN Creatinine Ratio22.2Ptevjhn6.38.5-10.1 mg/dLBilirubin Total0.60.2-1.0 mg/dL Aspartate Amino Vgcwwismlcu8064-59 U/LAlanine Ohtdlhzikemvixsr1718-25 U/L Alkaline Toomwyjuywj2475-148 U/LTotal Protein7.76.4-8.2 g/dLAlbumin Level4.03.4- 5.0 g/dLGlobulin3.7Albumin Globulin Ratio1.1Performing Lab:see noteML - [facility] LBLIPID PROFILE Reviewed date:07/15/2024 12:56:41 PM Interpretation: Performing Lab: Notes/Report: [facility] ,Xcefcorjuevln882<=150 mg/tOJqxotfwyztc647<=200 mg/dLHDL Hgaytwzvtqp8720-82 mg/dL <40 mg/dl - HIGH CARDIOVASCULAR RISK > or =60 mg/dl - LOW CARDIOVASCULAR RISK LDL Cholesterol Yyzosoxxpg458.0 >190 mg/dl VERY HIGH 130-159 mg/dl BORDERLINE HIGH 100-129 mg/dl NEAR OR ABOVE OPTIMAL <100 mg/dl OPTIMAL 160-189 mg/dl HIGH VLDL CUHKURRDFWS11.2Chol HDL Ratio4.8 7.1 - 11.0 MODERATE RISK 3.3 - 4.4 LOW RISK 4.4 - 7.1 AVERAGE RISK >11.0 HIGH RISK Performing Lab:see noteML - [facility] LBIRON Reviewed date:07/15/2024 12:56:41 PM Interpretation: Performing Lab: Notes/Report: [facility] ,Edaw418.050.0-170.0 ug/dLPerforming Lab:see noteML - [facility] LB Reason For Referral No Information Medications Medication SIG (Take, Route, Frequency, Duration) Notes Start Date End Date Status Protonix 40 MG 1 tablet Orally Once a day; Dura tion: 30 days 5ActiveLevothyroxine Sodium 100 MCGTAKE 1 TABLET BY MOUTH EVERY DAY IN THE MORNING ON EMPTY STOMACH FOR 30 DAYS; Duration: 90 daysActive Social History Tobacco Use: Social History Observation Description Date Details (start date - stop date) Never Smoker NA - NA Tobacco Control (Standard) Question Answer Notes Tobacco use: Nonsmoker AUDIT-C (Standard) Question Answer Notes Did you have a drink containing alcohol in the p ast year? Yes How often did you have six or more drinks on one occasion in the past year?Never (0 point)How many drinks did you have on a typical day when you were drinking in the past year?1 or 2 drinks (0 point)How often did you have a drink containing alcohol in the past year?Monthly or less (1 point)Jrecwg2RxyxwshmackvtuBdkbpxcm Problems Problem Type SNOMED Code ICD Code Onset Dates Problem Status W/U Status Risk Notes Problem Abdominal pain (48092140) Abdominal pain (R10.9) ActiveconfirmedProblemHypothyroid (71111553)Hypothyroid (E03.9)Activeconfirmed ProblemHashimoto's disease (64510573)Jorge's disease (E06.3)Activeconfirmed ProblemPure hypercholesterolemia (354396771)Elevated cholesterol (E78.00)Active confirmed Vital Signs Temperature 99.1 degrees Fahrenheit 04/21/2024 Blood pressure flswmaqji72 mm Hg07/02/20240050Rnjwfq91 in07/02/2024lood pressure atrwsbbj487 mm Hg07/02/20246329Zkprxv309.0 lbs07/02/2024BMI37.59 kg/m207/02/2024 Encounters Encounter Location Date Provider Diagnosis [facility] [address] [place] [address] 02/01/2024 Aron Hoy Acute bronchitis, unspecified organism J20.9 [facility] [address] [place] [address] 04/15/2024 Aron Hoy Hypothyroid E03.9 [facility] [address] [place] [address] 04/21/2024 Aron Hoy Acute non-recurrent sinusitis, unspecified location J01.90 and Nasal congestion R09.81 [facility] [address] [place] [address] 07/02/2024 Aron Hoy Hypothyroid E03.9 an d Near syncope R55 [facility] [address] [place] [address] 01/14/2025 Aron Hoy Hypothyroid E03.9 an d Abdominal pain R10.9 [facility] [address] [place] [facility] [place] [address] 02/12/2024 Aron Hoy Acute bronchitis, unspecified organism J20.9 [facility] [address] [place] [facility] [place] [address] 05/13/2024 Aron Hoy Hypothyroid E03.9 [facility] [address] [place] [address] 05/14/2024 Aron Hoy [facility] [place] [address] 06/15/2024[facility] [place] [address]/08/2024Aron Massey Assessments Encounter Date Diagnosis (ICD Code) Assessment Notes Treatment Notes Treatment Clinical Notes Section Notes 02/01/2024 Acute bronchitis, unspecified or ganism (ICD-10 - J20.9) Rest and drink more liquids, especially water. You may use a humidifier or vaporizer to help keep the drainage moist. Qawk-hbj-zfptlne Nasal Saline may help the stuffy and runny nose. Use Ibuprofen and or Tylenol as needed for fever, chills, body aches or pain. Children 5 years old should not be given syjd-bvn-dmofjiu cough and cold medications such as guaifenesin and dextromethorphan. If you're over age 5, you may try bktk-dvd-urealdd cold medications such as guaifenesin and dextromethorphan, or multi-symptom cold reliever such as Dayquil to help reduce the symptoms. Antibiotics have been pre scribed. You should take these until completed and follow the directions. Antibiotics can sometimescause upset stomach, and in rare cases, serious allergic reactions or serious gastrointestinal problems. If you start having severe abdominal pain, severe vomiting, or bloody diarrhea, you should be r eevaluated by your physician or urgent care immediately. Follow up with your Primary Care Provider or return to clinic if symptoms do not improve within 3-5 days. If you develop severe symptoms such as shortness of breath, repeated vomiting, coughing up blood, or chest pain you should go to the emergency room or call [address]/06/2024Hypothyroid (ICD-10 - E03.9)5Acute non-recurrent sinusitis, unspecified location (ICD-10 - J01.90)Rest and drink more liquids, especially water. You may use a humidifier or vaporizer to help keep the drainage moist. Amyt-srw-qyeabfo Nasal Saline may help the stuffy and runny nose. Use Ibuprofen and or Tylenol as needed for fever, chills, body aches or pain. Children 5 years old should not be given emxu-uyw-lgrsfna cough and cold medications such as guaifenesin and dextromethorphan. If you're over age 5, you may try rcnu-xzs-vqjwtpl cold medications such as guaifenesin and dextromethorphan, or multi-symptom cold reliever such as Dayquil to help reduce the symptoms. Antibiotics have been prescribed. You should take these until completed and follow the directions. Antibiotics can sometimescause upset stomach, and in rare cases, serious allergic reactions or serious gastrointestinal problems. If you start having severe abdominal pain, severe vomiting, or bloody diarrhea, you should be reevaluated by your physician or urgent care immediately. Follow up with your Primary Care Provider or return to clinic if symptoms do not improve within 3-5 days07/02/2024Hypothyroid (ICD-10 - E03.9)07/02/2024Near syncope (ICD-10 - R55)02/12/2024cute bronchitis, unspecified organism (ICD-10 - J20.9)05/13/2024Hypothyroid (ICD-10 - E03.9) 01/14/2025Hypothyroid (ICD-10 - E03.9)01/14/2025bdominal pain (ICD-10 - R10.9) 04/21/2024Nasal congestion (ICD-10 - R09.81) Plan Of Treatment Pending Test Test Name Order Date HEMOGLOBIN A1C (GLYCO) 07/02/2024 IRON, TOTAL 07/02/2024 LIPID PANEL (CHOL/TRIG/HDL/LDL) 07/03/19 25 VITAMIN D, 25 LEVEL (TOTAL) 07/02/2024 Insulin Level 07/02/2024 AMYLASE 01/14/2025 CA 19-9 01/14/2025 CBC AUTO DIFF 01/14/2025 CEA 01/14/2025 LIPASE 01/14/2025 PROF 14(COMP METB) 01/14/2025 THYROID ANTIBODIES 04/15/2024 THYROID PANEL (T4/TSH/FREE T3) THYROID PANEL (T4/TSH/FREE T3) THYROID PANEL (T4/TSH/FREE T3) THYROID PANEL (T4/TSH/FREE T3) CMP (COMP MET TERRAZAS) w/eGFR CKD-EPI 2024 CBC WITH DIFF 07/02/2024 Next Appt Details Provider Name:Aron Massey, 03:30:00 PM, [address] [facility], [place], [address], Insurance Providers Payer Name Payer Address Payer Phone Subscriber Number Group Number Insured Name Patient Relationship to Insured Coverage Start Date Coverage End Date [employer] PPO PLUS LOCAL PLAN [address] [place] [address] [id number] Sammi Smithelf - patient is the insured Medical (General) History Surgical History Surgery Date(Month/Year) ACL Surgery- Left Knee Hospitalization History Reason Date(Month/Year) Child
--- OUTSIDE RECORDS SUMMARY | 2025-01-14 10:05 | XMS_ITS | Clinical Summary ---
Author Organization [facility] Address [address] [place] [address] Care Team Providers Care Insole Reinforcer Name Role Phone Jamin Massey MD Primary Care Provider [phone] Allergies No known active allergies Medications MedicationSigDispense QuantityRefillsLast FilledStart DateEnd DateStatus levothyroxine (Synthroid) 100 MCG tablet Indications:Jorge's diseaseTake 1 tablet (100 mcg) by mouth in the morning. Take before meals. 30 tablet 11005/30/342819/6Active medroxyPROGESTERone (Provera) 10 MG tablet Indications:AmenorrheaTake 1 tablet (10 mg) by mouth Daily for 10 days 10 tablet 5Active medroxyPROGESTERone (Provera) 10 MG tablet Indications:Jorge's disease,AmenorrheaTake 1 tablet (10 mg) by mouth Daily for 14 days 14 tablet 5Active pantoprazole (ProtoNix) 40 MG EC tablet Take 40 mg by mouth in the morning. Take before meals.5Active metFORMIN XR (Glucophage-XR) 500 MG 24 hr tablet Indications:Ovulation bleedingTake 2 tablets (1,000 mg) by mouth in the evening. Take with meals Do not crush, chew, or split. 180 tablet 5Active Active Problems ProblemNoted DateDiagnosed CzxtZhwcicpxbt56/19/2025Hashimoto's dwgqusg7605/15/2024 Complete or unspecified spontaneous without complication ([facility]) 08/09/2022Missed tkjtnr9308/09/2022 Encounters DateTypeDepartmentCare BdohFffexzqtkoy58/16/2025Telephone [facility] [address] [place] [address] Tasneem Hernandez MA 11/12/2024Orders Only [facility] [address] [place] [phone] Melba CamarenaOLIVER 11/04/2024 8:30 AM EDTOffice Visit [facility] [address] [place] [address] Porfirio Che DO Well woman exam with routine gynecological exam5Clinisync Result Encounter [facility] External Department Unsolicited Porfirio Che DO 5Bamboo flowsheet [facility] [address] [place] [address] Porfirio Che DO from Last 3 Months Family History Medical HistoryRelationNameCommentsNo Known ProblemsFatherNo Known Problems MotherNo Known ProblemsSonRelationNameStatusCommentsBrother 1AliveBrother 2Alive FatherAliveMotherAliveSisterAliveSonAlive Social History Tobacco UseTypesPacks/DayYears UsedDateSmoking Tobacco: NeverSmokeless Tobacco: Never Tobacco Cessation:Counseling Given: Not Answered Alcohol UseStandard Drinks/WeekCommentsNot Currently0 (1 standard drink = 0.6 oz pure alcohol)caffeine intake: 1 cup per day of coffeeCommentsNoSex and Gender InformationValueDate RecordedSex Assigned at FkfpxHsgliw34/25/2023 11:59 AM EDTLegal MqaCcubhm48/15/2023 11:47 PM EDTGender FmhmhuaxHekkpu47/25/2023 11:59 AM EDTSexual OrientationNot on file Last Filed Vital Signs Vital SignReadingTime TakenCommentsBlood Jquoquom187/80011/04/2024 8:44 AM EDT Pulse--Temperature--Respiratory Rate--Oxygen Saturation--Inhaled Oxygen Concentration--Jcjogc04.8 kg (215 lb 8 oz)11/04/2024 8:44 AM DIUJeecgy220.6 cm (5' 4 )08/10/2022 2:41 PM EDTBody Mass Index36.9908/10/2022 2:41 PM EDT Plan of Treatment DateTypeDepartmentCare Team (Latest Contact Info)Lyrgzbntqvv03/31/2026 8:30 AM EDTProcedure Visit [facility] [address] [place] [address] Porfirio Che, [address] [place], [place] [id number] Procedures Procedure NamePriorityDate/TimeAssociated DiagnosisCommentsIGP,APTIMA HPV,AGE KLSIIluvbri87/26/2025 8:40 AM EDT PAP QSUOIRfksktw04/25/2025 12:00 AM EDTfrom Last 3 Months Results * IGP,APTIMA HPV,AGE GDLN (11/04/2024 8:40 AM EDT)ComponentValueRef RangeTest MethodAnalysis TimePerformed AtPathologist SignatureAGE GDLN ACOG TESTINGNote. TBHComment: ?? TESTS ? RESULT ??FLAG ??UNITS ?REF RANGE ??LAB ?? Clinician Provided Cytology Information ?? Source.............Cervix;Endocervix ?? No. of containers..01 ThinPrep Vial Age Algo ACOG Emma... ??21-29 ? 01 ?FLAG LEGEND: ?L-Low Normal,H-High Normal,LL-Alert Low,HH-Alert High <-Panic Low,>-Panic High,A-Abnormal,AA-Critical Abnormal Performed at: 01 =G ?[facility] [place] ?? [address] [place], [place] ??[address] ?? Karyn Carl MD, IGP, RFX APTIMA HPV ASCUNote.TBHComment: ?? TESTS ? RESULT ??FLAG ??UNITS ?REF RANGE ??LAB DIAGNOSIS: ?02 ?? NEGATIVE FOR INTRAEPITHELIAL LESION OR MALIGNANCY. Specimen adequacy: ?02 ?? Satisfactory for evaluation. ??Endocervical and/or squamous metaplastic ?? cells (endocervical component) are present. Performed by: ? 02 ?? Amy Chung, Production Operations Manager ([facility]) . ? 02 Note: ? Note ?03 ?? The Pap smear is a screening test designed to aid in the ?? detection of premalignant and malignant conditions of the ?? uterine cervix. ??It is not a diagnostic procedure and ?? should not be used as the sole means of detecting cervical ?? cancer. ??Both false-positive and false-negative reports do ?? occur. Test Methodology: ? Note ?03 ?? This liquid based ThinPrep(R) pap test was screened with ?? the use of an image guided system. . ? 02 ?? The HPV DNA reflex criteria were not met with this specimen ?? result therefore, no HPV testing was performed. ?FLAG LEGEND: ?L-Low Normal,H-High Normal,LL-Alert Low,HH-Alert High <-Panic Low,>-Panic High,A-Abnormal,AA-Critical Abnormal Performed at: 02 [facility] ?? [address], [place], [place] ??[phone] ?? Chito Machado MD, [address] ?[facility] [place] ?? [address] [place] ??[address] ?? Karyn Carl MD, Performed at: ??=G - [facility] [place] [address], [place], [place] ??[phone] Tire Specialist: Karyn Carl MD, Phone: ??[phone] Performed at: ??KWCYT - [facility] [place] [facility] [address] [place] [address] ??[phone] Tire Specialist: Chito Machado MD, Phone: ??[phone] Specimen (Source)Anatomical Location / LateralityCollection Method / Volume Collection TimeReceived Time11/04/2024 8:40 AM EDT11/04/2024 3:23 PM EDT Narrative [facility] - 11/07/2024 5:09 PM EDT BRUSH-SPATULA CERVIX ENDOCERVIX Authorizing ProviderResult TypeResult StatusCorey Chinedu DOLAB BLOOD ORDERABLES Final ResultPerforming OrganizationAddressCity/State/ZIP CodePhone Number [facility] * Pap Smear (11/03/2024 12:00 AM EDT)Specimen (Source)Anatomical Location / LateralityCollection Method / VolumeCollection TimeReceived TimeSwabCervical swab / Unknown Narrative Authorizing ProviderResult TypeResult StatusCorey Chinedu DOLAB CYTOLOGY ORDERABLESFinal ResultPerforming OrganizationAddressCity/State/ZIP CodePhone Number EXTERNAL LAB from Last 3 Months Insurance Care Teams Team MemberRelationshipSpecialtyStart DateEnd Jamin Massey MD [address] [place] [phone] PCP - [facility]08/10/22
--- OUTSIDE RECORDS SUMMARY | 2025-01-14 10:05 | XMS_ITS | Encounter Summary ---
Author Organization [facility] Address [address] [place] [address] Care Team Providers Care High School Director Name Role Phone Jamin Massey MD Primary Care Provider [phone] Encounter Details DateTypeDepartmentCare Team (Latest Contact Info)Ablmtibqaac80/22/2023linisync Result Encounter [facility] External Department Unsolicited Porfirio Che, DO [address], [facility] Social History Tobacco UseTypesPacks/DayYears UsedDateSmoking Tobacco: NeverSmokeless Tobacco: NeverAlcohol UseStandard Drinks/WeekCommentsNot Currently0 (1 standard drink = 0.6 oz pure alcohol)caffeine intake: 1 cup per day of coffeeCommentsYes Sex and Gender InformationValueDate RecordedSex Assigned at BirthFemale 08/03/2022 11:59 AM EDTLegal AmkTxbtou31/15/2023 11:47 PM EDTGender Identity Rqbojk3808/03/2022 11:59 AM EDTSexual OrientationNot on filedocumented as of this encounter Plan of Treatment DateTypeDepartmentCare Team (Latest Contact Info)Ugxmcxhgsur27/31/2026 8:30 AM EDTProcedure Visit [facility] [address] [place] [address] Porfirio Che DO [address] [place] [address] documented as of this encounter Procedures Procedure NamePriorityDate/TimeAssociated DiagnosisCommentsUS OB LIMITED 1+ FMTXQAB7903/02/2023 1:54 AM EST documented in this encounter Results * US OB limited 1+ fetuses (03/02/2023 1:54 AM EST)Anatomical RegionLaterality ModalityBodyUltrasoundSpecimen (Source)Anatomical Location / Laterality Collection Method / VolumeCollection TimeReceived Time03/02/2023 1:54 AM EST Narrative 03/02/2023 1:57 AM EST [facility] ?[address] ? [place] [address] ? Ultrasound Report ? Signed ? Patient: LOUISE SMITH ?MR#: [id number] ?? : 1995 ?Acct:[id number] ?? Age/Sex: 27 / F ?ADM Date: ?? Loc: [facility] ??256-1 ? Attending Dr: Porfirio Che D.O. ? Ordering Physician: Porfirio Che D.O. ?? Date of Service: 03/02/23 ?? Procedure(s): US OB limited ?? Accession Number(s): [id number] ? cc: Porfirio Che D.O.; Jamin Massey M.D. ? [facility] ? [address] ? [place] [address] ? Patient Name: ?? LOUISE SMITH ? MRN: [facility]:[id number] ? date: 1995 ?Sex: F ?? Assigned Patient Location: [facility] ?? Current Patient Location: [facility] ?? Accession/Order Number: [id number] ?? Exam Date: 03/02/2023 ??01:30 ?Report Date: 03/02/2023 ??01:54 ? At the request of: ?? PORFIRIO ??ANYA ? Procedure: ??US OB limited ? EXAM: US OB limited ? HISTORY: verify presentation ? COMPARISON: None. ? TECHNIQUE: Transabdominal ultrasound of the gravid uterus was performed using ?? Doppler. ? FINDINGS: ? Ultrasound images demonstrate a fetus in cephalic position. There is a ?? heart rate of 160 bpm. ? US/US OB limited ?? IMPRESSION: ? 1. Cephalic position. ? Electronically authenticated by: Jojo ??MYRIAM ?? Date: 03/02/2023 ??01:54 ? Dictated By: ?Nabeel Landrum M.D. ? Signed By: ?03/02/ 0157 ? DD/DT: 03/02/ 0154 ? TD/TT: ? Box Brander: Procedure Note Radiology, Radiologist, - 03/02/2023 [place] [address] Ultrasound Report Signed Patient: LOUISE SMITH KMR#: [id number] : 1995Acct:[id number] Age/Sex: 27 / FADM Date: Loc: [facility] 256-[address]: Porfirio Che D.O. Ordering Physician: Porfirio Che D.O. Date of Service: 03/02/23 Procedure(s): US OB limited Accession Number(s): [id number] cc: Porfirio Che D.O.; Jamin Massey M.D. The [address] [address] Patient Name: LOUISE SMITH MRN: [facility]:[id number] date: 1995 Sex: F Assigned Patient Location: [facility] Current Patient Location: [facility] Accession/Order Number: [id number] Exam Date: 03/02/2023 01:30 Report Date: 03/02/2023 [...] Dictated By: Nabeel Landrum M.D. Signed By:03/02/23 015 DD/ 015 TD/TT: Box Brander: Authorizing ProviderResult TypeResult StatusCoreanne-marie Che [facility] OB US PROCEDURES Final Result documented in this encounter Visit Diagnoses Not on filedocumented in this encounter Care Teams Team MemberRelationshipSpecialtyStart DateEnd Date Jamin Massey MD [address] [place] [address] [facility] - [facility]documented as of this encounter
--- OUTSIDE RECORDS SUMMARY | 2025-01-14 10:08 | XMS_ITS | CCD ---
Author Organization [facility] Care Team Providers Care Quick Sketch Artist Name Role Phone NATASHA DANYA HUFF Unavailable [...] SHAN Unavailable Unavailable YUNG, SHAN Unavailable Unavailable [place] Unavailable Unavailable VALONE, KIEL Unavailable Unavailable [place] Unavailable Unavailable RODOLFO BARILLAS Unavailable Unavailable UNKNOWN, PHYSICIAN Unavailable Unavailable YUNG, SHAN Unavailable Unavailable YUNG, SHAN Unavailable Unavailable UNKNOWN, PHYSICIAN Unavailable Unavailable UNKNOWN, PHYSICIAN Unavailable Unavailable YUNG, SHAN Unavailable Unavailable YUNG, SHAN Unavailable Unavailable YUNG, SHAN Unavailable Unavailable CHINEDU ., DR DUMONT Attending Unavailable CHINEDU ., DR DUMONT Admitting [facility]available [facility] MILAN Primary Care Unavailable CHINEDU ., [...] Unavailable Jamin Massey MD Primary Care Provider [phone] Jamin Massey MD Primary Care Provider [phone] TIM CHE Attending Unavailable TIM CHE Attending Unavailable TIM CHE Attending Unavailable Jamin Massey MD Primary Care Provider [phone] Allergies Allergy ClassificationReported Allergen(s)Allergy TypeDate of OnsetReaction(s) Facility (1 source)NKA; Translations: [NKA]Propensity to adverse reactions (disorder) 85-55-2519Ndu [facility] (1 source)No Known Allergies; Translations: [No Known Allergies]Propensity to adverse reactions (disorder)[facility] Medications Current Medications MedicationDrug Class(es)DatesSig (Normalized)Sig (Original)levothyroxine sodium 0.1 mg oral tablet (10 sources)l-ThyroxineStart: 05-30-2024 End: 82-75-3865wpbe 1 tablet by mouth before mealtimelevothyroxine (Synthroid) 100 MCG tablet Indications: Jorge's disease Take 1 tablet (100 mcg) by mouth in the morning. Take before meals. 30 tablet 11 05/30/2024 05/30/2025 Active Start: 39-07-3388aadj 1 tablet by mouth once daily in the morninglevothyroxine (Synthroid, Levoxyl) 75 MCG tablet TAKE 1 TABLET BY MOUTH EVERY DAY IN THE MORNING ONEMPTY STOMACH FOR 30 DAYS 04/15/2024 ActivemedroxyPROGESTERone acetate 10 mg oral tablet (12 sources)ProgestinStart: 67-48-9484enfj 1 tablet by mouth once daily medroxyPROGESTERone (Provera) 10 MG tablet Indications: Jorge's disease , Amenorrhea Take 1 tablet (10 mg) by mouth Daily for 14 days 14 tablet 08/28/2024 Activeondansetron 4 mg oral tablet (2 sources)Serotonin-3 Receptor AntagonistStart: 09-30-2024 End: 74-09-6894oprw 1 tablet by mouth every six hours for nauseaondansetron (Zofran) 4 MG tablet Indications: Nausea and vomiting, unspecified vomiting type Take 1tablet (4 mg) by mouth every 6 (six) hours if needed for nausea 20 tablet 5 09/30/2024 10/30/2024 Activepantoprazole 40 mg delayed release oral tablet (6 sources)Proton Pump InhibitorStart: 02-27-1088jzwe 1 tablet by mouth before mealtimepantoprazole (ProtoNix) 40 MG EC tablet Take 40 mg by mouth in the morning. Take before meals. 07/29/2024 Active Completed/Discontinued Medications MedicationDrug Class(es)DatesSig (Normalized)Sig (Original)hydrocortisone acetate 25 mg/ml / pramoxine hydrochloride 10 mg/ml topical cream (6 sources)CorticosteroidStart: 05-30-2023 End: 11-74-0011rkdzcpmye-hydrocortisone cream Indications: Hemorrhoids, unspecified hemorrhoid type Apply topically 2 (two) times a day 24.8 g 05/30/2023 11/01/2023 DiscontinuedStart: 05-30-2023 End: 31-34-4069gawyc 1 dose rectal route twice dailypramoxine-hydrocortisone (Analpram-HC) 1-1 % rectal cream Indications: Hemorrhoids, unspecified hemo rrhoid type Insert into the rectum 2 (two) times a day 30 g 1 05/30/2023 11/01/2023 Discontinued Problems Active Problems Problem ClassificationProblemDateDocumented DateEpisodic/ChronicContraceptive and procreative management (2 sources)Patient encounter status; Translations: [Encounter for other procreative management]00-70-3384ZypxyxsxOvudawqto disorders (20 sources)Irregular menstruation, unspecified; Translations: [Missed period] Onset: 54-44-1851YqhdgqdMkapnv and vomiting (2 sources)Nausea and vomiting; Translations: [Nausea with vomiting, unspecified]95-28-9135AizuakajSnplj aftercare (1 source)Encounter for follow-up examination after completed treatment for conditions other than malignant neoplasm; Translations: [ENCNTR FOR F/U EXAM AFT TRTMT FOR COND OTH THAN MALIG NEOPLM]Onset: 11-25-5555CumzkfngFrjcj female genital disorders (3 sources)Abnormal uterine and vaginal bleeding, unspecified; Translations: [ABNORMAL UTERINE VAGINAL BLEED UNS]Onset: 28-81-8104SrzyjypFklsp nervous system disorders (1 source)Other abnormalities of gait and mobility; Translations: [OTHER ABNORMALITIES OF GAIT AND MOBILITY]Onset: 05-15-8378YqxvctznTahyg non-traumatic joint disorders (5 sources)Pain in left knee; Translations: [Stiffness of left knee, not elsewhere classified]Onset: 65-95-0636PrfjhnhdNtwbyum and strains (4 sources)Sprain of anterior cruciate ligament of left knee, initial encounter; Translations: [SPRAIN OF ANTERIOR CRUCIATE LIGAMENT OF LEFT KNEE, INIT]Onset: 44-59-4202UzagnogjMfhckea disorders (8 sources)Jroge thyroiditis; Translations: [Autoimmune thyroiditis]Onset: [id number]tdnzmqsn (2 sources)Unknown / UNK(Unknown)Onset: 79-34-5920Kclklxjmimqm (1 source)Other specified postprocedural states; Translations: [OTHER SPECIFIED POSTPROCEDURAL STATES]Onset: 07-17-2017 Past or Other Problems Problem ClassificationProblemDateDocumented DateEpisodic/ChronicImmunizations and screening for infectious disease (1 source)Contact with and (suspected) exposure to infections with a predominantly sexual mode of transmission; Translations: [CONTCT W EXPOS INFECT SEXUAL TRNSMS]Onset: 61-57-9442MyeobxhjHmhoz complications of (1 source)Maternal care for other abnormalities of pelvic organs, first trimester; Translations: [MAT CARE OTH ABN PELV ORGAN 1ST TRI]Onset: 12-05-2021 EpisodicOvarian cyst (1 source)Unspecified ovarian cyst, right side; Translations: [UNSPECIFIED OVARIAN CYST RIGHT SIDE]Onset: 47-66-1660GipoucgrUgztnmie codes; unclassified (1 source)9 weeks gestation of ; Translations: [9 WEEKS GESTATION OF ]Onset: 23-29-7242QixiwpbuQfxczfzgqzd (20 sources)Complete or unspecified spontaneous without complication; Translations: [Incomplete spontaneous without complication]Onset: 64-37-2191Ydpnawqq Results Test NameValueInterpretationReference RangeFacilityIGP,APTIMA HPV,AGE GDLNon 53-18-5807UMX GDLN ACOG TESTINGNote.NOMS HealthcareComment on above:TESTS RESULT FLAG UNITS REF RANGE LAB Clinician Provided Cytology Information Source.............Cervix;Endocervix No. of containers..01 ThinPrep Vial Age Paresh MAHER Emma... FLAG LEGEND: L-Low Normal,H-High Normal,LL-Alert Low,HH-Alert High <-Panic Low,>-Panic High,A-Abnormal,AA-Critical Abnormal Performed at: 01 =[facility] [address] [place] [address] Karyn Carl MD, IGP, RFX APTIMA HPV ASCUNote.NOMS HealthcareComment on above:TESTS RESULT FLAG UNITS REF RANGE LAB DIAGNOSIS: 02 NEGATIVE FOR INTRAEPITHELIAL LESION OR MALIGNANCY. Specimen adequacy: 02 Satisfactory for evaluation. Endocervical and/or squamous metaplastic cells (endocervical component) are present. Performed by: Susana Chung, [employer]isher ([facility]) . 02 Note: Note 03 The Pap smear is a screening test designed to aid in the detection of premalignant and malignant conditions of the uterine cervix. It is not a diagnostic procedure and should not be used as the sole means of detecting cervical cancer. Both false-positive and false-negative reports do occur. Test Methodology: Note 03 This liquid based ThinPrep(R) pap test was screened with the use of an image guided system. . 02 The HPV DNA reflex criteria were not met with this specimen result therefore, no HPV testing was performed. FLAG LEGEND: L-Low Normal,H-High Normal,LL-Alert Low,HH-Alert High <-Panic Low,>-Panic High,A-Abnormal,AA-Critical Abnormal Performed at: 02 [facility] [address] [address] [place] [address] Chito Machado MD, [address] [address] Karyn Carl MD, Performed at: =G - Lab[address] [id number] Veterinary Bacteriologist: Karyn Carl MD, Phone: [phone] Performed at: [facility] [address] [address] [place], [place] [id number] Veterinary Bacteriologist: Chito Machado MD, Phone: [phone] BRUSH-SPATULA CERVIX ENDOCERVIX CLINISYNCNOAudrain Medical CenterTB PROLACTINon 23-69-8403BFIBIFUOK80.7 ng/mL4.8 - 33.4 ng/mLNOMS HealthcareComment on above:Performed at: [facility] Lab[address] [id number] Veterinary Bacteriologist: Aníbal Reyna PhD, Phone: [phone] CLINISYNCNOSD HealthcareIGP,APTIMA HPV,AGE GDLNon 97-52-1518KHW GDLN ACOG TESTINGNote.[facility] HealthcareComment on above:TESTS RESULT FLAG UNITS REF RANGE LAB Clinician Provided Cytology Information Source.............Cervix;Endocervix No. of containers..01 ThinPrep Vial Age Lesviao BRITTANIOG Emma... FLAG LEGEND: L-Low Normal,H-High Normal,LL-Alert Low,HH-Alert High <-Panic Low,>-Panic High,A-Abnormal,AA-Critical Abnormal Performed at: 01 =G [address] [address] Karyn Carl MD, IGP, RFX APTIMA HPV ASCUNote.[facility] HealthcareComment on above:TESTS RESULT FLAG UNITS REF RANGE LAB DIAGNOSIS: 02 NEGATIVE FOR INTRAEPITHELIAL LESION OR MALIGNANCY. Specimen adequacy: 02 Satisfactory for evaluation. Endocervical and/or squamous metaplastic cells (endocervical component) are present. Performed by: 02 [employer] ([facility]) . 02 Note: Note 02 The [...] <-Panic Low,>-Panic High,A-Abnormal,AA-Critical Abnormal Performed at: [address] [address] Karyn Carl MD, Performed at: = - [facility] [address] [id number] Veterinary Bacteriologist: Karyn Calr MD, Phone: [phone] Performed at: [address] [id number] Veterinary Bacteriologist: Karyn Carl MD, Phone: [phone] BRUSH-SPATULA CERVIX ENDOCERVIX CLINISYNCNOSD HealthcareCytology Cervical or vaginal smear or scraping study Ordered By: Imelda Martinez on 80-22-8720ETVI HealthcareUS for pregnancyon 46-93-3115Ayq[address] [address] Ultrasound Report Signed Patient: NIDIA SMITH MR#: [id number] : 1995 Acct:[id number] Age/Sex: 27 / F ADM Date: Loc: [facility] Attending Dr: Tim Che D.O. Ordering Physician: Tim Che D.O. Date of Service: 03/02/23 Procedure(s): US OB limited Accession Number(s): [id number] cc: Tim Che D.O.; Jamin Massey M.D. [place] [id number] Patient Name: NIDIA SMITH [facility]: [facility]:[id number] date: 1995 Sex: F Assigned Patient Location: [facility] Current Patient Location: [facility] Accession/Order Number: [id number] Exam Date: 03/02/2023 01:30 Report Date: 03/02/2023 01:54 At the request of: TIM CHE Procedure: US OB limited EXAM: US [...] Dictated By: Nabeel Landrum M.D. Signed By: 03/02/237 DD/ 3 TD/TT: Amusement [employer] Recreation Card Checker:HUSSEINadiologanne-marie, Radiologist, - 03/02/2023 [place] [address] Ultrasound Report Signed Patient: NIDIA SMITH MR#: [id number] : 1995 Acct:[id number] Age/Sex: 27 / F ADM Date: Loc: [facility] 256-[address]: Tim Che D.O. Ordering Physician: Tim Che D.O. Date of Service: 03/02/23 Procedure(s): US OB limited Accession Number(s): [id number] cc: Tim Che D.O.; Jamin Massey M.D. [place] [id number] Patient Name: NIDIA SMITH MRN: [id number] date: 1995 Sex: F Assigned Patient Location: [facility] Current Patient Location: [facility] Accession/Order Number: [id number] Exam Date: 03/02/2023 01:30 Report Date: 03/02/2023 01:54 At the request of: TIM CHE Procedure: US OB limited EXAM: US [...] Dictated By: Nabeel Landrum M.D. Signed By: 03/02/23156 DD/ 3 TD/TT: Amusement Or Recreation Card Checker: [facility] HOSPITALOmega HealthcareRadiology Study observation (narrative)[facility] HospitalUS for pregnancyOrdered By: Radiologist Radiology on 73-00-2419KQBD [employer] Work Phone: PREG QUANT HCGon 73-33-0215UNL MIAWF388 mIU/mLNormal [facility]als Health SystemComment on above:Performed By: #### PREGQNT #### [facility] [address] [place] [address] Dr. Samson Zhang Aultman HospitalComment on above: Result Comment: 5-50 0.2-1 WEEK 50-500 1-2 WEEKS 100-5,000 2-3 WEEKS 500-10,000 3-4 WEEKS 1,000-50,000 4-5 WEEKS 10,000-100,000 5-6 WEEKS 15,000-200,000 6-8 WEEKS 10,000-100,000 2-3 MONTHSPerformed By: #### PREGQNT #### [facility] [address] [place] [address] Dr. Samson Mcgarry QUANT HCGon 20-07-2594HZZ CEDHI266 mIU/mLNormalUniversity Hospitals Health SystemComment on above:Performed By: #### PREGQNT #### [facility] [address] [place] [address] Dr. Samson MENDEZ [facility] on above: Result Comment: 5-50 0.2-1 WEEK 50-500 1-2 WEEKS 100-5,000 2-3 WEEKS 500-10,000 3-4 WEEKS 1,000-50,000 4-5 WEEKS 10,000-100,000 5-6 WEEKS 15,000-200,000 6-8 WEEKS 10,000-100,000 2-3 MONTHSPerformed By: #### PREGQNT #### [facility] [address] [place] [address] Dr. Samson Mcgarry [facility] OKLAHOMA CITYon 78-89-9407PPV QUANT4 mIU/mLNMemorial HospitalComascension st. [facility] on above:Performed By: #### PREGQNT #### [facility] [address] [place] [address] Dr. Samson MENDEZ [facility] on above: Result Comment: 5-50 0.2-1 WEEK 50-500 1-2 WEEKS 100-5,000 2-3 WEEKS 500-10,000 3-4 WEEKS 1,000-50,000 4-5 WEEKS 10,000-100,000 5-6 WEEKS 15,000-200,000 6-8 WEEKS 10,000-100,000 2-3 MONTHSPerformed By: #### PREGQNT #### [facility] [address] [place] [address] Dr. Samson Mcgarry QUANT HCGon 23-22-1987CWT QUANT15 mIU/mLNormalUniversity Hospitals Health SystemComascension st. john hospital on above:Performed By: #### PREGQNT #### [facility] [address] [place] [address] Dr. Samson MENDEZ [facility] on above: Result Comment: 5-50 0.2-1 WEEK 50-500 1-2 WEEKS 100-5,000 2-3 WEEKS 500-10,000 3-4 WEEKS 1,000-50,000 4-5 WEEKS 10,000-100,000 5-6 WEEKS 15,000-200,000 6-8 WEEKS 10,000-100,000 2-3 MONTHSPerformed By: #### PREGQNT #### [facility] [address] [place] [address] Dr. Samson Douglas AUTO DIFFon 93-41-0200SPEG #0.0 103/ulNormal0.0-0.1The [facility]Comment on above:Performed By: #### RUBIGG #### [facility] [address] [place] [address] Dr. Samson SchumacherBasophils/100 WBC (Bld)0.3 %Normal0.2-2.0The [facility] Comment on above:Performed By: #### RUBIGG #### [facility] [address] [place] [address] Dr. Samson GriffithO #0.1 103/ulNormal0.0-0.7The [facility]stownComment on above: Performed By: #### RUBIGG #### [facility] [address] [place] [address] Dr. Samson Griffithosinophils/100 WBC (Bld)0.6 %Critically low0.9-7.0The [facility] on above:Performed By: #### RUBIGG #### [facility] [address] [place] [address] Dr. Samson Griffithrythrocyte distribution width (RBC) [Ratio]12.0 %Ipgzgg55.0-15.0 The [facility] on above:Performed By: #### RUBIGG #### [facility] [address] [place] [address] Dr. Samson SchumacherHematocrit (Bld) [Volume fraction]37.2 %Vtfdlz12.0-48.0The [facility]Comment on above:Performed By: #### RUBIGG #### [facility] [address] [place] [address] Dr. Samson SchumacherHemoglobin (Bld) [Mass/Vol]12.4 g/nEDfwobm92.0-16.0The [facility]Comment on above:Performed By: #### RUBIGG #### [facility] [address] [place] [address] [address] Samson Delgado #0.04 10e3/ulCritically high0.00-0.03The [facility] Comment on above:Performed By: #### RUBIGG #### [facility] [address] [place] [address] [address] Samson Delgado %0.3 %Normal0.0-0.5The [facility] on above: Performed By: #### RUBANTONIG #### [facility] [address] [place] [address] Dr. Samson Anna #1.9 103/ulNormal1.2-3.8The [facility] on above:Performed By: #### JYOTIG #### [facility] [address] [place] [address] Dr. Samson Ungerhocytes/100 WBC (Bld)14.1 %Critically low20.5-60.0The [facility] on above:Performed By: #### KUNALIGG #### [facility] [address] [place] [address] Dr. Samson Valentino DIFF REQNONormalThe [facility]Comment on above: Performed By: #### KUNALIGG #### [facility] [address] [place] [address] Dr. Samson Andino (RBC) [Entitic mass]30.5 ntCjpxiz32.7-34.0The [facility]Comment on above:Performed By: #### RUBIGG #### [facility] [address] [place] [address] Dr. Samson Wise (RBC) [Mass/Vol]33.3 g/mMWkvxaq13.9-35.2[facility] Hospitals Health SystemComment on above:Performed By: #### RUBIGG #### [facility] [address] [place] [address] Dr. Yilan ChangMCV (RBC) [Entitic vol]91.4 pRFcsjzm53.0-99.0The [facility]Comment on above:Performed By: #### JYOTIG #### [facility] [address] [place] [address] Dr. Samson Santos #0.5 103/ulNormal0.3-0.8The [facility] on above:Performed By: #### JYOTIG #### [facility] [address] [place] [address] Dr. Samson Ferreiraocytes/100 WBC (Bld)4.0 %Normal1.7-12.0The [facility] Comment on above:Performed By: #### JYOTIG #### [facility] [address] [place] [address] Dr. Samson Vela #10.7 103/ulCritically high1.4-6.5The [facility] Comment on above:Performed By: #### JYOTIG #### [facility] [address] [place] [address] Dr. Samson Hairutrophils/100 WBC (Bld)80.7 %Critically high43.0-75.0The [facility] on above:Performed By: #### JYOTIG #### [facility] [address] [place] [address] Dr. Samson Boatenglet mean volume (Bld) [Entitic vol]10.2 fLNormal9.5-13.5The [facility] on above:Performed By: #### JYOTIG #### [facility] [address] [place] [address] Dr. Samson SchumacherPLT225 103/ckHldwky464-058Eoj [facility]Comment on above: Performed By: #### JYOTIG #### [facility] [address] [place] [address] Dr. Samson SchumacherRBC4.07 106/ulCritically low4.20-5.40The [facility]stownComment on above:Performed By: #### JYOTIG #### [facility] [address] [address] [address] Samson SchumacherWBC13.3 103/ulCritically high4.0-11.0The [facility]Comment on above:Performed By: #### RUBIGG #### [facility] [address] [address] [address] Samson SchumacherPROF CHEM 8 (BAS METB)on 11-97-0128Nwmzy gap [Moles/Vol]13.1 mmol/LNormalThe [facility]stownComment on above:Performed By: #### BMP #### [facility] [address] [address] [address] Samson SchumacherCalcium [Mass/Vol]8.5 mg/dLNormal8.5-10.1The [facility] Comment on above:Performed By: #### BMP #### [facility] [address] [address] [address] Samson SchumacherChloride [Moles/Vol]104 mmol/WVbmtlu69-387Wpc [facility] Comment on above:Performed By: #### BMP #### [facility] [address] [address] [address] Samson SchumacherCO2 [Moles/Vol]24.4 mmol/ZAypicj48.0-32.0The [facility] Comment on above:Performed By: #### BMP #### [facility] [address] [address] [address] Samson SchumacherCreatinine [Mass/Vol]0.83 mg/dLNormal0.55-1.02The [facility]stownComment on above:Performed By: #### BMP #### [facility] [address] [address] [address] Samson GriffithGFR-AF NAURUAN>60Normal>=60The [facility]stownComment on above:Performed By: #### BMP #### [facility] [address] [address] [address] Samson GriffithGFR-NON AF NAURUAN>60Normal>=60The [facility]stownComment on above:Performed By: #### BMP #### [facility] [address] [address] [address] Samson SchumacherGlucose [Mass/Vol]113 mg/dLCritically spdx77-838Jrc [facility]stownComment on above:Performed By: #### BMP #### [facility] [address] [address] [address] Samson SchumacherPotassium [Moles/Vol]3.5 mmol/LNormal3.5-5.1[facility] Comment on above:Performed By: #### BMP #### [facility] [address] [address] [address] Samson SchumacherSodium [Moles/Vol]138 mmol/OIqbcvn356-071Eoa [facility] Comment on above:Performed By: #### BMP #### [facility] [address] [place] [address] Dr. Samson SchumacherUrea nitrogen [Mass/Vol]7.0 mg/dLNormal7.0-18.0The [facility]stownComment on above:Performed By: #### BMP #### [facility] [address] [address] [address] Samson Amaya nitrogen/Creatinine [Mass ratio]8.4 mg/mgNormSelect Medical Specialty Hospital - YoungstownComment on above:Performed By: #### BMP #### [facility] [address] [place] [address] Dr. Samson Heaton PREG TVon 48-85-0685BR PREG TVEXAMINATION: US PREG TV HISTORY: Vaginal bleeding problem [...] Electronically authenticated by: DELFINA JUAREZ Date: 2022-01-01 08:49NoMartin Memorial HospitalHE B SURFACE ANTIGEN SCREENon 76-24-0305UAhEa ScreenNegative NormalNegativeThe [facility] on above:Performed By: #### HBSANS #### [facility] [address] [place] [address] Dr. Samson SchumacherHEPATITIS C VIRUS AB W/ REFLEX QUANTon 97-07-8734RIZ AB<0.1Normal 0.0-0.9The [facility] on above:Performed By: #### HCVPCRR #### [place] [address] Dr[address] Samson SchumacherInterpretation:CommentGood Samaritan Hospital on above:Result Comment: Negative Not infected with HCV, unless recent infection is suspected or other evidence exists to indicate HCV infection.Performed By: #### HCVPCRR #### [place] [address] Dr. Samson Mejia 1 AND 2 WITH REFLEXon 43-94-0041BAN Screen 4th Generation wRfxNon-ReactiveNormalNon ReactiveThe [facility] on above:Result Comment: HIV Negative HIV-1/HIV-2 antibodies and HIV-1 p24 antigen were NOT detected. There is no laboratory evidence of HIV infection.Performed By: #### HIV12 #### [place] [address] Dr. Samson SchumacherRPShelly QUANTon 46-65-1427Hulto Plasma Reagin, QuantNon-Reactive NormalNonRea<1:1[facility] on above:Result Comment: Please Note: This test does not meet current guidelines for screening and diagnosis of syphilis. This test is intended for following treatment response in patients being treated for syphilis infection. To screen for syphilis infection, a reflex cascade that includes both RPR and a treponema-specific assay should be utilized, such as Treponema pallidum (Syphilis) Screening Dodge (582991) or Rapid Plasma Reagin (RPR) Test With Reflex to Quantitative RPR and Confirmatory Treponema pallidum Antibodies (109449).Performed By: #### RUBIGG #### [facility] [address] [place] [address] Dr. Samson Bolivar AB IGGon 91-81-1379Xeeiate Antibodies, IgG3.00 index NormalImmune >0.99[facility]als Health SystemComment on above:Result Comment: Non- immune <0.90 Equivocal 0.90 - 0.99 Immune >0.99Performed By: #### RUBIGG #### [facility] [address] [place] [address] Dr. Samson Heaton PREG TVon 72-55-8060RY PREG TVEXAMINATION: US PREG TV HISTORY: Missed period COMPARISON: [...] Electronically authenticated by: FABIAN MOSER Date: 2021-12-01 22:18[facility] AUTO DIFFon 82-10-8368OOCZ #0.1 103/ulNormal0.0-0.1[facility] Hospitals Health SystemComment on above:Performed By: #### RUBIGG #### [facility] [address] [place] [address] Dr. Samson SchumacherBasophils/100 WBC (Bld)0.5 %Normal0.2-2.0[facility] Comment on above:Performed By: #### RUBIGG #### [facility] [address] [place] [address] Dr. Samson Dotson #0.1 103/ulNormal0.0-0.7The [facility] on above: Performed By: #### RUBIGG #### [facility] [address] [place] [address] Dr. Samson Griffithosinophils/100 WBC (Bld)0.6 %Critically low0.9-7.0The [facility] Centerment on above:Performed By: #### RUBIGG #### [facility] [address] [place] [address] Dr. Samson Griffithrythrocyte distribution width (RBC) [Ratio]11.8 %Sfkoxz58.0-15.0 The [facility] on above:Performed By: #### RUBIGG #### [facility] [address] [place] [address] Dr. Samson SchumacherHematocrit (Bld) [Volume fraction]41.6 %Ouhijd22.0-48.0The [facility]Comment on above:Performed By: #### RUBANTONIG #### [facility] [address] [place] [address] Dr. Samson SchumacherHemoglobin (Bld) [Mass/Vol]13.9 g/rBPdmcge88.0-16.0The [facility] on above:Performed By: #### RUBANTONIG #### [facility] [address] [place] [address] Dr. Samson Delgado #0.03 10e3/ulNormal0.00-0.03The [facility] on above:Performed By: #### RUBANTONIG #### [facility] [address] [place] [address] Dr. Samson Delgado %0.3 %Normal0.0-0.5The [facility]Comment on above: Performed By: #### RUBANTONIG #### [facility] [address] [place] [address] Dr. Samson UngerH #2.1 103/ulNormal1.2-3.8[facility] on above:Performed By: #### RUBANTONIG #### [facility] [address] [place] [address] Dr. Samson Cantumphocytes/100 WBC (Bld)21.8 %Dzogln62.5-60.0The [facility]Comment on above:Performed By: #### JYOTIG #### [facility] [address] [place] [address] Dr. Samson Valentino DIFF REQNONormalThe [facility]stownComment on above: Performed By: #### JYOTIG #### [facility] [address] [place] [address] Dr. Samson Wise (RBC) [Entitic mass]30.0 snWqascq68.7-34.0The [facility]stownComment on above:Performed By: #### JYOTIG #### [facility] [address] [place] [address] Dr. Samson Wise (RBC) [Mass/Vol]33.4 g/xTOmcygz63.9-35.2The [facility]Comment on above:Performed By: #### JYOTIG #### [facility] [address] [place] [address] Dr. Samson Harris (RBC) [Entitic vol]89.8 xVEwocmf00.0-99.0The [facility]Comment on above:Performed By: #### JYOTIG #### [facility] [address] [place] [address] Dr. Samson Santos #0.6 103/ulNormal0.3-0.8The [facility]stownComment on above:Performed By: #### JYOTIG #### [facility] [address] [place] [address] Dr. Samson Ferreiraocytes/100 WBC (Bld)6.5 %Normal1.7-12.0[facility] Comment on above:Performed By: #### JYOTIG #### [facility] [address] [place] [address] Dr. Samson Vela #6.6 103/ulCritically high1.4-6.5The [facility] Comment on above:Performed By: #### JYOTIG #### [facility] [address] [address] [address] Samson Hairutrophils/100 WBC (Bld)70.3 %Qxsohe25.0-75.0The [facility] Centerment on above:Performed By: #### RUBIGG #### [facility] [address] [place] [address] Dr. Samson SchumacherPlatelet mean volume (Bld) [Entitic vol]9.8 fLNormal9.5-13.5The [facility] on above:Performed By: #### RUBIGG #### [facility] [address] [place] [address] Dr. Samson SchumacherPLT229 103/lwHdemss089-599Jkk [facility] on above: Performed By: #### RUBIGG #### [facility] [address] [place] [address] Dr. Samson SchumacherRBC4.63 106/ulNormal4.20-5.40[facility] on above:Performed By: #### RUBIGG #### [facility] [address] [place] [address] Dr. Samson SchumacherWBC9.4 103/ulNormal4.0-11.0[facility] on above: Performed By: #### RUBIGG #### [facility] [address] [place] [address] Dr. Samson SchumacherCULTHÉCTOR URINEon 86-88-0096ITCGUEY URINECulture Observations: MODERATE GROWTH OF MIXED GENITAL HUBER. NO POTENTIAL PATHOGENS SEEN.NormalThe [facility] on above:Performed By: #### RUBIGG #### [facility] [address] [place] [address] Dr. Samson SchumacherGLYCOHEMOGLOBIN A1Con 95-22-8917ZRV RECOMMENDATIONSEE BELOWNormal [facility] on above:Result Comment: ADA RECOMMENDED LIMIT 4.0 - 6.0 ADA THERAPEUTIC TARGET < 7.0 ACTION SUGGESTED > 7.0Performed By: #### A1C #### [facility] [address] [place] [address] Dr. Samson SchumacherGlucose [Mass/Vol]105 mg/dLNoMartin Memorial HospitalComment on above:Performed By: #### A1C #### [facility] [address] [address] [address] Samson SchumacherHbA1c (Bld) [Mass fraction]5.3 %Normal4.5-6.2[facility] Hospitals Health SystemComment on above:Performed By: #### A1C #### [facility] [address] [address] [address] Samson SchumacherTYPE AND SCREENon 86-16-9623BJRD AND SCREENNegativeNoMartin Memorial HospitalComment on above:Performed By: #### RUBIGG #### [facility] [address] [place] [address] Dr. Samson SchumacherKNEE LEFT 1 OR 2 VWSon 38-69-0681OTOP LEFT 1 [address] Anne HospitalDepartment of Expjjhtcl[address] [place] [id number] Patien t Name: NIDIA SMITH : 1995Sex: FAge: Race: WhiteMRN: [id number]. Location: 84Patient Status: Date: 07/31/2017 10:20:00 AMCompleted Date: 07/31/2017 10:34 AMRequesting Provider: SHAN YUNG Attending Provider: Report Copy To: Signs & Symptoms: M25.562 Pain in left knee R16Xsjzkok: AthenaComments: , , , Ordering Provider - SHAN YUNG MD , Exam: KNEE LEFT 1 OR 2 VWSAccession #: [id number] KNEE LEFT 1 OR 2 VWS 07/31/2017 10:34 [...] repair. Electronically signed by:Reta Salas. Transcribed by: [email or web address], User Resident: Electronically Signed by: RETA SALAS @ 07/31/2017 11:14 [facility]oples HospitalComment on above:Order Comment: , , , Ordering Provider - SHAN YUNG MD , Operative Reporton [id number] ReportMR#: [id number] [facility] Pt. Name: Nidia Smith Room #: 0C Discharge 07/27/2017 Date: Birthdate: 1995 OPERATIVE REPORTDATE OF SURGERY: 07/27/2017SURGEON: Shan Yung M.D.[employer]PER[employer] INTELLIGENCE CHIEF: Shan Rodarte M.D.PREOPERATIVE DIAGNOSIS: Left knee ACL tear.POSTOPERATIVEDIAGNOSIS: Left knee ACL tear.PROCEDURES: Left knee arthroscopy, ACL reconstruction with hamstringau tograft.ANESTHESIA: General with regional nerve block.FLUIDS: Per anesthesia record.ESTIMATED BLOODLOSS: Minimal.IMPLANTS: Arthrex tightrope and 8 x 28 mm BioComposite interference screwin the tibiaand an 8 x 20 mm bone staple.COMPLICATIONS: None.INDICATIONS: The patient is a 22-year-old female who complains of leftknee instability for 4 months after playing basketball when she twisted herknee.She felt a pop and pain at that [...] sheelected with hamstring autograft. The risks, benefits, andalternatives tosurgery including the risks of bleeding, infection, damage to nerve, bloodvessels, anesthesia, blood clots, failure of repair, reconstruction,re- tear, stiffness, arthritis, pain, dysfunction, and need for furthersurgery were discussed. Postoperative course was discussed. All questionswere answered. The patient elected to proceed. Informed consent wasobtained in clinic.PROCEDURE IN DETAIL: The patient was identified in the preoperative area.The operative site was marked by myself.She was taken by Anesthesia forregional nerve block, then to the operative theater, placed in supineposition. General anesthesia was induced without complication.Preoperative antibiotics were administered. EPC cuff was placed on thecontralateral leg along with DEONDRE hose. The left lower extremitypreoperative examination showed full range of motion, stable varus valgusstress, positive Rodriguez, negative posterior drawer, and positive pivotshift. She has stable at posterior medial and posterolateralstressing.The left lower extremity was prepped and draped in usual sterile fashion.Proper time-out was done.Began exsanguination of the left lower extremity with an Esmarch andtourniquet was inflatedto 300 mmHg. We began with a longitudinal incisionoverlying the pes tendons. Bovie cautery was usedfor hemostasis. Wedissected down through the subcutaneous fat and then bluntly with fingeroverlyingthe sartorial fascia. Hemostat was utilized to elevate thesartorial fascia off the MCL. We then sharply incised the sartorial fascialeaving a cuff for later repair. The gracilis and semitendinosus ten donswere identified and utilizing a hemostat, they were [...] a guide pin wasdrilled in retrograde fashion intothe footprint of the ACL on the tibiaand [...] graft into the femoral socket and once thiswascomplete, held tension on the tibial aspect of [...] scrubbed, and participated in all portions of procedur eand available to assist afterwards.POSTOPERATIVE COURSE: The patient will be discharged home withweightbearing of left lower extremity. She will be given Beaumont for paincontrol, Colace, and aspirin for DVT prophylaxis. I will see her back inclinic in 4-5 days for initiation of physical therapy withaccelerated ACLprotocol.Electronically Signed by:Shan Yung M.D. 07/30/2017 11:36 A Shan Yung M.D.Date Dict: 07/27/2017/09:27 A/Shan Yung M.D.Date Trans:07/27/2017 07:56 P/mmoDN_JN:[id number]: Kiel Kelly D.O. [facility]3 [facility] HospitalArturo [facility] [address]KltskgRobLouis Stokes Cleveland VA Medical CenterPO GLUCOSE LABon 07-27-2017 Glucose mass conc81 mg/qVZygccz46-944Pas [facility] Comment on above:Performed By: #### [id number] ####[facility] [place] [address], [facility] CENTERPO URINE PREGNANCYon 07-27-2017 HCG.beta subunit ( test) Ql (U)NegativeNormalNEGATIVEThe [facility] – JacksonComment on above:Result Comment: Performed in PACUPerformed By: #### 39554 ####[facility] [place] [address], USAHCG, Quanton 42-02-5202ODQ, Quant<1Normal<5[facility] Comment on above:Result Comment: Non-preg premeno <=5Postmeno <=8Male <=3If HCG results do not concur with clinical observations, additional testing to confirm result is recommended. This test is not labeledfor use as a tumor marker.Performed at [address] [place] [address] [phone] By: #### GLUF ####[address] [place] [address] #### FSH, LH, PROL, TEST ####[place] [address] [place], [place] [address] #### INSU ####[address] [place] [phone] , [place] [phone] KNEE LEFT 4VWSon 89-92-7848NUJO LEFT 4VWSHolzer Medical Center – JacksonDepartment of Swjejgbkj7[address] [place] [address] Patien t Name: NIDIA SMITH : 1995Sex: FAge: Race: WhiteMRN: [id number]. Location: 84Patient Status: OVisit #: [id number] Date: 06/18/2017 1:05:00 PMCompleted Date: 06/18/2017 01:09 PMRequesting Provider: SHAN YUNG Attending Provider: SHAN YUNG Report Copy To: UNKNOWN, PHYSICIAN Signs & Symptoms: M25.562 Pain in left knee W52Xhlfuof: AthenaComments: , , , Ordering Provider - SHAN YUNG MD , Exam: KNEE LEFT 4VWSAccession #: [id number] KNEE LEFT 4VWS 06/18/2017 1:09 PM EDT SIGNS AND SYMPTOMS: M25.562 Pain in left knee I10 TECHNOLOGIST COMMENTS: pt states started having lt knee painwhile playing basketball, QUESTION FOR THE RADIOLOGIST: , , , Ordering Provider - SHAN YUNG MD , PROTOCOL: AP,Lateral,Tunnel and Tangential views were obtained. COMPARISON: None FINDINGS: Soft tissues:Fullness in the suprapatellar bursa suggesting moderate effusion. No significant soft tissue swelling. Bones:Normal bone density. No evidence of acute bony abnormality. Joints:Normal joint spaces. No evidence of erosive or productive changes. IMPRESSION: 1. No evidence ofacute bony abnormality with moderate suprapatellar effusion seen. Electronically signed by:Mona Mckeon. Transcribed by: [id number], User Resident: Electronically Signed by: MONA MCKEON @ 06/18/2017 02:23 PMNormalCleveland Clinic Medina HospitalComment on above:Order Comment: , , , Ordering Provider - SHAN YUNG MD , Progesteroneon 28-10-2487Gjlrhfneyylg17.40 ng/mLNormalBrecksville Va / Crille HospitalComment on above: Result Comment: FEMALE (healthy): Follicular phase 0.06-0.89 Ovulation phase 0.12-12.00 Luteal phase 1.83-23.90Postmenopausal <0.13Performed at [address] [address] [phone] By: #### GLUF ####[address] [place] [id number] #### FSH, LH, PROL, TEST ####[address] [address] #### INSU ####[address] [phone] [place] [address] Progress Noteon 11-96-3929RZD IP Note OR School [employer] Head Cook NormalBrecksville Va / Crille HospitalProgress Noteon 48-71-8120XUT IP Note OR TranscriptionNormalBrecksville Va / Crille HospitalHCG Screen, Bloodon 54-25-9621UHN Qn NegativeNormalNEGBrecksville Va / Crille HospitalComment on above:Result Comment: Performed at [address] [place] [address] Performed By: #### HCG ####[address] [place] [address] Progesteroneon 91-05-4386Drgdgekqbsjo<0.05Normal [facility] / Crille HospitalComment on above:Result Comment: FEMALE (healthy): Follicular phase 0.06-0.89 Ovulation phase 0.12-12.00 Luteal phase 1.83- 23.90Postmenopausal <0.13Performed at [address] [address] [phone] By: #### PROG ####[address] [phone] Stim. Hormon 45-47-2259Znkgscva Stim. Horm5.8 U/LNormal1.7-21.5B[facility] / Crille HospitalComment on above:Result Comment: Reference Range:Male: 1.5-12.4Ovulating Female: Follicular Phase 3.5-12.5 OvulationPhase 4.7-21.5 Luteal Phase 1.7-7.7Postmenopausal Female: 25.8- 134.8Performed at [address] [address] [phone] By: #### GLUF ####[address] , [place] [id number] #### FSH, LH, PROL, TEST ####[address] [address] #### INSU ####[address] [phone] [address] [place], [place] [address] Glucose, Fastingon 01-06-2017 Glucose mass conc91 mg/rTTuecyl24-76DkaadSt. Francis HospitalComment on above:Result Comment: Performed at [address] [place], [place] [phone] Performed By: #### GLUF ####[address] [place] [address] #### FSH, LH, PROL, TEST ####[address] [address] #### INSU ####[address] [phone] [address] [place] [phone] 14-15-0379Eyuaaut76.8 mU/LNCleveland Clinic FoundationComment on above:Performed By: #### GLUF ####[address] [place] [address] #### FSH, LH, PROL, TEST ####[address] [address] #### INSU ####[address] [phone] [address] [place] [phone] Reference RangeNoSt. Anthony's HospitalComment on above: Result Comment: Fastin.6-24.930 min: 20-23221 min: 29-8890 min: 26-31428 min: 22-79Performed [address] [address] [phone] By: #### GLUF ####[address] [place] [address] #### FSH, LH, PROL, TEST ####[address] [address] #### INSU ####[address] [phone] [place], [place] [phone] Info.A.M.NormalBrecksville Va / Crille HospitalComment on above:Result Comment: Performed at [address] [place] [address] [phone] By: #### GLUF ####[address] [place] [address] #### FSH, LH, PROL, TEST ####[address] [address] #### INSU ####[address] [phone] [address] [place], [place] [phone] Hormoneon 84-65-8425Vawmrewtils Hormone8.0 U/L Normal1.0-95.6MSt. Francis HospitalComment on above:Result Comment: Reference Range:Male: 1.7-8.6Ovulating Female: Follicular Phase 2.4-12.6 Ovulation Phase 14.0-95.6 Luteal Phase 1.0-11.4Postmenopausal Female: 7.7-58.5Performed at [address] [address] [phone] By: #### GLUF ####[address] [place] [address] #### FSH, LH, PROL, TEST ####[address] [address] #### INSU ####[address] [phone] [address] [place], [place] [phone] 87-36-6408Cxfrdgjsy37.98 ug/LNormal4.79-23.30 [facility] / Crille HospitalComment on above:Result Comment: The presence of macroprolactin may cause interference in female patients with various endocrinological diseases or during .Performed at [address] [address] Performed By: #### GLUF ####[address] [place] [address] #### FSH, LH, PROL, TEST ####[address] [place] [phone]#### INSU ####[address] [place] [phone] [place] [address] Testosterone, Totalon 64-32-6833Okuykntckzos11 ng/fCNmsuzo62-01ImjmmBrecksville Va / Crille HospitalComment on above:Result Comment: Performed at [address] [address] [phone] By: #### GLUF ####[address] [place] [address] #### FSH, LH, PROL, TEST ####[address] [place] [phone]#### INSU ####[address] [place] [phone] [place] [address] Thyroid Stim. Horm.on 19-31-2907Ycotjcc stimulating hormone (TSH)1.68 m[IU]/LNormal 0.30-5.00B[facility]ville Va / Crille HospitalComment on above:Result Comment: Performed at [address] [place] [address] Performed By: #### TSH ####[address] [place] [address] Vital Signs Date TimeVital SignValuePerforming GfzdbnwrbNxhaochr32-48-3806 08:44-0400Body mass index (BMI) [Ratio]36.99 kg/y0Vprmg Chinedu DO Work Phone: [phone] [place], [place] [address]Yliehlyeac46-28-5547 08:44-0400Body jihcwp73.75 kgCorey Chinedu DO Work Phone: [phone] [place], [place] [address]Rqgvtcaemd20-64-8828 08:44-0400Diastolic blood vgfsqnom07 mm[Hg]Tim Chinedu DO Work Phone: [phone] [place], [place] [address]Bqtzmpxaph59-67-1425 08:44-0400Systolic blood aprfersc013 mm[Hg]Tim Chinedu DO Work Phone: [phone] [place], [place] 6444002-19-2025 15:13-0500Body mass index (BMI) [Ratio]36.01 kg/n0Ocmsc Chinedu DO Work Phone: [phone])[facility] [place], [place] [address]Exvigtdbmr26-22-6216 15:13-0500Body uviprw51.17 kgCorey Chinedu DO Work Phone: [phone] [place], [place] [address]Ugedzavozs64-46-7918 15:13-0500Diastolic blood dsrsmsaf47 mm[Hg]Tim Chinedu DO Work Phone: [phone])[facility] [place], [place] [address]Igbhrgzxzg44-13-6640 15:13-0500Systolic blood hvoxdcov604 mm[Hg]Tim Chinedu DO Work Phone: [phone] [place], [place] 6444008-22-2024 09:30-0400Body mass index (BMI) [Ratio]35.94 kg/q3Fgpti Chinedu DO Work Phone: [phone] [place], [place] 6444008-22-2024 09:30-0400Body smnidg25.98 kgCorey Chinedu DO Work Phone: [phone] [place], [place] 6444008-22-2024 09:30-0400Diastolic blood xhjaquhq58 mm[Hg]Tim Chinedu DO Work Phone: [phone] [place], [place] 6444008-22-2024 09:30-0400Systolic blood taghcwoo738 mm[Hg]Tim Chinedu DO Work Phone: [phone] [place] [address] Encounters Encounter DateEncounter TypeCare ProviderFacilityStart: 11-04-2024 End: 35-88-4273Tcniqz flowsheetCorey Chinedu DO Work Phone: [facility] [place] OBGYNStart: 11-04-2024 End: 04-13-4638Udrsrj flowsheetCorey Chinedu DO Work Phone: [facility] [place] OBGYNStart: 11-04-2024 End: 42-56-0852Simduyhvp Result EncounterCorey Chinedu DO Work Phone: noms External Department UnsolicitedStart: 11-04-2024 End: 31-30-6476gdrpxuicpwWULZR FAZIONot AvailableStart: 11-04-2024 End: 88-31-4495Pvuaxlx encounter procedureCorey Chinedu DO Work Phone: NOYP HealthcareStart: 11-04-2024 End: 02-71-6943Zzdgwjrv preventive med est patient 18-39 yrsCorey Chinedu DO Work Phone: NOWI Sergio OBGYNComment on above:Well woman exam with routine gynecological examStart: 09-30-2024 End: 04-80-9717Yuprxa flowsheetCorey Chinedu DO Work Phone: [facility]OM[facility] BCP OBStart: 09-30-2024 End: 89-84-3175Sipwel flowsheetCorey Chinedu DO Work Phone: noms BCP OBStart: 09-30-2024 End: 60-91-2519ajbqlgsxuwLSBJB FAZIONot AvailableStart: 09-30-2024 End: 14-83-1461Pmxdxr outpatient visit 15 minutesCorey Chinedu DO Work Phone: [facility] [place] OBGYNComment on above:Menstrual cycle problem; Nausea and vomiting, unspecified vomiting typeStart: 05-13-2024 End: 42-25-9524Thwpytxdl Result EncounterCorey Chinedu DO Work Phone: noms External Department UnsolicitedStart: 05-13-2024 End: 75-43-6596Oyakjqugt Result EncounterCorey Chinedu DO Work Phone: noms External Department UnsolicitedStart: 04-30-2024 End: 70-45-9911epxkcgiktqRCURT FAZIONot AvailableStart: 04-30-2024 End: 02-23-7675Lqkqxl outpatient visit 15 minutesCorey Chinedu DO Work Phone: NOWY BCP OBComment on above:Encounter for fertility planning; AmenorrheaStart: 04-30-2024 End: 37-16-7901Gpikfy flowsheetCorey Chinedu DO Work Phone: NOAS BCP OBStart: 04-30-2024 End: 46-99-0018Gopzfg flowsheetCorey Chinedu DO Work Phone: NOXW BCP OBStart: 11-01-2023 End: 40-87-5647Khgjrx flowsheetCorey Chinedu DO Work Phone: NOKU BCP OBStart: 11-01-2023 End: 56-22-4717Jesgmy flowsheetCorey Chinedu DO Work Phone: noms BCP OBStart: 11-01-2023 End: 52-60-5270Psukratpm Result EncounterCorey Chinedu DO Work Phone: noms External Department UnsolicitedStart: 11-01-2023 End: 84-52-5285Abbmdao encounter procedureCorey Chinedu DO Work Phone: [facility] Work Phone: Start: 11-01-2023 End: 49-85-3772Wbugfloz preventive med est patient 18-39 yrsCorey Chinedu DO Work Phone: NOIV BCP OBComment on above:Well woman exam with routine gynecological examStart: 03-02-2023 End: 31-01-7014Mvvkspjui Result EncounterCorey Chinedu DO Work Phone: noms External Department UnsolicitedStart: 03-02-2023 End: 68-67-7544Jdlcjemgw Result EncounterCorey Chinedu DO Work Phone: [facility] External Department UnsolicitedStart: 07-04-2022 End: 43-74-7436whpomehxupUA TIM CHINEDU .Facility:T6Hjsan: 01-10-2022 End: 42-24-3023rrkawxbexgPV TIM CHINEDU .Facility:Q6Nctjk: 01-01-2022 End: 96-74-7659kilniehfiuXP BOONE Garcia REINECKFacility:E6Qspfb: 12-01-2021 End: 83-09-2988fangxluhigWN TIM CHINEDU .Facility:Q5Veazp: 08-10-2017 End: 96-15-7288QblnieftfgGOIHPGAXN UNKNOWNFacility:UTMCStart: 07-31-2017 End: 76-34-0838BvgrxiphyaZNEJZKKXR UNKNOWNFacility:UTMCStart: 07-27-2017 End: 06-91-2363AxehilaslqQMMPJGHC SELFFacility:UTMCStart: 07-17-2017 End: 98-98-1330EhfalwxbkfUMVPIY F DORIS BECERRATRONGMercanne-marie [facility] HospitalStart: 07-17-2017 End: 83-94-7740EmhqepcafnZXAKT MILLERFacility:UTMCStart: 06-18-2017 End: 55-72-6142UsctukhwidYFZKK MILLERFacility:UTMCStart: 06-12-2017 End: 98-53-8122WybycadhpbHGMSTJW PHYSICIANFacility:UTMCStart: 05-15-2017 End: 53-55-7179AnwtikwyrvRHUTU MICHELLE SMITHMercy Lincoln HospitalStart: 04-12-2017 End: 48-82-3755HncyjxqlzoPARESMCKAYLA Palomofin HospitalStart: 02-14-2017 End: 04-30-0507UgbpoievtsIOZCW MICHELLE SMITHMercy Lincoln HospitalStart: 01-06-2017 End: 06-45-9079TdhidgpfyhLZVPM MICHELLE SMITHMercy Lincoln Hospital Procedures DateProcedureProcedure DetailPerforming ClinicianStart: 00-03-6268SKQ,APTIMA HPV,AGE GDLNCorey Chinedu DO Work Phone: Start: 24-24-5125NGP PROLACTINCorey Chinedu DO Work Phone: Start: 76-33-8110OYM,APTIMA HPV,AGE GDLNCorey Chinedu DO Work Phone: Start: 35-74-4262Yyof cerv/vag auto thin layer prep mnl screenCorey Chinedu DO Work Phone: Start: 12-72-8134Ir uterus limited 1/> fetusesCorey Chinedu DO Work Phone: Start: 33-59-7644CSIZEF KNEE JOINT SURGERYTHOMAS A ROONEYStart: 75-15-6401IYAC ARTHROSCOPY/SURGERYJACOB MILLERStart: 07-17-2017 Gonadotropin chorionic quantitativeSUSAN SMITHStart: 32-45-5435XHANNWRBJGVIJOUJU SMITHStart: 90-77-7040KWA, SERUM, QUALITATIVESUSAN SMITHStart: 02-14-2017 PROGESTERONESUSAN SMITHStart: 75-35-7748PLO WITHOUT REFLEXSUSAN SMITHStart: 25-40-1492VTCZXUPP STIMULATING HORMONESUSAN SMITHStart: 78-99-8303CKTQWQJ, FASTINGSUSAN SMITHStart: 59-55-1027DJAPIXP, TOTALSUSAN SMITHStart: 01-06-2017 LUTEINIZING HORMONESUSAN SMITHStart: 74-88-9370DOZYWADXDSKFIF SMITHStart: 46-18-6119LMZASZWTDSBPYODFH SMITH Plan of Treatment DateCare ActivityDetailAuthorStart: 11-09-2025 End: 16-11-0469Lzfynqe encounter zomqcerih91/31/2026 8:30 AM EDT Procedure Visit [facility] Sergio JAUREGUI [address] [place] [address] Tim Che, DO [address] [place] [address] [facility] Sergio ASHTONGYNStart: 11-04-2024 End: 57-48-0855Ckekvor encounter procedureNOMS BCP OBStart: 11-01-2023 End: 50-27-3665Ytomlua encounter gqyrwxdvi72/22/2024 9:20 AM EDT Office Visit [facility] [address] [facility] [place] [phone] Tim Che, DO [address] [address] ArrivedNOSD BCP OBComment on above:ArrivedCytology Cervical or vaginal smear or scraping studyPap Smear Pathology and Cytology Routine Well woman exam with routine gynecological exam Ordered: 11/01/2023[facility] Work Phone: comment on above:Ordered: 11/01/2023ytology Cervical or vaginal smear or scraping studyPap Smear Pathology and Cytology Routine Well woman exam with routine gynecological exam Ordered: 11/04/2024[facility] Work Phone: comment on above:Ordered: 11/04/2024ProlactinProlactin Lab Routine Amenorrhea Ordered: 04/30/2024[facility] Work Phone: Comment on above:Ordered: 04/30/2024 Payers DatePayer CategoryPayerPolicy [id number] [id number] 2.16.840.1.248468.3.579.2. [id number] 2.16.840.1.357281.3.57[id number] 2.16.840.1.750719.3.57[id number] 2.16.840.1.218854.3.57[id number] 2..0.1.254729.3.57[id number] 2.16.840.1.922598.3.57[id number] 2.16.840.1.839083.3.579.2.84[id number] Social History DateTypeDetailFacilityStart: 82-28-4715Ijwixyn smoking status NHISNever smoked tobaccoNOMS HealthcareStart: 31-66-0140Olpvdrt use and exposureSmokeless tobacco non-userNOMS HealthcareStart: 02-20-2023 End: 74-89-4693Pqqlnbfsp beverage intakeEx-drinker (finding)[facility] Start: 08-10-2022 End: 05-59-7242Mrwhtom of Social functionNOMS HealthcareStart: 08-10-2022 End: 43-45-8996Aygcwuk use panelNOMS HealthcareStart: 38-46-3236Duodykt Comment caffeine intake: 1 cup per day of coffeeNOMS HealthcareStart: 65-52-9113Ddq assigned at birthFeLahey Hospital & [facility] HealthcareStart: 28-56-6478Sfjcrc identityIdentifies as female gender (finding)[facility] HealthcareStart: 03-96-6197QbcNdofzqQFQK Healthcare History of Present illness Narrative 11-04-2024 Note Date & GflgEmtcQowsrfzr94-14-1593 History of Present illness Narrative* Kayleigh Donnelly LPN - 11/04/2024 8:30 AM EDT Reason for [...] Noted Complete or unspecified spontaneous without complication ([facility]) 08/09/2022 Missed period 08/09/2022 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 Exam conducted with a sausage cooker present. Vitals: Estimated body mass index is [...] have them. Patient canalso view results via xaitment. 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 Exam conducted with a sausage cooker present. Vitals: Estimated body mass index is [...] with pt. Discussed adding metformin back to installer helper in ovulation. Pt to start metformin. Pt to return as needed. Documented by Kayleigh Donnelly LPN on behalf of: Tim Che DO documented in this encounterNOMS Healthcare History of Present illness Narrative 04-30-2024 Note Date & EkdqZgngNgqblner25-51-7575 History of Present illness Narrative* Kayleigh Donnelly LPN - 04/30/2024 2:50 PM EST Reason for Appointment: Patient ID: Yvonne Smith is a 28 y.o. female who presents for Infertility Patient presents today for Acute Visit. and Consult appointment. MEDICATIONS Current Outpatient Medications Medication Instructions levothyroxine (Synthroid, Levoxyl) 75 MCG tablet TAKE 1 TABLET BY MOUTH EVERY DAY IN THE MORNING ONEMPTY STOMACH FOR 30 DAYS ALLERGIES No Known [...] nursing note reviewed. Exam conducted with a sausage cooker present. Vitals: Estimated body mass index is [...] not having periods with a TSH at 37.Target range is below 3. Discussed inducing a period after tsh within normal range. Documented by Kayleigh Donnelly LPN on behalf of: Tim Che DO documented in this encounterNOMS Healthcare History of Present illness Narrative 11-01-2023 Note Date & NmadXknyIbhdzrvi05-76-4640 History of Present illness Narrative* Danya Dooley LPN - 11/01/2023 9:20 AM EDT Reason for Appointment: Patient ID: [...] nursing note reviewed. Exam conducted with a sausage cooker present. Vitals: Estimated body mass index is [...] of: Tim Che DO documented in this encounterNOSD Healthcare Evaluation note Note Date & TypeNoteFacilityEvaluation note* Diagnosis Well woman exam with routine gynecological exam Routine gynecological examination documented in this encounter [facility] Evaluation note Note Date & TypeNoteFacilityEvaluation note* Diagnosis Encounter for fertility planning Amenorrhea Absence of menstruation documented in this encounter [facility] Evaluation note Note Date & TypeNoteFacilityEvaluation note* Diagnosis Menstrual cycle problem Nausea and vomiting, unspecified vomiting type documented in this encounter [facility] Evaluation note Note Date & TypeNoteFacilityEvaluation note* Diagnosis Well woman exam with routine gynecological [...] section and content) DATE CREATED AUTHOR 08/30/2017 [facility] DATE CREATED AUTHOR AUTHOR'S ORGANIZ ATION 09/14/2017 [facility] DATE CREATED AUTHOR AUTHOR'S ORGANIZ ATION 07/12/2022 [facility] DATE CREATED AUTHOR AUTHOR'S ORGANIZ ATION 11/05/2024 [facility] EPIC Care Teams (unrecognized sec tion and content) Team MemberRelationshipSpecialtyStart DateEnd Date Jamin Massey MD [address] [place] [address] PCP - GeneralFamily Medicine08/10/22Team MemberRelationshipSpecialtyStart DateEnd Date Jamin Massey MD [address] [place] [address] PCP - GeneralFamily Medicine08/10/22Team MemberRelationshipSpecialtyStart DateEnd Date Jamin Massey MD [address] [facility] [place] [facility] [place] [address] [facility] - [facility]08/10/22Team MemberRelationshipSpecialtyStart DateEnd Date Jamin Massey MD [address] [facility] [place] [address] [facility] - [facility]08/10/22Team MemberRelationshipSpecialtyStart DateEnd Date Jamin Massey MD [address] [facility] [place] [address] PCP - [facility]08/10/22Team MemberRelationshipSpecialtyStart DateEnd Date Jamin Massey MD [address] [facility] [place] [address] PCP - [facility]08/10/22Team MemberRelationshipSpecialtyStart DateEnd Date Jamin Massey MD [address] [facility] [place] [address] [facility] - [facility]08/10/22Team MemberRelationshipSpecialtyStart DateEnd Date Jamin Massey MD [address] [facility] [place] [address] [facility] - [facility]08/10/22 Reason for Visit (unrecogniz ed section and content) ReasonCommentsWell Women VisitReasonCommentsInfertilityReasonCommentsdiscuss cycles FOR RECORDS PERTAINING TO PATIENTS WHO [...] BE BASED ON THE PRIMARY CLINICAL RECORDS. [facility]. provides no warranty or guarantee of the accuracy or completeness of information in this document.
[2025-01-14 10:35] LABS: Hematocrit 42.1 % (36.0-48.0); Hemoglobin 14.0 g/dL (12.0-16.0); Immature Granulocytes Abs Auto 0.01 10^3/uL (0.00-0.03); Immature Granulocytes Pct Auto 0.2 % (0.0-0.5); Lymphocytes Absolute Auto 2.0 10^3/uL (1.2-3.8); Mean Corpuscular HGB Conc 33.3 g/dL (29.9-35.2); Mean Corpuscular Hemoglobin 30.0 pg (26.7-34.0); Mean Corpuscular Volume 90.1 fL (81.0-99.0); Platelet Count 253 10^3/uL (150-450); Red Blood Count 4.67 10^6/uL (4.20-5.40); White Blood Count 5.2 10^3/uL (4.0-11.0)
[2025-01-14 11:58] LABS: Alanine Aminotransferase 30 U/L (14-59); Albumin Globulin Ratio 1.1; Albumin Level 4.1 g/dL (3.4-5.0); Alkaline Phosphatase 73 U/L (46-116); Amylase 46 U/L (25-115); Anion Gap 15.0; Aspartate Amino Transferase 16 U/L (15-37); Blood Urea Nitrogen 19.0 mg/dL (7.0-18.0); Calcium 9.2 mg/dL (8.5-10.1); Carbon Dioxide 28.0 mmol/L (21.0-32.0); Chloride 103 mmol/L (98-107); Estimated GFR (African America >60 (>=60 mL/min/1.73m^2); Estimated GFR (Non-African Ame >60 (>=60 mL/min/1.73m^2); Free T3 2.67 pg/mL (2.18-3.98); Globulin 3.8 g/dL; Glucose 93 mg/dL (74-106); Lipase 38.0 U/L (16.0-77.0); Potassium 4.0 mmol/L (3.5-5.1); Sodium 142 mmol/L (136-145); Thyroid Stimulating Hormone 4.015 uIU/mL (0.358-3.740); Total Protein 7.9 g/dL (6.4-8.2)
[2025-01-15 11:08] LABS: CA 19-9 16 U/mL (0-35); CEA 1.1 ng/mL (0.0-4.7)
== END 2025-01-14 10:01 | disposition home or self-care (01) ==
LOC: LAB 10:02
PROVIDERS: PCP Family Medicine; Visit Provider Family Medicine
DX: E03.9 Hypothyroidism, unspecified (principal)
CPT/HCPCS: 36415; 80053; 82150; 82378; 83690; 84436; 84443; 84481; 85025; 86301

== ENCOUNTER 2025-01-30 08:36 | Outpatient (OUT) | payer BC, SELFPAY ==
--- OUTSIDE RECORDS SUMMARY | 2025-01-21 10:30 | XMS_ITS ---
Author Organization [facility] in [place] Address [address] [place] [address] Care Team Providers Care Metrologist Name Role Phone Aron Massey Primary Care Provider Allergies No Known Allergies REASON FOR VISIT stomach issues, patient states her stomach issues have improved, staying away from caffiene and carbonation. she also would like her right ear looked at, she thinks its infected , no drainage but hasbeen painful for the last few days Medications Medication SIG (Take, Route, Frequency, Duration) Notes Start Date End Date Status Levothyroxine Sodium 100 MCG TAKE 1 TABL ET BY MOUTH EVERY DAY IN THE MORNING ON EMPTY STOMACH FOR 30 DAYS; Duration: 90 days ActiveProtonix 40 MG1 tablet Orally Once a day; Duration: 30 days07/02/2024 ActiveHyoscyamine Sulfate 0.125 MG1-2 tabs SL SL every 4 hrs PRN abd pain 5Active Social History Tobacco Use: Social History Observation Description Date Details (start date - stop date) Never Smoker NA - NA Tobacco Control (Standard) Question Answer Notes Tobacco use: Nonsmoker AUDIT-C (Standard) Question Answer Notes Did you have a drink containing alcohol in the p ast year? No Poxpar1UdlalkkspbvnkuVwpsczwu Problems Problem Type SNOMED Code ICD Code Onset Dates Problem Status W/U Status Risk Notes Problem Right upper quadrant pain (67336 7006) Right upper quadrant abdominal pain (R10.11) Activeconfirmed Vital Signs Weight 217 lbs 01/21/2025 Height 64 in 01/21/2025 Blood pressure systolic 130 mm Hg 01/22/20 25 Blood pressure diastolic 82 mm Hg 025 BMI 37.24 kg/m2 01/21/2025 Encounters Encounter Location Date Provider Diagnosis [facility] [address] [place] [address] 01/21/2025 Aron Massey Right upper quadrant abdominal pain R10.11 Assessments Encounter Date Diagnosis (ICD Code) Assessment Notes Treatment Notes Treatment Clinical Notes Section Notes 01/21/2025 Right upper quadrant abdominal p ain (ICD-10 - R10.11) Plan Of Treatment Medication Medication Name Sig Start Date Stop Date Notes Hyoscyamine Sulfate 0.125 MG 1-2 tabs SL SL every 4 hr s PRN abd pain 01/21/2025 Pending Test Test Name Order Date US ABD 01/21/2025 Progress Notes * Nidia SMITH KDOB:[birth year] (29 yo F)Acc No.[id number]:01/21/2025 Progress Note Patient: Nidia ROWE :?Jamin Massey ([facility]), MDDOB:1995???Age: 29 Y???Sex:FemaleDate:01/21/2025Phone:[phone]:[address] [place], [place] [id number] In:02:57 PM ESTCheck Out:03:42 PM EST Subjective: * Chief Complaints: * S tomach issues, patient states her stomach issues have improved, staying away from caffiene and carbonation. she also would like her right ear looked at, she thinks its infected , no drainage but has been painful for the last few days * HPI: ???General:? SOmestomach issues - occ nuasea - more with greasy - occ with spicy. * ROS: ???EENT:?hearing changes?denies.?visual changes?denies. non-healing mouth sores?denies.?swollen glands or neck lumps?denies.?hoarseness?denies.?sore throat?denies.?difficulty swallowing?denies.?nose bleeds?denies.?nasal congestion?denies.?ear ache?denies.?ear discharge denies.?ringing in ears?denies.?light sensitivity?denies.?eye pain?denies.?blurring?denies.?eye irritation?denies.?double vision?denies. vision loss?denies.?General/Constitutional:?Sweats:?Denies.?Fatigue?denies.?Sleep proble ms?denies.?Anorexia?denies.?Malaise?denies.?Weight loss?denies. Fatigue or Weakness?denies.?Fever or Chills?denies.?Cardiovascular:?Shortness of Breath w/lying flat?denies.?Lightheadedne ss/dizziness?denies.?Chest tightness/ heavy pressure?denies.?Swelling of legs, a nkles, or feet?denies.?Waking up with shortness of breath?denies.?Chest pain&#16 0;denies.?Palpitations?denies.?Weight gain?denies.?Respiratory:?Chronic or frequent cough?denies.?Coughing up blood&#1 60;denies.?Difficulty breathing?denies.?Productive cough?denies.?Snoring&#1 60;denies.?Shortness of breath that awakens from sleep (PND)?denies.?Chest pain? denies.?Sputum production?denies.?Wheezing?denies.?Musculoskeletal:?Joint pain?denies.?Joint Fluid?denies.?Backpain?denies.?Knee pain?denies.?Neck pain?denies.?Joint Stiffness?denies.?Muscle cramps?denies.?Weakness of muscles?denies.?Arthritis?denies.?Muscle aches?denies.?Pain in shoulder(s)?denies.?Swollen joints?denies.? * Active Problem List E03.9 Hypothyroid Modified On:04/15/2024W/U Status:rwkcjyjpmR42.3Hashimoto's disease Modified On:05/15/2024/U Status:qtywwbviiJ98.00Elevated cholesterol Modified On:07/15/2024/U Status:ieocondpjL01.9Abdominal pain Modified On:01/14/2025/U Status:mpkjtsuibU21.11Right upper quadrant abdominal pain Modified On:01/21/2025/U Status:confirmed * Medical History: * Surgical History: A CL Surgery- Left Knee * Hospitalization/Major Diagno stic Procedure: C hild * Family History: F ather: alive. M other: alive. P aternal Grandfather: , diagnosed with Heart Disease. M aternal Grandmother: , diagnosed with Cancer, Heart Disease. * Social History: ???Tobacco Use:?Tobacco Control (Standard)?Tobacco use:?Nonsmoker ???Drug/Alcohol:?AUDIT-C (Standard)?Did you have a drink containing alcohol in the past year??No ?Points?0 ?Interpretation?Negative * Medications: T akingLevothyroxine Sodium 100 MCG Capsule TAKE 1 TABLET BY MOUTH EVERY DAY IN THE MORNING ON EMPTY STOMACH FOR 30 DAYS Protonix(Pantoprazole Sodium) 40 MG Tablet Delayed Release 1 tablet Orally Once a day Medication List reviewed and reconciled with the patientTaking Levothyroxine Sodium 100 MCG Capsule TAKE 1 TABLET BY MOUTH EVERY DAY IN THE MORNING ON EMPTY STOMACH FOR 30 DAYS Taking Protonix(Pantoprazole Sodium) 40 MG Tablet Delayed Release 1 tablet Orally Once a day Medication List reviewed and reconciled with the patient * Allergies: N .K.D.A.no[Allergies Verified] Objective: * Vitals: W t:217lbs, Ht: 64 in, BP:130/82mm Hg, BMI:37.24Index, Ht-cm: 162.56 cm, Wt-k.43 kg. * Examination: ???Physical Exam: ?GENERAL:?well developed, well nourished, in no acute distress.?HEAD:?normocephalic/atraumatic.?EYES:?pupils equal, round and reactive to light, conjunctivae and sclerae normal.?EARS:?no deformity or lesion of external ear, canals and TM appear normal bilaterally, TM's intact, not inflamed with normal light reflex, hearing grossly normal to conversational speech.?NOSE:?no deformity, discharge, inflammation, or lesions. ?MOUTH:?mucous membranes moist, normal oropharynx and posterior pharynx without lesions or exudates, tongue normal, dentition normal.?NECK:?neck supple, no masses or palpable cervical nodes, trachea midline, thyroid without nodules, masses, tenderness, or enlargement.?CHEST:?no chest wall deformity, no chest wall tenderness. ?LUNGS:?normal respiratory effort and clear to auscultation, no wheezes, rales, or rhonchi, good air exchange.?CARDIO:?regular rate and rhythm, normal S1 and S2, nor murmur, rub, or gallop.?PULSES:?normal capillary refill.?ABDOMEN:?Right uper quad tendnernss.?MUSCULOSKELETAL:?no deformity or scoliosis noted, normal range of motion, joints normal, no erythema, edema, effusion, or ecchymosis.?EXTREMITY:?no clubbing, cyanosis, edema, or deformity withnormal ROM in both upper and lower bilateral extremities.?NEUROLOGIC:?grossly normal.?SKIN:?no rashes, ulcerations, or suspicious lesions.?LYMPH NODES:?no cervical adenopathy, nodes normal.?MENTAL STATUS:?alert and oriented x3, normal mood and affect.? Assessment: * Assessment: 1.?Right upper quadrant abdominal pain - R10.11 (Primary)??? Plan: * Treatment: Start Hyoscyamine Sulfate Tablet Sublingual, 0.125 MG, 1-2 tabs SL, SL, every 4 hrs PRN abd pain, 30, Refills 11.?Imaging: US ABD* Attn Gallbladder * Procedure Codes: * Preventive Medicine: ??Screenings/Counseling:?BMI ACTION PLAN?Above Normal BMI Follow-up?Dietary management education, guidance, and counseling * * Sign off status: CompletedVisit Status:?CHK (Check Out) true * Provider: Clay Massey ([facility])MD Date: 1 03/23/2024 Generated for Printing/FaQuantaporeg/eTransmitting on:?01/30/2025 08:38 AM EST History and Physical Notes * HPI (History of Present Illness) CategorySub-CategoryDetailNotesCategory NotesGeneralSOmestomach issues - occ nuasea - more with greasy - occ with spicy Examination CategorySub-CategoryDetailNotesCategory NotesPhysical ExamGENERAL:well developed, well nourished, in no acute distressHEAD:normocephalic/atraumatic EYES:pupils equal, round and reactive to light, conjunctivae and sclerae normal EARS:no deformity or lesion of external ear, canals and TM appear normal bilaterally, TM's intact, not inflamed with normal light reflex, hearing grossly normal to conversational speechNOSE:no deformity, discharge, inflammation, or lesionsMOUTH:mucous membranes moist, normal oropharynx and posterior pharynx without lesions or exudates, tonguenormal, dentition normalNECK:neck supple, no masses or palpable cervical nodes, trachea midline, thyroid without nodules, masses, tenderness, or enlargementCHEST:no chest wall deformity, no chest wall tendernessLUNGS:normal respiratory effort and clear to auscultation, no wheezes, rales, or rhonchi, good air exchangeCARDIO:regular rate and rhythm, normal S1 and S2, nor murmur, rub, or gallopPULSES:normal capillary refillABDOMEN:Right uper quad tendnernssRECTAL:MUSCULOSKELETAL:no deformity or scoliosis noted, normal range of motion, joints normal, no erythema, edema, effusion, or ecchymosisEXTREMITY:no clubbing, cyanosis, edema, or deformity with normal ROM in both upper and lower bilateral extremitiesNEUROLOGIC:grossly normalSKIN:no rashes, ulcerations, or suspicious lesionsLYMPH NODES:no cervical adenopathy, nodes normalMENTAL STATUS:alert and oriented x3, normal mood and affect
--- OUTSIDE RECORDS SUMMARY | 2025-01-30 08:39 | XMS_ITS | Clinical Summary ---
Author Organization [facility] Address [address] [place] [address] Care Team Providers Care Cook Night Name Role Phone Jamin Massey MD Primary Care Provider [phone] Allergies No known active allergies Medications MedicationSigDispense QuantityRefillsLast FilledStart DateEnd DateStatus levothyroxine (Synthroid) 100 MCG tablet Indications:Jorge's diseaseTake 1 tablet (100 mcg) by mouth in the morning. Take before meals. 30 tablet 11005/30/804922/6Active medroxyPROGESTERone (Provera) 10 MG tablet Indications:AmenorrheaTake 1 [...] 180 tablet 5Active Active Problems ProblemNoted DateDiagnosed SramTlkkaclavl50/19/2025Hashimoto's ehcrtep6805/15/2024 Complete or unspecified spontaneous without complication ([facility]) 08/09/2022Missed rurfgk6008/09/2022 Encounters DateTypeDepartmentCare OydlRfcljldzzhn21/16/2025Telephone [facility] [address] [place] [address] Tasneem Hernandez MA 11/12/2024Orders Only [facility] [address] [place] [phone] Melba CamarenaOLIVER 11/04/2024 8:30 AM EDTOffice Visit [facility] [address] [place] [address] Porfirio Che DO Well woman exam with routine gynecological exam5Clinisync Result Encounter [facility] External Department Unsolicited Porfirio Che DO 5Bamboo flowsheet [facility] [address] [place] [address] Porfirio Che DO [...] coffeeCommentsNoSex and Gender InformationValueDate RecordedSex Assigned at FckosSiodzq29/25/2023 11:59 AM EDTLegal DhuSebcba87/15/2023 11:47 PM EDTGender XpsmtrmcEbnaen65/25/2023 11:59 AM EDTSexual OrientationNot on file Last Filed Vital Signs Vital SignReadingTime TakenCommentsBlood Aigqefvx540/80011/04/2024 8:44 AM EDT Pulse--Temperature--Respiratory Rate--Oxygen Saturation--Inhaled Oxygen Concentration--Mhrjvb96.8 kg (215 lb 8 oz)11/04/2024 8:44 AM DEBGhxeur057.6 cm (5' 4 )08/10/2022 2:41 PM EDTBody Mass Index36.9908/10/2022 2:41 PM EDT Plan of Treatment DateTypeDepartmentCare Team (Latest Contact Info)Avmpocmqyjn90/31/2026 8:30 AM EDTProcedure Visit [facility] [address] [place] [address] Porfirio Che, [address] [facility] [address] [facility] [address] [place], [place] [id number] Procedures Procedure NamePriorityDate/TimeAssociated DiagnosisCommentsIGP,APTIMA HPV,AGE SKDQFiyyksd16/26/2025 8:40 AM EDT PAP MQFRVOlgwcao92/25/2025 12:00 AM EDTfrom Last 3 Months Results [...] at: 01 =G ?[facility] [place] ?? [address] [place], [place] ??[address] ?? Karyn Carl MD, IGP, RFX APTIMA HPV ASCUNote.TBHComment: ?? TESTS ? RESULT ??FLAG ??UNITS ?REF RANGE ??LAB DIAGNOSIS: ?02 ?? NEGATIVE FOR INTRAEPITHELIAL LESION OR MALIGNANCY. Specimen adequacy: ?02 ?? Satisfactory for evaluation. ??Endocervical and/or squamous metaplastic ?? cells (endocervical component) are present. Performed by: ? 02 ?? Amy Chung, Wellness Instructor ([facility]) . ? 02 Note: ? [...] <-Panic Low,>-Panic High,A-Abnormal,AA-Critical Abnormal Performed at: 02 [facility] ?? [address] [facility], [place], [place] ??[address] ?? Chito Machado MD, 03 WB ?[facility] [place] ?? [address] [facility] [place] ??[address] ?? Karyn Carl MD, Performed at: ??=G - [facility] [place] [address] [place], [place], [place] ??[id number] Fresh Food Manager: Karyn Carl MD, Phone: ??[phone] Performed at: ??[facility]YT - [facility] [place] [facility] [address] [place] [address] ??[id number] Fresh Food Manager: Chito Machado MD, Phone: ??[phone] Specimen (Source)Anatomical Location / LateralityCollection Method / Volume Collection TimeReceived Time11/04/2024 8:40 AM EDT11/04/2024 3:23 PM EDT Narrative [facility] - 11/07/2024 5:09 PM EDT BRUSH-SPATULA CERVIX ENDOCERVIX Authorizing ProviderResult TypeResult StatusCorey Chinedu DOLAB BLOOD ORDERABLES Final ResultPerforming OrganizationAddressCity/State/ZIP CodePhone Number [facility] * Pap Smear (11/03/2024 12:00 AM EDT)Specimen (Source)Anatomical Location / LateralityCollection Method / VolumeCollection TimeReceived TimeSwabCervical swab / Unknown Narrative Authorizing ProviderResult TypeResult StatusCorey Chinedu DOLAB CYTOLOGY ORDERABLESFinal ResultPerforming OrganizationAddressCity/State/ZIP CodePhone Number EXTERNAL LAB from Last 3 Months Insurance Care Teams Team MemberRelationshipSpecialtyStart DateEnd Jamin Massey MD [address] [place] [phone] PCP - [facility]08/10/22
--- OUTSIDE RECORDS SUMMARY | 2025-01-30 08:39 | XMS_ITS | Patient Health Record ---
Author Organization [facility] [place] Address [address] [place] [address] Care Team Providers Care Recycling Or Rubbish Collector Name Role Phone Aron Massey Primary Care Provider Allergies No Known Allergies Results Component Value Reference Range Notes IRON Reviewed date:07/15/2024 12:56:41 PM Interpretation: Performing Lab: Notes/Report: [facility] , Iron 137.0 50.0-170.0 ug/dL Performing Lab:see note - [facility] LBVITAMIN D 25 [place] Reviewed date:07/15/2024 12:56:41 PM Interpretation: Performing Lab: Notes/Report: [facility] ,Vitamin D36.3 <20 ng/mL Vit D deficient 20-<30 ng/mL Vit D insufficient 30-100 ng/mL Vit D sufficient >100 ng/mL Potential Toxicity Performing Lab:see note - [facility] LBIGP,Aptima HPV,Age Gdln Reviewed date:11/10/2024 02:20:50 PM Interpretation: Performing Lab: Notes/Report: BRUSH-SPATULA CERVIX ENDOCERVIX [facility] ,Age Gdln ACOG TestingNote. TESTS RESULT FLAG UNITS REF RANGE LAB Clinician Provided Cytology Information Source.............Cervix;Endocervix No. of containers..01 ThinPrep Vial Age Algo ACOG Emma... FLAG LEGEND: L-Low Normal,H-High Normal,LL-Alert Low,HH-Alert High <-Panic Low,>-Panic High,A-Abnormal,AA-Critical Abnormal Performed at: 01 =G [address] [address] Karyn Carl MD, IGP, rfx Aptima HPV ASCUNote. TESTS RESULT FLAG UNITS REF RANGE LAB DIAGNOSIS: 02 NEGATIVE FOR INTRAEPITHELIAL LESION OR MALIGNANCY. Specimen adequacy: 02 Satisfactory for evaluation. Endocervical and/or squamous metaplastic cells (endocervical component) are present. Performed by: 02 Amy Chung, Back Shoe Cutter ([facility]) . 02 Note: Note 03 The [...] <-Panic Low,>-Panic High,A-Abnormal,AA-Critical Abnormal Performed at: 02 [facility] [address] [place] [address] Chito Machado MD, [address] [address] Karyn Carl MD, Performed at: =G - [address] [id number] Board Runner: Karyn Carl MD, Phone: [phone] Performed at: [facility] [place], [place] [id number] Board Runner: Chito Machado MD, Phone: [phone] Performing Lab:see [facility] LabPark[facility] HospitalFREE T3 Reviewed date:01/14/2025 05:02:05 PM Interpretation: Performing Lab: Notes/Report: [facility] ,Free T32.672.18-3.98 pg/mLPerforming Lab:see noteML - [facility] LB T4 Reviewed date:01/14/2025 05:02:05 PM Interpretation: Performing Lab: Notes/Report: [facility] ,T4 Thyroxine9.104.80-13.90 ug/dLPerforming Lab:see noteML - [facility] LBTSH Reviewed date:01/14/2025 05:02:05 PM Interpretation: Performing Lab: Notes/Report: [facility] ,Thyroid Stimulating Hormone4.0150.358-3.740 uIU/mLPerforming Lab:see noteML - [facility] LBCEA Reviewed date:01/15/2025 12:49:26 PM Interpretation: Performing Lab: Notes/Report: [facility] ,CEA1.10.0-4.7 ng/mL Nonsmokers <3.9 Smokers <5.6 [employer] Electrochemiluminescence Immunoassay (ECLIA) Values obtained with different assay methods or kits cannot be used interchangeably. Results cannot be interpreted as absolute evidence of the presence or absence of malignant disease. Performing Lab:see [facility] LBCA 19-9 Reviewed date:01/15/2025 12:49:26 PM Interpretation: Performing Lab: Notes/Report: [facility] ,CA 19-9160-35 U/mL [employer] Electrochemiluminescence Immunoassay (ECLIA) Values obtained with different assay methods or kits cannot be used interchangeably. Results cannot be interpreted as absolute evidence of the presence or absence of malignant disease. Performed at: [address] [id number] Board Runner: Aníbal Reyna PhD, Phone: [phone] Performing Lab:see [facility] JacksonvilleTSH Reviewed date:07/15/2024 12:56:41 PM Interpretation: Performing Lab: Notes/Report: [facility] ,Thyroid Stimulating Hormone1.9950.358-3.740 uIU/mLPerforming Lab:see note - [facility] LBT4 Reviewed date:07/15/2024 12:56:41 PM Interpretation: Performing Lab: Notes/Report: [facility] ,T4 Thyroxine7.104.80-13.90 ug/dLPerforming Lab:see note - [facility] LBPROF 14(COMP METB) Reviewed date:07/15/2024 12:56:41 PM Interpretation: Performing Lab: Notes/Report: [facility] ,Hwrbwu352536-418 mmol/LPotassium4.03.5-5.1 mmol/YRyyolukj77858-575 mmol/LCarbon Wqafkua25.321.0-32.0 mmol/LAnion Gap13.2Jjgdwnp6559-226 mg/dLBlood Urea Nitrogen 22.07.0-18.0 mg/dLCreatinine0.960.55-1.02 mg/dLEstimated GFR ( Mariela>60 >=60 mL/min/1.73m 2Estimated GFR (Non- Krissy>60>=60 mL/min/1.73m 2BUN Creatinine Ratio22.8Zkpgxky3.38.5-10.1 mg/dLBilirubin Total0.60.2-1.0 mg/dL Aspartate Amino Ibajgzusozm1046-08 U/LAlanine Vwyjtehiprdblfvj5706-70 U/L Alkaline Wsdzgcnllrr9372-066 U/LTotal Protein7.76.4-8.2 g/dLAlbumin Level4.03.4- 5.0 g/dLGlobulin3.7Albumin Globulin Ratio1.1Performing Lab:see note - [facility] LBLIPID PROFILE Reviewed date:07/15/2024 12:56:41 PM Interpretation: Performing Lab: Notes/Report: [facility] ,Sphzabiptsscf276<=150 mg/nXNokvbpcyfoz989<=200 mg/dLHDL Rrfepsywzyi2714-17 mg/dL > or =60 mg/dl - LOW CARDIOVASCULAR RISK <40 mg/dl - HIGH CARDIOVASCULAR RISK LDL Cholesterol Xpkxaaygtm913.0 <100 mg/dl OPTIMAL 100-129 mg/dl NEAR OR ABOVE OPTIMAL 130-159 mg/dl BORDERLINE HIGH 160-189 mg/dl HIGH >190 mg/dl VERY HIGH VLDL GGKBJDGPVPA23.2Chol HDL Ratio4.8 3.3 - 4.4 LOW RISK 4.4 - 7.1 AVERAGE RISK 7.1 - 11.0 MODERATE RISK >11.0 HIGH RISK Performing Lab:see note - [facility] LBGLYCOHEMOGLOBIN A1C Reviewed date:07/15/2024 12:56:41 PM Interpretation: Performing Lab: Notes/Report: [facility] ,Glycohemoglobin A1C5.44.5-6.2 % ADA RECOMMENDED LIMIT 4.0 - 6.0 ADA THERAPEUTIC TARGET < 7.0 ACTION SUGGESTED > 7.0 Estimated Average Udbgldv845Dgqezmigcc Lab:see note - [facility] LB FREE T3 Reviewed date:07/15/2024 12:56:41 PM Interpretation: Performing Lab: Notes/Report: [facility] ,Free T33.052.18-3.98 pg/mLPerforming Lab:see note - [facility] LB CBC AUTO DIFF Reviewed date:07/15/2024 12:56:41 PM Interpretation: Performing Lab: Notes/Report: [facility] ,White Blood Count5.14.0-11.0 10 3/uLRed Blood Count4.594.20-5.40 10 6/uL Bxlbmhanwv64.012.0-16.0 g/xUChxrluvixr18.036.0-48.0 %Mean Corpuscular Qcxadf57.3 81.0-99.0 fLMean Corpuscular Gamdvnympb61.526.7-34.0 pgMean Corpuscular HGB Conc 34.129.9-35.2 g/dLRed Cell Distribution Width11.611.0-15.0 %Platelet Iouvc527 150-450 10 3/uLMean Platelet Cixiop32.19.5-13.5 fLNeutrophils Percent Auto49.2 43.0-75.0 %Lymphocytes Percent Auto40.520.5-60.0 %Monocytes Percent Auto7.21.7- 12.0 %Eosinophils Percent Auto1.90.9-7.0 %Basophils Percent Auto1.00.2-2.0 % Immature Granulocytes Pct Auto0.20.0-0.5 %Neutrophils Absolute Auto2.51.4-6.5 10 3/uLLymphocytes Absolute Auto2.11.2-3.8 10 3/uLMonocytes Absolute Auto0.40.3-0.8 10 3/uLEosinophils Absolute Auto0.10.0-0.7 10 3/uLBasophils Absolute Auto0.10.0- 0.1 10 3/uLImmature Granulocytes Abs Auto0.010.00-0.03 10 3/uLPerforming Lab:see noteML - [facility] LBTSH Reviewed date:06/15/2024 03:43:37 PM Interpretation: Performing Lab: Notes/Report: [facility] ,Thyroid Stimulating Hormone1.6990.358-3.740 uIU/mLPerforming Lab:see noteML - [facility] LBT4 Reviewed date:06/15/2024 03:43:37 PM Interpretation: Performing Lab: Notes/Report: [facility] ,T4 Thyroxine7.204.80-13.90 ug/dLPerforming Lab:see noteML - [facility] LBFREE T3 Reviewed date:06/15/2024 03:43:37 PM Interpretation: Performing Lab: Notes/Report: [facility] ,Free T32.632.18-3.98 pg/mLPerforming Lab:see noteML - [facility] LB TSH Reviewed date:05/13/2024 07:43:47 PM Interpretation: Performing Lab: Notes/Report: [facility] ,Thyroid Stimulating Hormone7.4050.358-3.740 uIU/mLPerforming Lab:see noteML - [facility] LBTHYROID ANTIBODIES Reviewed date:05/14/2024 09:27:44 PM Interpretation: Performing Lab: Notes/Report: [facility] ,Thyroid Peroxidase (TPO) Ab>6000-34 IU/mLThyroglobulin Mbdrrpqn84.80.0-0.9 IU/mL Thyroglobulin Antibody measured by [employer] Method[employer] It should be noted that the presence of thyroglobulin antibodies may not be pathogenic nor diagnostic, especially at very low levels. The assay song and dance performer has found that four percent of individuals without evidence of thyroid disease or autoimmunity will have positive TgAb levels up to 4 IU/mL. Performed at: [address] [id number] Board Runner: Aníbal Reyna PhD, Phone: [phone] Performing Lab:[facility] LBT4 Reviewed date:05/13/2024 07:43:47 PM Interpretation: Performing Lab: Notes/Report: [facility] ,T4 Thyroxine6.904.80-13.90 ug/dLPerforming Lab:see noteML - [facility] LBFREE T3 Reviewed date:05/13/2024 07:43:47 PM Interpretation: Performing Lab: Notes/Report: [facility] ,Free T32.442.18-3.98 pg/mLPerforming Lab:see noteML - [facility] LB PROF 14(COMP METB) Reviewed date:01/14/2025 05:02:05 PM Interpretation: Performing Lab: Notes/Report: [facility] ,Najble063646-032 mmol/LPotassium4.03.5-5.1 mmol/EDjmdhjbk30414-328 mmol/LCarbon Vjdzgme24.021.0-32.0 mmol/LAnion Gap15.6Pztoewj9206-994 mg/dLBlood Urea Nitrogen 19.07.0-18.0 mg/dLCreatinine0.710.55-1.02 mg/dLEstimated GFR ( Mariela>60 >=60 mL/min/1.73m 2Estimated GFR (Non- Krissy>60>=60 mL/min/1.73m 2BUN Creatinine Ratio26.8Ghskqun7.28.5-10.1 mg/dLBilirubin Total0.50.2-1.0 mg/dL Aspartate Amino Wyndasndzec5400-28 U/LAlanine Wxvafnfubgqlfses1325-75 U/L Alkaline Thpobzpqtci1138-501 U/LTotal Protein7.96.4-8.2 g/dLAlbumin Level4.13.4- 5.0 g/dLGlobulin3.8Albumin Globulin Ratio1.1Performing Lab:see noteML - [facility] LBLIPASE Reviewed date:01/14/2025 05:02:05 PM Interpretation: Performing Lab: Notes/Report: [facility] ,Qaddtc73.016.0-77.0 U/LPerforming Lab:see noteML - [facility] LBCBC AUTO DIFF Reviewed date:01/14/2025 05:02:05 PM Interpretation: Performing Lab: Notes/Report: [facility] ,White Blood Count5.24.0-11.0 10 3/uLRed Blood Count4.674.20-5.40 10 6/uL Grjgvnapzw80.012.0-16.0 g/eVNddhlnnczb41.136.0-48.0 %Mean Corpuscular Ugighm20.1 81.0-99.0 fLMean Corpuscular Rlttnmlfzw95.026.7-34.0 pgMean Corpuscular HGB Conc 33.329.9-35.2 g/dLRed Cell Distribution Width11.911.0-15.0 %Platelet Okacc816 150-450 10 3/uLMean Platelet Xyufzp96.09.5-13.5 fLNeutrophils Percent Auto52.4 43.0-75.0 %Lymphocytes Percent Auto38.720.5-60.0 %Monocytes Percent Auto6.21.7- 12.0 %Eosinophils Percent Auto1.70.9-7.0 %Basophils Percent Auto0.80.2-2.0 % Immature Granulocytes Pct Auto0.20.0-0.5 %Neutrophils Absolute Auto2.71.4-6.5 10 3/uLLymphocytes Absolute Auto2.01.2-3.8 10 3/uLMonocytes Absolute Auto0.30.3-0.8 10 3/uLEosinophils Absolute Auto0.10.0-0.7 10 3/uLBasophils Absolute Auto0.00.0- 0.1 10 3/uLImmature Granulocytes Abs Auto0.010.00-0.03 10 3/uLPerforming Lab:see note - [facility] LBAMYLASE Reviewed date:01/14/2025 05:02:05 PM Interpretation: Performing Lab: Notes/Report: [facility] ,Yuxnpmm2653-828 U/LPerforming Lab:see note - [facility] LBINSULIN Reviewed date:07/16/2024 01:33:02 PM Interpretation: Performing Lab: Notes/Report: [facility] ,Kxfquja50.02.6-24.9 uIU/mL Performed at: [facility] [address] [id number] Board Runner: Aníbal Reyna PhD, Phone: [phone] Performing Lab:see note - [facility] LBPROLACTIN Reviewed date:05/14/2024 09:27:44 PM Interpretation: Performing Lab: Notes/Report: [facility] ,Gnrdtugqp97.74.8-33.4 ng/mL Performed at: [facility] [address] [id number] Board Runner: Aníbal Reyna PhD, Phone: [phone] Performing Lab:see note - [facility] LBCOVID-19, Flu A+B IH Reviewed date:05/14/2024 09:27:44 PM Interpretation: Performing Lab: Notes/Report: COVIDnegFLU AnegFLU BnegControlpresent Reason For Referral No Information Medications Medication [...] alcohol in the p ast year? No Nsgyzz9GkwqyznngantusYjbusitg Problems Problem Type SNOMED Code ICD Code Onset Dates Problem Status W/U Status Risk Notes Problem Abdominal pain (79485460) Abdominal pain (R10.9) ActiveconfirmedProblemHypothyroid (02512979)Hypothyroid (E03.9)Activeconfirmed ProblemRight upper quadrant pain (283008263)Right upper quadrant abdominal pain (R10.11)ActiveconfirmedProblemHashimoto's disease (39802739)Jorge's disease (E06.3)ActiveconfirmedProblemPure hypercholesterolemia (279720713)Elevated cholesterol (E78.00)Activeconfirmed Vital Signs Temperature 99.1 degrees Fahrenheit 04/21/2024 Blood pressure lfsrpepcz83 mm Hg01/21/20256302Mojzku58 in01/21/2025lood pressure dduuvvpu174 mm Hg01/21/20256039Kvcknw076 lbs103/23/2024BMI37.24 kg/m201/21/2025 Encounters Encounter Location Date Provider Diagnosis [address] [address] 02/01/2024 Aron Hoy Acute bronchitis, unspecified organism J20.[address] [address] 04/15/2024 Aron Hoy Hypothyroid E03.[address] [address] 04/21/2024 Aron Hoy Acute non-recurrent sinusitis, unspecified location J01.90 and Nasal congestion R09.[address] [place] [address] 07/02/2024 Aron Hoy Hypothyroid E03.9 an d Near syncope R55 [facility] [address] [place] [address] 01/21/2025 Aron Hoy Right upper quadrant abdominal pain R10.11 [facility] [address] [place] [address] 02/12/2024 Aron Hoy Acute bronchitis, unspecified organism J20.9 [facility] [address] [place] [address] 05/13/2024 Aron Hoy Hypothyroid E03.9 [facility] [address] [place] [address] 05/14/2024 Aron Hoy [facility] [place] [address] 06/15/2024[facility] [place] [address]/06/2025[facility] [place] [address]/07/2024Doug HoyHypothyroid E03.9 and [place]dominal pain [place].[address] [address] [place] [address] 01/14/2025Doug HoyHypothyroid E03.[address] [address] [place] [address]/08/2024Doug Hoy Assessments Encounter Date Diagnosis (ICD Code) Assessment Notes Treatment Notes Treatment Clinical Notes Section Notes 02/01/2024 Acute bronchitis, unspecified or ganism (ICD-10 - J20.9) Rest and drink more liquids, especially water. You may use a humidifier or vaporizer to help keep the drainage moist. Kgvy-cro-kmbmsrc Nasal Saline may help the stuffy and runny nose. Use Ibuprofen and or Tylenol as needed for fever, chills, body aches or pain. Children 5 years old should not be given sqyz-leh-jqgayni cough and cold medications such as guaifenesin and dextromethorphan. If you're over age 5, you may try qcnf-rix-cxwooit cold medications such as guaifenesin and dextromethorphan, [...] go to the emergency room or call [phone] (ICD-10 - E03.9)04/21/2024ute non-recurrent sinusitis, unspecified location (ICD-10 - J01.90)Rest and drink more liquids, especially water. You may use a humidifier or vaporizer to help keep the drainage moist. Efmp-zqe-xfeeysb Nasal Saline may help the stuffy and runny nose. Use Ibuprofen and or Tylenol as needed for fever, chills, body aches or pain. Children 5 years old should not be given tjej-cgz-imbjdvc cough and cold medications such as guaifenesin and dextromethorphan. If you're over age 5, you may try lqnu-bkt-vwbizrm cold medications such as guaifenesin and dextromethorphan, [...] days07/02/2024Hypothyroid (ICD-10 - E03.9)07/02/2024Near syncope (ICD-10 - R55)01/21/2025Right upper quadrant abdominal pain (ICD-10 - R10.11)4Acute bronchitis, unspecified organism (ICD-10 - J20.9)05/13/2024Hypothyroid (ICD-10 - E03.9)01/14/2025Hypothyroid (ICD-10 - E03.9)01/14/2025Hypothyroid (ICD-10 - E03.9)01/14/2025bdominal pain (ICD-10 - R10.9)04/21/2024Nasal congestion (ICD-10 - R09.81) Plan Of Treatment Pending Test Test Name Order Date HEMOGLOBIN A1C (GLYCO) 07/02/2024 IRON, TOTAL 07/02/2024 LIPID PANEL (CHOL/TRIG/HDL/LDL) 07/03/19 25 VITAMIN D, 25 LEVEL (TOTAL) 07/02/2024 Insulin Level 07/02/2024 CA 19-9 01/14/2025 CEA 01/14/2025 THYROID ANTIBODIES 04/15/2024 US ABD 01/21/2025 THYROID PANEL (T4/TSH/FREE T3) 5 THYROID PANEL (T4/TSH/FREE T3) 5 THYROID PANEL (T4/TSH/FREE T3) 5 THYROID PANEL (T4/TSH/FREE T3) 5 THYROID PANEL (T4/TSH/FREE T3) 5 CMP (COMP MET TERRAZAS) w/eGFR CKD-EPI 2024 CBC WITH DIFF 07/02/2024 Insurance Providers Payer Name Payer Address Payer Phone Subscriber Number Group Number Insured Name Patient Relationship to Insured Coverage Start Date Coverage End Date [employer] PPO PLUS LOCAL PLAN [address] [place] [address] [id number] Sammi Smithelf - patient is the insured Medical (General) History Surgical History Surgery Date(Month/Year) ACL Surgery- Left Knee Hospitalization History Reason Date(Month/Year) Child
--- OUTSIDE RECORDS SUMMARY | 2025-01-30 08:39 | XMS_ITS | Clinical Summary ---
Author Organization [email or web address] Address [id number] [address] [place] [address] Care Team Providers Care Cleaner And Dyer Name Role Phone Robin Cancino Kiel Rayna Primary Care Provider Allergies No known active allergies Medications MedicationSigDispense QuantityRefillsLast FilledStart DateEnd DateStatus metFORMIN (GLUCOPHAGE) 500 mg tablet Take 1 tablet by mouth 2 (two) times a day with meals.Active Social History Tobacco UseTypesPacks/DayYears UsedDateSmoking Tobacco: NeverSmokeless Tobacco: NeverAlcohol UseStandard Drinks/WeekCommentsNo0 (1 standard drink = 0.6 oz pure alcohol)ChildcareAnswerDate DoeejlktRuxoeybokEckspyc76/13/2019EmploymentAnswer Date KbkausdfFcfhktpnyvDvfqope67/13/2019Purpose - LifeAnswerDate RecordedPurpose and direction in zteqKuxsesc37/11/2021CommentsNoSex and Gender InformationValueDate RecordedSex Assigned at BirthNot on fileLegal SexFemale 03/31/2017 1:50 PM ESTGender IdentityNot on fileSexual OrientationNot on file Last Filed Vital Signs Vital SignReadingTime TakenCommentsBlood Qrvlnexo539/70003/31/2017 2:00 PM EST Wwxmi961203/31/2017 2:00 PM NSZDpsltjcfcqs01.1 ??C (98.7 ??F)03/31/2017 2:00 PM ESTRespiratory Hpgb177703/31/2017 2:00 PM ESTOxygen Crtvthnvif128%03/31/2017 2:00 PM ESTInhaled Oxygen Concentration--Derqja54.5 kg (195 lb)06/26/2017 4:29 PM EDT Nytlwy827 cm (5' 3 )03/31/2017 2:00 PM ESTBody Mass Index34.54003/31/2017 2:00 PM EST Plan of Treatment Not on file Medical Devices Not on file Insurance Care Teams Team MemberRelationshipSpecialtyStart DateEnd Date Kiel Kelly Jr., [facility] [place] [address] PCP - GeneralInternal Medicine06/26/17
--- OUTSIDE RECORDS SUMMARY | 2025-01-30 08:39 | XMS_ITS | CCD ---
Author Organization [facility] Care Team Providers Care Servicenow Administrator Name Role Phone NATASHA DANYA HUFF Unavailable [...] Unavailable CHINEDU ., DR DUMONT Admitting [facility] Primary Care Unavailable [facility] ., [...] Unavailable Jamin Massey MD Primary Care Provider [phone] Jamin Massey MD Primary Care Provider [phone] TIM CHE Attending Unavailable TIM CHE Attending Unavailable TIM CHE Attending Unavailable Jamin Massey MD Primary Care Provider [phone] Allergies Allergy ClassificationReported Allergen(s)Allergy TypeDate of OnsetReaction(s) Facility (1 source)NKA; Translations: [NKA]Propensity to adverse reactions (disorder) 96-70-1797Msl [facility] Repository (1 source)No Known Allergies; Translations: [No Known Allergies]Propensity to adverse reactions (disorder)[facility] Repository Medications Current Medications MedicationDrug Class(es)DatesSig (Normalized)Sig (Original)levothyroxine sodium 0.1 mg oral tablet (10 sources)l-ThyroxineStart: 05-30-2024 End: 47-91-7411jhsj 1 tablet by mouth before mealtimelevothyroxine (Synthroid) 100 MCG tablet Indications: Jorge's disease Take 1 tablet (100 mcg) by mouth in the morning. Take before meals. 30 tablet 11 05/30/2024 05/30/2025 Active Start: 05-70-7504fljb 1 tablet by mouth once daily in the morninglevothyroxine (Synthroid, Levoxyl) 75 MCG tablet TAKE 1 TABLET BY MOUTH EVERY DAY IN THE MORNING ONEMPTY STOMACH FOR 30 DAYS 04/15/2024 ActivemedroxyPROGESTERone acetate 10 mg oral tablet (12 sources)ProgestinStart: 71-99-9763gipa 1 tablet by mouth once daily medroxyPROGESTERone (Provera) 10 MG tablet Indications: Jorge's disease , Amenorrhea Take 1 tablet (10 mg) by mouth Daily for 14 days 14 tablet 08/28/2024 Activeondansetron 4 mg oral tablet (2 sources)Serotonin-3 Receptor AntagonistStart: 09-30-2024 End: 53-54-7790ykun 1 tablet by mouth every six hours for nauseaondansetron (Zofran) 4 MG tablet Indications: Nausea and vomiting, unspecified vomiting type Take 1tablet (4 mg) by mouth every 6 (six) hours if needed for nausea 20 tablet 5 09/30/2024 10/30/2024 Activepantoprazole 40 mg delayed release oral tablet (6 sources)Proton Pump InhibitorStart: 89-91-8310klia 1 tablet by mouth before mealtimepantoprazole (ProtoNix) 40 MG EC tablet Take 40 mg by mouth in the morning. Take before meals. 07/29/2024 Active Completed/Discontinued Medications MedicationDrug Class(es)DatesSig (Normalized)Sig (Original)hydrocortisone acetate 25 mg/ml / pramoxine hydrochloride 10 mg/ml topical cream (6 sources)CorticosteroidStart: 05-30-2023 End: 66-26-0862hurczfket-hydrocortisone cream Indications: Hemorrhoids, unspecified hemorrhoid type Apply topically 2 (two) times a day 24.8 g 05/30/2023 11/01/2023 DiscontinuedStart: 05-30-2023 End: 81-93-3498yshot 1 dose rectal route twice dailypramoxine-hydrocortisone (Analpram-HC) 1-1 % rectal cream Indications: Hemorrhoids, unspecified hemo rrhoid type Insert into the rectum 2 (two) times a day 30 g 1 05/30/2023 11/01/2023 Discontinued Problems Active Problems Problem ClassificationProblemDateDocumented DateEpisodic/ChronicContraceptive and procreative management (2 sources)Patient encounter status; Translations: [Encounter for other procreative management]60-04-2364OdlvhxdjAwtuctnzz disorders (20 sources)Irregular menstruation, unspecified; Translations: [Missed period] Onset: 88-87-7297NbhtakxLapcmn and vomiting (2 sources)Nausea and vomiting; Translations: [Nausea with vomiting, unspecified]19-53-7483JvuivcayOworf aftercare (1 source)Encounter for follow-up examination after completed treatment for conditions other than malignant neoplasm; Translations: [ENCNTR FOR F/U EXAM AFT TRTMT FOR COND OTH THAN MALIG NEOPLM]Onset: 43-34-3486NwosdywxGvkyc female genital disorders (3 sources)Abnormal uterine and vaginal bleeding, unspecified; Translations: [ABNORMAL UTERINE VAGINAL BLEED UNS]Onset: 04-45-3545SowfgbdWrarq nervous system disorders (1 source)Other abnormalities of gait and mobility; Translations: [OTHER ABNORMALITIES OF GAIT AND MOBILITY]Onset: 63-38-8156DwgjzvhnCqnnr non-traumatic joint disorders (5 sources)Pain in left knee; Translations: [Stiffness of left knee, not elsewhere classified]Onset: 93-37-9221JcarbjvxNjlkqkz and strains (4 sources)Sprain of anterior cruciate ligament of left knee, initial encounter; Translations: [SPRAIN OF ANTERIOR CRUCIATE LIGAMENT OF LEFT KNEE, INIT]Onset: 43-81-8321YqkbneucUqoozuv disorders (8 sources)Jorge thyroiditis; Translations: [Autoimmune thyroiditis]Onset: 191764-46-9846ToqliudKvfyamjmunav (2 sources)Unknown / UNK(Unknown)Onset: 22-29-8585Jmyopdagnrtf (1 source)Other specified postprocedural states; Translations: [OTHER SPECIFIED POSTPROCEDURAL STATES]Onset: 07-17-2017 Past or Other Problems Problem ClassificationProblemDateDocumented DateEpisodic/ChronicImmunizations and screening for infectious disease (1 source)Contact with and (suspected) exposure to infections with a predominantly sexual mode of transmission; Translations: [CONTCT W EXPOS INFECT SEXUAL TRNSMS]Onset: 53-09-8860MmbcljkzLmvze complications of (1 source)Maternal care for other abnormalities of pelvic organs, first trimester; Translations: [MAT CARE OTH ABN PELV ORGAN 1ST TRI]Onset: 12-05-2021 EpisodicOvarian cyst (1 source)Unspecified ovarian cyst, right side; Translations: [UNSPECIFIED OVARIAN CYST RIGHT SIDE]Onset: 41-82-1985BbljtohmGgkwlhmg codes; unclassified (1 source)9 weeks gestation of ; Translations: [9 WEEKS GESTATION OF ]Onset: 58-28-5616VhrvsvxkBbqattpjqqr (20 sources)Complete or unspecified spontaneous without complication; Translations: [Incomplete spontaneous without complication]Onset: 78-83-7947Hsubhnor Results Test NameValueInterpretationReference RangeFacilityIGP,APTIMA HPV,AGE GDLNon 51-74-3187PKL GDLN ACOG TESTINGNote.NOMS HealthcareComment on above:TESTS RESULT FLAG UNITS REF RANGE LAB Clinician Provided Cytology Information Source.............Cervix;Endocervix No. of containers..01 ThinPrep Vial Age Paresh MAHER Emma... FLAG LEGEND: L-Low Normal,H-High Normal,LL-Alert Low,HH-Alert High <-Panic Low,>-Panic High,A-Abnormal,AA-Critical Abnormal Performed at: 01 [facility] [address] [place] [address] Karyn Carl MD, IGP, RFX APTIMA HPV ASCUNote.NOMS HealthcareComment on above:TESTS RESULT FLAG UNITS REF RANGE LAB DIAGNOSIS: 02 NEGATIVE FOR INTRAEPITHELIAL LESION OR MALIGNANCY. Specimen adequacy: 02 Satisfactory for evaluation. Endocervical and/or squamous metaplastic cells (endocervical component) are present. Performed by: Susana Chung, Computer Science Teacher ([facility]) . 02 Note: Note 03 The [...] <-Panic Low,>-Panic High,A-Abnormal,AA-Critical Abnormal Performed at: 02 [facility] [address] [address] [place] [address] Chito Machado MD, [address] [address] Karyn Carl MD, Performed at: =G - [address] [id number] Precinct Police Captain: Karyn Carl MD, Phone: [phone] Performed at: [facility] [address] [address] [place], [place] [id number] Precinct Police Captain: Chito Machado MD, Phone: [phone] BRUSH-SPATULA CERVIX ENDOCERVIX CLINISYNCNOFreeman Heart InstituteTB PROLACTINon 20-67-2982MTKMMZVYZ90.7 ng/mL4.8 - 33.4 ng/mLNOMS HealthcareComment on above:Performed at: [facility] [address] [id number] Precinct Police Captain: Aníbal Reyna PhD, Phone: [phone] CLINISYNCNOME HealthcareIGP,APTIMA HPV,AGE GDLNon 18-57-7590SIM GDLN ACOG TESTINGNote.[facility] HealthcareComment on above:TESTS RESULT FLAG UNITS REF RANGE LAB Clinician Provided Cytology Information Source.............Cervix;Endocervix No. of containers..01 ThinPrep Vial Age Lesviao BRITTANIOG Emma... FLAG LEGEND: L-Low Normal,H-High Normal,LL-Alert Low,HH-Alert High <-Panic Low,>-Panic High,A-Abnormal,AA-Critical Abnormal Performed at: 01 =G [address] [address] Karyn Carl MD, IGP, RFX APTIMA HPV ASCUNote.[facility] HealthcareComment on above:TESTS RESULT FLAG UNITS REF RANGE LAB DIAGNOSIS: 02 NEGATIVE FOR INTRAEPITHELIAL LESION OR MALIGNANCY. Specimen adequacy: 02 Satisfactory for evaluation. Endocervical and/or squamous metaplastic cells (endocervical component) are present. Performed by: 02 Kiana Garcia Band Master ([facility]) . 02 Note: Note 02 The [...] <-Panic Low,>-Panic High,A-Abnormal,AA-Critical Abnormal Performed at: [address] [address] Karny Carl MD, Performed at: = - [facility] [address] [id number] Precinct Police Captain: Karyn Carl MD, Phone: [phone] Performed at: [address] [id number] Precinct Police Captain: Karyn Carl MD, Phone: [phone] BRUSH-SPATULA CERVIX ENDOCERVIX CLINISYNCNOME HealthcareCytology Cervical or vaginal smear or scraping study Ordered By: Imelda Martinez on 55-61-2546QSEY HealthcareUS for pregnancyon 17-67-2333[address] [address] Ultrasound Report Signed Patient: NIDIA SMITH MR#: [id number] : 1995 Acct:[id number] Age/Sex: 27 / F ADM Date: Loc: [facility] Attending Dr: Tim Che D.O. Ordering Physician: Tim Che D.O. Date of Service: 03/02/23 Procedure(s): US OB limited Accession Number(s): [id number] cc: Tim Che D.O.; Jamin Massey M.D. [place] [id number] Patient Name: NIDIA SMITH MRN: [facility]:[id number] date: 1995 Sex: F Assigned Patient Location: [facility] Current Patient Location: [facility] Accession/Order Number: [id number] Exam Date: 03/02/2023 01:30 Report Date: 03/02/2023 [...] M.D. Signed By: 03/02/237 DD/ 3 TD/TT: Deck Specialist:HUSSEINadiologanne-marie, Radiologist, - 03/02/2023 [place] [address] Ultrasound Report Signed Patient: NIDIA SMITH MR#: [id number] : 1995 Acct:[id number] Age/Sex: 27 / F ADM Date: Loc: [facility] [address]: Tim Che D.O. Ordering Physician: Tim Che D.O. Date of Service: 03/02/23 Procedure(s): US OB limited Accession Number(s): [id number] cc: Tim Che D.O.; Jamin Massey M.D. [place] [id number] Patient Name: NIDIA SMITH MRN: [facility]:[id number] date: 1995 Sex: F Assigned Patient Location: [facility] Current Patient Location: [facility] Accession/Order Number: [id number] Exam Date: 03/02/2023 01:30 Report Date: 03/02/2023 [...] M.D. Signed By: 03/02/23156 DD/ 3 TD/TT: Deck Specialist: THE [facility] CENTEROmega HealthcareRadiology Study observation (narrative)[facility] CenterUS for pregnancyOrdered By: Radiologist Radiology on 89-26-9466UJLL [employer] Work Phone: PREG QUANT HCGon 45-26-3036MOY VRANK700 mIU/mLNormal [facility] HospitalComment on above:Performed By: #### PREGQNT #### [facility] [address] [place] [address] Dr. Samson Zhang [facility] HospitalComment on above: Result Comment: 5-50 0.2-1 WEEK 50-500 1-2 WEEKS 100-5,000 2-3 WEEKS 500-10,000 3-4 WEEKS 1,000-50,000 4-5 WEEKS 10,000-100,000 5-6 WEEKS 15,000-200,000 6-8 WEEKS 10,000-100,000 2-3 MONTHSPerformed By: #### PREGQNT #### [facility] [address] [place] [address] Dr. Samson Mcgarry QUANT HCGon 74-93-6882WQP RDHJT443 mIU/mLNormalWyandot Memorial HospitalComment on above:Performed By: #### PREGQNT #### [facility] [address] [place] [address] Dr. Samson MENDEZ [facility] on above: Result Comment: 5-50 0.2-1 WEEK 50-500 1-2 WEEKS 100-5,000 2-3 WEEKS 500-10,000 3-4 WEEKS 1,000-50,000 4-5 WEEKS 10,000-100,000 5-6 WEEKS 15,000-200,000 6-8 WEEKS 10,000-100,000 2-3 MONTHSPerformed By: #### PREGQNT #### [facility] [address] [place] [address] Dr. Samson Mcgarry QUANT [facility] – HOBARTon 63-02-8261HBH QUANT4 mIU/mLNDunlap Memorial HospitalCommary free bed rehabilitation hospital on above:Performed By: #### PREGQNT #### [facility] [address] [place] [address] Dr. Samson MENDEZ [facility] on above: Result Comment: 5-50 0.2-1 WEEK 50-500 1-2 WEEKS 100-5,000 2-3 WEEKS 500-10,000 3-4 WEEKS 1,000-50,000 4-5 WEEKS 10,000-100,000 5-6 WEEKS 15,000-200,000 6-8 WEEKS 10,000-100,000 2-3 MONTHSPerformed By: #### PREGQNT #### [facility] [address] [place] [address] Dr. Samson Mcgarry QUANT HCGon 53-14-2591MZO QUANT15 mIU/mLNormalWyandot Memorial HospitalCommary [facility] rehabilitation [facility] on above:Performed By: #### PREGQNT #### [facility] [address] [place] [address] Dr. Samson MENDEZ [facility] on above: Result Comment: 5-50 0.2-1 WEEK 50-500 1-2 WEEKS 100-5,000 2-3 WEEKS 500-10,000 3-4 WEEKS 1,000-50,000 4-5 WEEKS 10,000-100,000 5-6 WEEKS 15,000-200,000 6-8 WEEKS 10,000-100,000 2-3 MONTHSPerformed By: #### PREGQNT #### [facility] [address] [place] [address] Dr. Samson Douglas AUTO DIFFon 14-35-9160QJTW #0.0 103/ulNormal0.0-0.1The [facility] HospitalComment on above:Performed By: #### RUBIGG #### [facility] [address] [place] [address] Dr. Samson SchumacherBasophils/100 WBC (Bld)0.3 %Normal0.2-2.0The [facility] Comment on above:Performed By: #### RUBIGG #### [facility] [address] [place] [address] Dr. Samson GriffithO #0.1 103/ulNormal0.0-0.7The [facility] HospitalComment on above: Performed By: #### RUBIGG #### [facility] [address] [place] [address] Dr. Samson Griffithosinophils/100 WBC (Bld)0.6 %Critically low0.9-7.0The [facility] HospitalComment on above:Performed By: #### RUBIGG #### [facility] [address] [place] [address] Dr. Samson Griffithrythrocyte distribution width (RBC) [Ratio]12.0 %Ukhpzs55.0-15.0 The [facility] HospitalComment on above:Performed By: #### RUBIGG #### [facility] [address] [place] [address] Dr. Samson SchumacherHematocrit (Bld) [Volume fraction]37.2 %Swuzgc33.0-48.0The [facility] HospitalComment on above:Performed By: #### RUBIGG #### [facility] [address] [place] [address] Dr. Samson SchumacherHemoglobin (Bld) [Mass/Vol]12.4 g/kUJziizj54.0-16.0The [facility] HospitalComment on above:Performed By: #### RUBIGG #### [facility] [address] [place] [address] [address] Samson Delgado #0.04 10e3/ulCritically high0.00-0.03The [facility] Comment on above:Performed By: #### RUBIGG #### [facility] [address] [place] [address] [address] Samson Delgado %0.3 %Normal0.0-0.5The [facility] HospitalComment on above: Performed By: #### RUBANTONIG #### [facility] [address] [place] [address] Dr. Samson Anna #1.9 103/ulNormal1.2-3.8The [facility] HospitalComment on above:Performed By: #### JYOTIG #### [facility] [address] [place] [address] Dr. Samson Ungerhocytes/100 WBC (Bld)14.1 %Critically low20.5-60.0The [facility] HospitalComment on above:Performed By: #### KUNALIGG #### [facility] [address] [place] [address] Dr. Samson Valentino DIFF REQNONormalThe [facility] HospitalComment on above: Performed By: #### KUNALIGG #### [facility] [address] [place] [address] Dr. Samson Andino (RBC) [Entitic mass]30.5 wtMqhjzh32.7-34.0The [facility] HospitalComment on above:Performed By: #### RUBIGG #### [facility] [address] [place] [address] Dr. Samson Wise (RBC) [Mass/Vol]33.3 g/vAOpxrar27.9-35.2[facility] HospitalComment on above:Performed By: #### RUBIGG #### [facility] [address] [place] [address] Dr. Yilan ChangMCV (RBC) [Entitic vol]91.4 oQNgnkox54.0-99.0The [facility] HospitalComment on above:Performed By: #### JYOTIG #### [facility] [address] [place] [address] Dr. Samson Santos #0.5 103/ulNormal0.3-0.8The [facility] HospitalComment on above:Performed By: #### JYOTIG #### [facility] [address] [place] [address] Dr. Samson Ferreiraocytes/100 WBC (Bld)4.0 %Normal1.7-12.0The [facility] Comment on above:Performed By: #### JYOTIG #### [facility] [address] [place] [address] Dr. Samson Vela #10.7 103/ulCritically high1.4-6.5The [facility] Comment on above:Performed By: #### JYOTIG #### [facility] [address] [place] [address] Dr. Samson Hairutrophils/100 WBC (Bld)80.7 %Critically high43.0-75.0The [facility] HospitalComment on above:Performed By: #### JYOTIG #### [facility] [address] [place] [address] Dr. Samson Boatenglet mean volume (Bld) [Entitic vol]10.2 fLNormal9.5-13.5The [facility] HospitalComment on above:Performed By: #### JYOTIG #### [facility] [address] [place] [address] Dr. Samson SchumacherPLT225 103/pcTcwnoo860-953Oem [facility] HospitalComment on above: Performed By: #### JYOTIG #### [facility] [address] [place] [address] Dr. Samson SchumacherRBC4.07 106/ulCritically low4.20-5.40The [facility] HospitalComment on above:Performed By: #### JYOTIG #### [facility] [address] [place] [address] [address] Samson SchumacherWBC13.3 103/ulCritically high4.0-11.0The [facility] HospitalComment on above:Performed By: #### RUBIGG #### [facility] [address] [place] [address] [address] Samson SchumacherPROF CHEM 8 (BAS METB)on 52-71-0326Jwzvy gap [Moles/Vol]13.1 mmol/LNormalThe [facility] HospitalComment on above:Performed By: #### BMP #### [facility] [address] [place] [address] [address] Samson SchumacherCalcium [Mass/Vol]8.5 mg/dLNormal8.5-10.1The [facility] Comment on above:Performed By: #### BMP #### [facility] [address] [place] [address] [address] Samson SchumacherChloride [Moles/Vol]104 mmol/CBqabnn49-530Etu [facility] Comment on above:Performed By: #### BMP #### [facility] [address] [place] [address] [address] Samson SchumacherCO2 [Moles/Vol]24.4 mmol/KOfgbkg52.0-32.0The [facility] Comment on above:Performed By: #### BMP #### [facility] [address] [place] [address] [address] Samson SchumacherCreatinine [Mass/Vol]0.83 mg/dLNormal0.55-1.02The [facility] HospitalComment on above:Performed By: #### BMP #### [facility] [address] [place] [address] [address] Samson GriffithGFR-AF GUINEAN>60Normal>=60The [facility] HospitalComment on above:Performed By: #### BMP #### [facility] [address] [place] [address] [address] Samson GriffithGFR-NON AF GUINEAN>60Normal>=60The [facility] HospitalComment on above:Performed By: #### BMP #### [facility] [address] [place] [address] [address] Samson SchumacherGlucose [Mass/Vol]113 mg/dLCritically lwjf66-002Kta [facility] HospitalComment on above:Performed By: #### BMP #### [facility] [address] [place] [address] [address] Samson SchumacherPotassium [Moles/Vol]3.5 mmol/LNormal3.5-5.1[facility] Comment on above:Performed By: #### BMP #### [facility] [address] [place] [address] [address] Samson SchumacherSodium [Moles/Vol]138 mmol/CZxzbcu605-657Kmj [facility] Comment on above:Performed By: #### BMP #### [facility] [address] [place] [address] Dr. Samson SchumacherUrea nitrogen [Mass/Vol]7.0 mg/dLNormal7.0-18.0The [facility] HospitalComment on above:Performed By: #### BMP #### [facility] [address] [place] [address] [address] Samson Amaya nitrogen/Creatinine [Mass ratio]8.4 mg/mgNormOhio State Harding HospitalComment on above:Performed By: #### BMP #### [facility] [address] [place] [address] Dr. Samson Heaton PREG TVon 85-33-1130WU PREG TVEXAMINATION: US PREG TV HISTORY: Vaginal [...] Electronically authenticated by: DELFINA JUAREZ Date: 2022-01-01 08:49NoMercy Health Lorain HospitalHE B SURFACE ANTIGEN SCREENon 59-16-5924NNtGr ScreenNegative NormalNegativeThe [facility] on above:Performed By: #### HBSANS #### [facility] [address] [place] [address] Dr. Samson SchumacherHEPATITIS C VIRUS AB W/ REFLEX QUANTon 21-40-5817OXP AB<0.1Normal 0.0-0.9The [facility] on above:Performed By: #### HCVPCRR #### [place] [address] Dr[address] Samson SchumacherInterpretation:CommentDayton VA Medical Center on above:Result Comment: Negative Not infected with HCV, unless recent infection is suspected or other evidence exists to indicate HCV infection.Performed By: #### HCVPCRR #### [place] [address] Dr. Samson Mejia 1 AND 2 WITH REFLEXon 95-18-5193WTO Screen 4th Generation wRfxNon-ReactiveNormalNon ReactiveThe [facility] on above:Result Comment: HIV Negative HIV-1/HIV-2 antibodies and HIV-1 p24 antigen were NOT detected. There is no laboratory evidence of HIV infection.Performed By: #### HIV12 #### [place] [address] Dr. Samson SchumacherRPShelly QUANTon 81-63-9837Tkafd Plasma Reagin, QuantNon-Reactive NormalNonRea<1:1The [facility] on above:Result Comment: Please Note: This test does not meet current guidelines for screening and diagnosis of syphilis. This test is intended for following treatment response in patients being treated for syphilis infection. To screen for syphilis infection, a reflex cascade that includes both RPR and a treponema-specific assay should be utilized, such as Treponema pallidum (Syphilis) Screening Hubbard (237803) or Rapid Plasma Reagin (RPR) Test With Reflex to Quantitative RPR and Confirmatory Treponema pallidum Antibodies (968982).Performed By: #### RUBIGG #### [facility] [address] [place] [address] Dr. Samson Bolivar AB IGGon 93-94-5350Rxitbra Antibodies, IgG3.00 index NormalImmune >0.99[facility] HospitalComment on above:Result Comment: Non- immune <0.90 Equivocal 0.90 - 0.99 Immune >0.99Performed By: #### RUBIGG #### [facility] [address] [place] [address] Dr. Samson Heaton PREG TVon 97-40-9672JI PREG TVEXAMINATION: US PREG TV HISTORY: Missed [...] Electronically authenticated by: FABIAN MOSER Date: 2021-12-01 22:18[facility] AUTO DIFFon 27-59-5119VUHK #0.1 103/ulNormal0.0-0.1[facility] HospitalComment on above:Performed By: #### RUBIGG #### [facility] [address] [place] [address] Dr. Samson SchumacherBasophils/100 WBC (Bld)0.5 %Normal0.2-2.0[facility] Comment on above:Performed By: #### RUBIGG #### [facility] [address] [place] [address] Dr. Samson Dotson #0.1 103/ulNormal0.0-0.7The [facility] HospitalComment on above: Performed By: #### RUBIGG #### [facility] [address] [place] [address] Dr. Samson Griffithosinophils/100 WBC (Bld)0.6 %Critically low0.9-7.0The [facility] Glenbeighment on above:Performed By: #### RUBIGG #### [facility] [address] [place] [address] Dr. Samson Griffithrythrocyte distribution width (RBC) [Ratio]11.8 %Sdefmj38.0-15.0 The [facility] HospitalComment on above:Performed By: #### RUBIGG #### [facility] [address] [place] [address] Dr. Samson SchumacherHematocrit (Bld) [Volume fraction]41.6 %Vgcaof77.0-48.0The [facility] HospitalComment on above:Performed By: #### RUBANTONIG #### [facility] [address] [place] [address] Dr. Samson SchumacherHemoglobin (Bld) [Mass/Vol]13.9 g/oRLhfcop18.0-16.0The [facility] HospitalComment on above:Performed By: #### RUBANTONIG #### [facility] [address] [place] [address] Dr. Samson Delgado #0.03 10e3/ulNormal0.00-0.03The [facility] HospitalCommary [facility] hospital on above:Performed By: #### RUBANTONIG #### [facility] [address] [place] [address] Dr. Samson Delgado %0.3 %Normal0.0-0.5The [facility] HospitalComment on above: Performed By: #### RUBANTONIG #### [facility] [address] [place] [address] Dr. Samson UngerH #2.1 103/ulNormal1.2-3.8The [facility] on above:Performed By: #### RUBANTONIG #### [facility] [address] [place] [address] Dr. Samson Cantumphocytes/100 WBC (Bld)21.8 %Tbnlwb58.5-60.0The [facility] HospitalComment on above:Performed By: #### JYOTIG #### [facility] [address] [place] [address] Dr. Samson Valentino DIFF REQNONormalThe [facility] HospitalComment on above: Performed By: #### JYOTIG #### [facility] [address] [place] [address] Dr. Samson Wise (RBC) [Entitic mass]30.0 duQlsdvr00.7-34.0The [facility] HospitalComment on above:Performed By: #### JYOTIG #### [facility] [address] [place] [address] Dr. Samson Wise (RBC) [Mass/Vol]33.4 g/jXSyeuwh81.9-35.2The [facility] HospitalComment on above:Performed By: #### JYOTIG #### [facility] [address] [place] [address] Dr. Sasmon Harris (RBC) [Entitic vol]89.8 aXCzrulx55.0-99.0The [facility] HospitalComment on above:Performed By: #### JYOTIG #### [facility] [address] [place] [address] Dr. Samson Santos #0.6 103/ulNormal0.3-0.8The [facility] HospitalComment on above:Performed By: #### JYOTIG #### [facility] [address] [place] [address] Dr. Samson Ferreiraocytes/100 WBC (Bld)6.5 %Normal1.7-12.0[facility] Comment on above:Performed By: #### JYOTIG #### [facility] [address] [place] [address] Dr. Samson Vela #6.6 103/ulCritically high1.4-6.5The [facility] Comment on above:Performed By: #### JYOTIG #### [facility] [address] [address] [address] Samson Hairutrophils/100 WBC (Bld)70.3 %Drwclj84.0-75.0The [facility]ment on above:Performed By: #### RUBIGG #### [facility] [address] [place] [address] Dr. Samson SchumacherPlatelet mean volume (Bld) [Entitic vol]9.8 fLNormal9.5-13.5The [facility] HospitalCommary [facility] on above:Performed By: #### RUBIGG #### [facility] [address] [place] [address] Dr. Samson SchumacherPLT229 103/miWftoed702-712Jcr [facility] on above: Performed By: #### RUBIGG #### [facility] [address] [place] [address] Dr. Samson SchumacherRBC4.63 106/ulNormal4.20-5.40The [facility] on above:Performed By: #### RUBIGG #### [facility] [address] [place] [address] Dr. Samson SchumacherWBC9.4 103/ulNormal4.0-11.0The [facility] on above: Performed By: #### RUBIGG #### [facility] [address] [place] [address] Dr. Samson SchumacherCULTHÉCTOR URINEon 34-64-9616WWGSAMQ URINECulture Observations: MODERATE GROWTH OF MIXED GENITAL HUBER. NO POTENTIAL PATHOGENS SEEN.NormalThe [facility] HospitalCommary [facility] rehabilitation hospital on above:Performed By: #### RUBIGG #### [facility] [address] [place] [address] Dr. Samson SchumacherGLYCOHEMOGLOBIN A1Con 92-56-0332CUA RECOMMENDATIONSEE BELOWNormal The [facility] on above:Result Comment: ADA RECOMMENDED LIMIT 4.0 - 6.0 ADA THERAPEUTIC TARGET < 7.0 ACTION SUGGESTED > 7.0Performed By: #### A1C #### [facility] [address] [place] [address] Dr. Samson SchumacherGlucose [Mass/Vol]105 mg/dLNoMercy Health Lorain HospitalComment on above:Performed By: #### A1C #### [facility] [address] [address] [address] Samson SchumacherHbA1c (Bld) [Mass fraction]5.3 %Normal4.5-6.2[facility] HospitalComment on above:Performed By: #### A1C #### [facility] [address] [address] [address] Samson SchumacherTYPE AND SCREENon 05-16-4117LBBG AND SCREENNegativeNoMercy Health Lorain HospitalComment on above:Performed By: #### RUBIGG #### [facility] [address] [place] [address] Dr. Samson SchumacherKNEE LEFT 1 OR 2 VWSon 79-52-5211OOBJ LEFT 1 OR 2 SUniKettering HealthDepartment of Uzpxaojoh[address] [place] [address] Patien t Name: NIDIA SMITH : 1995Sex: FAge: Race: WhiteMRN: [id number]. Location: 84Patient Status: Date: 07/31/2017 10:20:00 AMCompleted Date: 07/31/2017 10:34 AMRequesting Provider: SHAN YUNG Attending Provider: Report Copy To: Signs & Symptoms: M25.562 Pain in left knee K20Wwemaez: AthenaComments: , , , Ordering Provider - SHAN YUNG MD , Exam: KNEE LEFT 1 OR 2 VWSAccession #: [id number] KNEE LEFT 1 OR 2 VWS 07/31/2017 [...] repair. Electronically signed by:Reta Salas. Transcribed by: [email or web address], User Resident: Electronically Signed by: RETA SALAS @ 07/31/2017 11:14 [facility] HospitalComment on above:Order Comment: , , , Ordering Provider - SHAN YUNG MD , Operative Reporton 19-64-2313Irettwaez ReportMR#: [id number] [facility] Pt. Name: Nidia Smith Room #: 0C Discharge 07/27/2017 Date: Birthdate: 1995 OPERATIVE REPORTDATE OF SURGERY: 07/27/2017SURGEON: Shan Yung M.D.COMPUTER NETWORK AND SYSTEMS ENGINEER: Shan Rodarte M.D.PREOPERATIVE DIAGNOSIS: Left knee ACL [...] left lower extremity. She will be given [place] for paincontrol, Colace, and aspirin for DVT prophylaxis. I will see her back inclinic in 4-5 days for initiation of physical therapy withaccelerated ACLprotocol.Electronically Signed by:Shan Yung M.D. 07/30/2017 11:36 A Shan Yung M.D.Date Dict: 07/27/2017/09:27 A/Shan Yung M.D.Date Trans:07/27/2017 07:56 P/mmoDN_JN:[id number]: Kiel Kelly D.O. [facility] BuenaventuraArturo [facility] [address]NsswfjCwwOhioHealth Marion General HospitalPO GLUCOSE LABon 07-27-2017 Glucose mass conc81 mg/uTJybdon71-935Kki [facility] Comment on above:Performed By: #### 61314 ####[facility] [place] [address], [facility] C[facility] SERVICESPO URINE PREGNANCYon 07-27-2017 HCG.beta subunit ( test) Ql (U)NegativeNormalNEGATIVEThe [facility] Children's Medical CenterComment on above:Result Comment: Performed in PACUPerformed By: #### 23298 ####[facility] [place] [address], USAHCG, Quanton 42-74-8124XFL, Quant<1Normal<5[facility] Comment on above:Result Comment: Non-preg premeno <=5Postmeno <=8Male <=3If HCG results do not concur with clinical observations, additional testing to confirm result is recommended. This test is not labeledfor use as a tumor marker.Performed at [address] [place] [address] ([phone] By: #### GLUF ####[address] [place] [address] #### FSH, LH, PROL, TEST ####[address] [place], [place] [id number] #### INSU ####[address] [place] [phone] , [place] 0031683 KNEE LEFT 4VWSon 15-34-8959ONPG LEFT 4VWSBarney Children's Medical CenterDepartment of Zfjgelqmk8492 [place] [address] Patien t Name: NIDIA SMITH : 1995Sex: FAge: Race: WhiteMRN: [id number]. Location: 84Patient Status: OVisit #: [id number] Date: 06/18/2017 1:05:00 PMCompleted Date: 06/18/2017 01:09 PMRequesting Provider: SHAN YUNG Attending Provider: SHAN YUNG Report Copy To: UNKNOWN, PHYSICIAN Signs & Symptoms: M25.562 Pain in left knee U99Kskyldn: AthenaComments: , , , Ordering Provider - SHAN YUNG MD , Exam: KNEE LEFT 4VWSAccession #: [id number] KNEE LEFT 4VWS 06/18/2017 1:09 PM EDT [...] seen. Electronically signed by:Mona Mckeon. Transcribed by: [email or web address], User Resident: Electronically Signed by: MONA MCKEON @ 06/18/2017 02:23 PMNormalOhioHealth Grant Medical CenterComment on above:Order Comment: , , , Ordering Provider - SHAN YUNG MD , Progesteroneon 24-23-1388Laxkwkpohyis79.40 ng/mLNormalCleveland Clinic Children'S Hospital For RehabilitationComment on above: Result Comment: FEMALE (healthy): Follicular phase 0.06-0.89 Ovulation phase 0.12-12.00 Luteal phase 1.83-23.90Postmenopausal <0.13Performed at [address] [address] [phone] By: #### GLUF ####[address] [place] [id number] #### FSH, LH, PROL, TEST ####[address] [address] #### INSU ####[address] [phone] [place] [address] Progress Noteon 10-54-0860WSX IP Note OR Automotive Parts Manager NormalCleveland Clinic Children'S Hospital For RehabilitationProgress Noteon 19-43-6649OFV IP Note OR TranscriptionNormalCleveland Clinic Children'S Hospital For RehabilitationHCG Screen, Bloodon 55-17-3719UGL Qn NegativeNormalNEGCleveland Clinic Children'S Hospital For RehabilitationComment on above:Result Comment: Performed at [address] [place] [address] Performed By: #### HCG ####[address] [place] [address] Progesteroneon 43-14-4184Cvclkxtlszeb<0.05Normal [facility] Hospital For RehabilitationComment on above:Result Comment: FEMALE (healthy): Follicular phase 0.06-0.89 Ovulation phase 0.12-12.00 Luteal phase 1.83- 23.90Postmenopausal <0.13Performed at [address] [address] [phone] By: #### PROG ####[address] [phone] Stim. Hormon 99-80-0705Bxyabmmk Stim. Horm5.8 U/LNormal1.7-21.5[facility] For RehabilitationComment on above:Result Comment: Reference Range:Male: 1.5-12.4Ovulating Female: Follicular Phase 3.5-12.5 OvulationPhase 4.7-21.5 Luteal Phase 1.7-7.7Postmenopausal Female: 25.8- 134.8Performed at [address] [address] [phone] By: #### GLUF ####[address] , [place] [id number] #### FSH, LH, PROL, TEST ####[address] [address] #### INSU ####[address] [phone] [address] [place], [place] [address] Glucose, Fastingon 01-06-2017 Glucose mass conc91 mg/wHKqswao10-13JedkoTriHealthComment on above:Result Comment: Performed at [address] [place], [place] [address] Performed By: #### GLUF ####[address] [place] [address] #### FSH, LH, PROL, TEST ####[address] [address] #### INSU ####[address] [phone] [address] [place] [phone] 49-23-5709Xhiiszp14.8 mU/LNLicking Memorial HospitalComment on above:Performed By: #### GLUF ####[address] [place] [address] #### FSH, LH, PROL, TEST ####[address] [address] #### INSU ####[address] [phone] [address] [place] [phone] Reference RangeNoHolzer HospitalComment on above: Result Comment: Fastin.6-24.930 min: 20-28574 min: 29-8890 min: 26-05527 min: 22-79Performed [address] [address] [phone] By: #### GLUF ####[address] [place] [address] #### FSH, LH, PROL, TEST ####[address] [address] #### INSU ####[address] [phone] [address] [place], [place] [phone] Info.A.M.NormalCleveland Clinic Children'S Hospital For RehabilitationComment on above:Result Comment: Performed at [address] [place] [address] [phone] By: #### GLUF ####[address] [place] [address] #### FSH, LH, PROL, TEST ####[address] [address] #### INSU ####[address] [phone] [address] [place], [place] [phone] Hormoneon 50-11-0704Bovjjpsigqy Hormone8.0 U/L Normal1.0-95.6MTriHealthComment on above:Result Comment: Reference Range:Male: 1.7-8.6Ovulating Female: Follicular Phase 2.4-12.6 Ovulation Phase 14.0-95.6 Luteal Phase 1.0-11.4Postmenopausal Female: 7.7-58.5Performed at [address] [address] [phone] By: #### GLUF ####[address] [place] [address] #### FSH, LH, PROL, TEST ####[address] [address] #### INSU ####[address] [phone] [address] [place], [place] [phone] 12-53-3875Sdfnbleaj86.98 ug/LNormal4.79-23.30 [facility] Hospital For RehabilitationComment on above:Result Comment: The presence of macroprolactin may cause interference in female patients with various endocrinological diseases or during .Performed at [address] [address] Performed By: #### GLUF ####[address] [place] [address] #### FSH, LH, PROL, TEST ####[address] [place] [phone]#### INSU ####[address] [place] [phone] [place] [address] Testosterone, Totalon 73-00-9508Crkyhzmorlej41 ng/kYKfwgps67-49WoknwCleveland Clinic Children'S Hospital For RehabilitationComment on above:Result Comment: Performed at [address] [address] [phone] By: #### GLUF ####[address] [place] [address] #### FSH, LH, PROL, TEST ####[address] [place] [phone]#### INSU ####[address] [place] [phone] [place] [address] Thyroid Stim. Horm.on 00-88-0520Jmcqbia stimulating hormone (TSH)1.68 m[IU]/LNormal 0.30-5.00C[facility] Hospital For RehabilitationComment on above:Result Comment: Performed at [address] [place] [address] Performed By: #### TSH ####[address] [place] [address] Vital Signs Date TimeVital SignValuePerforming DnyznnbplFgmimebb67-17-0148 08:44-0400Body mass index (BMI) [Ratio]36.99 kg/o0Fhyoz Chinedu DO Work Phone: [phone] [place], [place] [address]Kwfbqsggef74-71-5346 08:44-0400Body xztiul46.75 kgCorey Chinedu DO Work Phone: [phone])[facility] [place], [place] [address]Numesqmnjs36-35-8629 08:44-0400Diastolic blood fgfbhosm18 mm[Hg]Tim Chinedu DO Work Phone: 1(300)[facility] [place], [place] [address]Kvzffirvng00-33-7541 08:44-0400Systolic blood sjqozuwn847 mm[Hg]Tim Chinedu DO Work Phone: [phone])[address] [place], [place] 6209302-19-2025 15:13-0500Body mass index (BMI) [Ratio]36.01 kg/c7Vetmb Chinedu DO Work Phone: 1(563)[facility] [place], [place] [address]Uiioohnikm90-82-8410 15:13-0500Body nzsrki85.17 kgCorey Chinedu DO Work Phone: 1(666)[facility] [place], [place] [address]Hiqmhpudjg96-02-9262 15:13-0500Diastolic blood xxcuonbj79 mm[Hg]Tim Chinedu DO Work Phone: 1(200)[facility] [place], [place] [address]Jtmvdbvpka11-27-4204 15:13-0500Systolic blood mm[Hg]Tim Chinedu DO Work Phone: 1(133)[address] [place], [place] 6209308-22-2024 09:30-0400Body mass index (BMI) [Ratio]35.94 kg/i6Iyhmz Chinedu DO Work Phone: 1([phone])[address] [place], [place] 6209308-22-2024 09:30-0400Body jcbvas21.98 kgCorey Chinedu DO Work Phone: 1(069)[address] [place], [place] 6209308-22-2024 09:30-0400Diastolic blood oztmbbsj43 mm[Hg]Tim Chinedu DO Work Phone: [phone])[address] [place], [place] 6209308-22-2024 09:30-0400Systolic blood ixiiccby071 mm[Hg]Tim Chinedu DO Work Phone: 1(199)[facility] [place] [address] Encounters Encounter DateEncounter TypeCare ProviderFacilityStart: 11-04-2024 End: 38-34-6414Oapfzg flowsheetCorey Chinedu DO Work Phone: NOAJ Sergio OBGYNStart: 11-04-2024 End: 50-99-4955Oipwsa flowsheetCorey Chinedu DO Work Phone: NOIE Darby OBGYNStart: 11-04-2024 End: 54-20-3361Gqqooymfs Result EncounterCorey Chinedu DO Work Phone: noms External Department UnsolicitedStart: 11-04-2024 End: 61-91-1846rbfkvewigxAOBEX FAZIONot AvailableStart: 11-04-2024 End: 29-21-5578Ogehgrp encounter procedureCorey Chinedu DO Work Phone: NOAM HealthcareStart: 11-04-2024 End: 21-10-2771Bamuqpmi preventive med est patient 18-39 yrsCorey Chinedu DO Work Phone: NOGR Darby OBGYNComment on above:Well woman exam with routine gynecological examStart: 09-30-2024 End: 02-87-0439Cpvxhu flowsheetCorey Chinedu DO Work Phone: NOMS BCP OBStart: 09-30-2024 End: 33-68-8758Ymscar flowsheetCorey Chinedu DO Work Phone: noms BCP OBStart: 09-30-2024 End: 18-13-0999vzqjnkrkhbCCZXY FAZIONot AvailableStart: 09-30-2024 End: 38-04-0037Sgjdgl outpatient visit 15 minutesCorey Chinedu DO Work Phone: NOMS Sergio OBGYNComment on above:Menstrual cycle problem; Nausea and vomiting, unspecified vomiting typeStart: 05-13-2024 End: 68-65-8969Jfojcuqpp Result EncounterCorey Chinedu DO Work Phone: noms External Department UnsolicitedStart: 05-13-2024 End: 35-89-4585Skcsrykqk Result EncounterCorey Chinedu DO Work Phone: noms External Department UnsolicitedStart: 04-30-2024 End: 55-00-2945nhsrxtawtaRZTOU FAZIONot AvailableStart: 04-30-2024 End: 21-69-3798Jfcpvm outpatient visit 15 minutesCorey Chinedu DO Work Phone: NOZZ BCP OBComment on above:Encounter for fertility planning; AmenorrheaStart: 04-30-2024 End: 88-87-5762Nyawze flowsheetCorey Chinedu DO Work Phone: NOHQ BCP OBStart: 04-30-2024 End: 53-33-1613Wulwdh flowsheetCorey Chinedu DO Work Phone: NOYH BCP OBStart: 11-01-2023 End: 74-36-9504Rclhis flowsheetCorey Chinedu DO Work Phone: NOUY BCP OBStart: 11-01-2023 End: 24-06-5947Pvqwoj flowsheetCorey Chinedu DO Work Phone: noms BCP OBStart: 11-01-2023 End: 44-01-4096Slmyeewfl Result EncounterCorey Chinedu DO Work Phone: noms External Department UnsolicitedStart: 11-01-2023 End: 60-92-9527Elsdevb encounter procedureCorey Chinedu DO Work Phone: [facility] Work Phone: Start: 11-01-2023 End: 26-88-2203Wodrsgwn preventive med est patient 18-39 yrsCorey Chinedu DO Work Phone: NORJ BCP OBComment on above:Well woman exam with routine gynecological examStart: 03-02-2023 End: 71-84-0462Dbqoargxr Result EncounterCorey Chinedu DO Work Phone: noms External Department UnsolicitedStart: 03-02-2023 End: 17-14-4202Wdexymunv Result EncounterCorey Chinedu DO Work Phone: NOMS External Department UnsolicitedStart: 07-04-2022 End: 19-62-0466gumvheoxixFV TIM CHINEDU .Facility:Y6Xmayq: 01-10-2022 End: 97-94-6683cclxzpsdqhVY TIM CHINEDU .Facility:X7Xwqce: 01-01-2022 End: 51-78-3073ephcnfvyuuQA BOONE Garcia REINECKFacility:K9Ywdoe: 12-01-2021 End: 26-15-6979zdhjxpbrykYA TIM CHINEDU .Facility:U6Flwek: 08-10-2017 End: 38-38-3095ZetkpajlinCETURTEOC UNKNOWNFacility:UTMCStart: 07-31-2017 End: 33-99-4791GqwtwdyrqpWBCMWFDLE UNKNOWNFacility:UTMCStart: 07-27-2017 End: 45-36-3699CaqyctssapXXMLHHOO SELFFacility:UTMCStart: 07-17-2017 End: 25-54-5720XiyfhmpdldSOATVC F DORIS BECERRATRONGMercanne-marie Java HospitalStart: 07-17-2017 End: 72-11-1444RnzpvkwkqmGQZAH MILLERFacility:UTMCStart: 06-18-2017 End: 54-37-3635PafpcqadeoWJFTY MILLERFacility:UTMCStart: 06-12-2017 End: 34-71-9823GkvenlstxmBWHIUXB PHYSICIANFacility:UTMCStart: 05-15-2017 End: 77-78-8054OtdysdrdpmUYBUF MICHELLE SMITHMercy Java HospitalStart: 04-12-2017 End: 31-93-2894TagdaiqhdqYFAUWMCKAYLA Palomofin HospitalStart: 02-14-2017 End: 87-30-9202PvsgaokisvMGWJW MICHELLE SMITHMercy Java HospitalStart: 01-06-2017 End: 77-56-1684CsqiddajafOXZJD MICHELLE SMITHMercy Java Hospital Procedures DateProcedureProcedure DetailPerforming ClinicianStart: 21-50-7688CUK,APTIMA HPV,AGE GDLNCorey Chinedu DO Work Phone: Start: 72-69-5744PKA PROLACTINCorey Chinedu DO Work Phone: Start: 40-19-3775HVP,APTIMA HPV,AGE GDLNCorey Chinedu DO Work Phone: Start: 10-98-9489Oyzx cerv/vag auto thin layer prep mnl screenCorey Chinedu DO Work Phone: Start: 71-44-4851Th uterus limited 1/> fetusesCorey Chinedu DO Work Phone: Start: 71-04-1672IZRSHH KNEE JOINT SURGERYTHOMAS A ROONEYStart: 35-84-6833WPIQ ARTHROSCOPY/SURGERYJACOB MILLERStart: 07-17-2017 Gonadotropin chorionic quantitativeSUSAN SMITHStart: 89-64-4387LXDZYBGZSBCNXXXCI SMITHStart: 16-68-6351OYS, SERUM, QUALITATIVESUSAN SMITHStart: 02-14-2017 PROGESTERONESUSAN SMITHStart: 57-78-6759ONQ WITHOUT REFLEXSUSAN SMITHStart: 18-73-5176YQKDCKBX STIMULATING HORMONESUSAN SMITHStart: 78-38-4295DXNBEXJ, FASTINGSUSAN SMITHStart: 50-46-4805AKJYBOK, TOTALSUSAN SMITHStart: 01-06-2017 LUTEINIZING HORMONESUSAN SMITHStart: 00-19-8867KGTBTOKLNSYVOE SMITHStart: 69-94-4336MEGPIBWNDNSDBJNZZ SMITH Plan of Treatment DateCare ActivityDetailAuthorStart: 11-09-2025 End: 15-84-9759Rzicquq encounter intaeqzuw15/31/2026 8:30 AM EDT Procedure Visit [facility] JAUREGUI [address] [place] [address] Tim Che, DO [address] [place] [address] [facility] Sergio ASHTONGYNStart: 11-04-2024 End: 18-83-0866Qzclmao encounter procedureNOMS BCP OBStart: 11-01-2023 End: 06-78-7556Zgashxr encounter krtflmuny36/22/2024 9:20 AM EDT Office Visit [facility] [address] [place] [phone] Tim Che, DO [address] [place] [address] ArrivedNOME BCP OBComment on above:ArrivedCytology Cervical or vaginal smear or scraping studyPap Smear Pathology and Cytology Routine Well woman exam with routine gynecological exam Ordered: 11/01/2023[facility] Work Phone: comment on above:Ordered: 11/01/2023ytology Cervical or vaginal smear or scraping studyPap Smear Pathology and Cytology Routine Well woman exam with routine gynecological exam Ordered: 11/04/2024[facility] Work Phone: comment on above:Ordered: 11/04/2024ProlactinProlactin Lab Routine Amenorrhea Ordered: 04/30/2024[facility] Work Phone: Comment on above:Ordered: 04/30/2024 Payers DatePayer CategoryPayerPolicy [id number] Corporation [id number] [id number] [id number]. [id number] 2.16.840.1.175155.3.57[id number] 2.16.840.1.387975.3.57[id number] 2.16.840.1.593360.3.57[id number] 2..0.1.304839.3.57[id number] 2.16.840.1.892044.3.57[id number] 2.16.840.1.337525.3.579.2.30[id number] Social History DateTypeDetailFacilityStart: 33-36-7516Rlebymi smoking status NHISNever smoked tobaccoNOMS HealthcareStart: 39-64-7468Afsbzah use and exposureSmokeless tobacco non-userNOMS HealthcareStart: 02-20-2023 End: 33-19-2042Hsivpycjx beverage intakeEx-drinker (finding)[facility] Start: 08-10-2022 End: 18-76-9327Dybfvrt of Social functionNOMS HealthcareStart: 08-10-2022 End: 74-82-1392Rticilr use panelNOMS HealthcareStart: 77-58-0077Hlsnnjp Comment caffeine intake: 1 cup per day of coffeeNOMS HealthcareStart: 34-33-4583Elc assigned at birthFeCranberry Specialty Hospital HealthcareStart: 93-40-6153Ywhpok identityIdentifies as female gender (finding)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 Exam conducted with a supervisor stripping present. Vitals: Estimated body mass index is [...] have them. Patient canalso view results via barcoo. 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 Exam conducted with a supervisor stripping present. Vitals: Estimated body mass index is [...] with pt. Discussed adding metformin back to surveyor helper rod in ovulation. Pt to start metformin. Pt to return as needed. Documented by Kayleigh Donnelly LPN on behalf of: Tim Che DO documented in this encounterNOMS Healthcare History of Present illness Narrative 04-30-2024 Note Date & [id number] History of Present illness Narrative* Kayleigh Donnelly [...] nursing note reviewed. Exam conducted with a supervisor stripping present. Vitals: Estimated body mass index is [...] Present illness Narrative 11-01-2023 Note Date & NrweDuscVvkkdxea83-33-4389 History of Present illness Narrative* Danya Dooley [...] nursing note reviewed. Exam conducted with a supervisor stripping present. Vitals: Estimated body mass index is [...] of: Tim Che DO documented in this encounterNOME Healthcare Evaluation note Note Date & TypeNoteFacilityEvaluation [...] section and content) DATE CREATED AUTHOR 08/30/2017 [facility] DATE CREATED AUTHOR AUTHOR'S ORGANIZ ATION 09/14/2017 [facility] DATE CREATED AUTHOR AUTHOR'S ORGANIZ ATION 07/12/2022 [facility] DATE CREATED AUTHOR AUTHOR'S ORGANIZ ATION 11/05/2024 [facility] EPIC Care Teams (unrecognized sec tion and content) Team MemberRelationshipSpecialtyStart DateEnd Date Jamin Massey MD [address] [place] [address] PCP - GeneralFamily Medicine08/10/22Team MemberRelationshipSpecialtyStart DateEnd Date Jamin Massey MD [address] [place] [address] PCP - GeneralFamily Medicine08/10/22Team MemberRelationshipSpecialtyStart DateEnd Date Jamin Massey MD [address] [place] [address] [facility]/22Team MemberRelationshipSpecialtyStart DateEnd Date Jamin Massey MD [address] [place] [address] [facility] - [facility]08/10/22Team MemberRelationshipSpecialtyStart DateEnd Date Jamin Massey MD [address] [place] [address] PCP - [facility]08/10/22Team MemberRelationshipSpecialtyStart DateEnd Date Jamin Massey MD [address] [place] [address] PCP - [facility]08/10/22Team MemberRelationshipSpecialtyStart DateEnd Date Jamin Massey MD [address] [place] [address] [facility] - [facility]08/10/22Team MemberRelationshipSpecialtyStart DateEnd Date Jamin Massey MD [address] [place] [address] [facility] - [facility]22 Reason for Visit (unrecogniz ed [...] BE BASED ON THE PRIMARY CLINICAL RECORDS. [facility]. provides no warranty or guarantee of the accuracy or completeness of information in this document.
--- OUTSIDE RECORDS SUMMARY | 2025-01-30 08:39 | XMS_ITS | Clinical Summary ---
Author Organization [facility] Address [address], [address] [place] [address] Care Team Providers Care Chemical Mixer Name Role Phone Kiel Kelly Primary Care Provider Allergies No known active allergies Medications MedicationSigDispense QuantityRefillsLast FilledStart DateEnd DateStatus metFORMIN (GLUCOPHAGE XR) 500 MG extended release tablet Indications:Anovular menstruationTake 3 tablets by mouth daily 90 tablet Active clomiPHENE (CLOMID) 50 MG tablet Take 1 tablet by mouth daily Day #3-#7 5 tablet Active Active Problems No known active problems Immunizations ImmunizationAdministration DatesNext DueMeningococcal ACWY Crjfnaq0306/08/2011, 04/13/2011TDaP, ADACEL (age 10y-64y), BOOSTRIX (age 10y+), IM, 0.5mL2014 Family History Medical HistoryRelationNameCommentsBreast CancerMaternal GrandmotherOtherOtherNo family h/o ovarian cancer. No family h/o DVT.RelationNameStatusCommentsBrother 1 AliveBrother 2AliveFatherAliveMaternal GrandfatherDeceasedMaternal Grandmother DeceasedMotherAliveOtherOtherPaternal GrandfatherDeceasedPaternal Grandmother AliveSisterAlive Social History Tobacco UseTypesPacks/DayYears UsedDateSmoking Tobacco: NeverSmokeless Tobacco: NeverAlcohol UseStandard Drinks/WeekCommentsNo0 (1 standard drink = 0.6 oz pure alcohol)CommentsNoSex and Gender InformationValueDate RecordedSex Assigned at BirthNot on fileLegal RhtGmsupe78/10/2013 5:10 PM ESTGender Identity Not on fileSexual OrientationNot on file Last Filed Vital Signs Vital SignReadingTime TakenCommentsBlood Smziowgn243/7805 3:33 PM EDT Rumhw046404/05/2015 7:10 PM LNCXcfumwagqfd06.7 ??C (99.9 ??F)04/05/2015 7:10 PM ESTRespiratory Begd306104/05/2015 7:10 PM ESTOxygen Cpxetqzbmt72%04/05/2015 7:10 PM ESTInhaled Oxygen Concentration--Dkkpyn08.5 kg (190 lb 9.6 oz)07/17/2017 3:33 PM VBSHlfcao866.6 cm (5' 4 )07/17/2017 3:33 PM EDTBody Mass Index32.72007/17/2017 3:33 PM EDT Plan of Treatment Not on file Insurance Care Teams Team MemberRelationshipSpecialtyStart DateEnd Date Kiel Kelly DO [address] [place] [phone] PCP - General04/05/15
--- NOTE | 2025-01-30 08:40 | US_ITS ---
The [address] [address] Patient Name: LOUISE BROTHERS MRN: [id number] date: 1995 Sex: F Assigned Patient Location: [place] Current Patient Location: [place] Accession/Order Number: [id number] Exam Date: 01/30/2025 08:41 Report Date: 01/30/2025 09:47 At the request of: SHARI ROSEN MD Procedure: US right upper quadrant LIMITED RIGHT UPPER QUADRANT WHICH ABDOMINAL ULTRASOUND CLINICAL HISTORY: Right Upper Quadrant Abdominal Pain, nausea and vomiting for the past 6 months COMPARISON: None The gallbladder is physiologically distended without shadowing calculi, wall thickening or pericholecystic fluid. No intra- or extrahepatic biliary dilatation is evident. The common duct measures 1 - 2 mm. The liver is normal in echogenicity. No intrahepatic masses are seen. There is appropriate hepatopetal flow within the main portal vein. The pancreas shows no significant sonographic abnormality. Cursory evaluation of the right kidney reveals no hydronephrosis or fluid within Ramirez's pouch. US/US right upper quadrant IMPRESSION: NEGATIVE ULTRASOUND OF THE RIGHT UPPER QUADRANT. Impression dictated by: Kayleigh Young M.D. 01/30/2025 9:47 AM Dictation Location: [place] [address] Electronically authenticated by: [id number] Y Date: 01/30/2025 09:47
== END 2025-01-30 08:37 | disposition home or self-care (01) ==
LOC: US 08:36
PROVIDERS: PCP Family Medicine; Visit Provider Family Medicine
DX: R10.11 Right upper quadrant pain (principal)
CPT/HCPCS: 76705